=== PATIENT | female | born 1960 | race Two or more races ===

== ENCOUNTER 2023-08-08 18:45 | Inpatient (IN) | payer BC, MEDICAID, OTHER ==
[~2023-08-08] VITALS: Ht 170.2 cm; Wt 79.6 kg
[2023-08-08 19:14] LABS: Basophils # (auto) 0.1 10 ^3/uL (0-0.2); Basophils % (auto) 1.2 % (0.0-2.0); Eosinophils # (auto) 0.3 10 ^3/uL (0-0.8); Eosinophils % (auto) 6.1 % (0.0-7.0); Hematocrit 37.6 % (36.0-46.0); Hemoglobin 12.7 g/dL (12.2-16.2); Lymphocytes # (auto) 2.1 10 ^3/uL (0.4-5.4); Mean Corpuscular Hemoglobin 30.6 pg (28.0-32.0); Mean Corpuscular Hgb Conc. 33.6 g/dL (32.0-36.0); Mean Corpuscular Volume 90.9 fL (80.0-100.0); Monocytes # (auto) 0.5 10 ^3/uL (0-1.3); Neutrophils # (auto) 2.4 10 ^3/uL (1.6-8.6); Neutrophils % (auto) 44.7 % (37.0-80.0); Nucleated Red Blood Cells % 0.1 %; Red Blood Cells 4.14 10^6/uL (4.0-5.20); Red Cell Distribution Width 13.9 % (11.8-14.3); White Blood Cell 5.3 10^3/uL (4.4-10.8)
[2023-08-08 19:29] LABS: Chloride 90 mmol/L (98-107); Potassium 3.9 mmol/L (3.5-5.1); Sodium 121 mmol/L (136-145)
[2023-08-08 19:30] LABS: Anion Gap 9 (5-15); Calcium 9.6 mg/dL (8.7-10.4); Carbon Dioxide 22 mmol/L (20-30)
[2023-08-08 19:35] LABS: Glucose 87 mg/dL (74-106)
[2023-08-08 19:37] LABS: BUN/Creatinine Ratio 11.1 (10.0-20.0); Blood Urea Nitrogen < 5 mg/dL (9-23)
[2023-08-08 23:40] VITALS: PULSE 98; RESP 13; O2SAT 95
[2023-08-08] MEDS: ONDANSETRON HCL 4 MG/2 ML VIAL IV ONE (23:43)
[2023-08-08] MEDS: HYDROmorphone HCL 2 MG/ML VL/or syr IV ONE (23:44)
[2023-08-09 01:00] LABS: Urine Bacteria None Seen /hpf (None Seen)
[2023-08-09 01:16] LABS: Urine Blood Negative /uL (Negative); Urine Clarity Clear (Clear); Urine Protein, UAD Negative (Negative); Urine Specific Gravity 1.002 (1.001-1.035); Urine Urobilinogen Normal (Negative); Urine WBC <1 /hpf (0 - 5); Urine pH 5.5 (5.0-9.0)
[2023-08-09 01:25] LABS: Urine Color Straw (Yellow)
[2023-08-09] MEDS: HYDROmorphone HCL 2 MG/ML VL/or syr IV ONE (02:26)
[2023-08-09] MEDS ORDERED: hydrALAZINE HCL 20 MG/ML VL IV PRN (02:30)
[2023-08-09] MEDS ORDERED: ONDANSETRON HCL 4 MG/2 ML VIAL IV PRN (02:30)
[2023-08-09] MEDS ORDERED: MORPHINE SULFATE INJ 2 MG/ml SYRG IV PRN ×2 (02:30→05:00)
[2023-08-09] MEDS ORDERED: ACETAMINOPHEN 325 MG TAB PO PRN (02:30)
[2023-08-09] MEDS ORDERED: DOCUSATE SOD 100 MG CAP PO PRN (02:30)
[2023-08-09] MEDS: D5W/SOD CHLO 0.9% 1,000 ML IV SCH (03:07)
[2023-08-09] MEDS ORDERED: NITROGLYCERIN 0.4 MG SL TAB SL PRN (05:00)
[2023-08-09] MEDS: HYDROcodone-ACET 5/325MG TAB PO PRN (05:36)
[2023-08-09 06:31] LABS: Basophils # (auto) 0.1 10 ^3/uL (0-0.2); Basophils % (auto) 1.1 % (0.0-2.0); Eosinophils # (auto) 0.3 10 ^3/uL (0-0.8); Eosinophils % (auto) 5.8 % (0.0-7.0); Hematocrit 35.7 % (36.0-46.0); Hemoglobin 12.3 g/dL (12.2-16.2); Lymphocytes % (auto) 21.6 % (10.0-50.0); Mean Corpuscular Hemoglobin 31.3 pg (28.0-32.0); Mean Corpuscular Hgb Conc. 34.4 g/dL (32.0-36.0); Mean Corpuscular Volume 90.9 fL (80.0-100.0); Monocytes # (auto) 0.5 10 ^3/uL (0-1.3); Monocytes % (auto) 11.7 % (0.0-12.0); Neutrophils # (auto) 2.8 10 ^3/uL (1.6-8.6); Neutrophils % (auto) 59.8 % (37.0-80.0); Red Blood Cells 3.92 10^6/uL (4.0-5.20); Red Cell Distribution Width 13.9 % (11.8-14.3); White Blood Cell 4.6 10^3/uL (4.4-10.8)
[2023-08-09 06:50] LABS: Albumin 4.3 g/dL (3.2-4.8); Alkaline Phosphatase 64 U/L (46-116); Anion Gap 6 (5-15); Aspartate Aminotransferase 14 U/L (13-40); Calcium 10.1 mg/dL (8.7-10.4); Carbon Dioxide 26 mmol/L (20-30); Chloride 94 mmol/L (98-107); Glucose 88 mg/dL (74-106); INR 1.01 (0.9-1.15); Partial Thromboplastin Time 30.3 SEC (24.5-34.5); Potassium 4.1 mmol/L (3.5-5.1); Prothrombin Time 10.7 sec (9.3-11.8)
[2023-08-09 06:51] LABS: Alanine Aminotransferase < 9 U/L (7-40); Bilirubin, Total 0.3 mg/dL (0.2-1.0); Blood Urea Nitrogen < 5 mg/dL (9-23); Sodium 126 mmol/L (136-145); Total Protein 6.9 g/dL (5.7-8.2)
[2023-08-09] MEDS: ENOXAPARIN SOD 40 MG/0.4 ML SYRINGE SC SCH (10:12)
[2023-08-09 13:00] VITALS: BP 159/82; PULSE 91; RESP 18; TEMP 98.1; O2SAT 98
[2023-08-09] MEDS ORDERED: TRAZ-227 PO (13:24)
[2023-08-09] MEDS ORDERED: CYCL-839 PO (13:24)
[2023-08-09] MEDS ORDERED: DULO20CA PO (13:24)
[2023-08-09] MEDS ORDERED: LOSA-533 PO (13:24)
[2023-08-09] MEDS ORDERED: MELA3TAB27 PO (13:24)
[2023-08-09] MEDS ORDERED: MONT-8 PO (15:02)
[2023-08-09] MEDS ORDERED: CYCL-611 PO (15:02)
[2023-08-09] MEDS ORDERED: LOSA-534 PO (15:02)
[2023-08-09] MEDS ORDERED: DULO1CAP4 PO (15:02)
[2023-08-09] MEDS ORDERED: ATEN25TA PO (15:02)
[2023-08-09] MEDS ORDERED: CYCLOBENZAPRINE HCL 10 MG TAB PO PRN (15:15)
[2023-08-09 16:32] LABS: Erythrocyte Sedimentation Rate 8 mm/hr (0-20)
[2023-08-09 17:00] VITALS: BP 144/84; PULSE 107; RESP 18; TEMP 98.6; O2SAT 98
[2023-08-09] MEDS: HYDROcodone-ACET 10/325MG TAB PO PRN (17:29)
[2023-08-09 20:00] VITALS: BP 148/72; PULSE 93; PULSE 95; RESP 16; TEMP 98.4
[2023-08-09 21:00] VITALS: BP 148/72; PULSE 94; RESP 16; TEMP 98.4; O2SAT 97
[2023-08-10] VITALS (9 sets, daily range): BP systolic 124–145; BP diastolic 65–88; PULSE 80–98; RESP 18–94; TEMP 98–98.6; O2SAT 94–99
[2023-08-10 07:30] LABS: Basophils # (auto) 0 10 ^3/uL (0-0.2); Basophils % (auto) 0.9 % (0.0-2.0); Eosinophils # (auto) 0.3 10 ^3/uL (0-0.8); Eosinophils % (auto) 7.1 % (0.0-7.0); Hematocrit 36.6 % (36.0-46.0); Hemoglobin 12.3 g/dL (12.2-16.2); Lymphocytes % (auto) 25.1 % (10.0-50.0); Mean Corpuscular Hemoglobin 30.4 pg (28.0-32.0); Mean Corpuscular Hgb Conc. 33.6 g/dL (32.0-36.0); Mean Corpuscular Volume 90.7 fL (80.0-100.0); Monocytes # (auto) 0.6 10 ^3/uL (0-1.3); Monocytes % (auto) 14.8 % (0.0-12.0); Neutrophils % (auto) 52.1 % (37.0-80.0); Nucleated Red Blood Cells % 0.1 %; Red Blood Cells 4.04 10^6/uL (4.0-5.20); Red Cell Distribution Width 14.3 % (11.8-14.3); White Blood Cell 3.8 10^3/uL (4.4-10.8)
[2023-08-10 07:46] LABS: Albumin 4.1 g/dL (3.2-4.8); Alkaline Phosphatase 67 U/L (46-116); Anion Gap 7 (5-15); Aspartate Aminotransferase 11 U/L (13-40); BUN/Creatinine Ratio 12.5 (10.0-20.0); Bilirubin, Total 0.4 mg/dL (0.2-1.0); Blood Urea Nitrogen 8 mg/dL (9-23); Calcium 10.3 mg/dL (8.7-10.4); Carbon Dioxide 26 mmol/L (20-30); Chloride 94 mmol/L (98-107); Glucose 124 mg/dL (74-106); Sodium 127 mmol/L (136-145); Total Protein 6.8 g/dL (5.7-8.2)
[2023-08-10 07:47] LABS: Alanine Aminotransferase < 9 U/L (7-40)
[2023-08-10] MEDS: ATENOLOL 25 MG TAB PO SCH (09:27)
[2023-08-10] MEDS: LOSARTAN POTASSIUM 25 MG TAB PO SCH (09:27)
[2023-08-10] MEDS: DULoxetine HCL 30 MG CAP PO SCH (21:16)
[2023-08-10] MEDS: ALPRAZolam 0.25 MG TAB PO PRN (21:17)
[2023-08-11] VITALS (7 sets, daily range): BP systolic 124–156; BP diastolic 45–99; PULSE 56–86; RESP 16–20; TEMP 97.5–98.7; O2SAT 93–96
[2023-08-11] MEDS: diphenhdrAMINE HCL 50 MG/1 ML VL IV ONE (11:04)
[2023-08-12 08:00] VITALS: PULSE 72; RESP 17; O2SAT 95
[2023-08-12 09:00] VITALS: BP 137/80; PULSE 72; RESP 17; TEMP 97.9; O2SAT 95
[2023-08-12 13:00] VITALS: BP 129/83; PULSE 77; RESP 17; TEMP 98; O2SAT 93
[2023-08-12] MEDS ORDERED: CYCL-837 PO (15:36)
[2023-08-12 16:54] VITALS: BP 137/80; PULSE 72; RESP 17; TEMP 97.9; O2SAT 95
== END 2023-08-12 20:25 | disposition home or self-care (01) | DRG 536 ==
LOC: EDBD 18:45 → ER 18:45 → EEVIPCON 18:45 → TELE 08-09 04:47 → TELE-WESTW 08-09 10:02 → WEST WING 08-09 15:09
PROVIDERS: ADMIT Nurse Practitioner Acute Care; ATTEND Nurse Practitioner Acute Care
DX: S72.112A Displaced fracture of greater trochanter of left femur, initial encounter for closed fracture (principal); E87.1 Hypo-osmolality and hyponatremia; I10 Essential (primary) hypertension; F32.A Depression, unspecified; J44.9 Chronic obstructive pulmonary disease, unspecified; Z96.641 Presence of right artificial hip joint; Z96.653 Presence of artificial knee joint, bilateral; F17.210 Nicotine dependence, cigarettes, uncomplicated; X58.XXXA Exposure to other specified factors, initial encounter; Y93.01 Activity, walking, marching and hiking; Z74.01 Bed confinement status; Z88.8 Allergy status to other drugs, medicaments and biological substances; Z85.3 Personal history of malignant neoplasm of breast; Z90.710 Acquired absence of both cervix and uterus; Z90.49 Acquired absence of other specified parts of digestive tract; Z88.6 Allergy status to analgesic agent; Z83.3 Family history of diabetes mellitus; Z82.49 Family history of ischemic heart disease and other diseases of the circulatory system; Y92.89 Other specified places as the place of occurrence of the external cause; Y99.8 Other external cause status; Z80.1 Family history of malignant neoplasm of trachea, bronchus and lung
CPT/HCPCS: 36415; 73700; 80048; 80053; 81001; 85025; 85610; 85652; 85730; 86141; 93971; 96374; 96375; 97110; 97116; 97163; 97530; G0378; J2405

== ENCOUNTER 2024-05-01 10:07 | Inpatient (IN) | payer BC, MEDICAID ==
[2024-05-01] VITALS (27 sets, daily range): BP systolic 83–142; BP diastolic 45–81; PULSE 118–158; RESP 18–45; TEMP 98.4–100.4; O2SAT 87–100
[~2024-05-01] VITALS: Ht 170.2 cm; Wt 95.2 kg
[~2024-05-01 10:07] MED LIST: ATEN25TA PO; CYCL-611 PO; CYCL-837 PO; CYCL-839 PO; DULO1CAP4 PO; DULO20CA PO; LOSA-533 PO; LOSA-534 PO; MELA3TAB27 PO; MONT-8 PO; TRAZ-227 PO
--- NOTE | 2024-05-01 11:36 | DVH ---
CHEST RADIOGRAPH Indication: sob Technique: Single frontal view of the chest was obtained Comparison: None FINDINGS: Lines and Tubes: None Lungs: Left upper lung zone opacity. Pleura: No effusion. No pneumothorax. Cardiomediastinal contours: Unremarkable Bones: No acute osseous abnormality. IMPRESSION: 1. Left upper lung zone opacity suspicious for pneumonia in the appropriate clinical setting.
--- NOTE | 2024-05-01 11:40 | ED.PDOC ---
Altered Mental Status HPI Comments 63Y F with PMHx COPD, HTN, CA, appendectomy, and hysterectomy presents to ED via EMS for chief complaint SOB x3days. No chest pain. Per EMS, pt has been bed bound for 10 months and is unable to answer questions. Pt presents to ED with multiple bed bug bites on body. SpO2 78% on RA. 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 DEVELOPER 08/12/23 Reported Medications Losartan Potassium (Losartan Potassium) 50 Mg Tab, 1 TAB PO DAILY 08/09/23 Atenolol (Atenolol) 25 Mg Tab, 1 TAB PO DAILY 08/09/23 Cyclobenzaprine HCl (Cyclobenzaprine Hydrochlo) 10 Mg Tab, 1 TAB PO BIDPRN PRN 08/09/23 Montelukast Sodium (MONTELUKAST SODIUM) 10 Mg Tab, 1 TAB PO DAILY 08/09/23 Duloxetine HCl (Duloxetine HCl) 20 Mg Cap, 1 CAP PO BID 08/09/23 Melatonin (KP MELATONIN) 3 Mg Tab, 10 MG PO for sleep, TAB 08/09/23 Trazodone Hcl (Trazodone Hcl) 50 Mg Tab, 50 MG PO for sleep, TAB 08/09/23 Losartan Potassium (Losartan Potassium) 25 Mg Tab, 25 MG PO DAILY for 30 Days, MG 08/09/23 Cyclobenzaprine Hcl (Cyclobenzaprine Hcl) 10 Mg Tab, 10 MG PO Q8HP PRN for htn for 30 Days, MG 08/09/23 Duloxetine Hcl (Cymbalta) 20 Mg Cap, 20 MG PO BID, CAP 08/09/23 Information Source: Patient, Emergency Med Personnel Mode of Arrival: EMS Brought in by: EMS Severity: Moderate, Unable to Care for Self Timing: Days Duration: Since onset Prehospital treatment: 12 Lead EKG, Accucheck, IVF, Oxygen Quality: Change in Behavior, Confusion Recent: None History of: None Associated Signs and Symptoms: Other Past Medical History PAST MEDICAL HISTORY: Cancer, COPD, HTN Surgical History: Appendectomy, Hysterectomy SLEEP MANAGER History: No Pertinent SLEEP MANAGER History Family History Family History: Family hx of DM, Family hx of Cancer, Family hx of heart chichi Social History Smoker: Cigarettes Alcohol: Occasionally Drugs: Marijuana Lives In: Unobtainable Constitutional: denies: chills, diaphoresis, fatigue, fever, malaise, sweats, weakness, others EENTM: denies: blurred vision, double vision, ear bleeding, ear discharge, ear drainage, ear pain, ear ringing, eye pain, eye redness, hearing loss, mouth pain, mouth swelling, nasal discharge, nose bleeding, nose congestion, nose pain, photophobia, tearing, throat pain, throat swelling, voice changes, others Respiratory: reports: shortness of breath; denies: cough, hemoptysis, orthopnea, SOB at rest, SOB with excertion, stridor, wheezing, others Cardiovascular: denies: chest pain, dizzy spells, diaphoresis, Dyspnea on exertion, edema, irregular heart beat, left arm pain, lightheadedness, palpitations, PND, syncope, others Gastrointestinal: denies: abdomen distended, abdominal pain, blood streaked bowels, constipated, diarrhea, dysphagia, difficulty swallowing, hematemesis, melena, nausea, poor appetite, poor fluid intake, rectal bleeding, rectal pain, vomiting, others Genitourinary: denies: abnormal vagina bleeding, burning, dyspareunia, dysuria, flank pain, frequency, hematuria, incontinence, pain, , vagina discharge, urgency, others Neurological: denies: dizziness, fainting, headache, left sided numbness, left sided weakness, numbness, paresthesia, pre-existing deficit, right sided numbness, right sided weakness, seizure, speech problems, tingling, tremors, weakness, others Musculoskeletal: reports: others (LLE pain); denies: back pain, gout, joint pain, joint swelling, muscle pain, muscle stiffness, neck pain Integumetry: denies: bruises, change in color, change in hair/nails, dryness, laceration, lesions, lumps, rash, wounds, others Allergic/Immunocompromised: denies: Difficulty Healing, Frequent Infections, Hives, Itching, others Hematologic/Lymphatic: denies: anemia, blood clots, easy bleeding, easy bruising, swollen glands, others Endocrine: denies: excessive hunger, excessive sweating, excessive thirst, excessive urination, flushing, intolerance to cold, intolerance to heat, unexplained weight gain, unexplained weight loss, others Psychiatric: denies: anxiety, bipolar disorder, depression, hopeless, panic disorder, schizophrenia, sleepless, suicidal, others Unable to Obtain due to: Altered Mental Status All Other Systems: Reviewed and Negative Physical Exam General Appearance: Moderate Distress HEENT: Normal ENT Inspection, Pharynx Normal, TMs Normal Neck: Full Range of Motion, Non-Tender, Normal, Normal Inspection Respiratory: Chest Non-Tender, Lungs Clear, Other (Scattered crackles, wet breath sounds, moderate respiratory distress and tachypneic to the high 30s) Cardiovascular: No JVD, No Murmur, No Gallop, Normal Peripheral Pulses, Regular Rate/Rhythm, Other (1+bilateral lower extremity edema) Breast Exam: Deferred Gastrointestinal: No Organomegaly, Non Tender, No Pulsatile Mass, Normal Bowel Sounds, Soft Genitalia: Deferred Pelvic: Deferred Rectal: Deferred Extremities: No calf tenderness, Normal capillary refill, Normal inspection, Normal range of motion, Non-tender, No pedal edema Musculoskeletal : Apperance: Normal Neurologic: Alert, plant health care technician II-XII nml as Tested, No Motor Deficits, Normal Affect, Normal Mood, No Sensory Deficits Cerebellar Function: Normal Reflexes: Normal Skin: Dry, Normal Color, Warm Lymphatic: No Adenopathy Was a procedure done? Was a procedure done?: No Differential Diagnosis (ALOC) Differential Diagnosis: Dehydration, Heart Failure X-Ray, Labs, Meds, VS Vital Signs Date Time Temp Pulse Resp B/P (MAP) Pulse Ox O2 Delivery O2 Flow Rate FiO2 05/01/24 12:42 80/37 05/01/24 12:40 80/37 05/01/24 12:12 98.7 158 45 109/69 92 100 98.7 05/01/24 11:48 109/69 05/01/24 11:48 109/05/01/24 11:35 158 05/01/24 11:32 132 Facial BiPAP Mask 100 05/01/24 11:03 157 45 87 Non-Rebreather 15 N/A 05/01/24 10:47 98.7 157 45 120/61 (80) 86 98.7 05/01/24 10:18 97.3 156 20 105/53 (70) 100 Lab Test 05/01/24 11:52 05/01/24 11:04 Range/Units White Blood Count 11.6 H 4.4-10.8 10^3/uL Red Blood Count 3.42 L 4.0-5.20 10^6/uL Hemoglobin 11.0 L 12.2-16.2 g/dL Hematocrit 32.8 L 36.0-46.0 % Mean Corpuscular Volume 96.2 80.0-100.0 fL Mean Corpuscular Hemoglobin 32.1 H 28.0-32.0 pg Mean Corpuscular Hemoglobin Concent 33.4 32.0-36.0 g/dL Red Cell Distribution Width 14.2 11.8-14.3 % Platelet Count 108 L 140-450 10^3/uL Mean Platelet Volume 7.8 6.9-10.8 fL Neutrophils (%) (Auto) 37.0-80.0 % Lymphocytes (%) (Auto) 10.0-50.0 % Monocytes (%) (Auto) 0.0-12.0 % Basophils (%) (Auto) 0.0-2.0 % Neutrophils # (Auto) 1.6-8.6 10 ^3/uL Lymphocytes # (Auto) 0.4-5.4 10 ^3/uL Monocytes # (Auto) 0-1.3 10 ^3/uL Differential Total Cells Counted 100.0 100 Neutrophils % (Manual) 75 37.0-80.0 Band Neutrophils % (Manual) 18 Lymphocytes % (Manual) 3 L 10.0-50.0 Monocytes % (Manual) 3 0-12 Eosinophils % (Manual) 0 0-7 Basophils % (Manual) 0 0.0-2.0 Metamyelocytes % (manual) 0 Myelocytes % (Manual) 1 Promyelocytes % (Manual) 0 Blast Cells % (Manual) 0 Nucleated Red Blood Cells 1.0 % Reactive Lymphocytes 0 Platelet Estimate Decreased Sodium Level 137 136-145 mmol/L Potassium Level 4.2 3.5-5.1 mmol/L Chloride Level 104 98-107 mmol/L Carbon Dioxide Level 20 20-31 mmol/L Anion Gap 13 5-15 Blood Urea Nitrogen 52 H 9-23 mg/dL Creatinine 1.14 H 0.550-1.02 mg/dL Glomerular Filtration Rate Calc 54 >90 mL/min BUN/Creatinine Ratio 45.6 H 10.0-20.0 Serum Glucose 105 74-106 mg/dL Lactic Acid Level 3.4 *H 0.4-2.0 mmol/L Calcium Level 9.9 8.7-10.4 mg/dL Total Bilirubin 0.9 0.2-1.0 mg/dL Direct Bilirubin 0.6 H <0.3 mg/dL Aspartate Amino Transferase (AST) 108 H 13-40 U/L Alanine Aminotransferase (ALT) 30 7-40 U/L Alkaline Phosphatase 49 46-116 U/L Troponin I High Sensitivity 11 </=34 ng/L B-Type Natriuretic Peptide 175.05 0-100 pg/mL Total Protein 5.9 5.7-8.2 g/dL Albumin 3.5 3.2-4.8 g/dL Lipase 21 12-53 U/L Urine Color Yellow Yellow Urine Clarity Turbid H Clear Urine pH 5.5 5.0-9.0 Urine Specific [place] 1.016 1.001-1.035 Urine Protein 1+ H Negative Urine Ketones 1+ H Negative Urine Blood 1+ H Negative /uL Urine Nitrite 2+ H Negative Urine Bilirubin Negative Negative Urine Urobilinogen Normal Negative mg/dL Urine Leukocyte Esterase Negative Negative /uL Urine RBC <1 0 - 4 /hpf Urine WBC 3 0 - 5 /hpf Urine Squamous Epithelial Cells Few <5 /hpf Urine Bacteria Many H None Seen /hpf Urine Hyaline Casts Few 0 - 2 /lpf Urine Yeast (Budding) Occasional None Seen /hpf Urine Glucose Normal Normal mg/dL Current Medications Medications (Trade) Dose Ordered Sig/Joann Route Start Time Stop Time Status Last Admin Furosemide (Lasix Injection) 40 mg ONCE ONCE IV 05/01/24 11:30 05/01/24 11:31 DC 05/01/24 11:48 Nitroglycerin (Ntrostat Sublingual) 0.4 mg ONCE ONCE SL 05/01/24 11:45 05/01/24 11:46 DC 05/01/24 11:48 Norepinephrine Bitartrate 250 ml @ 3.75 mls/hr Q24H IV 05/01/24 12:15 05/01/24 12:40 Piperacillin Sod/ Tazobactam Sod 100 ml @ 100 mls/hr ONCE ONCE IV 05/01/24 12:30 05/01/24 13:29 DC 05/01/24 12:42 Sodium Chloride 1,000 ml @ 1,000 mls/hr Q1H ONCE IV 05/01/24 12:30 05/01/24 13:29 DC 05/01/24 12:42 [place] [id number] Ph: [phone] DIAGNOSTIC IMAGING Diagnostic Imaging Report : [id number] Signed PATIENT: TSERING CHO ACCT: [id number] UNIT: [id number] : 1960 LOC: ER ROOM / BED: / AGE / SEX: 63 / F ADM STATUS: REG ER SERVICE 03 ORDERING PHYSICIAN: SANDHYA CAMARILLO MD PROCEDURE(s): CXR1 - CHEST XRAY 1 VIEW REASON: sob ORDER NUMBER(s): [id number], ACCESSION NUMBER(s): [id number] CHEST RADIOGRAPH Indication: sob Technique: Single frontal view of the chest was obtained Comparison: None FINDINGS: Lines and Tubes: None Lungs: Left upper lung zone opacity. Pleura: No effusion. No pneumothorax. Cardiomediastinal contours: Unremarkable Bones: No acute osseous abnormality. IMPRESSION: 1. Left upper lung zone opacity suspicious for pneumonia in the appropriate clinical setting. ATED BY: REGINE MORALES MD DICTATED DATE/TIME: 05/01/24 113 SIGNED BY: REGINE MORALES MD SIGNED DATE/TIME: 05/01/24 1133 CC: X-Ray, Labs, Meds, VS Comment 63-year-old female here today for shortness of breath found to be in significant respiratory distress and hypoxic on room air to the high 70s. Patient is also noted to be tachycardic to the 150s with diffuse crackles throughout so I placed an order for nitroglycerin sublingual and order for BiPAP to treat for pulmonary edema. Patient did report that she felt better however she intermittently dipped with oxygen saturation in the mid to low 80s despite BiPAP and appeared to be getting slightly less responsive so the decision was made to intubate the patient. Her blood pressure was on the softer and with intermittent hypotensive readings with systolics in the 80s you had improved until low in 100s with some fluids however would dip again. I do not want to give the patient too many fluids given her pulmonary edema so I started the patient on pressors for fairly and intubation was completed without any major complications. After the patient was sedated, I placed a central line in the right IJ without any complications. Patient was also started on broad-spectrum antibiotics after cultures were drawn and we will be admitted to the ICU for possible pulmonary edema/pneumonia seen on chest x-ray. Of note, patient also presented with bedbugs so she is on contact precautions. Time of 1ST Reevaluation: 11:20 Reevaluation 1ST: Unchanged Time of 2ND Reevaluation: 16:14 Reevaluation 2ND: Improved Patient Education/Counseling: Diagnosis, Treatment Family Education/Counseling: No Family Present Departure 1 Departure Time of Disposition: 16:15 Impression: Primary Impression: Acute hypoxic respiratory failure Additional Impression: Pulmonary edema Disposition: ADMITTED INPATIENT Admit to: ICU Condition: Guarded Critical Care Note Critical Care Time?: Yes (35 min-critical care time only) Stability Stability form required: No Heart Score Heart Score: Heart Score Response (Comments) Value History N/A 0 EKG N/A 0 Age N/A 0 Risk Factors N/A 0 Troponin N/A 0 Total 0 I personally scribed for SANDHYA CAMARILLO MD ([email or web address]) on 05/01/24 at 11:40. Electronically submitted by Deborah Last ([employer]). I personally scribed for SANDYHA CAMARILLO MD ([email or web address]) on 05/01/24 at 11:42. Electronically submitted by Deborah Last ([employer]). SANDHYA CAMARILLO MD May 01, 2024 11:40
[2024-05-01] MEDS: NITROGLYCERIN 0.4 MG SL TAB SL ONE (11:48)
[2024-05-01] MEDS: FUROSEMIDE 40 MG/4 ML VIAL IV ONE (11:48)
[2024-05-01 12:19] LABS: Hematocrit 32.8 % (36.0-46.0); Mean Corpuscular Hemoglobin 32.1 pg (28.0-32.0); Mean Corpuscular Hgb Conc. 33.4 g/dL (32.0-36.0); Mean Corpuscular Volume 96.2 fL (80.0-100.0); Platelet Count (auto) 108 10^3/uL (140-450); Red Blood Cells 3.42 10^6/uL (4.0-5.20); Red Cell Distribution Width 14.2 % (11.8-14.3); White Blood Cell 11.6 10^3/uL (4.4-10.8)
[2024-05-01 12:28] LABS: Alanine Aminotransferase 30 U/L (7-40); Albumin 3.5 g/dL (3.2-4.8); Alkaline Phosphatase 49 U/L (46-116); Anion Gap 13 (5-15); BUN/Creatinine Ratio 45.6 (10.0-20.0); Bilirubin, Total 0.9 mg/dL (0.2-1.0); Calcium 9.9 mg/dL (8.7-10.4); Carbon Dioxide 20 mmol/L (20-31); Chloride 104 mmol/L (98-107); Glucose 105 mg/dL (74-106); Potassium 4.2 mmol/L (3.5-5.1); Sodium 137 mmol/L (136-145); Total Protein 5.9 g/dL (5.7-8.2)
[2024-05-01] MEDS ORDERED: VANCOMYCIN PER PHARMACY 0 MG IV SCH ×2 (12:30→15:00)
[2024-05-01 12:35] LABS: Urine Bacteria MANY /hpf (None Seen); Urine Blood 1+ /uL (Negative); Urine Budding Yeast OCCASIONAL /hpf (None Seen); Urine Clarity Turbid (Clear); Urine Color Yellow (Yellow); Urine Hyaline Cast FEW /lpf (0 - 2); Urine Protein, UAD 1+ (Negative); Urine Specific Gravity 1.016 (1.001-1.035); Urine Squamous Epithelial Cell FEW /hpf (<5); Urine Urobilinogen Normal (Negative); Urine WBC 3 /hpf (0 - 5); Urine pH 5.5 (5.0-9.0)
[2024-05-01 12:36] LABS: Aspartate Aminotransferase 108 U/L (13-40); Bilirubin, Direct 0.6 mg/dL (<0.3); Blood Urea Nitrogen 52 mg/dL (9-23)
[2024-05-01 12:40] LABS: Basophils % (manual) 0 (0.0-2.0); Blast Cells 0; Eosinophils % (manual) 0 (0-7); Metamyelocytes % 0; Promyelocytes % 0; Reactive Lymphocytes 0
[2024-05-01] MEDS: NOREPINEPHRINE 8 MG/250ML KIT 250 ML IV SCH (12:40)
[2024-05-01] MEDS: SODIUM CHLORIDE 0.9% 1,000 ML IV ONE ×2 (12:42→13:30)
[2024-05-01] MEDS: NOREPINEPHRINE 8 MG/250ML KIT 250 ML IV ONE (12:42)
[2024-05-01] MEDS: PIPERACILLIN-TAZOB 3.375GM 100 ML IV ONE (12:42)
[2024-05-01 12:44] LABS: Lactic Acid w/Reflex 3.4 mmol/L (0.4-2.0)
[2024-05-01] MEDS: PROPOFOL 100 ML IV ONE (14:05)
[2024-05-01] MEDS: fentaNYL Drip 2500mCg/250mlNS 250 ML IV ONE (14:05)
[2024-05-01] MEDS: ETOMIDATE (2MG/ML) 20ML VIAL IV ONE (14:14)
[2024-05-01] MEDS: SUCCINYLCHOLINE CHLORIDE 20 MG/ML 10ML VIAL IV ONE (14:14)
[2024-05-01 14:21] LABS: Band Neutrophils % (manual) 18; Lymphocytes % (manual) 3 (10.0-50.0); Monocytes % (manual) 3 (0-12); Myelocytes % 1; Platelet Estimate Decreased
[2024-05-01] MEDS: fentaNYL Drip 2500mCg/250mlNS 250 ML IV SCH (14:30)
[2024-05-01] MEDS: PROPOFOL 100 ML IV SCH (14:30)
[2024-05-01] MEDS ORDERED: ONDANSETRON HCL 4 MG/2 ML VIAL IV PRN (14:45)
[2024-05-01] MEDS: SODIUM CHLORIDE 0.9% 1,000 ML IV SCH (14:45)
--- NOTE | 2024-05-01 15:02 | DVHHP2 ---
History of Present Illness Reason for Visit: SOB and LLE pain History of Present Illness Hilda Martinez 63-year-old female with past medical history of hypertension, COPD, breast cancer, left hip fracture, hysterectomy, and appendectomy who presents with shortness of breath, left lower extremity pain, altered level of consciousness, and hallucinations x3 days. Patient had knee surgery 10 months ago and has been bedridden since that. Patient intubated in ED unable to obtain history. Cardiovascular: HTN Pulmonary: COPD Past Medical History Breast cancer Past Surgical History: Appendectomy, Hysterectomy, Other Past Surgical History Left hip surgery Family History: Cancer, DM, Other (Family history with diabetes, cancer, and heart disease) Smoke: <1 pack per day ALCOHOL: occassional Drugs: Marijuana Review of Systems Respiratory: Shortness of breath Allergies: Coded Allergies: Ibuprofen (Verified Allergy, Unknown, 08/08/23) Naproxen (Verified Allergy, Unknown, 08/08/23) Medications Current Medications Medications Dose Ordered Sig/Joann Route Start Time Stop Time Status Last Admin Dose Admin Norepinephrine Bitartrate 250 ml @ 3.75 mls/hr Q24H IV 05/01/24 12:15 05/01/24 12:40 3.75 MLS/HR Vancomycin HCl 0 ml @ 0 mls/hr UD IV 05/01/24 12:30 UNV Vancomycin HCl 250 ml @ 250 mls/hr Q1H IV 05/01/24 13:30 05/01/24 15:29 Sodium Chloride 1,000 ml @ 100 mls/hr Q10H IV 05/01/24 14:45 Ondansetron HCl 4 mg Q4HP PRN IV 05/01/24 14:45 Enoxaparin Sodium 40 mg DAILY SC 05/02/24 10:00 UNV Exam Vital Signs Vital Signs Date Time Temp Pulse Resp B/P (MAP) Pulse Ox O2 Delivery O2 Flow Rate FiO2 05/01/24 12:42 80/37 05/01/24 12:12 98.7 158 45 92 100 98.7 05/01/24 11:32 Facial BiPAP Mask 05/01/24 11:03 15 General Appearance: severe distress HEENT: Atraumatic Abdominal: Soft Labs/Xrays Labs Test 05/01/24 11:52 05/01/24 11:04 Range/Units White Blood Count 11.6 H 4.4-10.8 10^3/uL Red Blood Count 3.42 L 4.0-5.20 10^6/uL Hemoglobin 11.0 L 12.2-16.2 g/dL Hematocrit 32.8 L 36.0-46.0 % Mean Corpuscular Volume 96.2 80.0-100.0 fL Mean Corpuscular Hemoglobin 32.1 H 28.0-32.0 pg Mean Corpuscular Hemoglobin Concent 33.4 32.0-36.0 g/dL Red Cell Distribution Width 14.2 11.8-14.3 % Platelet Count 108 L 140-450 10^3/uL Mean Platelet Volume 7.8 6.9-10.8 fL Neutrophils (%) (Auto) 37.0-80.0 % Lymphocytes (%) (Auto) 10.0-50.0 % Monocytes (%) (Auto) 0.0-12.0 % Basophils (%) (Auto) 0.0-2.0 % Neutrophils # (Auto) 1.6-8.6 10 ^3/uL Lymphocytes # (Auto) 0.4-5.4 10 ^3/uL Monocytes # (Auto) 0-1.3 10 ^3/uL Differential Total Cells Counted 100.0 100 Neutrophils % (Manual) 75 37.0-80.0 Band Neutrophils % (Manual) 18 Lymphocytes % (Manual) 3 L 10.0-50.0 Monocytes % (Manual) 3 0-12 Eosinophils % (Manual) 0 0-7 Basophils % (Manual) 0 0.0-2.0 Metamyelocytes % (manual) 0 Myelocytes % (Manual) 1 Promyelocytes % (Manual) 0 Blast Cells % (Manual) 0 Nucleated Red Blood Cells 1.0 % Reactive Lymphocytes 0 Platelet Estimate Decreased Sodium Level 137 136-145 mmol/L Potassium Level 4.2 3.5-5.1 mmol/L Chloride Level 104 98-107 mmol/L Carbon Dioxide Level 20 20-31 mmol/L Anion Gap 13 5-15 Blood Urea Nitrogen 52 H 9-23 mg/dL Creatinine 1.14 H 0.550-1.02 mg/dL Glomerular Filtration Rate Calc 54 >90 mL/min BUN/Creatinine Ratio 45.6 H 10.0-20.0 Serum Glucose 105 74-106 mg/dL Lactic Acid Level 3.4 *H 0.4-2.0 mmol/L Calcium Level 9.9 8.7-10.4 mg/dL Total Bilirubin 0.9 0.2-1.0 mg/dL Direct Bilirubin 0.6 H <0.3 mg/dL Aspartate Amino Transferase (AST) 108 H 13-40 U/L Alanine Aminotransferase (ALT) 30 7-40 U/L Alkaline Phosphatase 49 46-116 U/L Troponin I High Sensitivity 11 </=34 ng/L B-Type Natriuretic Peptide 175.05 0-100 pg/mL Total Protein 5.9 5.7-8.2 g/dL Albumin 3.5 3.2-4.8 g/dL Lipase 21 12-53 U/L Urine Color Yellow Yellow Urine Clarity Turbid H Clear Urine pH 5.5 5.0-9.0 Urine Specific [place] 1.016 1.001-1.035 Urine Protein 1+ H Negative Urine Ketones 1+ H Negative Urine Blood 1+ H Negative /uL Urine Nitrite 2+ H Negative Urine Bilirubin Negative Negative Urine Urobilinogen Normal Negative mg/dL Urine Leukocyte Esterase Negative Negative /uL Urine RBC <1 0 - 4 /hpf Urine WBC 3 0 - 5 /hpf Urine Squamous Epithelial Cells Few <5 /hpf Urine Bacteria Many H None Seen /hpf Urine Hyaline Casts Few 0 - 2 /lpf Urine Yeast (Budding) Occasional None Seen /hpf Urine Glucose Normal Normal mg/dL CHEST RADIOGRAPH Indication: sob Technique: Single frontal view of the chest was obtained Comparison: None FINDINGS: Lines and Tubes: None Lungs: Left upper lung zone opacity. Pleura: No effusion. No pneumothorax. Cardiomediastinal contours: Unremarkable Bones: No acute osseous abnormality. IMPRESSION: 1. Left upper lung zone opacity suspicious for pneumonia in the appropriate clinical setting. Assessment/Plan Assessment/Plan Assessment/Plan: Acute hypoxic respiratory failure likely secondary to pneumonia Acute on chronic COPD exacerbation Discussed plan of care with patient and nurse Home medications reconciled Admit to med surg Leukocytosis likely secondary to pneumonia Lactic acidosis with probable sepsis EMILIA UTI Hepatic panel BNP Troponin negative UA Flu test Lipase lactic Nobles catheter Wound care Wound consult IV sedation IV antibiotics-vancomycin+ Zosyn NS given in ED 2 L Pressor IV Lasix given in ED Respiratory culture ABG Patient on vent support NPO A.m. labs Labs Lovenox Antiemetics Chest x-ray Blood cultures EKG IV steroids Rounding team to consult Nephrology if creatinine does not improve Chronic Hypertension continue home meds History of breast cancer Follow up outpatient with PCP History of hip fracture and surgery Follow up outpatient with PCP History of hallucinations Follow up outpatient with PCP FEN/PPX NPO Ivf DVT ppx lovenox PUD ppx Protonix Discussed plan of care with nurse Home medications reconciled Admit to ICU Plan discussed with: Other My Orders Orders - JASMIN GUZMAN Procedure Category Date Status Time Admit ADMIT 05/01/24 Transmitted 14:34 Allergies SRIRAM 05/01/24 In Process 14:34 Code Status CODE 05/01/24 Transmitted 14:34 Sodium Chloride 0.9% PHA 05/01/24 In Process 14:45 Ondansetron Hcl PHA 05/01/24 In Process (Zofran) 14:45 Enoxaparin Sodium PHA 05/02/24 Logged (Lovenox) 10:00 Complete Blood Count LAB 05/02/24 Verified 04:00 Comprehensive LAB 05/02/24 Verified Metabolic Panel 04:00 Npo (Nothing By DIET 05/01/24 Transmitted Mouth) Diet Dinner Vancomycin Per PHA 05/01/24 Transmitted Pharmacy 15:00 Zosyn Extended PHA 05/01/24 Transmitted Infusion 22:00 * Wound Consult CONS 05/01/24 Transmitted Date of Service: May 01, 2024 Billing Provider: JASMIN GUZMAN Common Visit Codes: [id number] INP/OBS CARE (HIGH) JASMIN GUZMAN May 01, 2024 15:02
--- NOTE | 2024-05-01 15:11 | DVH ---
CHEST RADIOGRAPH Indication: post intubation and OG placement. Technique: Single frontal view of the chest was obtained COMPARISON: XY CHEST XRAY 1 VIEW on DOS: 05/01/24 FINDINGS: Lines and Tubes: Endotracheal tube 3 sinus above the chronic. right-sided line appears to end in the right atrium but not well appreciated with respect to its distal most aspect. There appears to be an Ng tube which is not appreciated distally. A more penetrated film would be helpful. Left lingular ate lectasis and infiltrate. Probable small left pleural effusion. Pleura: No effusion. No pneumothorax. Cardiomediastinal contours: Unremarkable Bones: Unremarkable IMPRESSION: 1. Nasal gastric tube not appreciated distally. Endotracheal tube well positioned. 2. Stable left lower lobe infiltrate / atelectasis / pleural effusion.
[2024-05-01] MEDS: methylPREDNISolone SOD SUCC 40 MG/ML VL IV ONE (15:15)
[2024-05-01] MEDS: VANCOMYCIN 1GM/250mL NS or D5W KIT IV SCH (16:26)
[2024-05-01] MEDS: VASOPRESSIN 20 UNITS in SODIUM CHL 0.9% 99 ML IV SCH (19:15)
[2024-05-01] MEDS: PHENYLEPHRINE IV 250 ML IV SCH (19:15)
[2024-05-01] MEDS: SODIUM BICARB 8.4% 50Meq/50ml SYR Vial IV ONE (19:56)
[2024-05-01] MEDS: MIDAZOLAM DRIP 50 mg/50mL 50 ML IV SCH (19:57)
[2024-05-01] MEDS: methylPREDNISolone SOD SUCC 40 MG/ML VL IV SCH (21:50)
[2024-05-01] MEDS: PIPERACILLIN-TAZOB 3.375GM 100 ML IV SCH (21:50)
[2024-05-01 22:04] LABS: Lactic Acid w/Reflex 2.9 mmol/L (0.4-2.0)
[2024-05-02] VITALS (112 sets, daily range): BP systolic 66–162; BP diastolic 42–99; PULSE 109–181; RESP 19–22; TEMP 97–98.6; O2SAT 90–99
[2024-05-02] MEDS: AMIODARONE HCL (50 MG/ ML) 3 ML VIAL IV ONE (00:11)
[2024-05-02] MEDS: AMIODARONE BOLUS KIT 100 ML IV ONE ×2 (00:30→00:31)
[2024-05-02] MEDS: AMIODARONE 360mg/200mL PREMIX 200 ML IV ONE (00:46)
[2024-05-02 01:39] LABS: Magnesium 1.6 mg/dL (1.6-2.6); Potassium 3.1 mmol/L (3.5-5.1)
--- NOTE | 2024-05-02 02:48 | DVHINCON2 ---
Date of service: May 02, 2024 Referring Physician Lisandro Coleman MD Reason for Consultation Acute hypoxic respiratory failure requiring mechanical ventilator History of Present Illness A 63-year-old woman with past medical history of COPD, hypertension, and breast cancer who presented to ED on 05/01/24 with shortness of breath, left lower extremity pain, altered level of consciousness, and hallucinations x3 days. Patient had knee surgery 10 months ago and has been bedridden since then. Patient was intubated and placed on mechanical ventilator, admitted for further care. Pulmonary consultation is requested for evaluation and management due to the above findings. Review of Systems: Unable to obtain d/t intubated status Past Medical History: Hypertension, COPD, breast cancer, left hip fracture Past Surgical History: Appendectomy, Hysterectomy, Left hip surgery Medications: Reviewed. Allergies: Ibuprofen and Naproxen Family History: Lung cancer Alcoholism Diabetes mellitus Congestive heart failure Hypertension. Social History: Smoker: <1 pack per day Alcohol: Occasional Drugs: Marijuana. Family History: Alcoholism G8 FATHER, Diabetes mellitus G8 MOTHER, FH: congestive heart failure G8 MOTHER, G8 FATHER, FH: lung cancer G8 MOTHER, G8 FATHER, Hypertension G8 MOTHER, G8 FATHER, Smoking G8 MOTHER, G8 FATHER, Smoking G8 MOTHER, G8 FATHER, Allergies: Coded Allergies: Ibuprofen (Verified Allergy, Unknown, 08/08/23) Naproxen (Verified Allergy, Unknown, 08/08/23) Home Meds Active Scripts Cyclobenzaprine Hcl (Cyclobenzaprine Hcl) 5 Mg Tab, 1 TAB PO BID for 10 Days, #20 TAB Prov:BRISEYDA OROZCO PIANO STRINGER 08/12/23 Reported Medications Losartan Potassium (Losartan Potassium) 50 Mg Tab, 1 TAB PO DAILY 08/09/23 Atenolol (Atenolol) 25 Mg Tab, 1 TAB PO DAILY 08/09/23 Cyclobenzaprine HCl (Cyclobenzaprine Hydrochlo) 10 Mg Tab, 1 TAB PO BIDPRN PRN 08/09/23 Montelukast Sodium (MONTELUKAST SODIUM) 10 Mg Tab, 1 TAB PO DAILY 08/09/23 Duloxetine HCl (Duloxetine HCl) 20 Mg Cap, 1 CAP PO BID 08/09/23 Melatonin (KP MELATONIN) 3 Mg Tab, 10 MG PO for sleep, TAB 08/09/23 Trazodone Hcl (Trazodone Hcl) 50 Mg Tab, 50 MG PO for sleep, TAB 08/09/23 Losartan Potassium (Losartan Potassium) 25 Mg Tab, 25 MG PO DAILY for 30 Days, MG 08/09/23 Cyclobenzaprine Hcl (Cyclobenzaprine Hcl) 10 Mg Tab, 10 MG PO Q8HP PRN for htn for 30 Days, MG 08/09/23 Duloxetine Hcl (Cymbalta) 20 Mg Cap, 20 MG PO BID, CAP 08/09/23 Current Medications Current Medications Medications (Trade) Dose Ordered Sig/Joann Route PRN Reason Start Time Stop Time Status Last Admin Norepinephrine Bitartrate 250 ml @ 3.75 mls/hr Q24H IV 05/01/24 12:15 05/01/24 12:40 Vancomycin HCl 0 ml @ 0 mls/hr UD IV 05/01/24 12:30 05/01/24 16:51 DC Vancomycin HCl 250 ml @ 250 mls/hr Q1H IV 05/01/24 13:30 05/01/24 15:29 DC 05/01/24 16:32 Sodium Chloride 1,000 ml @ 100 mls/hr Q10H IV 05/01/24 14:45 05/01/24 19:48 Ondansetron HCl (Zofran) 4 mg Q4HP PRN IV NAUSEA / VOMITING 05/01/24 14:45 Enoxaparin Sodium (Lovenox) 40 mg DAILY SC 05/02/24 10:00 Vancomycin HCl 0 ml @ 0 mls/hr UD IV 05/01/24 15:00 Piperacillin Sod/ Tazobactam Sod 100 ml @ 25 mls/hr Q8HR IV 05/01/24 22:00 05/01/24 21:50 Methylprednisolone Sodium Succinate (Solu Medrol) 40 mg Q8HR IV 05/01/24 22:00 05/01/24 21:50 Pantoprazole Sodium (Protonix) 40 mg DAILY IV 05/02/24 10:00 Propofol 100 ml @ 3.816 mls/ hr Q24H IV 05/01/24 16:00 05/02/24 02:44 Fentanyl Citrate 250 ml @ 2.5 mls/hr Q24H IV 05/01/24 16:00 05/01/24 14:30 Vancomycin HCl 100 ml @ 100 mls/hr Q12H IV 05/02/24 06:00 Phenylephrine HCl 250 ml @ 30 mls/hr Q8H20M IV 05/01/24 19:15 Vasopressin 20 units/Sodium Chloride 100 ml @ 9 mls/hr Q11H7M IV 05/01/24 19:15 Midazolam HCl 50 ml @ 1 mls/hr Q24H IV 05/01/24 19:30 05/02/24 00:30 Vital Signs Vital Signs Date Time Temp Pulse Resp B/P (MAP) Pulse Ox O2 Delivery O2 Flow Rate FiO2 05/02/24 02:44 118/79 05/02/24 01:54 158 20 98 60 05/02/24 01:30 98.4 209.1 05/02/24 00:00 Mechanical Ventilator+ 05/01/24 11:03 15 Physical Exam Gen.: Patient lying in bed in medical ICU. Sedated, intubated on mechanical ventilator. Head: Normocephalic, atraumatic. Eyes: PERRLA. Ears: Normal external anatomy. Throat: Endotracheal tube and orogastric tube in place. Neck: Supple, trachea midline. Chest: Transmitted breath sounds bilaterally. Decreased air entry bilaterally. No wheezing. Bibasilar crackles. Cardiovascular: Positive S1, positive S2. Regular rate and rhythm. Abdomen: Positive bowel sounds in all 4 quadrants. Soft, nontender, nondistended. : Nobles in place. Normal external genitalia. Rectal: Deferred. Skin: Warm, dry. Intact. Extremities: 2+ radial pulses bilaterally. No lower extremity edema. Neuro: Sedated. Labs/Diagnostic Data Labs Test 05/02/24 00:17 05/01/24 22:02 05/01/24 21:11 05/01/24 15:43 Range/Units Potassium Level 3.1 L 3.5-5.1 mmol/L Magnesium Level 1.6 1.6-2.6 mg/dL Blood Gas Specimen Type Arterial Blood Gas Sample Site Right radial Blood Gas Patient Temperature 37.0 Arterial Blood Date Drawn [id number] Arterial Blood pH 7.357 7.350-7.450 Arterial Blood Partial Pressure CO2 40.5 32.0-45.0 mmHg Arterial Blood Partial Pressure O2 161.3 H 83.0-108.0 mmHg Arterial Blood HCO3 22.2 21.0-28.0 mmol/L Arterial Blood Oxygen Saturation 98.7 H 94.0-98.0 % Arterial Blood Base Excess -3.0 L -2.0-3.0 mmol/L Arterial Blood Oxyhemoglobin 98.0 94.0-98.0 % Arterial Blood Carboxyhemoglobin 0.3 L 0.5-1.5 % Arterial Blood Methemoglobin 0.4 0.0-1.5 % José Manuel Test Modified Blood Gas Total Hemoglobin 11.60 L 12.0-16.0 g/dL Blood Gas Set Respiration Rate 20.0 Blood Gas Modality Vent - ac FiO2 % 80.0 Blood Gas Tidal Volume 450.0 Blood Gas PEEP or CPAP 8.0 Lactic Acid Level 2.9 *H 0.4-2.0 mmol/L Blood Gas Spontaneous Rate 35 Blood Gas Critical Value Read Back Yes Blood Gas Notified Whom Blood Gas Notified Time [id number] Blood Gas Notified By Wilder Mosley 05/01/24 11:52 05/01/24 11:04 Range/Units White Blood Count 11.6 H 4.4-10.8 10^3/uL Red Blood Count 3.42 L 4.0-5.20 10^6/uL Hemoglobin 11.0 L 12.2-16.2 g/dL Hematocrit 32.8 L 36.0-46.0 % Mean Corpuscular Volume 96.2 80.0-100.0 fL Mean Corpuscular Hemoglobin 32.1 H 28.0-32.0 pg Mean Corpuscular Hemoglobin Concent 33.4 32.0-36.0 g/dL Red Cell Distribution Width 14.2 11.8-14.3 % Platelet Count 108 L 140-450 10^3/uL Mean Platelet Volume 7.8 6.9-10.8 fL Neutrophils (%) (Auto) 37.0-80.0 % Lymphocytes (%) (Auto) 10.0-50.0 % Monocytes (%) (Auto) 0.0-12.0 % Basophils (%) (Auto) 0.0-2.0 % Neutrophils # (Auto) 1.6-8.6 10 ^3/uL Lymphocytes # (Auto) 0.4-5.4 10 ^3/uL Monocytes # (Auto) 0-1.3 10 ^3/uL Differential Total Cells Counted 100.0 100 Neutrophils % (Manual) 75 37.0-80.0 Band Neutrophils % (Manual) 18 Lymphocytes % (Manual) 3 L 10.0-50.0 Monocytes % (Manual) 3 0-12 Eosinophils % (Manual) 0 0-7 Basophils % (Manual) 0 0.0-2.0 Metamyelocytes % (manual) 0 Myelocytes % (Manual) 1 Promyelocytes % (Manual) 0 Blast Cells % (Manual) 0 Nucleated Red Blood Cells 1.0 % Reactive Lymphocytes 0 Platelet Estimate Decreased Sodium Level 137 136-145 mmol/L Chloride Level 104 98-107 mmol/L Carbon Dioxide Level 20 20-31 mmol/L Anion Gap 13 5-15 Blood Urea Nitrogen 52 H 9-23 mg/dL Creatinine 1.14 H 0.550-1.02 mg/dL Glomerular Filtration Rate Calc 54 >90 mL/min BUN/Creatinine Ratio 45.6 H 10.0-20.0 Serum Glucose 105 74-106 mg/dL Calcium Level 9.9 8.7-10.4 mg/dL Total Bilirubin 0.9 0.2-1.0 mg/dL Direct Bilirubin 0.6 H <0.3 mg/dL Aspartate Amino Transferase (AST) 108 H 13-40 U/L Alanine Aminotransferase (ALT) 30 7-40 U/L Alkaline Phosphatase 49 46-116 U/L Troponin I High Sensitivity 11 </=34 ng/L B-Type Natriuretic Peptide 175.05 0-100 pg/mL Total Protein 5.9 5.7-8.2 g/dL Albumin 3.5 3.2-4.8 g/dL Lipase 21 12-53 U/L Urine Color Yellow Yellow Urine Clarity Turbid H Clear Urine pH 5.5 5.0-9.0 Urine Specific [place] 1.016 1.001-1.035 Urine Protein 1+ H Negative Urine Ketones 1+ H Negative Urine Blood 1+ H Negative /uL Urine Nitrite 2+ H Negative Urine Bilirubin Negative Negative Urine Urobilinogen Normal Negative mg/dL Urine Leukocyte Esterase Negative Negative /uL Urine RBC <1 0 - 4 /hpf Urine WBC 3 0 - 5 /hpf Urine Squamous Epithelial Cells Few <5 /hpf Urine Bacteria Many H None Seen /hpf Urine Hyaline Casts Few 0 - 2 /lpf Urine Yeast (Budding) Occasional None Seen /hpf Urine Glucose Normal Normal mg/dL Assessment Impression: Acute hypoxic respiratory failure On mechanical ventilator Atrial fibrillation w/ RVR Septic shock Hypokalemia Influenza B Nicotine dependence Marijuana use Obesity BMI 32.9 Plan: s/p intubation on mechanical ventilator. CXR image and report reviewed. Devices in place. Mild pulmonary congestion. No pneumothorax. No pleural effusion. ABG reviewed, notable for acidemia. On AC mode; RR 20, VT 450, PEEP 8, FiO2 45% Titrate FIO2 to keep O2 saturation above 90%. VAP bundle. Daily ABG and CXR while intubated Sedate for ventilator synchrony - On Versed, Propofol/Fentanyl On digoxin Amiodarone drip Cardiology recs appreciated. Continue antibiotics. F/u cultures. IV steroids On pressors (Levophed) for hemodynamic support Titrate to keep mean arterial pressure greater than 65 mmHg. Monitor renal function Monitor electrolytes. Supplement as necessary. Monitor ins and outs. K, mag supplementation GI prophylaxis - Protonix DVT prophylaxis. Prognosis: Poor given patient's multiple co-morbidities. Condition: Critical Rest of plan per hospitalist and other consultants. A total of 35 minutes of critical care time was spent reviewing the patient record, examining the patient, making a diagnostic and therapeutic plan, discussing this plan with the medical personnel, following up on diagnostic studies and following the patient for clinical stability excluding any and all procedures. At least 50% of this time was spent in direct, [id number] contact. Thank you, Dr. Coleman, for allowing me to participate in this patient's care. Further recommendations will depend on the patient's clinical course. Please do not hesitate to contact me if you have any questions or concerns. This medical document was created using an electronic medical record system with [employer] RTD dictation system. Although these documentations are being carefully reviewed, there may still be some phonetic and typographical changes. The errors are purely typographical, due to imperfection on the software program, and do not reflect any compromise in the patient's medical care. Plan discussed with: Other (RN/MD Coleman) YASSINE MAYO MD May 02, 2024 02:48
[2024-05-02 04:45] LABS: Mean Corpuscular Hgb Conc. 33.7 g/dL (32.0-36.0); Mean Corpuscular Volume 96.1 fL (80.0-100.0)
[2024-05-02 04:48] LABS: Alanine Aminotransferase 38 U/L (7-40); Anion Gap 12 (5-15); BUN/Creatinine Ratio 43.5 (10.0-20.0); Bilirubin, Total 0.6 mg/dL (0.2-1.0); Carbon Dioxide 22 mmol/L (20-31); Sodium 141 mmol/L (136-145)
[2024-05-02 04:51] LABS: Hemoglobin 10.1 g/dL (12.2-16.2); Mean Corpuscular Hemoglobin 32.4 pg (28.0-32.0); Platelet Count (auto) 63 10^3/uL (140-450); Red Blood Cells 3.12 10^6/uL (4.0-5.20); Red Cell Distribution Width 14.8 % (11.8-14.3); White Blood Cell 12.3 10^3/uL (4.4-10.8)
[2024-05-02 04:54] LABS: Alkaline Phosphatase 43 U/L (46-116); Aspartate Aminotransferase 195 U/L (13-40); Blood Urea Nitrogen 47 mg/dL (9-23); Calcium 8.4 mg/dL (8.7-10.4); Chloride 107 mmol/L (98-107); Glucose 186 mg/dL (74-106); Potassium 2.7 mmol/L (3.5-5.1); Total Protein 5.3 g/dL (5.7-8.2)
[2024-05-02 05:24] LABS: Basophils % (manual) 0 (0.0-2.0); Blast Cells 0; Eosinophils % (manual) 0 (0-7); Metamyelocytes % 0; Promyelocytes % 0; Reactive Lymphocytes 0
--- NOTE | 2024-05-02 05:37 | DVH ---
CHEST RADIOGRAPH Indication: ACUTE RESPIRATORY FAILURE Technique: Single frontal view of the chest was obtained COMPARISON: XY CHEST XRAY 1 VIEW on DOS: 05/01/24, XY CHEST XRAY 1 VIEW on DOS: 05/01/24 FINDINGS: Lines and Tubes: Endotracheal tube, enteric catheter and right central venous catheter in satisfactor y position. Lungs: Mild congestion Pleura: No effusion. No pneumothorax. Cardiomediastinal contours: Unremarkable Bones: Unremarkable IMPRESSION: Lines and tubes in satisfactory position. No significant interval change.
[2024-05-02] MEDS: POTASSIUM CHL 20MEQ/100ML 100 ML IV SCH (05:50)
[2024-05-02] MEDS: VANCOMYCIN 750MG KIT 100 ML IV SCH (06:01)
[2024-05-02] MEDS: AMIODARONE 360mg/200mL PREMIX 200 ML IV SCH (06:02)
[2024-05-02 06:37] LABS: Base Excess -2.4 mmol/L (-2.0-3.0)
[2024-05-02] MEDS: ENOXAPARIN SOD 40 MG/0.4 ML SYRINGE SC SCH (08:09)
[2024-05-02] MEDS: PANTOPRAZOLE 40 MG/10 ML VIAL INJ IV SCH (08:09)
[2024-05-02 08:47] LABS: Band Neutrophils % (manual) 9; Lymphocytes % (manual) 6 (10.0-50.0); Monocytes % (manual) 7 (0-12); Myelocytes % 1; Platelet Estimate Decreased
[2024-05-02 09:39] LABS: Rapid Influenza A Negative (Negative)
[2024-05-02 09:41] LABS: Rapid Influenza B Positive (Negative)
--- NOTE | 2024-05-02 13:24 | DVHINCON2 ---
PAYAL MCCALL [facility] 05/02/24 1324: Date Seen: May 02, 2024 Referring Physician MD [place] Reason for Consultation A-fib with RVR History of Present Illness This is a 63-year-old female who presented to the emergency room via EMS with a chief complaint of shortness of breath for three days. At time of assessment, the patient was found mechanically ventilated with 50% FiO2, PEEP 8.0, on single vasopressor, and amiodarone drip per pharmacy protocol. Information obtained from records which indicate the patient was found by EMS with complaints of shortness of breath, hallucinations, ALOC, left lower extremity pain, and O2 saturation levels of 78% on room air for which she was then placed on supplemental oxygenation subsequently being endotracheally intubated. It appears the patient has been bed-bound for approximately 10 months after undergoing knee surgery. She initially presented with a sinus tachycardia r hythm and developed atrial fibrillation with rapid ventricular rate last night. Baseline troponin level is negative. Significant medical history includes hypertension, COPD, history of breast cancer, and left hip fracture. Past Medical History Past medical history reviewed. No other significant than mentioned above. Past Surgical History Appendectomy Hysterectomy Knee surgery Family History: Alcoholism G8 FATHER, Diabetes mellitus G8 MOTHER, FH: congestive heart failure G8 MOTHER, G8 FATHER, FH: lung cancer G8 MOTHER, G8 FATHER, Hypertension G8 MOTHER, G8 FATHER, Smoking G8 MOTHER, G8 FATHER, Smoking G8 MOTHER, G8 FATHER, Family History Family history reviewed. Social History Per records, admitted to cannabinoid use, occasional alcohol use, and smoking less than a pack of cigarettes per day. Allergies: Coded Allergies: Ibuprofen (Verified Allergy, Unknown, 08/08/23) Naproxen (Verified Allergy, Unknown, 08/08/23) Home Meds Active Scripts Cyclobenzaprine Hcl (Cyclobenzaprine Hcl) 5 Mg Tab, 1 TAB PO BID for 10 Days, #20 TAB Prov:BRISEYDA OROZCO NP 08/12/23 Reported Medications Losartan Potassium (Losartan Potassium) 50 Mg Tab, 1 TAB PO DAILY 08/09/23 Atenolol (Atenolol) 25 Mg Tab, 1 TAB PO DAILY 08/09/23 Cyclobenzaprine HCl (Cyclobenzaprine Hydrochlo) 10 Mg Tab, 1 TAB PO BIDPRN PRN 08/09/23 Montelukast Sodium (MONTELUKAST SODIUM) 10 Mg Tab, 1 TAB PO DAILY 08/09/23 Duloxetine HCl (Duloxetine HCl) 20 Mg Cap, 1 CAP PO BID 08/09/23 Melatonin (KP MELATONIN) 3 Mg Tab, 10 MG PO for sleep, TAB 08/09/23 Trazodone Hcl (Trazodone Hcl) 50 Mg Tab, 50 MG PO for sleep, TAB 08/09/23 Losartan Potassium (Losartan Potassium) 25 Mg Tab, 25 MG PO DAILY for 30 Days, MG 08/09/23 Cyclobenzaprine Hcl (Cyclobenzaprine Hcl) 10 Mg Tab, 10 MG PO Q8HP PRN for htn for 30 Days, MG 08/09/23 Duloxetine Hcl (Cymbalta) 20 Mg Cap, 20 MG PO BID, CAP 08/09/23 Home Meds Home medications reviewed. Current Medications Current Medications Medications (Trade) Dose Ordered Sig/Joann Route PRN Reason Start Time Stop Time Status Last Admin Vancomycin HCl 250 ml @ 250 mls/hr Q1H IV 05/01/24 13:30 05/01/24 15:29 DC 05/01/24 16:32 Sodium Chloride 1,000 ml @ 100 mls/hr Q10H IV 05/01/24 14:45 05/02/24 06:50 Ondansetron HCl (Zofran) 4 mg Q4HP PRN IV NAUSEA / VOMITING 05/01/24 14:45 Enoxaparin Sodium (Lovenox) 40 mg DAILY SC 05/02/24 10:00 05/02/24 08:09 Vancomycin HCl 0 ml @ 0 mls/hr UD IV 05/01/24 15:00 Piperacillin Sod/ Tazobactam Sod 100 ml @ 25 mls/hr Q8HR IV 05/01/24 22:00 05/02/24 05:50 Methylprednisolone Sodium Succinate (Solu Medrol) 40 mg Q8HR IV 05/01/24 22:00 05/02/24 05:47 Pantoprazole Sodium (Protonix) 40 mg DAILY IV 05/02/24 10:00 05/02/24 08:09 Propofol 100 ml @ 3.816 mls/ hr Q24H IV 05/01/24 16:00 05/02/24 10:38 Fentanyl Citrate 250 ml @ 2.5 mls/hr Q24H IV 05/01/24 16:00 05/02/24 04:02 Vancomycin HCl 100 ml @ 100 mls/hr Q12H IV 05/02/24 06:00 05/02/24 06:01 Phenylephrine HCl 250 ml @ 30 mls/hr Q8H20M IV 05/01/24 19:15 Vasopressin 20 units/Sodium Chloride 100 ml @ 9 mls/hr Q11H7M IV 05/01/24 19:15 Midazolam HCl 50 ml @ 1 mls/hr Q24H IV 05/01/24 19:30 05/02/24 09:43 Potassium Chloride 100 ml @ 50 mls/hr Q2H IV 05/02/24 05:15 05/02/24 11:14 DC 05/02/24 11:23 Magnesium Sulfate/ Dextrose 100 ml @ 100 mls/hr Q1HR IV 05/02/24 13:00 05/02/24 14:59 Review of Systems Constitutional: No symptom reported Ears, Nose, & Throat: No symptom reported Eyes: No symptom reported Neurological: ALOC, hallucinations Pulmonary/Respiratory: SOB Cardiovascular: No symptom reported Gastrointestinal: No symptom reported Genitourinary: No symptom reported Musculoskeletal: No symptom reported Skin: No symptom reported Psychiatric: No symptom reported Endocrine: No symptom reported Hemotologic/Lymphatic: No symptom reported Vital Signs Vital Signs Date Time Temp Pulse Resp B/P (MAP) Pulse Ox O2 Delivery O2 Flow Rate FiO2 05/02/24 12:29 97.7 138 20 94/75 (81) 95 207.9 05/02/24 12:00 Mechanical Ventilator+ 50 50 05/01/24 11:03 15 Physical Exam General Appearance: Mechanically ventilated. Chemically sedated. Withdrawn Head Exam: Normal inspection Neck Exam: Normal inspection. Normal alignment Pulmonary/Respiratory: Diminished bilateral breath sounds. Mechanically ventilated 50% FiO2 Cardiovascular/Chest: Irregularly irregular rate and rhythm. AFib with RVR. No murmurs. No JVD. Peripheral Pulses: 2+ Radial (R). 2+ Radial (L). 2+ Pedal (R). 2+ Pedal (L) Abdominal Exam: Normal bowel sounds. Soft. Ankle Exam: Negative ankle edema Lower extremities: Negative lower extremity edema Neuro/Mental Status: Chemically sedated. Withdrawn Thoughts/Psych: Unable to assess at this time Appearance: In no acute distress. Withdrawn Skin Exam: Normal inspection. Normal color. Warm. Dry Labs/Diagnostic Data Labs Test 05/02/24 08:15 05/02/24 06:29 05/02/24 03:25 05/02/24 00:17 Range/Units Influenza Type A Antigen Negative Negative Influenza Type B Antigen Positive Negative Blood Gas Specimen Type Arterial Blood Gas Sample Site Right radial Blood Gas Patient Temperature 37.0 Arterial Blood Date Drawn [id number] Arterial Blood pH 7.323 L 7.350-7.450 Arterial Blood Partial Pressure CO2 46.9 H 32.0-45.0 mmHg Arterial Blood Partial Pressure O2 123.5 H 83.0-108.0 mmHg Arterial Blood HCO3 23.8 21.0-28.0 mmol/L Arterial Blood Oxygen Saturation 97.9 94.0-98.0 % Arterial Blood Base Excess -2.4 L -2.0-3.0 mmol/L Arterial Blood Oxyhemoglobin 97.6 94.0-98.0 % Arterial Blood Carboxyhemoglobin 0.2 L 0.5-1.5 % Arterial Blood Methemoglobin 0.1 0.0-1.5 % José Manuel Test Modified Blood Gas Total Hemoglobin 11.10 L 12.0-16.0 g/dL Blood Gas Set Respiration Rate 20.0 Blood Gas Modality Vent - ac FiO2 % 60.0 Blood Gas Tidal Volume 450.0 Blood Gas PEEP or CPAP 8.0 Blood Gas Critical Value Read Back Yes White Blood Count 12.3 H 4.4-10.8 10^3/uL Red Blood Count 3.12 L 4.0-5.20 10^6/uL Hemoglobin 10.1 L 12.2-16.2 g/dL Hematocrit 30.0 L 36.0-46.0 % Mean Corpuscular Volume 96.1 80.0-100.0 fL Mean Corpuscular Hemoglobin 32.4 H 28.0-32.0 pg Mean Corpuscular Hemoglobin Concent 33.7 32.0-36.0 g/dL Red Cell Distribution Width 14.8 H 11.8-14.3 % Platelet Count 63 L 140-450 10^3/uL Mean Platelet Volume 8.0 6.9-10.8 fL Neutrophils (%) (Auto) 37.0-80.0 % Lymphocytes (%) (Auto) 10.0-50.0 % Monocytes (%) (Auto) 0.0-12.0 % Basophils (%) (Auto) 0.0-2.0 % Neutrophils # (Auto) 1.6-8.6 10 ^3/uL Lymphocytes # (Auto) 0.4-5.4 10 ^3/uL Monocytes # (Auto) 0-1.3 10 ^3/uL Differential Total Cells Counted 100.0 100 Neutrophils % (Manual) 77 37.0-80.0 Band Neutrophils % (Manual) 9 Lymphocytes % (Manual) 6 L 10.0-50.0 Monocytes % (Manual) 7 0-12 Eosinophils % (Manual) 0 0-7 Basophils % (Manual) 0 0.0-2.0 Metamyelocytes % (manual) 0 Myelocytes % (Manual) 1 Promyelocytes % (Manual) 0 Blast Cells % (Manual) 0 Nucleated Red Blood Cells 1.0 % Reactive Lymphocytes 0 Platelet Estimate Decreased Sodium Level 141 136-145 mmol/L Potassium Level 2.7 L 3.5-5.1 mmol/L Chloride Level 107 98-107 mmol/L Carbon Dioxide Level 22 20-31 mmol/L Anion Gap 12 5-15 Blood Urea Nitrogen 47 H 9-23 mg/dL Creatinine 1.08 H 0.550-1.02 mg/dL Glomerular Filtration Rate Calc 58 >90 mL/min BUN/Creatinine Ratio 43.5 H 10.0-20.0 Serum Glucose 186 H 74-106 mg/dL Calcium Level 8.4 L 8.7-10.4 mg/dL Total Bilirubin 0.6 0.2-1.0 mg/dL Aspartate Amino Transferase (AST) 195 H 13-40 U/L Alanine Aminotransferase (ALT) 38 7-40 U/L Alkaline Phosphatase 43 L 46-116 U/L Total Protein 5.3 L 5.7-8.2 g/dL Albumin 3.0 L 3.2-4.8 g/dL Magnesium Level 1.6 1.6-2.6 mg/dL Test 05/01/24 21:11 05/01/24 15:43 05/01/24 11:52 05/01/24 11:04 Range/Units Lactic Acid Level 2.9 *H 0.4-2.0 mmol/L Blood Gas Spontaneous Rate 35 Blood Gas Notified Whom Blood Gas Notified Time [id number] Blood Gas Notified By Public Speaker manjinder Direct Bilirubin 0.6 H <0.3 mg/dL Troponin I High Sensitivity 11 </=34 ng/L B-Type Natriuretic Peptide 175.05 0-100 pg/mL Lipase 21 12-53 U/L Urine Color Yellow Yellow Urine Clarity Turbid H Clear Urine pH 5.5 5.0-9.0 Urine Specific [place] 1.016 1.001-1.035 Urine Protein 1+ H Negative Urine Ketones 1+ H Negative Urine Blood 1+ H Negative /uL Urine Nitrite 2+ H Negative Urine Bilirubin Negative Negative Urine Urobilinogen Normal Negative mg/dL Urine Leukocyte Esterase Negative Negative /uL Urine RBC <1 0 - 4 /hpf Urine WBC 3 0 - 5 /hpf Urine Squamous Epithelial Cells Few <5 /hpf Urine Bacteria Many H None Seen /hpf Urine Hyaline Casts Few 0 - 2 /lpf Urine Yeast (Budding) Occasional None Seen /hpf Urine Glucose Normal Normal mg/dL Microbiology Date/Time Source Procedure Growth Status 05/01/24 00:00 Sputum Gram Stain Pending Resulted 05/01/24 00:00 Sputum Respiratory Culture - Preliminary Resulted Assessment Septic shock with pneumonia Atrial fibrillation with rapid ventricular rate, stage III, new onset Rule out structural heart disease Acute hypoxic respiratory failure Acute on chronic COPD exacerbation Severe hypokalemia Severe hypertriglyceridemia Thrombocytopenia HX of hypertension Obesity Plan/Recommendation (Dr. Weir) The patient with septic shock and new onset atrial fibrillation with RVR will continue on an amiodarone drip per pharmacy protocol as well as loading dose of digoxin therapy. Anticoagulation therapy held given thrombocytopenia. Replete electrolytes as necessary, K>4 and Mg>2. Continue IVF as scheduled. Obtain a transthoracic echocardiogram to evaluate cardiac function. Continue vasopressors for hemodynamic support. Initiate statin and gemfibrozil, monitor LFTs. ABX therapy per primary care team. Pulmonology recommendations. Monitor ECG changes closely and notify accordingly. Thank you for allowing us to participate in this patient's care. Please call if you have any questions or concerns. Critical care time: 40 min. This medical document was created using an electronic medical record system with voice recognition software and computerized dictation system. Although this document has been carefully reviewed, there might still be some phonetic and typographical errors. Occasional wrong-word or ``sound-alike substitutions may have occurred due to the inherent limitations of voice recognition software. These areas are purely typographical due to imperfections of the software programs and do not reflect any compromise in the patient's medical care. Please read the chart carefully and recognize, using context, where these substitutions have occurred. Plan discussed with: Other NYHA Physical activity limitations: NA Date of Service: May 02, 2024 Billing Provider: PAYAL MCCALL Cardiology Common Codes: [id number] CARE 30-74 MIN VICKI WEIR MD 05/03/24 1409: Family History: Alcoholism G8 FATHER, Diabetes mellitus G8 MOTHER, FH: congestive heart failure G8 MOTHER, G8 FATHER, FH: lung cancer G8 MOTHER, G8 FATHER, Hypertension G8 MOTHER, G8 FATHER, Smoking G8 MOTHER, G8 FATHER, Smoking G8 MOTHER, G8 FATHER, Allergies: Coded Allergies: Ibuprofen (Verified Allergy, Unknown, 08/08/23) Naproxen (Verified Allergy, Unknown, 08/08/23) Home Meds Active Scripts Cyclobenzaprine Hcl (Cyclobenzaprine Hcl) 5 Mg Tab, 1 TAB PO BID for 10 Days, #20 TAB Prov:BRISEYDA OROZCO SKID MACHINE OPERATOR 08/12/23 Reported Medications Losartan Potassium (Losartan Potassium) 50 Mg Tab, 1 TAB PO DAILY 08/09/23 Atenolol (Atenolol) 25 Mg Tab, 1 TAB PO DAILY 08/09/23 Cyclobenzaprine HCl (Cyclobenzaprine Hydrochlo) 10 Mg Tab, 1 TAB PO BIDPRN PRN 08/09/23 Montelukast Sodium (MONTELUKAST SODIUM) 10 Mg Tab, 1 TAB PO DAILY 08/09/23 Duloxetine HCl (Duloxetine HCl) 20 Mg Cap, 1 CAP PO BID 08/09/23 Melatonin (KP MELATONIN) 3 Mg Tab, 10 MG PO for sleep, TAB 08/09/23 Trazodone Hcl (Trazodone Hcl) 50 Mg Tab, 50 MG PO for sleep, TAB 08/09/23 Losartan Potassium (Losartan Potassium) 25 Mg Tab, 25 MG PO DAILY for 30 Days, MG 08/09/23 Cyclobenzaprine Hcl (Cyclobenzaprine Hcl) 10 Mg Tab, 10 MG PO Q8HP PRN for htn for 30 Days, MG 08/09/23 Duloxetine Hcl (Cymbalta) 20 Mg Cap, 20 MG PO BID, CAP 08/09/23 Plan/Recommendation patient seen intubated afib on amio gtt cont this for now fu echo Plan discussed with: Other (rn) PAYAL MCCALL May 02, 2024 13:24 VICKI WEIR MD May 03, 2024 14:09
[2024-05-02] MEDS: MAGNESIUM SULFATE 1GM/100ML 100 ML IV SCH (13:42)
[2024-05-02] MEDS: SODIUM CHLORIDE 0.9% 500 ML IV ONE (13:44)
[2024-05-02 13:54] LABS: Cholesterol 134 mg/dL (< 200)
[2024-05-02 14:11] LABS: HDL Cholesterol < 5 mg/dL (40-59); Triglycerides 1210 mg/dL (< 150)
[2024-05-02] MEDS: DIGOXIN (250MCG/ML) 2 ML AMPULE IV ONE (14:32)
[2024-05-02] MEDS: POTASSIUM CHL 20MEQ/100ML 100 ML IV ONE (15:53)
--- NOTE | 2024-05-02 20:32 | DVHPN2 ---
Subjective intubated Changes from previous H/P or p: No Changes Respiratory: Shortness of breath Objective Vitals Vital Signs Date Time Temp Pulse Resp B/P (MAP) Pulse Ox O2 Delivery O2 Flow Rate FiO2 05/02/24 19:56 143/93 05/02/24 19:56 134 20 94 45 05/02/24 19:44 98.4 209.1 05/02/24 18:00 Mechanical Ventilator+ 05/01/24 11:03 15 Intake/Output Intake and Output 05/02/24 05:00 Intake Total 5508.810 ml Output Total 950 ml Balance 4558.810 ml Intake Oral 0 ml IV Total 5508.810 ml Output Urine Total 950 ml Medications Current Medications Medications Dose Ordered Sig/Joann Route Start Time Stop Time Status Last Admin Dose Admin Norepinephrine Bitartrate 250 ml @ 3.75 mls/hr Q24H IV 05/01/24 12:15 05/02/24 02:49 15 MLS/HR Sodium Chloride 1,000 ml @ 100 mls/hr Q10H IV 05/01/24 14:45 05/02/24 06:50 100 MLS/HR Ondansetron HCl 4 mg Q4HP PRN IV 05/01/24 14:45 Enoxaparin Sodium 40 mg DAILY SC 05/02/24 10:00 05/02/24 08:09 40 MG Vancomycin HCl 0 ml @ 0 mls/hr UD IV 05/01/24 15:00 Piperacillin Sod/ Tazobactam Sod 100 ml @ 25 mls/hr Q8HR IV 05/01/24 22:00 05/02/24 14:21 25 MLS/HR Methylprednisolone Sodium Succinate 40 mg Q8HR IV 05/01/24 22:00 05/02/24 14:21 40 MG Pantoprazole Sodium 40 mg DAILY IV 05/02/24 10:00 05/02/24 08:09 40 MG Propofol 100 ml @ 3.816 mls/ hr Q24H IV 05/01/24 16:00 05/02/24 16:25 22.896 MLS/HR Fentanyl Citrate 250 ml @ 2.5 mls/hr Q24H IV 05/01/24 16:00 05/02/24 04:02 22.5 MLS/HR Vancomycin HCl 100 ml @ 100 mls/hr Q12H IV 05/02/24 06:00 05/02/24 18:24 100 MLS/HR Phenylephrine HCl 250 ml @ 30 mls/hr Q8H20M IV 05/01/24 19:15 Vasopressin 20 units/Sodium Chloride 100 ml @ 9 mls/hr Q11H7M IV 05/01/24 19:15 Midazolam HCl 50 ml @ 1 mls/hr Q24H IV 05/01/24 19:30 05/02/24 09:43 3 MLS/HR Atorvastatin Calcium 40 mg HS PO 05/02/24 22:00 Gemfibrozil 600 mg Q12HR PO 05/02/24 22:00 Oseltamivir Phosphate 75 mg BID GT 05/02/24 22:00 05/07/24 21:59 Laboratory Results Laboratory Tests 05/02/24 03:25 05/02/24 13:22 Chemistry Test 05/02/24 00:17 05/02/24 03:25 Magnesium Level 1.6 mg/dL (1.6-2.6) Albumin 3.0 g/dL (3.2-4.8) L Calcium Level 8.4 mg/dL (8.7-10.4) L Total Protein 5.3 g/dL (5.7-8.2) L Lipid panel Test 05/02/24 13:22 Cholesterol Level 134 mg/dL (< 200) HDL Cholesterol < 5 mg/dL (40-59) L Triglycerides Level 1210 mg/dL (< 150) H LFT Test 05/02/24 03:25 Alanine Aminotransferase (ALT) 38 U/L (7-40) Alkaline Phosphatase 43 U/L (46-116) L Aspartate Amino Transferase (AST) 195 U/L (13-40) H Total Bilirubin 0.6 mg/dL (0.2-1.0) HgA1c, TSH Test 05/02/24 13:22 05/02/24 14:47 Thyroid Stimulating Hormone (TSH) 0.18 uIU/mL (0.55-4.78) L Hemoglobin A1c 5.4 % A1C (<5.7) Urinalysis Test 05/01/24 11:04 Urine Color Yellow (Yellow) Urine Clarity Turbid (Clear) H Urine pH 5.5 (5.0-9.0) Urine Specific [place] 1.016 (1.001-1.035) Urine Protein 1+ (Negative) H Urine Ketones 1+ (Negative) H Urine Blood 1+ /uL (Negative) H Urine Nitrite 2+ (Negative) H Urine Bilirubin Negative (Negative) Urine Urobilinogen Normal mg/dL (Negative) Urine Leukocyte Esterase Negative /uL (Negative) Urine RBC <1 /hpf (0 - 4) Urine WBC 3 /hpf (0 - 5) Urine Squamous Epithelial Cells Few /hpf (<5) Urine Bacteria Many /hpf (None Seen) H Urine Hyaline Casts Few /lpf (0 - 2) Urine Yeast (Budding) Occasional /hpf (None Urine Glucose Normal mg/dL (Normal) Blood Gas Results Test 05/01/24 22:02 05/02/24 06:29 Arterial Blood pH 7.357 (7.350-7.450) 7.323 (7.350-7.450) FiO2 % 80.0 60.0 Microbiology Microbiology Date/Time Source Procedure Growth Status 05/01/24 18:40 Nose MRSA Screen - Final Complete 05/01/24 15:40 Blood Blood Culture - Preliminary NO GROWTH AFTER 24 HOURS OF INCUBATION. Resulted 05/01/24 00:00 Sputum Gram Stain - Final Resulted 05/01/24 00:00 Sputum Respiratory Culture - Preliminary Resulted Assessment/Plan Assessment/Plan Acute hypoxic respiratory failure likely secondary to pneumonia Acute on chronic COPD exacerbation Discussed plan of care with patient and nurse Home medications reconciled Admit to med surg Leukocytosis likely secondary to pneumonia Lactic acidosis with probable sepsis EMILIA UTI Continue IV abx pressors mechanical intubation per pulmonary New onset atrial flutter Amiodarone drip cardiology consulted Chronic Hypertension continue home meds History of breast cancer Follow up outpatient with PCP History of hip fracture and surgery Follow up outpatient with PCP History of hallucinations Follow up outpatient with PCP FEN/PPX NPO Ivf DVT ppx lovenox PUD ppx Protonix Critical care time was 59 minutes Plan discussed with: Spouse My Orders Orders - REBECCA AMRAO MD Procedure Category Date Status Time Communication Order ORDERS 05/02/24 Transmitted 12:23 * Cardiology Consult CONS 05/02/24 Transmitted 12:23 * Pharmacy Operations Coordinator CONS 05/02/24 Transmitted Consult Apply Barrier Cream SRIRAM 05/02/24 In Process 14:00 * Dietary Consult CONS 05/02/24 Transmitted 16:05 Date of Service: May 02, 2024 Billing Provider: REBECCA AMARO MD Common Visit Codes: [id number] CARE 30-74 MIN REBECCA AMARO MD May 02, 2024 20:32
--- NOTE | 2024-05-02 21:22 | DVHSR ---
APPROVED REPORT EXAM: LIMITED Two-dimensional and M-mode echocardiogram with Doppler and color Doppler. Blood Pressure: 94/75 mmHg INDICATION Atrial Fibrillation New Onset RISK FACTORS Height: 5' 7", Weight: 202 DIMENSIONS LVDd3.9 (3.8-5.7cm)LA (2D)3.7 (1.9-4.0cm)Aortic Root3.4 (2.0-3.7cm) LVDs2.7 (2.5-4.0cm)LA (MM) (1.9-4.0cm)Aortic Cusp Exc1.5 (1.5-2.0cm) EF (%) (55-70%)Rt. Atrium4.0 (1.9-4.0cm)Asc. Aorta cm IVSd1.1 (0.7-1.1cm)RV (D) (1.8-2.4cm) PWd0.8 (0.7-1.1cm) Mitral Valve MitralMitral Stenosis E wave1.20m/sMV Mean GR.mmHg E/A ratio0.02D MVAcm2 Aortic Valve Aortic ValveAortic Stenosis V11.30m/Adeola Mean GR.6mmHg V21.60m/Adeola Peak GR.11mmHg LVOT Diameter2.0 (1.8-2.4cm)Doppler AVA2.55cm2 Pulmonic Valve V20.70m/s Other Information Quality : Technically LimitedRhythm : Technically limited study due to rhythm. Conclusion lvef 60% by visual estimate normal RV function, mild enlarged Left atrium enlarged no severe valve abnormalities noted
[2024-05-02] MEDS: OSELTAMIVIR 75MG/5ML ORAL SUSP GT SCH (22:00)
[2024-05-02] MEDS: ATORVASTATIN 20 MG TAB PO SCH (22:04)
[2024-05-02] MEDS: GEMFIBROZIL 600 MG TAB PO SCH (22:05)
[2024-05-03] VITALS (113 sets, daily range): BP systolic 72–141; BP diastolic 52–97; PULSE 92–139; RESP 17–23; TEMP 96.8–99.1; O2SAT 91–100
[2024-05-03 03:50] LABS: Hemoglobin 10.4 g/dL (12.2-16.2); Mean Corpuscular Hemoglobin 33.1 pg (28.0-32.0); Mean Corpuscular Hgb Conc. 34.5 g/dL (32.0-36.0); Platelet Count (auto) 54 10^3/uL (140-450)
[2024-05-03 03:55] LABS: Mean Corpuscular Volume 95.9 fL (80.0-100.0); Red Blood Cells 3.12 10^6/uL (4.0-5.20)
[2024-05-03 04:17] LABS: Alanine Aminotransferase 26 U/L (7-40); Alkaline Phosphatase 61 U/L (46-116); Anion Gap 7 (5-15); Bilirubin, Total 0.4 mg/dL (0.2-1.0); Carbon Dioxide 24 mmol/L (20-31); Magnesium 2.2 mg/dL (1.6-2.6); Potassium 3.9 mmol/L (3.5-5.1); Sodium 141 mmol/L (136-145)
[2024-05-03 04:18] LABS: Basophils % (manual) 0 (0.0-2.0); Blast Cells 0; Eosinophils % (manual) 0 (0-7); Promyelocytes % 0; Reactive Lymphocytes 0
[2024-05-03 04:25] LABS: Blood Urea Nitrogen 53 mg/dL (9-23); Chloride 110 mmol/L (98-107); Glucose 187 mg/dL (74-106)
[2024-05-03 04:26] LABS: Albumin 2.5 g/dL (3.2-4.8); Aspartate Aminotransferase 62 U/L (13-40); Calcium 8.2 mg/dL (8.7-10.4); Total Protein 4.4 g/dL (5.7-8.2)
[2024-05-03 05:30] LABS: Band Neutrophils % (manual) 10; Lymphocytes % (manual) 3 (10.0-50.0); Metamyelocytes % 2; Monocytes % (manual) 3 (0-12); Myelocytes % 1
[2024-05-03 05:31] LABS: Platelet Estimate Decreased
--- NOTE | 2024-05-03 05:37 | DVH ---
CHEST RADIOGRAPH Indication: VENTILATED Technique: Single frontal view of the chest was obtained COMPARISON: XY CHEST PORTABLE on DOS: 05/02/24, XY CHEST XRAY 1 VIEW on DOS: 05/01/24, XY CHEST XRAY 1 VIEW on DOS: 05/01/24 FINDINGS: Lines and Tubes: Unchanged Lungs: Subsegmental atelectasis in the left lower lobe, developing pneumonia could have similar appea gifty. Pleura: No effusion. No pneumothorax. Cardiomediastinal contours: Unremarkable Bones: Unremarkable IMPRESSION: 1. Subsegmental atelectasis in the left lower lobe, developing pneumonia could have similar appearanc e.
[2024-05-03 06:15] LABS: Base Excess -2.5 mmol/L (-2.0-3.0)
--- NOTE | 2024-05-03 11:34 | DVHPN2 ---
Progress Note Date Seen: May 03, 2024 Medical Necessity Reason Pt with a Central, PICC or Fol: Yes Subjective Other Systems: intubatd on high fio2 80-100% in atrial flutter rate of 140 Objective vital signs Vital Sign Date Time Temp Pulse Resp B/P (MAP) Pulse Ox O2 Delivery O2 Flow Rate FiO2 05/03/24 08:20 100 05/03/24 08:20 135 05/03/24 08:20 20 99 Mechanical Ventilator+ 05/03/24 07:45 97.9 105/77 (86) 208.2 05/01/24 11:03 15 Total Intake and Output 05/02/24 05/02/24 05/03/24 15:00 23:00 07:00 Intake Total 1570.044 ml 1707.948 ml 1571.208 ml Output Total 450 ml 550 ml Balance 1570.044 ml 1257.948 ml 1021.208 ml medications Current Medications Medications Dose Ordered Sig/Joann Route Start Time Stop Time Status Last Admin Dose Admin Norepinephrine Bitartrate 250 ml @ 3.75 mls/hr Q24H IV 05/01/24 12:15 05/03/24 01:14 7.5 MLS/HR Sodium Chloride 1,000 ml @ 100 mls/hr Q10H IV 05/01/24 14:45 05/03/24 05:36 100 MLS/HR Ondansetron HCl 4 mg Q4HP PRN IV 05/01/24 14:45 Enoxaparin Sodium 40 mg DAILY SC 05/02/24 10:00 05/02/24 08:09 40 MG Vancomycin HCl 0 ml @ 0 mls/hr UD IV 05/01/24 15:00 Piperacillin Sod/ Tazobactam Sod 100 ml @ 25 mls/hr Q8HR IV 05/01/24 22:00 05/03/24 05:34 25 MLS/HR Methylprednisolone Sodium Succinate 40 mg Q8HR IV 05/01/24 22:00 05/03/24 05:34 40 MG Pantoprazole Sodium 40 mg DAILY IV 05/02/24 10:00 05/03/24 10:20 40 MG Propofol 100 ml @ 3.816 mls/ hr Q24H IV 05/01/24 16:00 05/03/24 03:54 26.712 MLS/HR Fentanyl Citrate 250 ml @ 2.5 mls/hr Q24H IV 05/01/24 16:00 05/02/24 22:29 10 MLS/HR Vancomycin HCl 100 ml @ 100 mls/hr Q12H IV 05/02/24 06:00 05/03/24 05:34 100 MLS/HR Phenylephrine HCl 250 ml @ 30 mls/hr Q8H20M IV 05/01/24 19:15 Vasopressin 20 units/Sodium Chloride 100 ml @ 9 mls/hr Q11H7M IV 05/01/24 19:15 Midazolam HCl 50 ml @ 1 mls/hr Q24H IV 05/01/24 19:30 05/02/24 09:43 3 MLS/HR Atorvastatin Calcium 40 mg HS PO 05/02/24 22:00 05/02/24 22:04 40 MG Gemfibrozil 600 mg Q12HR PO 05/02/24 22:00 05/03/24 11:14 600 MG Oseltamivir Phosphate 75 mg BID GT 05/02/24 22:00 05/07/24 21:59 05/03/24 11:16 75 MG Examination: GENERAL:Abnormal, HEENT:Abnormal, LUNGS:Abnormal, CVS:Abnormal, ABDOMEN:Abnormal laboratory and microbiology Laboratory Tests 05/03/24 03:38 Test 05/03/24 03:38 Range/Units Serum Glucose 187 H 74-106 mg/dL Microbiology Date/Time Source Procedure Growth Status 05/01/24 18:40 Nose MRSA Screen - Final Complete 05/01/24 15:40 Blood Blood Culture - Preliminary NO GROWTH AFTER 24 HOURS OF INCUBATION. Resulted 05/01/24 00:00 Sputum Gram Stain - Final Resulted 05/01/24 00:00 Sputum Respiratory Culture - Preliminary Resulted Problem List/Assessment/Plan Problem List/Assessment/Plan atrial flutter Septic shock with pneumonia Atrial fibrillation with rapid ventricular rate, stage III, new onset Rule out structural heart disease Acute hypoxic respiratory failure Acute on chronic COPD exacerbation Severe hypokalemia Severe hypertriglyceridemia Thrombocytopenia HX of hypertension Obesity Plan/Recommendation (Dr. Weir) cont amio gtt iv digoxin x 1 wean off pressors not on anticoag 2/2 to low PLTS elevated cva risk no further cv recs---start heparin/lovenox once PLTS are higher and then transition to po amio in 24-48 hours pending improved HR HR will not improve until sepsis improves/resolves signing off Plan discussed with: Other (rn) My Orders My Orders Orders - VICKI WEIR MD Procedure Category Date Status Time Digoxin Injection PHA 05/03/24 Transmitted (Lanoxin Injection) 11:45 Date of Service: May 03, 2024 Billing Provider: VICKI WEIR MD Common Visit Codes: NOT BILLABLE VICKI WEIR MD May 03, 2024 11:34
--- NOTE | 2024-05-03 11:40 | ECG ---
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
[2024-05-03] MEDS: DIGOXIN (250MCG/ML) 2 ML AMPULE IV ONE (12:41)
[2024-05-03] MEDS: NOREPINEPHRINE 8 MG/250ML KIT 250 ML IV SCH (18:30)
--- NOTE | 2024-05-03 19:56 | DVHPN2 ---
Subjective intubated Changes from previous H/P or p: No Changes Respiratory: Shortness of breath Objective Vitals Vital Signs Date Time Temp Pulse Resp B/P (MAP) Pulse Ox O2 Delivery O2 Flow Rate FiO2 05/03/24 19:15 98.2 120 20 89/62 (71) 94 208.8 05/03/24 18:55 50 05/03/24 18:20 Mechanical Ventilator+ 05/01/24 11:03 15 Intake/Output Intake and Output 05/03/24 05:00 Intake Total 5161.492 ml Output Total 1000 ml Balance 4161.492 ml Intake Oral 30 ml IV Total 5131.492 ml Output Urine Total 1000 ml Medications Current Medications Medications Dose Ordered Sig/Joann Route Start Time Stop Time Status Last Admin Dose Admin Sodium Chloride 1,000 ml @ 100 mls/hr Q10H IV 05/01/24 14:45 05/03/24 16:33 100 MLS/HR Ondansetron HCl 4 mg Q4HP PRN IV 05/01/24 14:45 Enoxaparin Sodium 40 mg DAILY SC 05/02/24 10:00 05/02/24 08:09 40 MG Vancomycin HCl 0 ml @ 0 mls/hr UD IV 05/01/24 15:00 Piperacillin Sod/ Tazobactam Sod 100 ml @ 25 mls/hr Q8HR IV 05/01/24 22:00 05/03/24 14:15 25 MLS/HR Methylprednisolone Sodium Succinate 40 mg Q8HR IV 05/01/24 22:00 05/03/24 14:15 40 MG Pantoprazole Sodium 40 mg DAILY IV 05/02/24 10:00 05/03/24 10:20 40 MG Propofol 100 ml @ 3.816 mls/ hr Q24H IV 05/01/24 16:00 05/03/24 18:54 15.264 MLS/HR Fentanyl Citrate 250 ml @ 2.5 mls/hr Q24H IV 05/01/24 16:00 05/03/24 18:54 12.5 MLS/HR Vancomycin HCl 100 ml @ 100 mls/hr Q12H IV 05/02/24 06:00 05/03/24 18:21 100 MLS/HR Phenylephrine HCl 250 ml @ 30 mls/hr Q8H20M IV 05/01/24 19:15 Vasopressin 20 units/Sodium Chloride 100 ml @ 9 mls/hr Q11H7M IV 05/01/24 19:15 Midazolam HCl 50 ml @ 1 mls/hr Q24H IV 05/01/24 19:30 05/02/24 09:43 3 MLS/HR Atorvastatin Calcium 40 mg HS PO 05/02/24 22:00 05/02/24 22:04 40 MG Gemfibrozil 600 mg Q12HR PO 05/02/24 22:00 05/03/24 11:14 600 MG Oseltamivir Phosphate 75 mg BID GT 05/02/24 22:00 05/07/24 21:59 05/03/24 11:16 75 MG Norepinephrine Bitartrate 250 ml @ 1.875 mls/ hr Q24H IV 05/03/24 18:30 Laboratory Results Laboratory Tests 05/03/24 03:38 Chemistry Test 05/03/24 03:38 Albumin 2.5 g/dL (3.2-4.8) L Calcium Level 8.2 mg/dL (8.7-10.4) L Magnesium Level 2.2 mg/dL (1.6-2.6) Total Protein 4.4 g/dL (5.7-8.2) L LFT Test 05/03/24 03:38 Alanine Aminotransferase (ALT) 26 U/L (7-40) Alkaline Phosphatase 61 U/L (46-116) Aspartate Amino Transferase (AST) 62 U/L (13-40) H Total Bilirubin 0.4 mg/dL (0.2-1.0) Urinalysis Test 05/01/24 11:04 Urine Color Yellow (Yellow) Urine Clarity Turbid (Clear) H Urine pH 5.5 (5.0-9.0) Urine Specific [place] 1.016 (1.001-1.035) Urine Protein 1+ (Negative) H Urine Ketones 1+ (Negative) H Urine Blood 1+ /uL (Negative) H Urine Nitrite 2+ (Negative) H Urine Bilirubin Negative (Negative) Urine Urobilinogen Normal mg/dL (Negative) Urine Leukocyte Esterase Negative /uL (Negative) Urine RBC <1 /hpf (0 - 4) Urine WBC 3 /hpf (0 - 5) Urine Squamous Epithelial Cells Few /hpf (<5) Urine Bacteria Many /hpf (None Seen) H Urine Hyaline Casts Few /lpf (0 - 2) Urine Yeast (Budding) Occasional /hpf (None Urine Glucose Normal mg/dL (Normal) Blood Gas Results Test 05/03/24 06:10 Arterial Blood pH 7.302 (7.350-7.450) FiO2 % 100.0 Microbiology Microbiology Date/Time Source Procedure Growth Status 05/01/24 18:40 Nose MRSA Screen - Final Complete 05/01/24 15:40 Blood Blood Culture - Preliminary NO GROWTH AFTER 48 HOURS OF INCUBATION. Resulted 05/01/24 00:00 Sputum Gram Stain - Final Resulted 05/01/24 00:00 Sputum Respiratory Culture - Preliminary Resulted Assessment/Plan Assessment/Plan Acute hypoxic respiratory failure likely secondary to pneumonia Acute on chronic COPD exacerbation Discussed plan of care with patient and nurse Home medications reconciled Admit to med surg Leukocytosis likely secondary to pneumonia Lactic acidosis with probable sepsis EMILIA UTI Continue IV abx pressors mechanical intubation per pulmonary New onset atrial flutter Amiodarone drip added digoxin per cardiology cardiology consulted Chronic Hypertension continue home meds History of breast cancer Follow up outpatient with PCP History of hip fracture and surgery Follow up outpatient with PCP History of hallucinations Follow up outpatient with PCP FEN/PPX NPO Ivf DVT ppx lovenox PUD ppx Protonix Critical care time was 59 minutes Plan discussed with: Spouse Date of Service: May 03, 2024 Billing Provider: REBECCA AMARO MD Common Visit Codes: [id number] CARE 30-74 MIN REBECCA AMARO MD May 03, 2024 19:56
--- NOTE | 2024-05-03 23:17 | DVHPN2 ---
Progress Note - Dictate Date Seen: May 03, 2024 Medical Necessity Reason Pt with a Central, PICC or Fol: Yes The following are medically ne: Butler Catheter Reason for butler catheter: Strict I&O Subjective Patient seen and examined at bedside. Sedated, intubated on mechanical ventilator. Overnight events reviewed. vital signs Vital Sign Date Time Temp Pulse Resp B/P (MAP) Pulse Ox O2 Delivery O2 Flow Rate FiO2 05/03/24 23:00 98.1 133 20 130/88 (102) 97 208.6 05/03/24 22:28 50 05/03/24 22:00 Mechanical Ventilator+ 05/01/24 11:03 15 Total Intake and Output 05/02/24 05/02/24 05/03/24 15:00 23:00 07:00 Intake Total 1570.044 ml 1707.948 ml 1789.448 ml Output Total 450 ml 550 ml Balance 1570.044 ml 1257.948 ml 1239.448 ml medications Current Medications Medications Dose Ordered Sig/Joann Route Start Time Stop Time Status Last Admin Dose Admin Sodium Chloride 1,000 ml @ 100 mls/hr Q10H IV 05/01/24 14:45 05/03/24 16:33 100 MLS/HR Ondansetron HCl 4 mg Q4HP PRN IV 05/01/24 14:45 Enoxaparin Sodium 40 mg DAILY SC 05/02/24 10:00 05/02/24 08:09 40 MG Vancomycin HCl 0 ml @ 0 mls/hr UD IV 05/01/24 15:00 Piperacillin Sod/ Tazobactam Sod 100 ml @ 25 mls/hr Q8HR IV 05/01/24 22:00 05/03/24 21:17 25 MLS/HR Methylprednisolone Sodium Succinate 40 mg Q8HR IV 05/01/24 22:00 05/03/24 21:17 40 MG Pantoprazole Sodium 40 mg DAILY IV 05/02/24 10:00 05/03/24 10:20 40 MG Propofol 100 ml @ 3.816 mls/ hr Q24H IV 05/01/24 16:00 05/03/24 18:54 15.264 MLS/HR Fentanyl Citrate 250 ml @ 2.5 mls/hr Q24H IV 05/01/24 16:00 05/03/24 18:54 12.5 MLS/HR Vancomycin HCl 100 ml @ 100 mls/hr Q12H IV 05/02/24 06:00 05/03/24 18:21 100 MLS/HR Phenylephrine HCl 250 ml @ 30 mls/hr Q8H20M IV 05/01/24 19:15 Vasopressin 20 units/Sodium Chloride 100 ml @ 9 mls/hr Q11H7M IV 05/01/24 19:15 Midazolam HCl 50 ml @ 1 mls/hr Q24H IV 05/01/24 19:30 05/02/24 09:43 3 MLS/HR Atorvastatin Calcium 40 mg HS PO 05/02/24 22:00 05/03/24 21:18 40 MG Gemfibrozil 600 mg Q12HR PO 05/02/24 22:00 05/03/24 21:18 600 MG Oseltamivir Phosphate 75 mg BID GT 05/02/24 22:00 05/07/24 21:59 05/03/24 21:17 75 MG Norepinephrine Bitartrate 250 ml @ 1.875 mls/ hr Q24H IV 05/03/24 18:30 objective Gen.: Patient lying in bed in medical ICU. Sedated, intubated on mechanical ventilator. Head: Normocephalic, atraumatic. Eyes: PERRLA. Ears: Normal external anatomy. Throat: Endotracheal tube and orogastric tube in place. Neck: Supple, trachea midline. Chest: Transmitted breath sounds bilaterally. Decreased air entry bilaterally. No wheezing. Bibasilar crackles. Cardiovascular: Positive S1, positive S2. Regular rate and rhythm. Abdomen: Positive bowel sounds in all 4 quadrants. Soft, nontender, nondistended. : Butler in place. Normal external genitalia. Rectal: Deferred. Skin: Warm, dry. Intact. Extremities: 2+ radial pulses bilaterally. No lower extremity edema. Neuro: Sedated. laboratory and microbiology Laboratory Tests 05/03/24 03:38 Test 05/03/24 03:38 Range/Units Serum Glucose 187 H 74-106 mg/dL Assessment/Plan Impression: Acute hypoxic respiratory failure On mechanical ventilator Atrial fibrillation w/ RVR Septic shock Hypokalemia Influenza B Nicotine dependence Marijuana use Obesity BMI 32.9 Events: Remains on vent support On AC mode; RR 20, VT 450, PEEP 8, FiO2 45 -->50% Sedated on Propofol, Fentanyl On pressors for hemodynamic support Levophed 4 mcg/min Titrate to keep mean arterial pressure greater than 65 mmHg. On amiodarone drip Continue Tamiflu course Continue antibiotics IV fluids at 100 ml/hr. ABG reviewed, notable for acidemia CXR image and report reviewed. Devices in place. Subsegmental atelectasis in the left lower lobe. No pneumothorax. No pleural effusion. Labs and imaging reviewed. Rest of plan as noted below. Plan: s/p intubation on mechanical ventilator. On AC mode; RR 20, VT 450, PEEP 8, FiO2 50% Titrate FIO2 to keep O2 saturation above 90%. VAP bundle. Daily ABG and CXR while intubated Sedate for ventilator synchrony On digoxin Amiodarone drip Cardiology recs appreciated. Continue antibiotics. F/u cultures. IV steroids On pressors for hemodynamic support Titrate to keep mean arterial pressure greater than 65 mmHg. Monitor renal function Monitor electrolytes. Supplement as necessary. Monitor ins and outs. GI prophylaxis - Protonix DVT prophylaxis. Prognosis: Poor given patient's multiple co-morbidities. Condition: Critical Rest of plan per hospitalist and other consultants. A total of 35 minutes of critical care time was spent reviewing the patient record, examining the patient, making a diagnostic and therapeutic plan, discussing this plan with the medical personnel, following up on diagnostic studies and following the patient for clinical stability excluding any and all procedures. At least 50% of this time was spent in direct, [id number] contact. Thank you, Dr. Coleman, for allowing me to participate in this patient's care. Further recommendations will depend on the patient's clinical course. Please do not hesitate to contact me if you have any questions or concerns. This medical document was created using an electronic medical record system with [employer] dictation system. Although these documentations are being carefully reviewed, there may still be some phonetic and typographical changes. The errors are purely typographical, due to imperfection on the software program, and do not reflect any compromise in the patient's medical care. Plan discussed with: Other (SHE Florez) Critical Care Time(min): 35 YASSINE MAYO MD May 03, 2024 23:17
[2024-05-04] VITALS (113 sets, daily range): BP systolic 75–141; BP diastolic 54–97; PULSE 88–140; RESP 14–25; TEMP 97–99.1; O2SAT 90–99
--- NOTE | 2024-05-04 05:26 | DVH ---
CHEST RADIOGRAPH Indication: PATIENT INTUBATED Technique: Single frontal view of the chest was obtained Comparison: XY CHEST PORTABLE on DOS: 05/03/24 FINDINGS: Lines and Tubes: Right central venous catheter terminates in the right atrium. The endotracheal tube terminates 3.7 cm above the mary. The enteric tube courses below the left hemidiaphragm and the ti p extends outside the field of view. Lungs: Left lower lobe opacities similar to prior study. Pleura: No effusion. No pneumothorax. Cardiomediastinal contours: Unremarkable Bones: No acute osseous abnormality. IMPRESSION: 1. Stable position of the support lines and tubes. 2. Left lower lobe opacity, similar to prior study.
--- NOTE | 2024-05-04 07:26 | ECG ---
[facility] Test Date: 2024-05-01 Test Time: 11:35:27 Pat Name: TSERING CHO Department: er Room: [address] [place] [address] A Gender: F Security Agent: beatriz : 1960 Requested By: SANDHYA CAMARILLO Order Number: [id number] Reading MD: Russell Sanabria Measurements Intervals [place] Rate: 158 P: -68 VA: 53 QRS: -25 QRSD: 90 T: 83 QT: 280 QTc: 454 Interpretive Statements Supraventricular tachycardia Borderline left axis deviation Artifact in lead(s) II,aVR,aVL,aVF Electronically Signed On 05-07-2024 9:50:48 PST by Russell Sanabria Please click the below link to view image of tracing.
[2024-05-04 09:50] LABS: Alanine Aminotransferase 19 U/L (7-40); Alkaline Phosphatase 70 U/L (46-116); Anion Gap 9 (5-15); BUN/Creatinine Ratio 51.4 (10.0-20.0); Bilirubin, Total 0.3 mg/dL (0.2-1.0); Carbon Dioxide 21 mmol/L (20-31); Potassium 4.2 mmol/L (3.5-5.1); Sodium 142 mmol/L (136-145)
[2024-05-04 09:57] LABS: Basophils # (auto) 0 10 ^3/uL (0-0.2); Basophils % (auto) 0.1 % (0.0-2.0); Eosinophils # (auto) 0 10 ^3/uL (0-0.8); Hematocrit 27.4 % (36.0-46.0); Hemoglobin 9.1 g/dL (12.2-16.2); Lymphocytes # (auto) 0.4 10 ^3/uL (0.4-5.4); Lymphocytes % (auto) 2.2 % (10.0-50.0); Mean Corpuscular Hemoglobin 32.4 pg (28.0-32.0); Mean Corpuscular Hgb Conc. 33.4 g/dL (32.0-36.0); Mean Corpuscular Volume 97.1 fL (80.0-100.0); Monocytes # (auto) 0.8 10 ^3/uL (0-1.3); Monocytes % (auto) 4.4 % (0.0-12.0); Neutrophils # (auto) 16.3 10 ^3/uL (1.6-8.6); Neutrophils % (auto) 93.3 % (37.0-80.0); Nucleated Red Blood Cells % 0.3 %; Platelet Count (auto) 83 10^3/uL (140-450); Red Blood Cells 2.82 10^6/uL (4.0-5.20); Red Cell Distribution Width 15.4 % (11.8-14.3); White Blood Cell 17.4 10^3/uL (4.4-10.8)
[2024-05-04 10:11] LABS: Albumin 2.7 g/dL (3.2-4.8); Blood Urea Nitrogen 55 mg/dL (9-23); Calcium 7.9 mg/dL (8.7-10.4); Chloride 112 mmol/L (98-107); Glucose 238 mg/dL (74-106); Total Protein 4.9 g/dL (5.7-8.2)
[2024-05-04 10:37] LABS: Base Excess -5.7 mmol/L (-2.0-3.0)
[2024-05-04 10:53] LABS: Aspartate Aminotransferase 34 U/L (13-40)
[2024-05-04 11:11] LABS: Free T4 (Free Thyroxine) 0.58 ng/dL (0.89-1.76)
--- NOTE | 2024-05-04 11:32 | DVHPN2 ---
Subjective Patient intubated and sedated Reviewed: Care Plan, H&P, Labs, Medications Changes from previous H/P or p: No Changes General: Per HPI Respiratory: Shortness of breath Objective Vitals Vital Signs Date Time Temp Pulse Resp B/P (MAP) Pulse Ox O2 Delivery O2 Flow Rate FiO2 05/04/24 10:15 136 22 124/87 (99) 94 40 05/04/24 10:00 Mechanical Ventilator+ 05/04/24 09:30 98.8 209.8 Intake/Output Intake and Output 05/04/24 07:00 Intake Total 4273.857 ml Output Total 1050 ml Balance 3223.857 ml Intake Oral 90 ml IV Total 4183.857 ml Output Urine Total 1050 ml General Appearance: Other (Chemically sedated) HEENT: PERRLA Cardiovascular: Normal S1, Normal S2, Other (Sinus tachycardia. Patient in a flutter 2-1 conduction) Abdomen: Normal bowel sounds, Soft, No tenderness, No hepatospenomegaly Musculoskeletal: Normal sensory function, Normal motor function Neuro: Other (Unable to assess) Psych/Mental Status: Other (Unable to assess) Medications Current Medications Medications Dose Ordered Sig/Joann Route Start Time Stop Time Status Last Admin Dose Admin Sodium Chloride 1,000 ml @ 100 mls/hr Q10H IV 05/01/24 14:45 05/04/24 07:55 100 MLS/HR Ondansetron HCl 4 mg Q4HP PRN IV 05/01/24 14:45 Enoxaparin Sodium 40 mg DAILY SC 05/02/24 10:00 05/02/24 08:09 40 MG Vancomycin HCl 0 ml @ 0 mls/hr UD IV 05/01/24 15:00 Piperacillin Sod/ Tazobactam Sod 100 ml @ 25 mls/hr Q8HR IV 05/01/24 22:00 05/04/24 05:02 25 MLS/HR Pantoprazole Sodium 40 mg DAILY IV 05/02/24 10:00 05/04/24 08:59 40 MG Propofol 100 ml @ 3.816 mls/ hr Q24H IV 05/01/24 16:00 05/04/24 06:10 15.264 MLS/HR Fentanyl Citrate 250 ml @ 2.5 mls/hr Q24H IV 05/01/24 16:00 05/03/24 18:54 12.5 MLS/HR Vancomycin HCl 100 ml @ 100 mls/hr Q12H IV 05/02/24 06:00 05/04/24 05:02 100 MLS/HR Phenylephrine HCl 250 ml @ 30 mls/hr Q8H20M IV 05/01/24 19:15 Vasopressin 20 units/Sodium Chloride 100 ml @ 9 mls/hr Q11H7M IV 05/01/24 19:15 Midazolam HCl 50 ml @ 1 mls/hr Q24H IV 05/01/24 19:30 05/02/24 09:43 3 MLS/HR Atorvastatin Calcium 40 mg HS PO 05/02/24 22:00 05/03/24 21:18 40 MG Gemfibrozil 600 mg Q12HR PO 05/02/24 22:00 05/04/24 08:58 600 MG Oseltamivir Phosphate 75 mg BID GT 05/02/24 22:00 05/07/24 21:59 05/04/24 08:59 75 MG Norepinephrine Bitartrate 250 ml @ 1.875 mls/ hr Q24H IV 05/03/24 18:30 Methylprednisolone Sodium Succinate 40 mg DAILY IV 05/05/24 10:00 Laboratory Results Laboratory Tests 05/04/24 03:13 Chemistry Test 05/04/24 03:13 Albumin 2.7 g/dL (3.2-4.8) L Calcium Level 7.9 mg/dL (8.7-10.4) L Magnesium Level Pending Total Protein 4.9 g/dL (5.7-8.2) L LFT Test 05/04/24 03:13 Alanine Aminotransferase (ALT) 19 U/L (7-40) Alkaline Phosphatase 70 U/L (46-116) Aspartate Amino Transferase (AST) 34 U/L (13-40) Total Bilirubin 0.3 mg/dL (0.2-1.0) Urinalysis Test 05/01/24 11:04 Urine Color Yellow (Yellow) Urine Clarity Turbid (Clear) H Urine pH 5.5 (5.0-9.0) Urine Specific [place] 1.016 (1.001-1.035) Urine Protein 1+ (Negative) H Urine Ketones 1+ (Negative) H Urine Blood 1+ /uL (Negative) H Urine Nitrite 2+ (Negative) H Urine Bilirubin Negative (Negative) Urine Urobilinogen Normal mg/dL (Negative) Urine Leukocyte Esterase Negative /uL (Negative) Urine RBC <1 /hpf (0 - 4) Urine WBC 3 /hpf (0 - 5) Urine Squamous Epithelial Cells Few /hpf (<5) Urine Bacteria Many /hpf (None Seen) H Urine Hyaline Casts Few /lpf (0 - 2) Urine Yeast (Budding) Occasional /hpf (None Urine Glucose Normal mg/dL (Normal) Blood Gas Results Test 05/04/24 10:25 Arterial Blood pH 7.341 (7.350-7.450) FiO2 % 40.0 Microbiology Microbiology Date/Time Source Procedure Growth Status 05/01/24 18:40 Nose MRSA Screen - Final Complete 05/01/24 15:40 Blood Blood Culture - Preliminary NO GROWTH AFTER 48 HOURS OF INCUBATION. Resulted 05/01/24 00:00 Sputum Gram Stain - Final Resulted 05/01/24 00:00 Sputum Respiratory Culture - Preliminary Resulted Labs and/or images reviewed: Labs reviewed by me, Image(s) reviewed by me Assessment/Plan Assessment/Plan Impression: -acute hypoxic respiratory failure -metabolic encephalopathy -sepsis with shock secondary to UTI and viral pneumonia -influenza B -history of right hip fracture -obesity -deconditioning with bed-bound status -depression -primary hypertension -atrial flutter with rapid ventricular rate, 2-1 conduction Plan: -patient failed CPAP trial this a.m.. Continues to have increased white blood cell count. Patient also noted to have increase RVR despite being on sedation. -urine culture -change antibiotic therapy to vancomycin and meropenem -decrease Solu-Medrol to 40 mg IV daily -start tube feeding -Seroquel 50 mg p.o. b.i.d. -bronchodilators, Pulmicort -continue Tamiflu for full course -hold anticoagulation at this time given thrombocytopenia as well as CHADS-VASc score being to, continue prophylactic enoxaparin -continue vasopressor therapy to keep map greater than 65 mmHg -repeat labs, chest x-ray, ABG in a.m. Critical care time spent with patient discussing and formulating plan of care: 40 minutes. This does not include time spent performing procedures. This medical document was created using an electronic medical record system with [employer] dictation system. Although this document has been carefully reviewed, there may still be some phonetic and typographical errors. These areas are purely typographical due to imperfections of the software programs, and do not reflect any compromise in the patient's medical care. Plan discussed with: Patient, Other (RN) My Orders Orders - BRISEYDA OROZCO NP Procedure Category Date Status Time Methylprednisolone PHA 05/05/24 In Process Sod Succ (Solu Medrol 10:00 D-Dimer LAB 05/04/24 Logged 10:27 Urine Bacterial KARRI 05/04/24 Uncollected Culture 11:16 Erythrocyte LAB 05/04/24 Verified Sedimentation Rate 11:21 Meropenem 1gm PHA 05/04/24 Verified Q8h(Gfr>50) 14:00 Diltiazem Injection PHA 05/04/24 Verified (Cardizem Injection) 11:30 Drug Screen LAB 05/04/24 Verified 11:21 Nutritional PHA 05/04/24 Verified Supplements (Jevity 11:30 Quetiapine Fumarate PHA 05/04/24 Verified Tablet (Seroquel Tab 22:00 Date of Service: May 04, 2024 Billing Provider: BRISEYDA OROZCO NP Common Visit Codes: [id number] CARE 30-74 MIN BRISEYDA OROZCO NP May 04, 2024 11:32
[2024-05-04 12:01] LABS: T3 Total < 0.10 ng/mL (0.60-1.81)
[2024-05-04] MEDS: dilTIAZem 25 MG/5 ML VIAL IV ONE (12:22)
[2024-05-04 13:08] LABS: Amphetamine Screen, Urine Neg (NEGATIVE); Barbiturate Scree,Urine Neg (NEGATIVE); Benzodiazephine Screen, Urine Pos (NEGATIVE); Cannabinoid Screen, Urine Neg (NEGATIVE); Cocaine Screen, Urine Neg (NEGATIVE); Opiate Scree,Urine Neg (NEGATIVE); Phencyclidine Screen, Urine Neg (NEGATIVE)
[2024-05-04] MEDS: MEROPENEM 1GM IVPB 50 ML IV SCH (13:47)
[2024-05-04 13:56] LABS: Erythrocyte Sedimentation Rate 106 mm/hr (0-20)
[2024-05-04] MEDS: ADENOSINE 6 MG/2 ML INJ IV ONE (15:58)
[2024-05-04] MEDS: Jevity 1.2 Cal/Fiber 1 Liter GT SCH (16:00)
[2024-05-04] MEDS: LEVALBUTEROL HCL 1.25 MG/3 ML NEB NEB SCH (19:09)
[2024-05-04] MEDS: IPRATROPIUM BROM 0.5 MG/2.5ML INH SOL NEB SCH (19:09)
--- NOTE | 2024-05-04 19:48 | DVHPN2 ---
Progress Note - Dictate Date Seen: May 04, 2024 Medical Necessity Reason Pt with a Central, PICC or Fol: Yes The following are medically ne: Butler Catheter Reason for butler catheter: Strict I&O Subjective Patient seen and examined at bedside. Sedated, intubated on mechanical ventilator. Overnight events reviewed. vital signs Vital Sign Date Time Temp Pulse Resp B/P (MAP) Pulse Ox O2 Delivery O2 Flow Rate FiO2 05/04/24 19:27 110/77 05/04/24 19:16 98.6 115 20 94 209.5 05/04/24 19:10 40 05/04/24 18:00 Mechanical Ventilator+ Total Intake and Output 05/03/24 05/03/24 05/04/24 15:00 23:00 07:00 Intake Total 1298.024 ml 1498.552 ml 1477.281 ml Output Total 500 ml 550 ml Balance 1298.024 ml 998.552 ml 927.281 ml medications Current Medications Medications Dose Ordered Sig/Joann Route Start Time Stop Time Status Last Admin Dose Admin Sodium Chloride 1,000 ml @ 100 mls/hr Q10H IV 05/01/24 14:45 05/04/24 17:29 100 MLS/HR Ondansetron HCl 4 mg Q4HP PRN IV 05/01/24 14:45 Enoxaparin Sodium 40 mg DAILY SC 05/02/24 10:00 05/02/24 08:09 40 MG Vancomycin HCl 0 ml @ 0 mls/hr UD IV 05/01/24 15:00 Pantoprazole Sodium 40 mg DAILY IV 05/02/24 10:00 05/04/24 08:59 40 MG Propofol 100 ml @ 3.816 mls/ hr Q24H IV 05/01/24 16:00 05/04/24 15:26 15.264 MLS/HR Fentanyl Citrate 250 ml @ 2.5 mls/hr Q24H IV 05/01/24 16:00 05/04/24 19:27 10 MLS/HR Vancomycin HCl 100 ml @ 100 mls/hr Q12H IV 05/02/24 06:00 05/04/24 18:01 100 MLS/HR Phenylephrine HCl 250 ml @ 30 mls/hr Q8H20M IV 05/01/24 19:15 Vasopressin 20 units/Sodium Chloride 100 ml @ 9 mls/hr Q11H7M IV 05/01/24 19:15 Midazolam HCl 50 ml @ 1 mls/hr Q24H IV 05/01/24 19:30 05/02/24 09:43 3 MLS/HR Atorvastatin Calcium 40 mg HS PO 05/02/24 22:00 05/03/24 21:18 40 MG Gemfibrozil 600 mg Q12HR PO 05/02/24 22:00 05/04/24 08:58 600 MG Oseltamivir Phosphate 75 mg BID GT 05/02/24 22:00 05/07/24 21:59 05/04/24 08:59 75 MG Norepinephrine Bitartrate 250 ml @ 1.875 mls/ hr Q24H IV 05/03/24 18:30 05/04/24 19:27 1.875 MLS/HR Methylprednisolone Sodium Succinate 40 mg DAILY IV 05/05/24 10:00 Meropenem 50 ml @ 17 mls/hr Q8HR IV 05/04/24 14:00 05/04/24 13:47 17 MLS/HR Enteral Nutritional Formula 1,000 ml 30ML/HR GT 05/04/24 11:30 05/04/24 16:00 1,000 ML Quetiapine Fumarate 50 mg BID PO 05/04/24 22:00 Levalbuterol HCl 0.625 mg Q6HR NEB 05/04/24 18:00 05/04/24 19:09 0.625 MG Ipratropium [place] 0.5 mg Q6HR NEB 05/04/24 18:00 05/04/24 19:09 0.5 MG objective Gen.: Patient lying in bed in medical ICU. Sedated, intubated on mechanical ventilator. Head: Normocephalic, atraumatic. Eyes: PERRLA. Ears: Normal external anatomy. Throat: Endotracheal tube and orogastric tube in place. Neck: Supple, trachea midline. Chest: Transmitted breath sounds bilaterally. Decreased air entry bilaterally. No wheezing. Bibasilar crackles. Cardiovascular: Positive S1, positive S2. Regular rate and rhythm. Abdomen: Positive bowel sounds in all 4 quadrants. Soft, nontender, nondistended. : Butler in place. Normal external genitalia. Rectal: Deferred. Skin: Warm, dry. Intact. Extremities: 2+ radial pulses bilaterally. No lower extremity edema. Neuro: Sedated. laboratory and microbiology Laboratory Tests 05/04/24 03:13 Test 05/04/24 03:13 Range/Units Serum Glucose 238 H 74-106 mg/dL Assessment/Plan Impression: Acute hypoxic respiratory failure On mechanical ventilator Atrial fibrillation w/ RVR Septic shock Hypokalemia Influenza B Nicotine dependence Marijuana use Obesity BMI 32.9 Events: Remains on vent support On AC mode; RR 20 -->22, VT 450, PEEP 8, FiO2 50 -->40% Sedated on Propofol, Fentanyl On pressors for hemodynamic support Levophed 1 mcg/min Titrate to keep mean arterial pressure greater than 65 mmHg. Improved pressor requirements On amiodarone drip Continue Tamiflu course Continue antibiotics IV steroids - taper as tolerated Continue bronchodilators Started Seroquel BID. S/p adenosine IV push. IV fluids at 100 ml/hr. Monitor hemoglobin ABG reviewed, notable for slight acidemia CXR image and report reviewed. Devices in place. Left lower lobe opacities. No pneumothorax. No pleural effusion. Taper sedation as tolerated CPAP in the AM. Labs and imaging reviewed. Rest of plan as noted below. Plan: s/p intubation on mechanical ventilator. On AC mode; RR 22, VT 450, PEEP 8, FiO2 40% Titrate FIO2 to keep O2 saturation above 90%. VAP bundle. Daily ABG and CXR while intubated Sedate for ventilator synchrony On digoxin Amiodarone drip Cardiology recs appreciated. Continue antibiotics. F/u cultures. IV steroids On pressors for hemodynamic support Titrate to keep mean arterial pressure greater than 65 mmHg. Monitor renal function Monitor electrolytes. Supplement as necessary. Monitor ins and outs. GI prophylaxis - Protonix DVT prophylaxis. Prognosis: Poor given patient's multiple co-morbidities. Condition: Critical Rest of plan per hospitalist and other consultants. A total of 35 minutes of critical care time was spent reviewing the patient record, examining the patient, making a diagnostic and therapeutic plan, discussing this plan with the medical personnel, following up on diagnostic studies and following the patient for clinical stability excluding any and all procedures. At least 50% of this time was spent in direct, [id number] contact. Thank you, Dr. Coleman, for allowing me to participate in this patient's care. Further recommendations will depend on the patient's clinical course. Please do not hesitate to contact me if you have any questions or concerns. This medical document was created using an electronic medical record system with [employer] computerized dictation system. Although these documentations are being carefully reviewed, there may still be some phonetic and typographical changes. The errors are purely typographical, due to imperfection on the software program, and do not reflect any compromise in the patient's medical care. Dietary Evaluation Review Comments: 1. TF Jevity 40 ml/hr (53 g, 1152 kcal), CONSIDER CLINIMIX (42.5 G PRO, 510 KCAL PLUS JEVITY 30ML/HR (40 G PRO, 864 KCAL if nephrotic symptoms WORSENS 2. TPN per pharmacy if NPO> 7 days 3. PO diet as tolerated with ensure high protein PO protein supplements after passing a Speech eval. Consider a 2 g Na CCHO-60 g Renal PO diet if pt's gluc ose is uncontrolled and kindeny function worsens. Expected Outcomes/Goals: gradually weight loss, improved skin tones, and nutrition related lab values. Plan discussed with: Other (SHE Zacarias) Critical Care Time(min): 35 YASSINE MAYO MD May 04, 2024 19:48
[2024-05-04] MEDS: QUEtiapine FUMARATE 25 MG TAB PO SCH (21:41)
[2024-05-05] VITALS (124 sets, daily range): BP systolic 78–144; BP diastolic 45–88; PULSE 20–143; RESP 16–34; TEMP 97.7–99; O2SAT 90–99
[2024-05-05 03:50] LABS: Hematocrit 26.6 % (36.0-46.0); Mean Corpuscular Hemoglobin 32.4 pg (28.0-32.0); Mean Corpuscular Hgb Conc. 33.9 g/dL (32.0-36.0); Mean Corpuscular Volume 95.8 fL (80.0-100.0); Platelet Count (auto) 126 10^3/uL (140-450); Red Blood Cells 2.78 10^6/uL (4.0-5.20); Red Cell Distribution Width 14.7 % (11.8-14.3); White Blood Cell 14.6 10^3/uL (4.4-10.8)
[2024-05-05 03:53] LABS: Anion Gap 9 (5-15); Carbon Dioxide 22 mmol/L (20-31); Potassium 3.7 mmol/L (3.5-5.1)
[2024-05-05 03:59] LABS: BUN/Creatinine Ratio 51.5 (10.0-20.0)
[2024-05-05] MEDS ORDERED: AMIODARONE BOLUS KIT 100 ML IV ONE (04:00)
[2024-05-05 04:02] LABS: Basophils % (manual) 0 (0.0-2.0); Blast Cells 0; Eosinophils % (manual) 0 (0-7); Metamyelocytes % 0; Promyelocytes % 0; Reactive Lymphocytes 0
[2024-05-05 04:04] LABS: Blood Urea Nitrogen 51 mg/dL (9-23); Calcium 7.9 mg/dL (8.7-10.4); Chloride 114 mmol/L (98-107); Glucose 203 mg/dL (74-106); Sodium 145 mmol/L (136-145)
--- NOTE | 2024-05-05 05:21 | DVH ---
CHEST RADIOGRAPH Indication: pna Technique: Single frontal view of the chest was obtained COMPARISON: XY CHEST PORTABLE on DOS: 05/04/24, XY CHEST PORTABLE on DOS: 05/03/24, XY CHEST PORTABLE o n DOS: 05/02/24, XY CHEST XRAY 1 VIEW on DOS: 05/01/24, XY CHEST XRAY 1 VIEW on DOS: 05/01/24 FINDINGS: Lines and Tubes: Endotracheal tube and enteric catheter in satisfactory position. Lungs: Multifocal airspace disease. Pleura: No effusion. No pneumothorax. Cardiomediastinal contours: Cardiomegaly Bones: Unremarkable IMPRESSION: Lines and tubes in satisfactory position. No significant interval change.
[2024-05-05 05:37] LABS: Anisocytosis Slight; Band Neutrophils % (manual) 1; Lymphocytes % (manual) 5 (10.0-50.0); Monocytes % (manual) 6 (0-12); Myelocytes % 1; Platelet Estimate Decreased; Target Cell FEW
[2024-05-05 07:13] LABS: Base Excess -5.8 mmol/L (-2.0-3.0)
--- NOTE | 2024-05-05 09:25 | DVHPN2 ---
Subjective Patient intubated and sedated Reviewed: Care Plan, H&P, Labs, Medications Changes from previous H/P or p: No Changes General: Per HPI Respiratory: Shortness of breath Objective Vitals Vital Signs Date Time Temp Pulse Resp B/P (MAP) Pulse Ox O2 Delivery O2 Flow Rate FiO2 05/05/24 08:35 138 26 98/62 (74) 96 60 05/05/24 07:01 97.9 208.2 05/05/24 06:00 Mechanical Ventilator+ Intake/Output Intake and Output 05/05/24 07:00 Intake Total 4045.000 ml Output Total 1300 ml Balance 2745.000 ml Intake Oral 150 ml IV Total 3758.000 ml Tube Feeding 137 ml Output Urine Total 1300 ml Stool Total 0 ml General Appearance: Other (Chemically sedated) HEENT: PERRLA Cardiovascular: Normal S1, Normal S2, Other (Sinus tachycardia. Patient in a flutter 2-1 conduction) Abdomen: Normal bowel sounds, Soft, No tenderness, No hepatospenomegaly Musculoskeletal: Normal sensory function, Normal motor function Neuro: Other (Unable to assess) Skin: Dry, Intact Psych/Mental Status: Other (Unable to assess) Medications Current Medications Medications Dose Ordered Sig/Joann Route Start Time Stop Time Status Last Admin Dose Admin Ondansetron HCl 4 mg Q4HP PRN IV 05/01/24 14:45 Vancomycin HCl 0 ml @ 0 mls/hr UD IV 05/01/24 15:00 Pantoprazole Sodium 40 mg DAILY IV 05/02/24 10:00 05/04/24 08:59 40 MG Propofol 100 ml @ 3.816 mls/ hr Q24H IV 05/01/24 16:00 05/05/24 08:32 22.896 MLS/HR Fentanyl Citrate 250 ml @ 2.5 mls/hr Q24H IV 05/01/24 16:00 05/04/24 19:27 10 MLS/HR Vancomycin HCl 100 ml @ 100 mls/hr Q12H IV 05/02/24 06:00 05/05/24 05:32 100 MLS/HR Phenylephrine HCl 250 ml @ 30 mls/hr Q8H20M IV 05/01/24 19:15 Vasopressin 20 units/Sodium Chloride 100 ml @ 9 mls/hr Q11H7M IV 05/01/24 19:15 Midazolam HCl 50 ml @ 1 mls/hr Q24H IV 05/01/24 19:30 05/02/24 09:43 3 MLS/HR Atorvastatin Calcium 40 mg HS PO 05/02/24 22:00 05/04/24 21:40 40 MG Gemfibrozil 600 mg Q12HR PO 05/02/24 22:00 05/04/24 21:41 600 MG Oseltamivir Phosphate 75 mg BID GT 05/02/24 22:00 05/07/24 21:59 05/04/24 08:59 75 MG Norepinephrine Bitartrate 250 ml @ 1.875 mls/ hr Q24H IV 05/03/24 18:30 05/04/24 19:27 1.875 MLS/HR Methylprednisolone Sodium Succinate 40 mg DAILY IV 05/05/24 10:00 Meropenem 50 ml @ 17 mls/hr Q8HR IV 05/04/24 14:00 05/05/24 05:32 17 MLS/HR Enteral Nutritional Formula 1,000 ml 30ML/HR GT 05/04/24 11:30 05/04/24 16:00 1,000 ML Quetiapine Fumarate 50 mg BID PO 05/04/24 22:00 05/04/24 21:41 50 MG Levalbuterol HCl 0.625 mg Q6HR NEB 05/04/24 18:00 05/05/24 06:45 0.625 MG Ipratropium [place] 0.5 mg Q6HR NEB 05/04/24 18:00 05/05/24 06:45 0.5 MG Enoxaparin Sodium 100 mg Q12HR SC 05/05/24 10:00 UNV Laboratory Results Laboratory Tests 05/05/24 03:10 Chemistry Test 05/05/24 03:10 Calcium Level 7.9 mg/dL (8.7-10.4) L Coagulation Test 05/04/24 11:36 D-Dimer, Quantitative 12.48 mg/L FEU (0.0-0.49) H Urinalysis Test 05/01/24 11:04 Urine Color Yellow (Yellow) Urine Clarity Turbid (Clear) H Urine pH 5.5 (5.0-9.0) Urine Specific [place] 1.016 (1.001-1.035) Urine Protein 1+ (Negative) H Urine Ketones 1+ (Negative) H Urine Blood 1+ /uL (Negative) H Urine Nitrite 2+ (Negative) H Urine Bilirubin Negative (Negative) Urine Urobilinogen Normal mg/dL (Negative) Urine Leukocyte Esterase Negative /uL (Negative) Urine RBC <1 /hpf (0 - 4) Urine WBC 3 /hpf (0 - 5) Urine Squamous Epithelial Cells Few /hpf (<5) Urine Bacteria Many /hpf (None Seen) H Urine Hyaline Casts Few /lpf (0 - 2) Urine Yeast (Budding) Occasional /hpf (None Urine Glucose Normal mg/dL (Normal) Blood Gas Results Test 05/04/24 10:25 05/05/24 07:00 Arterial Blood pH 7.341 (7.350-7.450) 7.333 (7.350-7.450) FiO2 % 40.0 60.0 Microbiology Microbiology Date/Time Source Procedure Growth Status 05/01/24 18:40 Nose MRSA Screen - Final Complete 05/01/24 15:40 Blood Blood Culture - Preliminary NO GROWTH AFTER 72 HOURS OF INCUBATION. Resulted 05/01/24 00:00 Sputum Gram Stain - Final Resulted 05/01/24 00:00 Sputum Respiratory Culture - Preliminary Resulted Labs and/or images reviewed: Labs reviewed by me, Image(s) reviewed by me Assessment/Plan Assessment/Plan Impression: -acute hypoxic respiratory failure -metabolic encephalopathy -sepsis with shock secondary to UTI and viral pneumonia -influenza B -history of right hip fracture -obesity -deconditioning with bed-bound status -depression -primary hypertension -atrial flutter with rapid ventricular rate, 2-1 conduction Plan: -patient went into a 2-1 atrial flutter, which was treated by myself with IV diltiazem with improvement with the patient's heart rate. Later that evening the patient went back into a two-to-one flutter. Continues to be on amiodarone. Patient was ESR significantly elevated. CRP significantly elevated. Given thrombocytopenia is resolving, we will start full-dose anticoagulation. Reassess patient and possible cardioversion -urine culture -change antibiotic therapy to vancomycin and meropenem -decrease Solu-Medrol to 40 mg IV daily -start tube feeding -Seroquel 50 mg p.o. b.i.d. -bronchodilators, Pulmicort -continue Tamiflu for full course -check COVID-19 swab -CT angiogram of chest, DVT study of legs, CT scan of left femur for questionable infected surgical site -continue vasopressor therapy to keep map greater than 65 mmHg -repeat labs, chest x-ray, ABG in a.m. Critical care time spent with patient discussing and formulating plan of care: 40 minutes. This does not include time spent performing procedures. This medical document was created using an electronic medical record system with [employer] dictation system. Although this document has been carefully reviewed, there may still be some phonetic and typographical errors. These areas are purely typographical due to imperfections of the software programs, and do not reflect any compromise in the patient's medical care. Plan discussed with: Patient, Other (RN) My Orders Orders - BRISEYDA OROZCO SHIP/REC/DOC CONTROL Procedure Category Date Status Time Methylprednisolone PHA 05/05/24 In Process Sod Succ (Solu Medrol 10:00 Urine Bacterial KARRI 05/04/24 In Process Culture 12:30 Meropenem 1gm Ivpb PHA 05/04/24 In Process (Merrem 1gm/ Ns) 14:00 Nutritional PHA 05/04/24 In Process Supplements (Jevity 11:30 Quetiapine Fumarate PHA 05/04/24 In Process Tablet (Seroquel Tab 22:00 Chest Portable XY 05/05/24 Resulted 04:00 Abg W/ Co-Ox RT 05/05/24 Logged 04:00 Levalbuterol Hcl PHA 05/04/24 In Process (Xopenex Medneb) 18:00 Ipratropium Medneb PHA 05/04/24 In Process (Atrovent Medneb) 18:00 Bilat Lower Dvt US 05/05/24 Taken 08:19 Enoxaparin Sodium PHA 05/05/24 Logged (Lovenox) 10:00 Basic Metabolic Panel LAB 05/06/24 Verified 05:00 Basic Metabolic Panel LAB 05/07/24 Verified 05:00 Basic Metabolic Panel LAB 05/08/24 Verified 05:00 Complete Blood Count LAB 05/06/24 Verified 05:00 Complete Blood Count LAB 05/07/24 Verified 05:00 Complete Blood Count LAB 05/08/24 Verified 05:00 Furosemide Injection PHA 05/05/24 Logged (Lasix Injection) 08:30 Chest Portable XY 05/06/24 Logged 04:00 Abg W/ Co-Ox RT 05/06/24 Logged 04:00 Covid19 Antigen Pita LAB 05/05/24 Logged Date of Service: May 05, 2024 Billing Provider: BRISEYDA OROZCO NP Common Visit Codes: [id number] CARE 30-74 MIN BRISEYDA OROZCO NP May 05, 2024 09:25
--- NOTE | 2024-05-05 09:54 | DVH ---
Bilateral lower extremity venous duplex Clinical History: elevated d dimer , Comparison: US LT LOWER DVT on DOS: 08/09/23 Technique: Duplex Doppler evaluation of the deep venous systems of both lower extremities from the common femora l veins to the popliteal veins including color Doppler and spectral/pulsed waveform analysis was perf ormed. Findings: RIGHT SIDE: The common femoral vein demonstrates appropriate compressibility and waveform variability. There is compressibility/patency of the great saphenous vein at the proximal thigh. The femoral vein demonstrates appropriate compressibility and waveform variability. The deep femoral vein demonstrates appropriate compressibility and waveform variability. The popliteal vein demonstrates appropriate compressibility and waveform variability. There is normal compressibility at the tibioperoneal trunk. LEFT SIDE: The common femoral vein demonstrates appropriate compressibility and waveform variability. There is compressibility/patency of the great saphenous vein at the proximal thigh. The femoral vein demonstrates appropriate compressibility and waveform variability. The deep femoral vein demonstrates appropriate compressibility and waveform variability. The popliteal vein demonstrates appropriate compressibility and waveform variability. There is normal compressibility at the tibioperoneal trunk. Cystic structure in the right popliteal fossa measuring 4.4 cm may represent a Tseiner's cyst. Impression: No right or left femoropopliteal venous thrombosis.
[2024-05-05] MEDS: methylPREDNISolone SOD SUCC 40 MG/ML VL IV SCH (09:56)
[2024-05-05] MEDS: FUROSEMIDE 40 MG/4 ML VIAL IV ONE (10:16)
[2024-05-05] MEDS: ENOXAPARIN SOD 100 MG/1 ML SYRINGE SC SCH (10:16)
--- NOTE | 2024-05-05 12:21 | DVHPN2 ---
Progress Note Date Seen: May 05, 2024 Medical Necessity Reason Pt with a Central, PICC or Fol: Yes The following are medically ne: Butler Catheter Reason for butler catheter: Strict I&O Subjective Other Systems: sp dccv javi held as pt is hypoxic informed consent with ANYI faye and Objective vital signs Vital Sign Date Time Temp Pulse Resp B/P (MAP) Pulse Ox O2 Delivery O2 Flow Rate FiO2 05/05/24 12:00 60 05/05/24 11:52 142 22 105/67 (80) 97 05/05/24 08:00 Mechanical Ventilator+ 05/05/24 07:01 97.9 208.2 Total Intake and Output 05/04/24 05/04/24 05/05/24 15:00 23:00 07:00 Intake Total 1179 ml 1421.000 ml 1445.000 ml Output Total 650 ml 650 ml Balance 1179 ml 771.000 ml 795.000 ml medications Current Medications Medications Dose Ordered Sig/Joann Route Start Time Stop Time Status Last Admin Dose Admin Ondansetron HCl 4 mg Q4HP PRN IV 05/01/24 14:45 Vancomycin HCl 0 ml @ 0 mls/hr UD IV 05/01/24 15:00 Pantoprazole Sodium 40 mg DAILY IV 05/02/24 10:00 05/05/24 09:56 40 MG Propofol 100 ml @ 3.816 mls/ hr Q24H IV 05/01/24 16:00 05/05/24 08:32 22.896 MLS/HR Fentanyl Citrate 250 ml @ 2.5 mls/hr Q24H IV 05/01/24 16:00 05/05/24 11:20 20 MLS/HR Vancomycin HCl 100 ml @ 100 mls/hr Q12H IV 05/02/24 06:00 05/05/24 05:32 100 MLS/HR Phenylephrine HCl 250 ml @ 30 mls/hr Q8H20M IV 05/01/24 19:15 Vasopressin 20 units/Sodium Chloride 100 ml @ 9 mls/hr Q11H7M IV 05/01/24 19:15 Midazolam HCl 50 ml @ 1 mls/hr Q24H IV 05/01/24 19:30 05/02/24 09:43 3 MLS/HR Atorvastatin Calcium 40 mg HS PO 05/02/24 22:00 05/04/24 21:40 40 MG Gemfibrozil 600 mg Q12HR PO 05/02/24 22:00 05/05/24 09:56 600 MG Oseltamivir Phosphate 75 mg BID GT 05/02/24 22:00 05/07/24 21:59 05/05/24 09:56 75 MG Norepinephrine Bitartrate 250 ml @ 1.875 mls/ hr Q24H IV 05/03/24 18:30 05/04/24 19:27 1.875 MLS/HR Methylprednisolone Sodium Succinate 40 mg DAILY IV 05/05/24 10:00 05/05/24 09:56 40 MG Meropenem 50 ml @ 17 mls/hr Q8HR IV 05/04/24 14:00 05/05/24 05:32 17 MLS/HR Enteral Nutritional Formula 1,000 ml 30ML/HR GT 05/04/24 11:30 05/04/24 16:00 1,000 ML Quetiapine Fumarate 50 mg BID PO 05/04/24 22:00 05/05/24 09:56 50 MG Levalbuterol HCl 0.625 mg Q6HR NEB 05/04/24 18:00 05/05/24 11:51 0.625 MG Ipratropium [place] 0.5 mg Q6HR NEB 05/04/24 18:00 05/05/24 11:51 0.5 MG Enoxaparin Sodium 100 mg Q12HR SC 05/05/24 10:00 05/05/24 10:16 100 MG Examination: GENERAL:Abnormal, HEENT:Abnormal, LUNGS:Abnormal, CVS:Abnormal, ABDOMEN:Abnormal laboratory and microbiology Laboratory Tests 05/05/24 03:10 Test 05/05/24 03:10 Range/Units Serum Glucose 203 H 74-106 mg/dL Microbiology Date/Time Source Procedure Growth Status 05/04/24 12:20 Urine - Catheterized Urine Culture - Preliminary Resulted 05/01/24 18:40 Nose MRSA Screen - Final Complete 05/01/24 15:40 Blood Blood Culture - Preliminary NO GROWTH AFTER 72 HOURS OF INCUBATION. Resulted 05/01/24 00:00 Sputum Gram Stain - Final Resulted 05/01/24 00:00 Sputum Respiratory Culture - Preliminary Resulted Problem List/Assessment/Plan Problem List/Assessment/Plan atrial flutter Septic shock with pneumonia Atrial fibrillation with rapid ventricular rate, stage III, new onset Rule out structural heart disease Acute hypoxic respiratory failure Acute on chronic COPD exacerbation Severe hypokalemia Severe hypertriglyceridemia Thrombocytopenia HX of hypertension Obesity Plan/Recommendation (Dr. Weir) cont amio gtt iv digoxin x 1 wean off pressors not on anticoag 2/2 to low PLTS elevated cva risk no further cv recs---start heparin/lovenox once PLTS are higher and then transition to po amio in 24-48 hours pending improved HR sp dccv (family aware risk of cva) however this may help hemodynamics s/p dccv SR now , cont amio for 1 more day cont lovenox 40 mins critical care time spent Plan discussed with: Patient, Spouse Dietary Evaluation Review Comments: 1. TF Jevity 40 ml/hr (53 g, 1152 kcal), CONSIDER CLINIMIX (42.5 G PRO, 510 KCAL PLUS JEVITY 30ML/HR (40 G PRO, 864 KCAL if nephrotic symptoms WORSENS 2. TPN per pharmacy if NPO> 7 days 3. PO diet as tolerated with ensure high protein PO protein supplements after passing a Speech eval. Consider a 2 g Na CCHO-60 g Renal PO diet if pt's gluc ose is uncontrolled and kindeny function worsens. Expected Outcomes/Goals: gradually weight loss, improved skin tones, and nutrition related lab values. Date of Service: May 05, 2024 Billing Provider: VICKI WEIR MD Common Visit Codes: NOT BILLABLE VICKI WEIR MD May 05, 2024 12:21
--- NOTE | 2024-05-05 12:24 | DVHOP2 ---
Operative Report preop dx: AFL postop dx: SR indications: rapid AFL, hemodyanmic instablilty Procedure: DC cardioversion patient was in ICU intubated. we got informed consent with . javi cancelled 2/2 to hypoxia and high fio2 needs and hihger risk. Therefore there is risk of cva that family is aware. we sync'ed to 150J and 1 shock delivered with successful latter day of Sinus rhythm. no immediate complications. VICKI WEIR MD May 05, 2024 12:24
[2024-05-05 14:07] LABS: COVID19 ANTIGEN SOFIA FIA NEGATIVE (NEGATIVE)
--- NOTE | 2024-05-05 16:14 | ECG ---
[facility] Test Date: 2024-05-05 Test Time: 00:33:34 Pat Name: TSERING CHO Department: Room: [address] [place] [address] A Gender: F Recreational Aide: : 1960 Requested By: BRISEYDA OROZCO Order Number: [id number] Reading MD: John Farooq Measurements Intervals Slater Rate: 100 P: 30 MT: 178 QRS: -2 QRSD: 60 T: 20 QT: 318 QTc: 410 Interpretive Statements Normal sinus rhythm Possible Septal infarct , age undetermined Electronically Signed On 05-06-2024 10:32:52 PST by John Farooq Please click the below link to view image of tracing.
--- NOTE | 2024-05-05 21:51 | DVHPN2 ---
Progress Note - Dictate Date Seen: May 05, 2024 Medical Necessity Reason Pt with a Central, PICC or Fol: Yes The following are medically ne: Butler Catheter Reason for butler catheter: Strict I&O Subjective Patient seen and examined at bedside. Sedated, intubated on mechanical ventilator. Overnight events reviewed. vital signs Vital Sign Date Time Temp Pulse Resp B/P (MAP) Pulse Ox O2 Delivery O2 Flow Rate FiO2 05/05/24 20:40 84 22 130/68 (88) 98 40 05/05/24 18:53 98.6 209.5 05/05/24 18:00 Mechanical Ventilator+ Total Intake and Output 05/04/24 05/04/24 05/05/24 15:00 23:00 07:00 Intake Total 1179 ml 1421.000 ml 1525.931 ml Output Total 650 ml 650 ml Balance 1179 ml 771.000 ml 875.931 ml medications Current Medications Medications Dose Ordered Sig/Joann Route Start Time Stop Time Status Last Admin Dose Admin Ondansetron HCl 4 mg Q4HP PRN IV 05/01/24 14:45 Vancomycin HCl 0 ml @ 0 mls/hr UD IV 05/01/24 15:00 Pantoprazole Sodium 40 mg DAILY IV 05/02/24 10:00 05/05/24 09:56 40 MG Propofol 100 ml @ 3.816 mls/ hr Q24H IV 05/01/24 16:00 05/05/24 15:46 22.896 MLS/HR Fentanyl Citrate 250 ml @ 2.5 mls/hr Q24H IV 05/01/24 16:00 05/05/24 11:20 20 MLS/HR Phenylephrine HCl 250 ml @ 30 mls/hr Q8H20M IV 05/01/24 19:15 Vasopressin 20 units/Sodium Chloride 100 ml @ 9 mls/hr Q11H7M IV 05/01/24 19:15 Midazolam HCl 50 ml @ 1 mls/hr Q24H IV 05/01/24 19:30 05/02/24 09:43 3 MLS/HR Atorvastatin Calcium 40 mg HS PO 05/02/24 22:00 05/04/24 21:40 40 MG Gemfibrozil 600 mg Q12HR PO 05/02/24 22:00 05/05/24 09:56 600 MG Oseltamivir Phosphate 75 mg BID GT 05/02/24 22:00 05/07/24 21:59 05/05/24 09:56 75 MG Norepinephrine Bitartrate 250 ml @ 1.875 mls/ hr Q24H IV 05/03/24 18:30 05/04/24 19:27 1.875 MLS/HR Methylprednisolone Sodium Succinate 40 mg DAILY IV 05/05/24 10:00 05/05/24 09:56 40 MG Meropenem 50 ml @ 17 mls/hr Q8HR IV 05/04/24 14:00 05/05/24 15:14 17 MLS/HR Enteral Nutritional Formula 1,000 ml 30ML/HR GT 05/04/24 11:30 05/05/24 15:20 1,000 ML Quetiapine Fumarate 50 mg BID PO 05/04/24 22:00 05/05/24 09:56 50 MG Levalbuterol HCl 0.625 mg Q6HR NEB 05/04/24 18:00 05/05/24 18:58 0.625 MG Ipratropium [place] 0.5 mg Q6HR NEB 05/04/24 18:00 05/05/24 18:58 0.5 MG Enoxaparin Sodium 100 mg Q12HR SC 05/05/24 10:00 05/05/24 10:16 100 MG objective Gen.: Patient lying in bed in medical ICU. Sedated, intubated on mechanical ventilator. Head: Normocephalic, atraumatic. Eyes: PERRLA. Ears: Normal external anatomy. Throat: Endotracheal tube and orogastric tube in place. Neck: Supple, trachea midline. Chest: Transmitted breath sounds bilaterally. Decreased air entry bilaterally. No wheezing. Bibasilar crackles. Cardiovascular: Positive S1, positive S2. Regular rate and rhythm. Abdomen: Positive bowel sounds in all 4 quadrants. Soft, nontender, nondistended. : Butler in place. Normal external genitalia. Rectal: Deferred. Skin: Warm, dry. Intact. Extremities: 2+ radial pulses bilaterally. No lower extremity edema. Neuro: Sedated. laboratory and microbiology Laboratory Tests 05/05/24 03:10 Test 05/05/24 03:10 Range/Units Serum Glucose 203 H 74-106 mg/dL Assessment/Plan Impression: Acute hypoxic respiratory failure On mechanical ventilator Atrial fibrillation w/ RVR Septic shock Hypokalemia Influenza B Nicotine dependence Marijuana use Obesity BMI 32.9 Events: Remains on vent support On AC mode; RR 22 -->20, VT 450, PEEP 8, FiO2 40 -->60% Patient is s/p cardioversion. Sedated on Propofol, Fentanyl On pressors for hemodynamic support Levophed 8 mcg/min Titrate to keep mean arterial pressure greater than 65 mmHg. Increased pressor requirements ABG reviewed, notable for acidemia CXR image and report reviewed. Devices in place. Multifocal airspace disease. No pneumothorax. No pleural effusion. On amiodarone drip Cardiology recs appreciated. Therapeutic Lovenox Continue Tamiflu course Continue antibiotics IV steroids - taper as tolerated Continue bronchodilators Seroquel BID. Diurese w/ Lasix as tolerated Monitor renal function Monitor hemoglobin Increased ET tube secretions noted. Taper sedation as tolerated CPAP in the AM. Labs and imaging reviewed. Rest of plan as noted below. Plan: s/p intubation on mechanical ventilator. On AC mode; RR 20, VT 450, PEEP 8, FiO2 60% Titrate FIO2 to keep O2 saturation above 90%. VAP bundle. Daily ABG and CXR while intubated Sedate for ventilator synchrony On digoxin Amiodarone drip Cardiology recs appreciated. Continue antibiotics. F/u cultures. IV steroids On pressors for hemodynamic support Titrate to keep mean arterial pressure greater than 65 mmHg. Monitor renal function Monitor electrolytes. Supplement as necessary. Monitor ins and outs. GI prophylaxis - Protonix DVT prophylaxis. Prognosis: Poor given patient's multiple co-morbidities. Condition: Critical Rest of plan per hospitalist and other consultants. A total of 35 minutes of critical care time was spent reviewing the patient record, examining the patient, making a diagnostic and therapeutic plan, discussing this plan with the medical personnel, following up on diagnostic studies and following the patient for clinical stability excluding any and all procedures. At least 50% of this time was spent in direct, [id number] contact. Thank you, Dr. Coleman, for allowing me to participate in this patient's care. Further recommendations will depend on the patient's clinical course. Please do not hesitate to contact me if you have any questions or concerns. This medical document was created using an electronic medical record system with [employer] system. Although these documentations are being carefully reviewed, there may still be some phonetic and typographical changes. The errors are purely typographical, due to imperfection on the software program, and do not reflect any compromise in the patient's medical care. Dietary Evaluation Review Comments: 1. TF Jevity 40 ml/hr (53 g, 1152 kcal), CONSIDER CLINIMIX (42.5 G PRO, 510 KCAL PLUS JEVITY 30ML/HR (40 G PRO, 864 KCAL if nephrotic symptoms WORSENS 2. TPN per pharmacy if NPO> 7 days 3. PO diet as tolerated with ensure high protein PO protein supplements after passing a Speech eval. Consider a 2 g Na CCHO-60 g Renal PO diet if pt's gluc ose is uncontrolled and kindeny function worsens. Expected Outcomes/Goals: gradually weight loss, improved skin tones, and nutrition related lab values. Plan discussed with: Other (SHE Delarosa) Critical Care Time(min): 35 YASSINE MAYO MD May 05, 2024 21:51
[2024-05-06] VITALS (115 sets, daily range): BP systolic 97–171; BP diastolic 48–93; PULSE 9–103; RESP 10–32; TEMP 98.1–99.5; O2SAT 90–100
[2024-05-06 03:46] LABS: Hematocrit 26.6 % (36.0-46.0); Hemoglobin 8.7 g/dL (12.2-16.2); Mean Corpuscular Hemoglobin 32.2 pg (28.0-32.0); Mean Corpuscular Hgb Conc. 32.9 g/dL (32.0-36.0); Mean Corpuscular Volume 97.9 fL (80.0-100.0); Platelet Count (auto) 152 10^3/uL (140-450); Red Blood Cells 2.72 10^6/uL (4.0-5.20); Red Cell Distribution Width 15.3 % (11.8-14.3); White Blood Cell 13.1 10^3/uL (4.4-10.8)
[2024-05-06 03:58] LABS: Anion Gap 9 (5-15); Carbon Dioxide 23 mmol/L (20-31); Potassium 3.9 mmol/L (3.5-5.1)
[2024-05-06 04:04] LABS: BUN/Creatinine Ratio 48.8 (10.0-20.0)
[2024-05-06 04:14] LABS: Basophils % (manual) 0 (0.0-2.0); Blast Cells 0; Eosinophils % (manual) 0 (0-7); Myelocytes % 0; Promyelocytes % 0; Reactive Lymphocytes 0
[2024-05-06 04:15] LABS: Blood Urea Nitrogen 41 mg/dL (9-23); Calcium 7.7 mg/dL (8.7-10.4); Chloride 115 mmol/L (98-107); Glucose 189 mg/dL (74-106); Sodium 147 mmol/L (136-145)
--- NOTE | 2024-05-06 04:53 | DVH ---
CHEST RADIOGRAPH Indication: chf, pna Technique: Single frontal view of the chest was obtained Comparison: XY CHEST PORTABLE on DOS: 05/05/24 FINDINGS: Lines and Tubes: The endotracheal tube terminates 3.9 cm above the mary. Right central venous cath eter terminates in the superior vena cava. The enteric tube courses below the left hemidiaphragm and the tip extends outside the field of view. Lungs: Hazy bilateral opacities, similar to the prior study. Pleura: No effusion. No pneumothorax. Cardiomediastinal contours: Unremarkable Bones: No acute osseous abnormality. IMPRESSION: 1. Bilateral opacities similar to the prior study. 2. Stable position of the support lines and tubes.
[2024-05-06 07:27] LABS: Band Neutrophils % (manual) 6; Lymphocytes % (manual) 10 (10.0-50.0); Metamyelocytes % 1; Monocytes % (manual) 3 (0-12)
[2024-05-06 07:28] LABS: Tear Drop Cells MODERATE
[2024-05-06 07:29] LABS: Platelet Estimate Adequate
[2024-05-06] MEDS: AMIODARONE 360mg/200mL PREMIX 200 ML IV SCH (07:45)
--- NOTE | 2024-05-06 07:53 | DVH ---
CLINICAL INDICATION: 63 years old, Female; SURGICAL SITE. TECHNIQUE: Noncontrast CT of the left femur was performed. Sagittal and coronal reformatted images ar e provided. COMPARISON: CT LEFT LOWER EXTREMITY W/O CON on DOS: 08/09/23 CT Dose: CTDI volume is 25.4 mGy. Dose-length product is 856.6 mGy*cm FINDINGS: No fracture or dislocation. There is open reduction internal fixation of the distal femur with a plat e and several screws. The hardware is intact. There is left hip joint space narrowing and osteophyte formation. Knee joint space is maintained. There subcutaneous edema in the left lower extremity. No fluid collection. There is fatty replacement of all muscle groups. IMPRESSION: 1. No fracture or dislocation. 2. Soft tissue swelling in the left lower extremity. No fluid collection. All CT scans at this medical facility are performed using dose modulation techniques as appropriate t o a performed exam including the following: Automated exposure control was utilized; adjustment of th e MA and/or KV according to patient size; and use of iterative reconstruction technique.
[2024-05-06 07:54] LABS: Base Excess -6.8 mmol/L (-2.0-3.0)
--- NOTE | 2024-05-06 08:04 | DVH ---
CTA Chest with intravenous contrast INDICATION: D-DIMER ELEVATED/ICU COMPARISON: None TECHNIQUE: Multidetector spiral CTA of the chest was performed of the chest with intravenous contrast . PULMONARY ANGIOGRAPHY PROTOCOL was utilized using a bolus-tracking technique centered on the main p ulmonary artery. Coronal and sagittal multiplanar and MIP reformats were performed. Radiation Dose : 1. Chest: CTDI volume is 5.92 mGy. Dose-length product is 2051.78 mGy*cm The dose indicators for CT are the volume Computed Tomography (CT) Dose Index (CTDIvol) and the Dose Length Product (DLP), and are measured in units of mGy and mGy-cm, respectively. These indicators are not patient dose, but values generated from the CT scanner acquisition factors. The report includes radiation exposure data for exposures received during this examination. FINDINGS: Support lines and tubes: The endotracheal tube terminates above the mary. The enteric tube is visua lized to the level of the gastric lumen. There is a right central venous catheter with tip terminati ng in the superior cavoatrial junction. Pulmonary artery: No main, central or proximal segmental pulmonary embolism. Lower neck: The thyroid is unremarkable. Lungs: Left lower lobe consolidation is present with air bronchograms. There is also left upper lob e consolidation. Passive atelectasis in the right lower lobe. Hazy opacities in the right upper lobe and right lower lobe. Trachea and central airways: Patent. Pleura: No pneumothorax. There is a small right pleural effusion. Heart/Vascular Structures: The heart is normal in size. Coronary artery calcifications. No pericardi al effusion. Thoracic aorta is normal in caliber. No aneurysm or dissection. Lymph Nodes: There are enlarged mediastinal lymph nodes. For reference, a left prevascular lymph node measures 1.9 cm in short axis. Right paratracheal lymph node measures 1.9 cm in short axis. Esophagus:Grossly unremarkable. Musculoskeletal: Old bilateral rib fractures. Body wall: Unremarkable. Upper abdomen: Unremarkable. IMPRESSION: 1. No evidence of pulmonary embolism. 2. Bilateral pneumonias. 3. Small right pleural effusion. 4. Coronary artery calcifications. 5. Mediastinal lymphadenopathy, which may be reactive. In a patient with a history of malignancy, met astatic adenopathy is not entirely excluded.
[2024-05-06] MEDS: HYDROCORTISONE SOD SUCC 100 MG/2ML INJ VIAL IV SCH (10:07)
[2024-05-06] MEDS: FUROSEMIDE 20 MG/2 ML VIAL IV SCH (10:07)
[2024-05-06] MEDS: AMIODARONE HCL 200 MG TAB PO SCH (10:09)
[2024-05-06] MEDS: FLORASTOR (S. BOULARDII) 250 MG CAP PO SCH (10:10)
--- NOTE | 2024-05-06 22:03 | DVHPN2 ---
Progress Note - Dictate Date Seen: May 06, 2024 Medical Necessity Reason Pt with a Central, PICC or Fol: Yes The following are medically ne: Butler Catheter Reason for butler catheter: Strict I&O Subjective Patient seen and examined at bedside. Sedated, intubated on mechanical ventilator. Overnight events reviewed. vital signs Vital Sign Date Time Temp Pulse Resp B/P (MAP) Pulse Ox O2 Delivery O2 Flow Rate FiO2 05/06/24 20:54 98.4 90 12 140/77 (98) 95 209.1 05/06/24 20:39 30 05/06/24 20:00 Mechanical Ventilator+ Total Intake and Output 05/05/24 05/05/24 05/06/24 15:00 23:00 07:00 Intake Total 588.448 ml 738.323 ml 640.972 ml Output Total 750 ml 700 ml Balance 588.448 ml -11.677 ml -59.028 ml medications Current Medications Medications Dose Ordered Sig/Joann Route Start Time Stop Time Status Last Admin Dose Admin Ondansetron HCl 4 mg Q4HP PRN IV 05/01/24 14:45 Vancomycin HCl 0 ml @ 0 mls/hr UD IV 05/01/24 15:00 Pantoprazole Sodium 40 mg DAILY IV 05/02/24 10:00 05/06/24 10:07 40 MG Propofol 100 ml @ 3.816 mls/ hr Q24H IV 05/01/24 16:00 05/06/24 18:20 15.264 MLS/HR Fentanyl Citrate 250 ml @ 2.5 mls/hr Q24H IV 05/01/24 16:00 05/06/24 10:59 22.5 MLS/HR Phenylephrine HCl 250 ml @ 30 mls/hr Q8H20M IV 05/01/24 19:15 Vasopressin 20 units/Sodium Chloride 100 ml @ 9 mls/hr Q11H7M IV 05/01/24 19:15 Midazolam HCl 50 ml @ 1 mls/hr Q24H IV 05/01/24 19:30 05/02/24 09:43 3 MLS/HR Atorvastatin Calcium 40 mg HS PO 05/02/24 22:00 05/05/24 21:57 40 MG Gemfibrozil 600 mg Q12HR PO 05/02/24 22:00 05/06/24 10:09 600 MG Oseltamivir Phosphate 75 mg BID GT 05/02/24 22:00 05/07/24 21:59 05/06/24 10:11 75 MG Norepinephrine Bitartrate 250 ml @ 1.875 mls/ hr Q24H IV 05/03/24 18:30 05/06/24 01:23 9.375 MLS/HR Meropenem 50 ml @ 17 mls/hr Q8HR IV 05/04/24 14:00 05/06/24 13:42 17 MLS/HR Enteral Nutritional Formula 1,000 ml 30ML/HR GT 05/04/24 11:30 05/05/24 15:20 1,000 ML Quetiapine Fumarate 50 mg BID PO 05/04/24 22:00 05/06/24 10:09 50 MG Levalbuterol HCl 0.625 mg Q6HR NEB 05/04/24 18:00 05/06/24 19:02 0.625 MG Ipratropium [place] 0.5 mg Q6HR NEB 05/04/24 18:00 05/06/24 19:01 0.5 MG Enoxaparin Sodium 100 mg Q12HR SC 05/05/24 10:00 05/06/24 10:11 100 MG Hydrocortisone Sodium Succinate 50 mg Q12HR IV 05/06/24 10:00 05/06/24 10:07 50 MG Amiodarone HCl 400 mg DAILY PO 05/06/24 10:00 05/06/24 10:09 400 MG Furosemide 20 mg BID IV 05/06/24 10:00 05/06/24 10:07 20 MG Saccharomyces Boulardii 250 mg DAILY PO 05/06/24 10:00 05/06/24 10:10 250 MG objective Gen.: Patient lying in bed in medical ICU. Sedated, intubated on mechanical ventilator. Head: Normocephalic, atraumatic. Eyes: PERRLA. Ears: Normal external anatomy. Throat: Endotracheal tube and orogastric tube in place. Neck: Supple, trachea midline. Chest: Transmitted breath sounds bilaterally. Decreased air entry bilaterally. No wheezing. Bibasilar crackles. Cardiovascular: Positive S1, positive S2. Regular rate and rhythm. Abdomen: Positive bowel sounds in all 4 quadrants. Soft, nontender, nondistended. : Butler in place. Normal external genitalia. Rectal: Deferred. Skin: Warm, dry. Intact. Extremities: 2+ radial pulses bilaterally. No lower extremity edema. Neuro: Sedated. laboratory and microbiology Laboratory Tests 05/06/24 03:27 Test 05/06/24 03:27 Range/Units Serum Glucose 189 H 74-106 mg/dL Assessment/Plan Impression: Acute hypoxic respiratory failure On mechanical ventilator Atrial fibrillation w/ RVR Septic shock Hypokalemia Influenza B Nicotine dependence Marijuana use Obesity BMI 32.9 Events: Remains on vent support On AC mode; RR 20, VT 450, PEEP 8, FiO2 60 -->30% Improved FiO2 requirements. CT angiography revealed no e/o pulmonary embolism.. Sedated on Propofol drip Fentanyl for analgesia On pressors for hemodynamic support Levophed 3 mcg/min Titrate to keep mean arterial pressure greater than 65 mmHg. Improved pressor requirements ABG reviewed, notable for acidemia CXR image and report reviewed. Devices in place. Hazy bilateral opacities, similar to prior. No pneumothorax. No pleural effusion. Transitioned off amiodarone drip, on PO amiodarone. Cardiology recs appreciated. Therapeutic Lovenox Continue Tamiflu course Continue antibiotics IV steroids Continue bronchodilators Seroquel BID. Diurese w/ Lasix as tolerated Monitor renal function Monitor hemoglobin Increased ET tube secretions noted. Plan for therapeutic bronchoscopy Taper sedation as tolerated CPAP in the AM. Patient is s/p cardioversion. Labs and imaging reviewed. Rest of plan as noted below. Plan: s/p intubation on mechanical ventilator. On AC mode; RR 20, VT 450, PEEP 8, FiO2 30% Titrate FIO2 to keep O2 saturation above 90%. VAP bundle. Daily ABG and CXR while intubated Sedate for ventilator synchrony On digoxin Amiodarone PO Cardiology recs appreciated. Continue antibiotics. F/u cultures. IV steroids On pressors for hemodynamic support Titrate to keep mean arterial pressure greater than 65 mmHg. Monitor renal function Monitor electrolytes. Supplement as necessary. Monitor ins and outs. GI prophylaxis - Protonix DVT prophylaxis. Prognosis: Poor given patient's multiple co-morbidities. Condition: Critical Rest of plan per hospitalist and other consultants. A total of 35 minutes of critical care time was spent reviewing the patient record, examining the patient, making a diagnostic and therapeutic plan, discussing this plan with the medical personnel, following up on diagnostic studies and following the patient for clinical stability excluding any and all procedures. At least 50% of this time was spent in direct, [id number] contact. Thank you, Dr. Coleman, for allowing me to participate in this patient's care. Further recommendations will depend on the patient's clinical course. Please do not hesitate to contact me if you have any questions or concerns. This medical document was created using an electronic medical record system with [employer] dictation system. Although these documentations are being carefully reviewed, there may still be some phonetic and typographical changes. The errors are purely typographical, due to imperfection on the software program, and do not reflect any compromise in the patient's medical care. Dietary Evaluation Review Comments: 1. TF Jevity 40 ml/hr (53 g, 1152 kcal), CONSIDER CLINIMIX (42.5 G PRO, 510 KCAL PLUS JEVITY 30ML/HR (40 G PRO, 864 KCAL if nephrotic symptoms WORSENS 2. TPN per pharmacy if NPO> 7 days 3. PO diet as tolerated with ensure high protein PO protein supplements after passing a Speech eval. Consider a 2 g Na CCHO-60 g Renal PO diet if pt's gluc ose is uncontrolled and kindeny function worsens. Expected Outcomes/Goals: gradually weight loss, improved skin tones, and nutrition related lab values. Plan discussed with: Other (RN) Critical Care Time(min): 35 YASSINE MAYO MD May 06, 2024 22:03
[2024-05-07] VITALS (114 sets, daily range): BP systolic 122–192; BP diastolic 67–115; PULSE 72–163; RESP 14–30; TEMP 96.8–99.3; O2SAT 89–100
[2024-05-07 03:43] LABS: Hematocrit 25.2 % (36.0-46.0); Hemoglobin 8.5 g/dL (12.2-16.2); Mean Corpuscular Hemoglobin 32.1 pg (28.0-32.0); Mean Corpuscular Hgb Conc. 33.8 g/dL (32.0-36.0); Mean Corpuscular Volume 95.1 fL (80.0-100.0); Platelet Count (auto) 184 10^3/uL (140-450); Red Blood Cells 2.65 10^6/uL (4.0-5.20); Red Cell Distribution Width 14.9 % (11.8-14.3)
[2024-05-07 04:02] LABS: Potassium 3.9 mmol/L (3.5-5.1)
[2024-05-07 04:03] LABS: Anion Gap 10 (5-15); Carbon Dioxide 24 mmol/L (20-31)
[2024-05-07 04:04] LABS: Basophils % (manual) 0 (0.0-2.0); Blast Cells 0; Eosinophils % (manual) 0 (0-7); Myelocytes % 0; Promyelocytes % 0; Reactive Lymphocytes 0
[2024-05-07 04:08] LABS: BUN/Creatinine Ratio 41.6 (10.0-20.0); Blood Urea Nitrogen 32 mg/dL (9-23); Chloride 117 mmol/L (98-107); Glucose 144 mg/dL (74-106); Sodium 151 mmol/L (136-145)
[2024-05-07 05:15] LABS: Band Neutrophils % (manual) 2; Lymphocytes % (manual) 7 (10.0-50.0); Metamyelocytes % 1; Monocytes % (manual) 4 (0-12); Platelet Estimate Adequate
[2024-05-07 05:16] LABS: Anisocytosis Slight; Stomatocytes Few; Target Cell FEW
--- NOTE | 2024-05-07 05:37 | DVH ---
CHEST RADIOGRAPH Indication: VENTED Technique: Single frontal view of the chest was obtained COMPARISON: XY CHEST PORTABLE on DOS: 05/06/24, XY CHEST PORTABLE on DOS: 05/05/24, XY CHEST PORTABLE o n DOS: 05/04/24, XY CHEST PORTABLE on DOS: 05/03/24, XY CHEST PORTABLE on DOS: 05/02/24 FINDINGS: Lines and Tubes: Endotracheal tube and enteric catheter in satisfactory position. Right central venou s catheter in satisfactory position. Lungs: Congestion Pleura: No effusion. No pneumothorax. Cardiomediastinal contours: Unremarkable Bones: Unremarkable IMPRESSION: Lines and tubes in satisfactory position. No significant interval change.
[2024-05-07 08:44] LABS: Base Excess -2.1 mmol/L (-2.0-3.0)
[2024-05-07] MEDS: METOPROLOL TARTRATE 1MG/1ML-5ML VIAL IV ONE (09:37)
[2024-05-07] MEDS: D5W 5% 1,000 ML IV SCH (09:38)
--- NOTE | 2024-05-07 09:54 | DVHPN2 ---
Subjective Patient intubated and following some commands. Reviewed: Care Plan, H&P, Labs, Medications Changes from previous H/P or p: No Changes General: Per HPI Respiratory: Shortness of breath Objective Vitals Vital Signs Date Time Temp Pulse Resp B/P (MAP) Pulse Ox O2 Delivery O2 Flow Rate FiO2 05/07/24 09:37 110 177/91 05/07/24 08:38 22 97 30 05/07/24 08:00 Mechanical Ventilator+ 05/07/24 06:54 98.8 209.8 Intake/Output Intake and Output 05/07/24 07:00 Intake Total 1420.758 ml Output Total 1950 ml Balance -529.242 ml Intake Oral 210 ml IV Total 1039.758 ml Tube Feeding 171 ml Output Urine Total 1950 ml General Appearance: mild distress, Other (Patient intubated. Encephalopathic from residual sedation) HEENT: Atraumatic, PERRLA Lungs: Clear to auscultation, Normal air movement, Other (Mechanical ventilation) Cardiovascular: Normal S1, Normal S2, Other (Sinus tachycardia) Abdomen: Normal bowel sounds, Soft, No tenderness, No hepatospenomegaly Musculoskeletal: Normal sensory function, Normal motor function Neuro: Other (Patient responding to pain. Opening eyes.) Skin: Dry, Intact Psych/Mental Status: Other (Unable to assess) Medications Current Medications Medications Dose Ordered Sig/Joann Route Start Time Stop Time Status Last Admin Dose Admin Ondansetron HCl 4 mg Q4HP PRN IV 05/01/24 14:45 Vancomycin HCl 0 ml @ 0 mls/hr UD IV 05/01/24 15:00 Pantoprazole Sodium 40 mg DAILY IV 05/02/24 10:00 05/07/24 09:35 40 MG Propofol 100 ml @ 3.816 mls/ hr Q24H IV 05/01/24 16:00 05/06/24 18:20 15.264 MLS/HR Fentanyl Citrate 250 ml @ 2.5 mls/hr Q24H IV 05/01/24 16:00 05/06/24 22:05 22.5 MLS/HR Phenylephrine HCl 250 ml @ 30 mls/hr Q8H20M IV 05/01/24 19:15 Hold Vasopressin 20 units/Sodium Chloride 100 ml @ 9 mls/hr Q11H7M IV 05/01/24 19:15 Hold Midazolam HCl 50 ml @ 1 mls/hr Q24H IV 05/01/24 19:30 05/02/24 09:43 3 MLS/HR Atorvastatin Calcium 40 mg HS PO 05/02/24 22:00 05/06/24 22:05 40 MG Gemfibrozil 600 mg Q12HR PO 05/02/24 22:00 05/07/24 09:35 600 MG Oseltamivir Phosphate 75 mg BID GT 05/02/24 22:00 05/07/24 21:59 05/07/24 09:40 75 MG Norepinephrine Bitartrate 250 ml @ 1.875 mls/ hr Q24H IV 05/03/24 18:30 Hold 05/06/24 01:23 9.375 MLS/HR Meropenem 50 ml @ 17 mls/hr Q8HR IV 05/04/24 14:00 05/07/24 05:49 17 MLS/HR Enteral Nutritional Formula 1,000 ml 30ML/HR GT 05/04/24 11:30 05/05/24 15:20 1,000 ML Quetiapine Fumarate 50 mg BID PO 05/04/24 22:00 05/07/24 09:34 50 MG Levalbuterol HCl 0.625 mg Q6HR NEB 05/04/24 18:00 05/07/24 07:54 0.625 MG Ipratropium [place] 0.5 mg Q6HR NEB 05/04/24 18:00 05/07/24 07:54 0.5 MG Enoxaparin Sodium 100 mg Q12HR SC 05/05/24 10:00 05/07/24 09:35 100 MG Hydrocortisone Sodium Succinate 50 mg Q12HR IV 05/06/24 10:00 05/07/24 09:35 50 MG Amiodarone HCl 400 mg DAILY PO 05/06/24 10:00 05/07/24 09:34 400 MG Furosemide 20 mg BID IV 05/06/24 10:00 05/07/24 09:34 20 MG Saccharomyces Boulardii 250 mg DAILY PO 05/06/24 10:00 05/07/24 09:35 250 MG Dextrose 1,000 ml @ 75 mls/hr [id number] IV 05/07/24 08:30 05/07/24 09:38 75 MLS/HR Labetalol HCl 10 mg Q2HPRN PRN IV 05/07/24 08:45 Laboratory Results Laboratory Tests 05/07/24 03:05 Chemistry Test 05/07/24 03:05 Calcium Level 8.0 mg/dL (8.7-10.4) L Urinalysis Test 05/01/24 11:04 Urine Color Yellow (Yellow) Urine Clarity Turbid (Clear) H Urine pH 5.5 (5.0-9.0) Urine Specific [place] 1.016 (1.001-1.035) Urine Protein 1+ (Negative) H Urine Ketones 1+ (Negative) H Urine Blood 1+ /uL (Negative) H Urine Nitrite 2+ (Negative) H Urine Bilirubin Negative (Negative) Urine Urobilinogen Normal mg/dL (Negative) Urine Leukocyte Esterase Negative /uL (Negative) Urine RBC <1 /hpf (0 - 4) Urine WBC 3 /hpf (0 - 5) Urine Squamous Epithelial Cells Few /hpf (<5) Urine Bacteria Many /hpf (None Seen) H Urine Hyaline Casts Few /lpf (0 - 2) Urine Yeast (Budding) Occasional /hpf (None Urine Glucose Normal mg/dL (Normal) Blood Gas Results Test 05/07/24 08:14 Arterial Blood pH 7.416 (7.350-7.450) FiO2 % 30.0 Microbiology Microbiology Date/Time Source Procedure Growth Status 05/04/24 12:20 Urine - Catheterized Urine Culture - Final Complete 05/01/24 18:40 Nose MRSA Screen - Final Complete 05/01/24 15:40 Blood Blood Culture - Final NO GROWTH AFTER 5 DAYS OF INCUBATION. Complete 05/01/24 00:00 Sputum Gram Stain - Final Resulted 05/01/24 00:00 Respiratory Culture - Preliminary Providencia staurtii Resulted Labs and/or images reviewed: Labs reviewed by me, Image(s) reviewed by me Assessment/Plan Assessment/Plan Impression: -acute hypoxic respiratory failure -metabolic encephalopathy -sepsis with shock secondary to UTI and viral pneumonia -influenza B -history of right hip fracture -obesity -deconditioning with bed-bound status -depression -primary hypertension -atrial flutter with rapid ventricular rate, 2-1 conduction Plan: Events: Patient now off vasopressor therapy. Patient was hypertensive and tachycardic. Patient hyponatremic. Sedation off. Plans for spontaneous breathing trial once appropriate. -start D5W at 75 mL/hour -urine culture: Pending -change antibiotic therapy to vancomycin and meropenem -decrease Solu-Medrol to 40 mg IV daily -Seroquel 50 mg p.o. b.i.d. -bronchodilators, Pulmicort -continue Tamiflu for full course -IV metoprolol for blood pressure and elevated heart rate. Transitioned to labetalol 10 mg q.2 hours as needed for systolic blood pressure greater than 150 mmHg -repeat labs, chest x-ray, ABG in a.m. Critical care time spent with patient discussing and formulating plan of care: 40 minutes. This does not include time spent performing procedures. This medical document was created using an electronic medical record system with [employer] dictation system. Although this document has been carefully reviewed, there may still be some phonetic and typographical errors. These areas are purely typographical due to imperfections of the software programs, and do not reflect any compromise in the patient's medical care. Plan discussed with: Patient, Other (RN) My Orders Orders - BRISEYDA OROZCO NP Procedure Category Date Status Time Chest Portable XY 05/07/24 Resulted 04:00 Abg W/ Co-Ox RT 05/07/24 Logged 05:30 Cpap/Sed Vacation Med ORDERS 05/07/24 Transmitted Weaning 08:27 Cpap Trial For Am ORDERS 05/07/24 Transmitted 08:27 Cpap/Sed Vacation Med ORDERS 05/07/24 Transmitted Weaning 08:27 D5w 5% (Dextrose 5%) PHA 05/07/24 In Process 08:30 Labetalol Hcl PHA 05/07/24 In Process (Labetalol Hcl) 08:45 Date of Service: May 07, 2024 Billing Provider: BRISEYDA OROZCO NP Common Visit Codes: [id number] CARE 30-74 MIN BRISEYDA OROZCO NP May 07, 2024 09:54
[2024-05-07] MEDS: VANCOMYCIN 500mg/100mL 100 ML IV SCH (11:08)
[2024-05-07] MEDS: LABETALOL HCL 20 MG/4 ML VL IV PRN (11:19)
[2024-05-07 12:52] LABS: Base Excess -0.2 mmol/L (-2.0-3.0)
--- NOTE | 2024-05-07 15:30 | MEDREC ---
[facility] Intervention Section I [facility] Intervention: Deescalate AB based on CS (THE FINAL RESPIRATORY CULTURE SHOWED PROVIDENCIA STAURTII WHICH IS SUSCEPTIBLE TO CEFTRIAXONE. PLEASE CONSIDER DE-ESCALATING ANTIBIOTICS) PUSHPA STARKS May 07, 2024 15:30
--- NOTE | 2024-05-07 21:00 | DVHPN2 ---
Progress Note - Dictate Date Seen: May 07, 2024 Medical Necessity Reason Pt with a Central, PICC or Fol: Yes The following are medically ne: Butler Catheter Reason for butler catheter: Strict I&O Subjective Patient seen and examined at bedside. S/p extubation, on supplemental oxygen Overnight events reviewed. vital signs Vital Sign Date Time Temp Pulse Resp B/P (MAP) Pulse Ox O2 Delivery O2 Flow Rate FiO2 05/07/24 19:40 115 21 144/75 (98) 93 05/07/24 18:44 Nasal Cannula* 3 32 05/07/24 17:55 99.3 210.7 Total Intake and Output 05/06/24 05/06/24 05/07/24 15:00 23:00 07:00 Intake Total 421.487 ml 721.472 ml 299.799 ml Output Total 900 ml 1050 ml Balance 421.487 ml -178.528 ml -750.201 ml medications Current Medications Medications Dose Ordered Sig/Joann Route Start Time Stop Time Status Last Admin Dose Admin Ondansetron HCl 4 mg Q4HP PRN IV 05/01/24 14:45 Vancomycin HCl 0 ml @ 0 mls/hr UD IV 05/01/24 15:00 Pantoprazole Sodium 40 mg DAILY IV 05/02/24 10:00 05/07/24 09:35 40 MG Propofol 100 ml @ 3.816 mls/ hr Q24H IV 05/01/24 16:00 05/06/24 18:20 15.264 MLS/HR Fentanyl Citrate 250 ml @ 2.5 mls/hr Q24H IV 05/01/24 16:00 05/06/24 22:05 22.5 MLS/HR Midazolam HCl 50 ml @ 1 mls/hr Q24H IV 05/01/24 19:30 05/02/24 09:43 3 MLS/HR Atorvastatin Calcium 40 mg HS PO 05/02/24 22:00 05/06/24 22:05 40 MG Gemfibrozil 600 mg Q12HR PO 05/02/24 22:00 05/07/24 09:35 600 MG Oseltamivir Phosphate 75 mg BID GT 05/02/24 22:00 05/07/24 21:59 05/07/24 09:40 75 MG Meropenem 50 ml @ 17 mls/hr Q8HR IV 05/04/24 14:00 05/07/24 13:38 17 MLS/HR Enteral Nutritional Formula 1,000 ml 30ML/HR GT 05/04/24 11:30 05/05/24 15:20 1,000 ML Quetiapine Fumarate 50 mg BID PO 05/04/24 22:00 05/07/24 09:34 50 MG Levalbuterol HCl 0.625 mg Q6HR NEB 05/04/24 18:00 05/07/24 18:31 0.625 MG Ipratropium [place] 0.5 mg Q6HR NEB 05/04/24 18:00 05/07/24 18:31 0.5 MG Enoxaparin Sodium 100 mg Q12HR SC 05/05/24 10:00 05/07/24 09:35 100 MG Hydrocortisone Sodium Succinate 50 mg Q12HR IV 05/06/24 10:00 05/07/24 09:35 50 MG Amiodarone HCl 400 mg DAILY PO 05/06/24 10:00 05/07/24 09:34 400 MG Furosemide 20 mg BID IV 05/06/24 10:00 05/07/24 09:34 20 MG Saccharomyces Boulardii 250 mg DAILY PO 05/06/24 10:00 05/07/24 09:35 250 MG Dextrose 1,000 ml @ 75 mls/hr [id number] IV 05/07/24 08:30 05/07/24 09:38 75 MLS/HR Labetalol HCl 10 mg Q2HPRN PRN IV 05/07/24 08:45 05/07/24 13:16 10 MG Vancomycin HCl 100 ml @ 200 mls/hr Q24H IV 05/07/24 10:00 05/07/24 11:08 200 MLS/HR Nicardipine HCl 250 ml @ 50 mls/hr Q5H IV 05/07/24 14:00 05/07/24 18:21 75 MLS/HR objective Gen.: Patient lying in bed in no apparent distress. On supplemental oxygen. Head: Normocephalic, atraumatic. Eyes: EOMI/PERRLA. Ears: Normal hearing. Normal anatomy. Neck/trachea: Trachea midline, supple. Nose: Normal external anatomy. Mouth: Moist mucous membranes. Chest: Decreased air entry bilaterally. No wheezing or rhonchi. Cardiovascular: Positive S1, positive S2. Regular rate and rhythm. Abdomen: Positive bowel sounds in all 4 quadrants. Soft, non-tender, non- distended. : Deferred. Rectal: Deferred. Skin: Warm, dry. Intact. Extremities: 2+ radial pulses bilaterally. No lower extremity edema. Neuro: Awake, alert, oriented x3. No gross motor or sensory deficits. Cranial nerves II through XII intact. Gait not assessed. laboratory and microbiology Laboratory Tests 05/07/24 03:05 Test 05/07/24 03:05 Range/Units Serum Glucose 144 H 74-106 mg/dL Assessment/Plan Impression: Acute hypoxic respiratory failure On mechanical ventilator Atrial fibrillation w/ RVR Septic shock Hypokalemia Influenza B Nicotine dependence Marijuana use Obesity BMI 32.9 Events: Patient tolerated CPAP and was extubated uneventfully today Currently on supplemental oxygen, 3 LPM NC Taper O2 as tolerated Off sedation, off Fentanyl Off pressors, hemodynamically stable. HOB elevation Aspiration precautions On nicardipine drip. IV fluids with D5W at 75 mL/hr Continue Tamiflu course - last dose Continue antibiotics IV steroids Continue bronchodilators Seroquel BID. Continue PO amiodarone. Therapeutic Lovenox Diurese w/ Lasix as tolerated Monitor renal function Monitor hemoglobin Patient is s/p cardioversion. Labs and imaging reviewed. Rest of plan as noted below. Plan: s/p extubation Supplemental oxygen Titrate to keep sats above 90% Off sedation Amiodarone PO Cardiology recs appreciated. Continue antibiotics. F/u cultures. IV steroids Pressors if necessary for hemodynamic support Titrate to keep mean arterial pressure greater than 65 mmHg. Monitor renal function Monitor electrolytes. Supplement as necessary. Monitor ins and outs. GI prophylaxis - Protonix DVT prophylaxis. Prognosis: Poor given patient's multiple co-morbidities. Condition: Critical Rest of plan per hospitalist and other consultants. A total of 35 minutes of critical care time was spent reviewing the patient record, examining the patient, making a diagnostic and therapeutic plan, discussing this plan with the medical personnel, following up on diagnostic studies and following the patient for clinical stability excluding any and all procedures. At least 50% of this time was spent in direct, [id number] contact. Thank you, Dr. Coleman, for allowing me to participate in this patient's care. Further recommendations will depend on the patient's clinical course. Please do not hesitate to contact me if you have any questions or concerns. This medical document was created using an electronic medical record system with [employer] dictation system. Although these documentations are being carefully reviewed, there may still be some phonetic and typographical changes. The errors are purely typographical, due to imperfection on the software program, and do not reflect any compromise in the patient's medical care. Dietary Evaluation Review Comments: 1. TF Jevity 40 ml/hr (53 g, 1152 kcal), CONSIDER CLINIMIX (42.5 G PRO, 510 KCAL PLUS JEVITY 30ML/HR (40 G PRO, 864 KCAL if nephrotic symptoms WORSENS 2. TPN per pharmacy if NPO> 7 days 3. PO diet as tolerated with ensure high protein PO protein supplements after passing a Speech eval. Consider a 2 g Na CCHO-60 g Renal PO diet if pt's gluc ose is uncontrolled and kindeny function worsens. Expected Outcomes/Goals: gradually weight loss, improved skin tones, and nutrition related lab values. Plan discussed with: Other (SHE Delarosa) Critical Care Time(min): 35 YASSINE MAYO MD May 07, 2024 21:00
[2024-05-08] VITALS (89 sets, daily range): BP systolic 98–171; BP diastolic 53–93; PULSE 88–121; RESP 14–27; TEMP 98.4–99; O2SAT 88–100
[2024-05-08 04:03] LABS: Hematocrit 26.2 % (36.0-46.0); Hemoglobin 8.9 g/dL (12.2-16.2); Mean Corpuscular Hemoglobin 31.6 pg (28.0-32.0); Platelet Count (auto) 208 10^3/uL (140-450); Red Blood Cells 2.82 10^6/uL (4.0-5.20); Red Cell Distribution Width 14.7 % (11.8-14.3); White Blood Cell 6.8 10^3/uL (4.4-10.8)
[2024-05-08 04:08] LABS: Band Neutrophils % (manual) 0; Basophils % (manual) 0 (0.0-2.0); Blast Cells 0; Myelocytes % 0; Promyelocytes % 0; Reactive Lymphocytes 0
[2024-05-08 04:32] LABS: Carbon Dioxide 27 mmol/L (20-31)
[2024-05-08 04:37] LABS: BUN/Creatinine Ratio 35.8 (10.0-20.0); Blood Urea Nitrogen 19 mg/dL (9-23); Glucose 199 mg/dL (74-106)
[2024-05-08 05:13] LABS: Anion Gap 9 (5-15); Chloride 111 mmol/L (98-107); Potassium 1.9 mmol/L (3.5-5.1); Sodium 147 mmol/L (136-145)
[2024-05-08 05:15] LABS: Eosinophils % (manual) 5 (0-7); Lymphocytes % (manual) 6 (10.0-50.0); Metamyelocytes % 1; Monocytes % (manual) 4 (0-12)
[2024-05-08 05:16] LABS: Platelet Estimate Adequate
[2024-05-08] MEDS: POTASSIUM CHL 20MEQ/100ML 100 ML IV SCH ×2 (05:31→15:19)
[2024-05-08 13:06] LABS: Anion Gap 8 (5-15); Chloride 106 mmol/L (98-107); Potassium 2.6 mmol/L (3.5-5.1); Sodium 146 mmol/L (136-145)
[2024-05-08 13:09] LABS: Carbon Dioxide 32 mmol/L (20-31)
[2024-05-08 13:12] LABS: BUN/Creatinine Ratio 33.3 (10.0-20.0); Blood Urea Nitrogen 20 mg/dL (9-23)
[2024-05-08 13:16] LABS: Glucose 209 mg/dL (74-106)
--- NOTE | 2024-05-08 22:05 | DVHPN2 ---
Progress Note - Dictate Date Seen: May 08, 2024 Medical Necessity Reason Pt with a Central, PICC or Fol: Yes The following are medically ne: Butler Catheter Reason for butler catheter: Strict I&O Subjective Patient seen and examined at bedside. S/p extubation, on supplemental oxygen Overnight events reviewed. vital signs Vital Sign Date Time Temp Pulse Resp B/P (MAP) Pulse Ox O2 Delivery O2 Flow Rate FiO2 05/08/24 19:34 101 16 100 05/08/24 19:24 Nasal Cannula 3.0 05/08/24 19:24 32 05/08/24 18:46 137/77 (97) 05/08/24 16:01 98.4 98.4 Total Intake and Output 05/07/24 05/07/24 05/08/24 15:00 23:00 07:00 Intake Total 653.5 ml 1384 ml 843 ml Output Total 3000 ml 5000 ml Balance 653.5 ml -1616 ml -4157 ml medications Current Medications Medications Dose Ordered Sig/Joann Route Start Time Stop Time Status Last Admin Dose Admin Ondansetron HCl 4 mg Q4HP PRN IV 05/01/24 14:45 Vancomycin HCl 0 ml @ 0 mls/hr UD IV 05/01/24 15:00 Pantoprazole Sodium 40 mg DAILY IV 05/02/24 10:00 05/08/24 10:29 40 MG Propofol 100 ml @ 3.816 mls/ hr Q24H IV 05/01/24 16:00 05/06/24 18:20 15.264 MLS/HR Fentanyl Citrate 250 ml @ 2.5 mls/hr Q24H IV 05/01/24 16:00 05/06/24 22:05 22.5 MLS/HR Midazolam HCl 50 ml @ 1 mls/hr Q24H IV 05/01/24 19:30 05/02/24 09:43 3 MLS/HR Atorvastatin Calcium 40 mg HS PO 05/02/24 22:00 05/08/24 21:31 40 MG Gemfibrozil 600 mg Q12HR PO 05/02/24 22:00 05/07/24 09:35 600 MG Meropenem 50 ml @ 17 mls/hr Q8HR IV 05/04/24 14:00 05/08/24 21:31 17 MLS/HR Enteral Nutritional Formula 1,000 ml 30ML/HR GT 05/04/24 11:30 05/05/24 15:20 1,000 ML Quetiapine Fumarate 50 mg BID PO 05/04/24 22:00 05/08/24 21:37 50 MG Levalbuterol HCl 0.625 mg Q6HR NEB 05/04/24 18:00 05/08/24 19:24 0.625 MG Ipratropium [place] 0.5 mg Q6HR NEB 05/04/24 18:00 05/08/24 19:24 0.5 MG Enoxaparin Sodium 100 mg Q12HR SC 05/05/24 10:00 05/08/24 21:32 100 MG Hydrocortisone Sodium Succinate 50 mg Q12HR IV 05/06/24 10:00 05/08/24 21:31 50 MG Amiodarone HCl 400 mg DAILY PO 05/06/24 10:00 05/07/24 09:34 400 MG Saccharomyces Boulardii 250 mg DAILY PO 05/06/24 10:00 05/07/24 09:35 250 MG Dextrose 1,000 ml @ 75 mls/hr [id number] IV 05/07/24 08:30 05/08/24 17:44 75 MLS/HR Labetalol HCl 10 mg Q2HPRN PRN IV 05/07/24 08:45 05/07/24 13:16 10 MG Vancomycin HCl 100 ml @ 200 mls/hr Q24H IV 05/07/24 10:00 05/08/24 10:28 200 MLS/HR Nicardipine HCl 250 ml @ 50 mls/hr Q5H IV 05/07/24 14:00 05/07/24 22:17 75 MLS/HR Furosemide 20 mg DAILY IV 05/09/24 10:00 objective Gen.: Patient lying in bed in no apparent distress. On supplemental oxygen. Head: Normocephalic, atraumatic. Eyes: EOMI/PERRLA. Ears: Normal hearing. Normal anatomy. Neck/trachea: Trachea midline, supple. Nose: Normal external anatomy. Mouth: Moist mucous membranes. Chest: Decreased air entry bilaterally. No wheezing or rhonchi. Cardiovascular: Positive S1, positive S2. Regular rate and rhythm. Abdomen: Positive bowel sounds in all 4 quadrants. Soft, non-tender, non- distended. : Deferred. Rectal: Deferred. Skin: Warm, dry. Intact. Extremities: 2+ radial pulses bilaterally. No lower extremity edema. Neuro: Awake, alert, oriented x3. No gross motor or sensory deficits. Cranial nerves II through XII intact. Gait not assessed. laboratory and microbiology Laboratory Tests 05/08/24 12:21 05/08/24 03:11 Test 05/08/24 12:21 Range/Units Serum Glucose 209 H 74-106 mg/dL Assessment/Plan Impression: Acute hypoxic respiratory failure Atrial fibrillation w/ RVR Septic shock Hypokalemia Influenza B Nicotine dependence Marijuana use Obesity BMI 32.9 Events: Remains on supplemental oxygen, 3 LPM NC Taper O2 as tolerated Off nicardipine drip since 12:30 AM. HOB elevation Aspiration precautions IV fluids with D5W at 75 mL/hr Completed Tamiflu course - check flu swab Continue antibiotics IV steroids Continue bronchodilators Seroquel BID. 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 Supplement as necessary. Potassium supplementation Check magnesium Monitor hemoglobin Patient is stable for downgrade from the pulmonary standpoint. Patient is s/p cardioversion. Labs and imaging reviewed. Rest of plan as noted below. Plan: s/p extubation on 05/07/24 Supplemental oxygen Titrate to keep sats above 92% Off sedation Off pressors, hemodynamically stable. Cardiology recs appreciated. Continue antibiotics. F/u cultures. IV steroids Pressors if necessary for hemodynamic support Titrate to keep mean arterial pressure greater than 65 mmHg. Monitor renal function Monitor electrolytes. Supplement as necessary. Monitor ins and outs. GI prophylaxis - Protonix DVT prophylaxis. Prognosis: Guarded given patient's multiple co-morbidities. Condition: Critical Rest of plan per hospitalist and other consultants. A total of 35 minutes of critical care time was spent reviewing the patient record, examining the patient, making a diagnostic and therapeutic plan, discussing this plan with the medical personnel, following up on diagnostic studies and following the patient for clinical stability excluding any and all procedures. At least 50% of this time was spent in direct, [id number] contact. Thank you, Dr. Coleman, for allowing me to participate in this patient's care. Further recommendations will depend on the patient's clinical course. Please do not hesitate to contact me if you have any questions or concerns. This medical document was created using an electronic medical record system with Dragon computerized dictation system. Although these documentations are being carefully reviewed, there may still be some phonetic and typographical changes. The errors are purely typographical, due to imperfection on the software program, and do not reflect any compromise in the patient's medical care. Dietary Evaluation Review Comments: 1. TF Jevity 40 ml/hr (53 g, 1152 kcal), CONSIDER CLINIMIX (42.5 G PRO, 510 KCAL PLUS JEVITY 30ML/HR (40 G PRO, 864 KCAL if nephrotic symptoms WORSENS 2. TPN per pharmacy if NPO> 7 days 3. PO diet as tolerated with ensure high protein PO protein supplements after passing a Speech eval. Consider a 2 g Na CCHO-60 g Renal PO diet if pt's gluc ose is uncontrolled and kindeny function worsens. Expected Outcomes/Goals: gradually weight loss, improved skin tones, and nutrition related lab values. Plan discussed with: Other (SHE Florez) Critical Care Time(min): 35 YASSINE MAYO MD May 08, 2024 22:05
[2024-05-09] VITALS (37 sets, daily range): BP systolic 110–155; BP diastolic 61–85; PULSE 81–108; RESP 13–21; TEMP 98.4–98.8; O2SAT 94–100
[2024-05-09 00:43] LABS: Rapid Influenza A Negative (Negative); Rapid Influenza B Negative (Negative)
[2024-05-09 00:44] LABS: Potassium 3.4 mmol/L (3.5-5.1)
[2024-05-09 00:49] LABS: Magnesium 1.4 mg/dL (1.6-2.6)
[2024-05-09 04:11] LABS: Anion Gap 7 (5-15); Chloride 106 mmol/L (98-107)
[2024-05-09] MEDS: MAGNESIUM SULFATE 1GM/100ML 100 ML IV ONE (04:14)
[2024-05-09 04:17] LABS: BUN/Creatinine Ratio 36.6 (10.0-20.0); Blood Urea Nitrogen 26 mg/dL (9-23); Calcium 8.1 mg/dL (8.7-10.4); Carbon Dioxide 32 mmol/L (20-31); Glucose 223 mg/dL (74-106); Potassium 3.3 mmol/L (3.5-5.1); Sodium 145 mmol/L (136-145)
[2024-05-09] MEDS: POTASSIUM CHL 20MEQ/100ML 100 ML IV ONE (04:32)
[2024-05-09] MEDS: FUROSEMIDE 20 MG/2 ML VIAL IV SCH (08:45)
--- NOTE | 2024-05-09 14:24 | DVHPN2 ---
Subjective Feeling better this morning; did not share any complaints Reviewed: Care Plan, H&P, Labs, Medications, Previous Orders, Radiology, Other (Consultations) Changes from previous H/P or p: Changes Objective Vitals Vital Signs Date Time Temp Pulse Resp B/P (MAP) Pulse Ox O2 Delivery O2 Flow Rate FiO2 05/09/24 14:00 103 20 111/66 (81) 97 05/09/24 14:00 Nasal Cannula* 3 32 05/09/24 12:00 98.8 98.8 Intake/Output Intake and Output 05/09/24 07:00 Intake Total 3483 ml Output Total 2152 ml Balance 1331 ml Intake Oral 500 ml IV Total 2983 ml Output Urine Total 2150 ml Stool Total 2 ml General Appearance: Alert, Oriented X3, Cooperative, No acute distress HEENT: Atraumatic, PERRLA Lungs: Other (Decreased air entry bilaterally with scattered crackles) Cardiovascular: Regular rate, Normal S1, Normal S2 Abdomen: Normal bowel sounds, Soft, No tenderness Genitourinary: Other ([facility]) Neuro: Normal speech, Cranial nerves 3-12 NL Psych/Mental Status: Mental status NL, Mood NL, Other (Unable to assess) Medications Current Medications Medications Dose Ordered Sig/Joann Route Start Time Stop Time Status Last Admin Dose Admin Ondansetron HCl 4 mg Q4HP PRN IV 05/01/24 14:45 Vancomycin HCl 0 ml @ 0 mls/hr UD IV 05/01/24 15:00 Pantoprazole Sodium 40 mg DAILY IV 05/02/24 10:00 05/09/24 08:45 40 MG Propofol 100 ml @ 3.816 mls/ hr Q24H IV 05/01/24 16:00 05/06/24 18:20 15.264 MLS/HR Fentanyl Citrate 250 ml @ 2.5 mls/hr Q24H IV 05/01/24 16:00 05/06/24 22:05 22.5 MLS/HR Midazolam HCl 50 ml @ 1 mls/hr Q24H IV 05/01/24 19:30 05/02/24 09:43 3 MLS/HR Atorvastatin Calcium 40 mg HS PO 05/02/24 22:00 05/08/24 21:31 40 MG Gemfibrozil 600 mg Q12HR PO 05/02/24 22:00 05/09/24 08:44 600 MG Meropenem 50 ml @ 17 mls/hr Q8HR IV 05/04/24 14:00 05/09/24 12:53 17 MLS/HR Enteral Nutritional Formula 1,000 ml 30ML/HR GT 05/04/24 11:30 05/05/24 15:20 1,000 ML Quetiapine Fumarate 50 mg BID PO 05/04/24 22:00 05/09/24 08:44 50 MG Levalbuterol HCl 0.625 mg Q6HR NEB 05/04/24 18:00 05/09/24 12:00 0.625 MG Ipratropium [place] 0.5 mg Q6HR NEB 05/04/24 18:00 05/09/24 12:00 0.5 MG Enoxaparin Sodium 100 mg Q12HR SC 05/05/24 10:00 05/09/24 08:46 100 MG Hydrocortisone Sodium Succinate 50 mg Q12HR IV 05/06/24 10:00 05/09/24 08:45 50 MG Amiodarone HCl 400 mg DAILY PO 05/06/24 10:00 05/09/24 08:42 400 MG Saccharomyces Boulardii 250 mg DAILY PO 05/06/24 10:00 05/09/24 08:42 250 MG Dextrose 1,000 ml @ 75 mls/hr [id number] IV 05/07/24 08:30 05/09/24 11:00 75 MLS/HR Labetalol HCl 10 mg Q2HPRN PRN IV 05/07/24 08:45 05/07/24 13:16 10 MG Vancomycin HCl 100 ml @ 200 mls/hr Q24H IV 05/07/24 10:00 05/09/24 08:38 200 MLS/HR Nicardipine HCl 250 ml @ 50 mls/hr Q5H IV 05/07/24 14:00 05/07/24 22:17 75 MLS/HR Furosemide 20 mg DAILY IV 05/09/24 10:00 05/09/24 08:45 20 MG Laboratory Results Laboratory Tests 05/08/24 03:11 05/09/24 03:30 Chemistry Test 05/08/24 23:59 05/09/24 03:30 Magnesium Level 1.4 mg/dL (1.6-2.6) L Calcium Level 8.1 mg/dL (8.7-10.4) L Urinalysis Test 05/01/24 11:04 Urine Color Yellow (Yellow) Urine Clarity Turbid (Clear) H Urine pH 5.5 (5.0-9.0) Urine Specific [place] 1.016 (1.001-1.035) Urine Protein 1+ (Negative) H Urine Ketones 1+ (Negative) H Urine Blood 1+ /uL (Negative) H Urine Nitrite 2+ (Negative) H Urine Bilirubin Negative (Negative) Urine Urobilinogen Normal mg/dL (Negative) Urine Leukocyte Esterase Negative /uL (Negative) Urine RBC <1 /hpf (0 - 4) Urine WBC 3 /hpf (0 - 5) Urine Squamous Epithelial Cells Few /hpf (<5) Urine Bacteria Many /hpf (None Seen) H Urine Hyaline Casts Few /lpf (0 - 2) Urine Yeast (Budding) Occasional /hpf (None Urine Glucose Normal mg/dL (Normal) Microbiology Microbiology Date/Time Source Procedure Growth Status 05/04/24 12:20 Urine - Catheterized Urine Culture - Final Complete 05/01/24 18:40 Nose MRSA Screen - Final Complete 05/01/24 15:40 Blood Blood Culture - Final NO GROWTH AFTER 5 DAYS OF INCUBATION. Complete 05/01/24 00:00 Sputum Gram Stain - Final Complete 05/01/24 00:00 Respiratory Culture - Final Providencia staurtii Streptococcus pneumoniae Complete Labs and/or images reviewed: Labs reviewed by me, Image(s) reviewed by me Assessment/Plan Assessment/Plan Covering Logan Wesley NP: #Acute metabolic/toxic encephalopathy due to septic shock; resolved; status post intubation; reviewed the available imaging studies; continue close monitoring #Acute hypoxic respiratory secondary to COPD exacerbation due to influenza B pneumonia with superimposed bacterial Streptococcus pneumoniae and Providencia staurtii pneumonia; finished antiviral; continue IV antibiotics; continue oxygen therapy via nasal cannula; status post intubation with mechanical ventilation; reviewed ABGs and chest x-ray; pulmonology is following; continue IV steroids; continue nebulizers; continue close monitoring #Septic shock with lactic acidosis and leukocytosis; due to suspected UTI and pneumonia; was on IV vasopressors; continue broad-spectrum IV antibiotics; reviewed available cultures; continue close monitoring #Thrombocytopenia; most likely due to septic shock; no signs/symptoms of active bleeding; continue close monitoring #EMILIA; most likely vasomotor nephropathy in the setting of septic shock; avoid nephrotoxic agents; continue close monitoring #Atrial flutter/fibrillation with RVR; new onset; was on amiodarone infusion; status post cardioversion by Cardiology; telemetry; cardiology is following; continue oral amiodarone, digoxin, and anticoagulation with enoxaparin therapeutic dose; now in NSR; continue close monitoring #Severe hypokalemia and hypomagnesemia; due to IV diuresis; replace electrolytes as indicated; continue close monitoring #Physical deconditioning with bed-bound status in the setting of right hip fracture; continue close monitoring #Depression; no suicide ideation/plans; continue close monitoring #Polysubstance use disorder; counseled on tobacco and marijuana use cessation for 22 minutes including 16 minutes for tobacco use cessation; continue close monitoring #Morbid obesity; counseled the patient on the importance of adopting healthy lifestyle with diet and exercise in order to lose weight; continue close monitoring #Metabolic syndrome with mixed dyslipidemia including severe hypertriglyceridemia; continue lipid lowering agents including statin; continue close monitoring #Hypertensive heart disease with acute diastolic heart failure; telemetry; continue IV diuresis; cardiology is following; continue close monitoring #Normocytic anemia; most likely inflammatory; no signs/symptoms of active bleeding; continue close monitoring Goals of care discussed with the patient for 20 minutes; full code. 99 minutes of critical care time. Late Entry. This medical document was created using an electronic medical record system with computerized dictation system. Although this document has been carefully reviewed, there might still be some phonetic and typographical errors. These areas are purely typographical due to imperfections of the software programs, and do not reflect any compromise in the patient's medical care. Plan discussed with: Patient, Other (Nurse) Date of Service: May 09, 2024 Billing Provider: PIETRO LOCKWOOD MD Common Visit Codes: 87688-[id number] CARE 30-74 MIN (99 minutes), [id number] CARE-EACH +30MIN Secondary Visit Codes: 41464-[id number] CHNG SMOKING >10MIN (Counseled on tobacco and marijuana use cessation for 22 minutes including 16 minutes for tobacco use cessation), [id number] CARE PLAN 30 MINUTES (20 minutes) PIETRO LOCKWOOD MD May 09, 2024 14:24
--- NOTE | 2024-05-09 23:31 | DVHPN2 ---
Progress Note - Dictate Date Seen: May 09, 2024 Medical Necessity Reason Pt with a Central, PICC or Fol: Yes The following are medically ne: Butler Catheter Reason for butler catheter: Strict I&O Subjective Patient seen and examined at bedside. Remains on supplemental oxygen Overnight events reviewed. vital signs Vital Sign Date Time Temp Pulse Resp B/P (MAP) Pulse Ox O2 Delivery O2 Flow Rate FiO2 05/09/24 22:00 19 95 Nasal Cannula* 3 32 05/09/24 20:00 101 05/09/24 20:00 98.4 114/61 (78) 98.4 Total Intake and Output 05/08/24 05/08/24 05/09/24 15:00 23:00 07:00 Intake Total 716 ml 1217 ml 1550 ml Output Total 1752 ml 400 ml Balance 716 ml -535 ml 1150 ml medications Current Medications Medications Dose Ordered Sig/Joann Route Start Time Stop Time Status Last Admin Dose Admin Ondansetron HCl 4 mg Q4HP PRN IV 05/01/24 14:45 Vancomycin HCl 0 ml @ 0 mls/hr UD IV 05/01/24 15:00 Pantoprazole Sodium 40 mg DAILY IV 05/02/24 10:00 05/09/24 08:45 40 MG Atorvastatin Calcium 40 mg HS PO 05/02/24 22:00 05/09/24 21:57 40 MG Gemfibrozil 600 mg Q12HR PO 05/02/24 22:00 05/09/24 21:58 600 MG Meropenem 50 ml @ 17 mls/hr Q8HR IV 05/04/24 14:00 05/09/24 21:57 17 MLS/HR Quetiapine Fumarate 50 mg BID PO 05/04/24 22:00 05/09/24 21:57 50 MG Levalbuterol HCl 0.625 mg Q6HR NEB 05/04/24 18:00 05/09/24 18:54 0.625 MG Ipratropium [place] 0.5 mg Q6HR NEB 05/04/24 18:00 05/09/24 18:54 0.5 MG Enoxaparin Sodium 100 mg Q12HR SC 05/05/24 10:00 05/09/24 21:58 100 MG Hydrocortisone Sodium Succinate 50 mg Q12HR IV 05/06/24 10:00 05/09/24 21:57 50 MG Amiodarone HCl 400 mg DAILY PO 05/06/24 10:00 05/09/24 08:42 400 MG Saccharomyces Boulardii 250 mg DAILY PO 05/06/24 10:00 05/09/24 08:42 250 MG Dextrose 1,000 ml @ 75 mls/hr [id number] IV 05/07/24 08:30 05/09/24 11:00 75 MLS/HR Labetalol HCl 10 mg Q2HPRN PRN IV 05/07/24 08:45 05/07/24 13:16 10 MG Vancomycin HCl 100 ml @ 200 mls/hr Q24H IV 05/07/24 10:00 05/09/24 08:38 200 MLS/HR Nicardipine HCl 250 ml @ 50 mls/hr Q5H IV 05/07/24 14:00 05/07/24 22:17 75 MLS/HR Furosemide 20 mg DAILY IV 05/09/24 10:00 05/09/24 08:45 20 MG objective Gen.: Patient lying in bed in no apparent distress. On supplemental oxygen. Head: Normocephalic, atraumatic. Eyes: EOMI/PERRLA. Ears: Normal hearing. Normal anatomy. Neck/trachea: Trachea midline, supple. Nose: Normal external anatomy. Mouth: Moist mucous membranes. Chest: Decreased air entry bilaterally. No wheezing or rhonchi. Cardiovascular: Positive S1, positive S2. Regular rate and rhythm. Abdomen: Positive bowel sounds in all 4 quadrants. Soft, non-tender, non- distended. : Deferred. Rectal: Deferred. Skin: Warm, dry. Intact. Extremities: 2+ radial pulses bilaterally. No lower extremity edema. Neuro: Awake, alert, oriented x3. No gross motor or sensory deficits. Cranial nerves II through XII intact. Gait not assessed. laboratory and microbiology Laboratory Tests 05/09/24 03:30 05/08/24 03:11 Test 05/09/24 03:30 Range/Units Serum Glucose 223 H 74-106 mg/dL Assessment/Plan Impression: Acute hypoxic respiratory failure Atrial fibrillation w/ RVR Septic shock Hypokalemia Influenza B Nicotine dependence Marijuana use Obesity BMI 32.9 Events: Remains on supplemental oxygen, 3 LPM NC Taper O2 as tolerated HOB elevation Aspiration precautions IV fluids with D5W at 75 mL/hr Completed Tamiflu course - influenza A and B returned negative Continue antibiotics IV steroids Continue bronchodilators Seroquel BID. Incentive spirometry Therapeutic Lovenox Monitor renal function Monitor electrolytes. Supplement as necessary. K, mag supplementation Monitor hemoglobin Patient is s/p cardioversion. Labs and imaging reviewed. Rest of plan as noted below. Plan: s/p extubation on 05/07/24 Supplemental oxygen Titrate to keep sats above 92% Off sedation Off pressors, hemodynamically stable. Cardiology recs appreciated. Continue antibiotics. F/u cultures. IV steroids Pressors if necessary for hemodynamic support Titrate to keep mean arterial pressure greater than 65 mmHg. Monitor renal function Monitor electrolytes. Supplement as necessary. Monitor ins and outs. GI prophylaxis - Protonix DVT prophylaxis. Prognosis: Guarded given patient's multiple co-morbidities. Condition: Critical Rest of plan per hospitalist and other consultants. A total of 35 minutes of critical care time was spent reviewing the patient record, examining the patient, making a diagnostic and therapeutic plan, discussing this plan with the medical personnel, following up on diagnostic studies and following the patient for clinical stability excluding any and all procedures. At least 50% of this time was spent in direct, [id number] contact. Thank you, Dr. Coleman, for allowing me to participate in this patient's care. Further recommendations will depend on the patient's clinical course. Please do not hesitate to contact me if you have any questions or concerns. This medical document was created using an electronic medical record system with [employer] dictation system. Although these documentations are being carefully reviewed, there may still be some phonetic and typographical changes. The errors are purely typographical, due to imperfection on the software program, and do not reflect any compromise in the patient's medical care. Dietary Evaluation Review Comments: 1. TF Jevity 40 ml/hr (53 g, 1152 kcal), CONSIDER CLINIMIX (42.5 G PRO, 510 KCAL PLUS JEVITY 30ML/HR (40 G PRO, 864 KCAL if nephrotic symptoms WORSENS 2. TPN per pharmacy if NPO> 7 days 3. PO diet as tolerated with ensure high protein PO protein supplements after passing a Speech eval. Consider a 2 g Na CCHO-60 g Renal PO diet if pt's gluc ose is uncontrolled and kindeny function worsens. Expected Outcomes/Goals: gradually weight loss, improved skin tones, and nutrition related lab values. Plan discussed with: Other (SHE Bagley) Critical Care Time(min): 35 YASSINE MAYO MD May 09, 2024 23:31
[2024-05-10] VITALS (32 sets, daily range): BP systolic 100–161; BP diastolic 53–78; PULSE 64–100; RESP 13–28; TEMP 97.7–98.5; O2SAT 94–100
[2024-05-10 04:02] LABS: Basophils # (auto) 0 10 ^3/uL (0-0.2); Basophils % (auto) 0.1 % (0.0-2.0); Eosinophils # (auto) 0 10 ^3/uL (0-0.8); Eosinophils % (auto) 0.1 % (0.0-7.0); Hematocrit 31.8 % (36.0-46.0); Hemoglobin 10.7 g/dL (12.2-16.2); Lymphocytes # (auto) 0.4 10 ^3/uL (0.4-5.4); Lymphocytes % (auto) 8.6 % (10.0-50.0); Mean Corpuscular Hemoglobin 31.3 pg (28.0-32.0); Mean Corpuscular Hgb Conc. 33.6 g/dL (32.0-36.0); Mean Corpuscular Volume 93.3 fL (80.0-100.0); Monocytes # (auto) 0.4 10 ^3/uL (0-1.3); Neutrophils % (auto) 82.2 % (37.0-80.0); Platelet Count (auto) 156 10^3/uL (140-450); Red Blood Cells 3.41 10^6/uL (4.0-5.20); Red Cell Distribution Width 14.5 % (11.8-14.3); White Blood Cell 4.8 10^3/uL (4.4-10.8)
[2024-05-10 04:16] LABS: Alkaline Phosphatase 49 U/L (46-116); Anion Gap 7 (5-15); Aspartate Aminotransferase 14 U/L (13-40); BUN/Creatinine Ratio 38.5 (10.0-20.0); Blood Urea Nitrogen 20 mg/dL (9-23); Carbon Dioxide 31 mmol/L (20-31); Chloride 105 mmol/L (98-107); Sodium 143 mmol/L (136-145)
[2024-05-10 04:17] LABS: Alanine Aminotransferase 9 U/L (7-40); Albumin 2.7 g/dL (3.2-4.8); Bilirubin, Total 0.5 mg/dL (0.2-1.0); Glucose 169 mg/dL (74-106); Magnesium 1.6 mg/dL (1.6-2.6); Potassium 2.9 mmol/L (3.5-5.1); Total Protein 5.6 g/dL (5.7-8.2)
[2024-05-10] MEDS: MAGNESIUM SULFATE 1GM/100ML 100 ML IV ONE (04:58)
[2024-05-10] MEDS: POTASSIUM CHL 20MEQ/100ML 100 ML IV SCH (05:03)
[2024-05-10] MEDS: MAGNESIUM SULFATE 1GM/100ML 0 ML IV ONE (05:04)
--- NOTE | 2024-05-10 17:26 | DVHPN2 ---
Subjective Feeling better this morning; did not share any complaints Reviewed: Care Plan, H&P, Labs, Medications, Previous Orders, Radiology, Other (Consultations) Changes from previous H/P or p: No Changes Objective Vitals Vital Signs Date Time Temp Pulse Resp B/P (MAP) Pulse Ox O2 Delivery O2 Flow Rate FiO2 05/10/24 16:00 97.7 97 17 110/59 (76) 97 97.7 05/10/24 16:00 Nasal Cannula* 3 32 Intake/Output Intake and Output 05/10/24 07:00 Intake Total 3295 ml Output Total 2176 ml Balance 1119 ml Intake Oral 520 ml IV Total 2775 ml Output Urine Total 2175 ml Stool Total 1 ml General Appearance: Alert, Oriented X3, Cooperative, No acute distress HEENT: Atraumatic, PERRLA Lungs: Other (Decreased air entry bilaterally with scattered crackles) Cardiovascular: Regular rate, Normal S1, Normal S2 Abdomen: Normal bowel sounds, Soft, No tenderness Genitourinary: Other ([facility]) Neuro: Normal speech, Cranial nerves 3-12 NL Psych/Mental Status: Mental status NL, Mood NL, Other (Unable to assess) Medications Current Medications Medications Dose Ordered Sig/Joann Route Start Time Stop Time Status Last Admin Dose Admin Ondansetron HCl 4 mg Q4HP PRN IV 05/01/24 14:45 Vancomycin HCl 0 ml @ 0 mls/hr UD IV 05/01/24 15:00 Pantoprazole Sodium 40 mg DAILY IV 05/02/24 10:00 05/10/24 09:01 40 MG Atorvastatin Calcium 40 mg HS PO 05/02/24 22:00 05/09/24 21:57 40 MG Gemfibrozil 600 mg Q12HR PO 05/02/24 22:00 05/10/24 09:03 600 MG Meropenem 50 ml @ 17 mls/hr Q8HR IV 05/04/24 14:00 05/10/24 13:39 17 MLS/HR Quetiapine Fumarate 50 mg BID PO 05/04/24 22:00 05/10/24 09:03 50 MG Levalbuterol HCl 0.625 mg Q6HR NEB 05/04/24 18:00 05/10/24 12:00 0.625 MG Ipratropium [place] 0.5 mg Q6HR NEB 05/04/24 18:00 05/10/24 12:00 0.5 MG Enoxaparin Sodium 100 mg Q12HR SC 05/05/24 10:00 05/10/24 09:00 100 MG Hydrocortisone Sodium Succinate 50 mg Q12HR IV 05/06/24 10:00 05/10/24 09:02 50 MG Amiodarone HCl 400 mg DAILY PO 05/06/24 10:00 05/10/24 09:03 400 MG Saccharomyces Boulardii 250 mg DAILY PO 05/06/24 10:00 05/10/24 09:04 250 MG Dextrose 1,000 ml @ 75 mls/hr [id number] IV 05/07/24 08:30 05/10/24 09:00 75 MLS/HR Labetalol HCl 10 mg Q2HPRN PRN IV 05/07/24 08:45 05/10/24 05:03 10 MG Vancomycin HCl 100 ml @ 200 mls/hr Q24H IV 05/07/24 10:00 05/10/24 10:52 200 MLS/HR Furosemide 20 mg DAILY IV 05/09/24 10:00 05/10/24 09:00 20 MG Laboratory Results Laboratory Tests 05/10/24 03:30 05/10/24 09:50 Chemistry Test 05/10/24 03:30 Albumin 2.7 g/dL (3.2-4.8) L Calcium Level 8.0 mg/dL (8.7-10.4) L Magnesium Level 1.6 mg/dL (1.6-2.6) Total Protein 5.6 g/dL (5.7-8.2) L LFT Test 05/10/24 03:30 Alanine Aminotransferase (ALT) 9 U/L (7-40) Alkaline Phosphatase 49 U/L (46-116) Aspartate Amino Transferase (AST) 14 U/L (13-40) Total Bilirubin 0.5 mg/dL (0.2-1.0) Urinalysis Test 05/01/24 11:04 Urine Color Yellow (Yellow) Urine Clarity Turbid (Clear) H Urine pH 5.5 (5.0-9.0) Urine Specific [place] 1.016 (1.001-1.035) Urine Protein 1+ (Negative) H Urine Ketones 1+ (Negative) H Urine Blood 1+ /uL (Negative) H Urine Nitrite 2+ (Negative) H Urine Bilirubin Negative (Negative) Urine Urobilinogen Normal mg/dL (Negative) Urine Leukocyte Esterase Negative /uL (Negative) Urine RBC <1 /hpf (0 - 4) Urine WBC 3 /hpf (0 - 5) Urine Squamous Epithelial Cells Few /hpf (<5) Urine Bacteria Many /hpf (None Seen) H Urine Hyaline Casts Few /lpf (0 - 2) Urine Yeast (Budding) Occasional /hpf (None Urine Glucose Normal mg/dL (Normal) Microbiology Microbiology Date/Time Source Procedure Growth Status 05/04/24 12:20 Urine - Catheterized Urine Culture - Final Complete 05/01/24 18:40 Nose MRSA Screen - Final Complete 05/01/24 15:40 Blood Blood Culture - Final NO GROWTH AFTER 5 DAYS OF INCUBATION. Complete 05/01/24 00:00 Sputum Gram Stain - Final Complete 05/01/24 00:00 Respiratory Culture - Final Providencia staurtii Streptococcus pneumoniae Complete Labs and/or images reviewed: Labs reviewed by me, Image(s) reviewed by me Assessment/Plan Assessment/Plan Covering Logan Wesley NP: #Acute metabolic/toxic encephalopathy due to septic shock; resolved; status post intubation; reviewed the available imaging studies; continue monitoring #Acute hypoxic respiratory secondary to COPD exacerbation due to influenza B pneumonia with superimposed bacterial Streptococcus pneumoniae and Providencia staurtii pneumonia; finished antiviral; continue IV antibiotics; continue oxygen therapy via nasal cannula; status post intubation with mechanical ventilation; reviewed ABGs and chest x-ray; pulmonology is following; continue IV steroids; continue nebulizers; continue monitoring #Septic shock with lactic acidosis and leukocytosis; due to suspected UTI and pneumonia; was on IV vasopressors; continue broad-spectrum IV antibiotics; reviewed available cultures; continue monitoring #Thrombocytopenia; most likely due to septic shock; no signs/symptoms of active bleeding; continue monitoring #EMILIA; most likely vasomotor nephropathy in the setting of septic shock; avoid nephrotoxic agents; continue monitoring #Atrial flutter/fibrillation with RVR; new onset; was on amiodarone infusion; status post cardioversion by Cardiology; telemetry; cardiology is following; continue oral amiodarone, digoxin, and anticoagulation with enoxaparin therapeutic dose; now in NSR; continue monitoring #Severe hypokalemia and hypomagnesemia; due to IV diuresis; replace electrolytes as indicated; continue monitoring #Physical deconditioning with bed-bound status in the setting of right hip fracture; continue monitoring #Depression; no suicide ideation/plans; continue monitoring #Polysubstance use disorder; counseled on tobacco and marijuana use cessation; continue monitoring #Morbid obesity; counseled the patient on the importance of adopting healthy lifestyle with diet and exercise in order to lose weight; continue monitoring #Metabolic syndrome with mixed dyslipidemia including severe hypertriglyceridemia; continue lipid lowering agents including statin; continue monitoring #Hypertensive heart disease with acute diastolic heart failure; telemetry; continue IV diuresis; cardiology is following; continue monitoring #Normocytic anemia; most likely inflammatory; no signs/symptoms of active bleeding; continue monitoring Downgraded to telemetry. 55 minutes of critical care time. Late Entry. This medical document was created using an electronic medical record system with computerized dictation system. Although this document has been carefully reviewed, there might still be some phonetic and typographical errors. These areas are purely typographical due to imperfections of the software programs, and do not reflect any compromise in the patient's medical care. Plan discussed with: Patient, Other (Nurse) My Orders Orders - PIETRO LOCKWOOD MD Procedure Category Date Status Time Complete Blood Count LAB 05/11/24 Verified 04:00 Comprehensive LAB 05/11/24 Verified Metabolic Panel 04:00 Magnesium LAB 05/11/24 Verified 04:00 Date of Service: May 10, 2024 Billing Provider: PIETRO LOCKWOOD MD Common Visit Codes: [id number] CARE 30-74 MIN (55 minutes) PIETRO LOCKWOOD MD May 10, 2024 17:26
[2024-05-10] MEDS: D5W/SOD CHL 0.45% 1,000 ML IV SCH (17:57)
[2024-05-10] MEDS: VANCOMYCIN 1GM/250ML KIT 250 ML IV ONE (20:21)
[2024-05-10] MEDS: VANCOMYCIN 500mg/100mL 100 ML IV SCH (21:19)
--- NOTE | 2024-05-10 22:59 | DVHPN2 ---
Progress Note - Dictate Date Seen: May 10, 2024 Medical Necessity Reason Pt with a Central, PICC or Fol: Yes The following are medically ne: Butler Catheter Reason for butler catheter: Strict I&O Subjective Patient seen and examined at bedside. Remains on supplemental oxygen Overnight events reviewed. vital signs Vital Sign Date Time Temp Pulse Resp B/P (MAP) Pulse Ox O2 Delivery O2 Flow Rate FiO2 05/10/24 21:00 97.9 85 19 145/73 (97) 95 97.9 05/10/24 17:43 Nasal Cannula 3.0 05/10/24 17:43 32 Total Intake and Output 05/09/24 05/09/24 05/10/24 15:00 23:00 07:00 Intake Total 750 ml 1045 ml 1500 ml Output Total 1325 ml 851 ml Balance 750 ml -280 ml 649 ml medications Current Medications Medications Dose Ordered Sig/Joann Route Start Time Stop Time Status Last Admin Dose Admin Ondansetron HCl 4 mg Q4HP PRN IV 05/01/24 14:45 Vancomycin HCl 0 ml @ 0 mls/hr UD IV 05/01/24 15:00 Pantoprazole Sodium 40 mg DAILY IV 05/02/24 10:00 05/10/24 09:01 40 MG Atorvastatin Calcium 40 mg HS PO 05/02/24 22:00 05/10/24 20:38 40 MG Gemfibrozil 600 mg Q12HR PO 05/02/24 22:00 05/10/24 20:38 600 MG Meropenem 50 ml @ 17 mls/hr Q8HR IV 05/04/24 14:00 05/10/24 20:38 17 MLS/HR Quetiapine Fumarate 50 mg BID PO 05/04/24 22:00 05/10/24 20:38 50 MG Levalbuterol HCl 0.625 mg Q6HR NEB 05/04/24 18:00 05/10/24 17:41 0.625 MG Ipratropium [place] 0.5 mg Q6HR NEB 05/04/24 18:00 05/10/24 17:41 0.5 MG Enoxaparin Sodium 100 mg Q12HR SC 05/05/24 10:00 05/10/24 20:39 100 MG Hydrocortisone Sodium Succinate 50 mg Q12HR IV 05/06/24 10:00 05/10/24 20:39 50 MG Amiodarone HCl 400 mg DAILY PO 05/06/24 10:00 05/10/24 09:03 400 MG Saccharomyces Boulardii 250 mg DAILY PO 05/06/24 10:00 05/10/24 09:04 250 MG Labetalol HCl 10 mg Q2HPRN PRN IV 05/07/24 08:45 05/10/24 05:03 10 MG Furosemide 20 mg DAILY IV 05/09/24 10:00 05/10/24 09:00 20 MG Vancomycin HCl 100 ml @ 200 mls/hr Q12H IV 05/10/24 22:00 05/10/24 21:19 200 MLS/HR Dextrose/Sodium Chloride 1,000 ml @ 75 mls/hr [id number] IV 05/10/24 17:45 05/10/24 17:57 75 MLS/HR objective Gen.: Patient lying in bed in no apparent distress. On supplemental oxygen. Head: Normocephalic, atraumatic. Eyes: EOMI/PERRLA. Ears: Normal hearing. Normal anatomy. Neck/trachea: Trachea midline, supple. Nose: Normal external anatomy. Mouth: Moist mucous membranes. Chest: Decreased air entry bilaterally. No wheezing or rhonchi. Cardiovascular: Positive S1, positive S2. Regular rate and rhythm. Abdomen: Positive bowel sounds in all 4 quadrants. Soft, non-tender, non- distended. : Deferred. Rectal: Deferred. Skin: Warm, dry. Intact. Extremities: 2+ radial pulses bilaterally. No lower extremity edema. Neuro: Awake, alert, oriented x3. No gross motor or sensory deficits. Cranial nerves II through XII intact. Gait not assessed. laboratory and microbiology Laboratory Tests 05/10/24 09:50 05/10/24 03:30 Test 05/10/24 03:30 Range/Units Serum Glucose 169 H 74-106 mg/dL Assessment/Plan Impression: Acute hypoxic respiratory failure Atrial fibrillation w/ RVR Septic shock Hypokalemia Influenza B Nicotine dependence Marijuana use Obesity BMI 32.9 Events: Remains on supplemental oxygen, 3 LPM NC Taper O2 as tolerated HOB elevation Aspiration precautions IV fluids with D5W at 75 mL/hr Completed Tamiflu course - influenza A and B returned negative Continue antibiotics IV steroids Continue bronchodilators Seroquel BID. Incentive spirometry Therapeutic Lovenox Monitor renal function Monitor electrolytes. Supplement as necessary. Potassium supplementation Monitor hemoglobin Patient is stable for downgrade to [facility] from the pulmonary standpoint. Patient is s/p cardioversion for AFib. On Puree diet. Nutrition not at goal. Labs and imaging reviewed. Rest of plan as noted below. Plan: s/p extubation on 05/07/24 Supplemental oxygen Titrate to keep sats above 92% Off sedation Off pressors, hemodynamically stable. Cardiology recs appreciated. Continue antibiotics. F/u cultures. IV steroids Pressors if necessary for hemodynamic support Titrate to keep mean arterial pressure greater than 65 mmHg. Monitor renal function Monitor electrolytes. Supplement as necessary. Monitor ins and outs. GI prophylaxis - Protonix DVT prophylaxis. Prognosis: Guarded given patient's multiple co-morbidities. Condition: Critical Rest of plan per hospitalist and other consultants. A total of 35 minutes of critical care time was spent reviewing the patient record, examining the patient, making a diagnostic and therapeutic plan, discussing this plan with the medical personnel, following up on diagnostic studies and following the patient for clinical stability excluding any and all procedures. At least 50% of this time was spent in direct, [id number] contact. Thank you, Dr. Coleman, for allowing me to participate in this patient's care. Further recommendations will depend on the patient's clinical course. Please do not hesitate to contact me if you have any questions or concerns. This medical document was created using an electronic medical record system with [facility] dictation system. Although these documentations are being carefully reviewed, there may still be some phonetic and typographical changes. The errors are purely typographical, due to imperfection on the software program, and do not reflect any compromise in the patient's medical care. Dietary Evaluation Review Comments: 1. TF Jevity 40 ml/hr (53 g, 1152 kcal), CONSIDER CLINIMIX (42.5 G PRO, 510 KCAL PLUS JEVITY 30ML/HR (40 G PRO, 864 KCAL if nephrotic symptoms WORSENS 2. TPN per pharmacy if NPO> 7 days 3. PO diet as tolerated with ensure high protein PO protein supplements after passing a Speech eval. Consider a 2 g Na CCHO-60 g Renal PO diet if pt's gluc ose is uncontrolled and kindeny function worsens. Expected Outcomes/Goals: gradually weight loss, improved skin tones, and nutrition related lab values. Plan discussed with: Other (RN Kj) Critical Care Time(min): 35 YASSINE MAYO MD May 10, 2024 22:59
[2024-05-11] VITALS (17 sets, daily range): BP systolic 97–131; BP diastolic 46–69; PULSE 69–112; RESP 16–20; TEMP 97.3–99; O2SAT 92–100
[2024-05-11] MEDS: SODIUM CHLORIDE 0.9% 500 ML IV ONE (01:42)
[2024-05-11] MEDS: ALBUMIN 25% 50 ML IV ONE (02:33)
[2024-05-11 06:49] LABS: Basophils # (auto) 0 10 ^3/uL (0-0.2); Eosinophils # (auto) 0 10 ^3/uL (0-0.8); Monocytes # (auto) 0.6 10 ^3/uL (0-1.3); White Blood Cell 5.8 10^3/uL (4.4-10.8)
[2024-05-11 06:53] LABS: Basophils % (auto) 0.2 % (0.0-2.0); Eosinophils % (auto) 0.3 % (0.0-7.0); Hematocrit 23.8 % (36.0-46.0); Hemoglobin 7.9 g/dL (12.2-16.2); Lymphocytes # (auto) 0.8 10 ^3/uL (0.4-5.4); Mean Corpuscular Hemoglobin 31.8 pg (28.0-32.0); Mean Corpuscular Hgb Conc. 33.4 g/dL (32.0-36.0); Mean Corpuscular Volume 95.4 fL (80.0-100.0); Neutrophils # (auto) 4.4 10 ^3/uL (1.6-8.6); Neutrophils % (auto) 76.5 % (37.0-80.0); Nucleated Red Blood Cells % 0.1 %; Platelet Count (auto) 179 10^3/uL (140-450); Red Blood Cells 2.49 10^6/uL (4.0-5.20); Red Cell Distribution Width 14.3 % (11.8-14.3)
[2024-05-11 06:57] LABS: Alkaline Phosphatase 47 U/L (46-116); Anion Gap 6 (5-15); BUN/Creatinine Ratio 27.3 (10.0-20.0); Blood Urea Nitrogen 18 mg/dL (9-23); Carbon Dioxide 30 mmol/L (20-31); Chloride 103 mmol/L (98-107); Magnesium 1.7 mg/dL (1.6-2.6); Sodium 139 mmol/L (136-145)
[2024-05-11 06:58] LABS: Bilirubin, Total 0.4 mg/dL (0.2-1.0)
[2024-05-11 07:04] LABS: Alanine Aminotransferase < 9 U/L (7-40); Aspartate Aminotransferase 12 U/L (13-40); Calcium 8.2 mg/dL (8.7-10.4); Glucose 153 mg/dL (74-106); Potassium 3.3 mmol/L (3.5-5.1); Total Protein 5.6 g/dL (5.7-8.2)
[2024-05-11] MEDS: POTASSIUM CHL 20MEQ/100ML 100 ML IV ONE (13:57)
[2024-05-11] MEDS: levoFLOXacin 500 MG TAB PO SCH (13:57)
--- NOTE | 2024-05-11 14:28 | DVHPN2 ---
Subjective Patient reports having generalized weakness. Reviewed: Care Plan, H&P, Labs, Medications, Previous Orders, Radiology, Other (Consultations) Changes from previous H/P or p: No Changes Objective Vitals Vital Signs Date Time Temp Pulse Resp B/P (MAP) Pulse Ox O2 Delivery O2 Flow Rate FiO2 05/11/24 13:22 97.8 98 19 102/54 (70) 95 97.8 05/11/24 11:23 Nasal Cannula* 3 32 Intake/Output Intake and Output 05/11/24 07:00 Intake Total 2195 ml Output Total 1700 ml Balance 495 ml Intake Oral 420 ml IV Total 1775 ml Output Urine Total 1700 ml Stool Total 0 ml # Bowel Movements 1 General Appearance: Alert, Oriented X3, Cooperative, mild distress HEENT: Atraumatic, PERRLA Lungs: Other (Decreased air entry bilaterally with scattered crackles) Cardiovascular: Regular rate, Normal S1, Normal S2, Other (Sinus rhythm) Abdomen: Normal bowel sounds, Soft, No tenderness Genitourinary: Other (Nobles's) Neuro: Normal speech, Cranial nerves 3-12 NL Skin: Dry, Intact Psych/Mental Status: Mental status NL, Mood NL, Other (Unable to assess) Medications Current Medications Medications Dose Ordered Sig/Joann Route Start Time Stop Time Status Last Admin Dose Admin Ondansetron HCl 4 mg Q4HP PRN IV 05/01/24 14:45 Pantoprazole Sodium 40 mg DAILY IV 05/02/24 10:00 05/11/24 09:45 40 MG Atorvastatin Calcium 40 mg HS PO 05/02/24 22:00 05/10/24 20:38 40 MG Gemfibrozil 600 mg Q12HR PO 05/02/24 22:00 05/11/24 09:47 600 MG Quetiapine Fumarate 50 mg BID PO 05/04/24 22:00 05/11/24 09:47 50 MG Levalbuterol HCl 0.625 mg Q6HR NEB 05/04/24 18:00 05/11/24 11:35 0.625 MG Ipratropium [place] 0.5 mg Q6HR NEB 05/04/24 18:00 05/11/24 11:35 0.5 MG Amiodarone HCl 400 mg DAILY PO 05/06/24 10:00 05/11/24 09:48 400 MG Saccharomyces Boulardii 250 mg DAILY PO 05/06/24 10:00 05/11/24 09:48 250 MG Labetalol HCl 10 mg Q2HPRN PRN IV 05/07/24 08:45 05/10/24 05:03 10 MG Furosemide 20 mg DAILY IV 05/09/24 10:00 05/11/24 09:46 20 MG Levofloxacin 500 mg DAILY PO 05/11/24 12:18 05/11/24 13:57 500 MG Enoxaparin Sodium 40 mg DAILY SC 05/12/24 10:00 Laboratory Results Laboratory Tests 05/11/24 05:37 Chemistry Test 05/11/24 05:37 Albumin 3.0 g/dL (3.2-4.8) L Calcium Level 8.2 mg/dL (8.7-10.4) L Magnesium Level 1.7 mg/dL (1.6-2.6) Total Protein 5.6 g/dL (5.7-8.2) L LFT Test 05/11/24 05:37 Alanine Aminotransferase (ALT) < 9 U/L (7-40) Alkaline Phosphatase 47 U/L (46-116) Aspartate Amino Transferase (AST) 12 U/L (13-40) L Total Bilirubin 0.4 mg/dL (0.2-1.0) Urinalysis Test 05/01/24 11:04 Urine Color Yellow (Yellow) Urine Clarity Turbid (Clear) H Urine pH 5.5 (5.0-9.0) Urine Specific [place] 1.016 (1.001-1.035) Urine Protein 1+ (Negative) H Urine Ketones 1+ (Negative) H Urine Blood 1+ /uL (Negative) H Urine Nitrite 2+ (Negative) H Urine Bilirubin Negative (Negative) Urine Urobilinogen Normal mg/dL (Negative) Urine Leukocyte Esterase Negative /uL (Negative) Urine RBC <1 /hpf (0 - 4) Urine WBC 3 /hpf (0 - 5) Urine Squamous Epithelial Cells Few /hpf (<5) Urine Bacteria Many /hpf (None Seen) H Urine Hyaline Casts Few /lpf (0 - 2) Urine Yeast (Budding) Occasional /hpf (None Urine Glucose Normal mg/dL (Normal) Microbiology Microbiology Date/Time Source Procedure Growth Status 05/04/24 12:20 Urine - Catheterized Urine Culture - Final Complete 05/01/24 18:40 Nose MRSA Screen - Final Complete 05/01/24 15:40 Blood Blood Culture - Final NO GROWTH AFTER 5 DAYS OF INCUBATION. Complete 05/01/24 00:00 Sputum Gram Stain - Final Complete 05/01/24 00:00 Respiratory Culture - Final Providencia staurtii Streptococcus pneumoniae Complete Labs and/or images reviewed: Labs reviewed by me, Image(s) reviewed by me Assessment/Plan Assessment/Plan Impression: -acute hypoxic respiratory failure -metabolic encephalopathy -sepsis with shock secondary to UTI and viral pneumonia -influenza B -history of right hip fracture -obesity -deconditioning with bed-bound status -depression -primary hypertension -atrial flutter with rapid ventricular rate, 2-1 conduction Plan: Events: Patient continues to be on nasal cannula 2 liters/minute. Cultures have been reviewed. Antibiotics will be deescalated. Patient also noted to have remained in sinus rhythm. Given CHADS-VASc score of 2, will stop full-dose anticoagulation -PT consultation -Deescalate antibiotic therapy to Levaquin p.o. -potassium replacement -decrease Solu-Medrol to 40 mg IV daily -Seroquel 50 mg p.o. b.i.d. -bronchodilators, Pulmicort -continue p.o. amiodarone -repeat labs and chest x-ray Total time spent with patient discussing and formulating plan of care: 35 minutes. This medical document was created using an electronic medical record system with [employer] dictation system. Although this document has been carefully reviewed, there may still be some phonetic and typographical errors. These areas are purely typographical due to imperfections of the software programs, and do not reflect any compromise in the patient's medical care. Plan discussed with: Patient, Other (RN) My Orders Orders - BRISEYDA OROZCO DRY WALL SPRAYER Procedure Category Date Status Time Stool Occult Blood LAB 05/11/24 Logged 12:02 Basic Metabolic Panel LAB 05/12/24 Verified 04:00 Complete Blood Count LAB 05/12/24 Verified 04:00 Enoxaparin Sodium PHA 05/12/24 In Process (Lovenox) 10:00 Levofloxacin Tablet PHA 05/11/24 In Process (Levaquin Tablet) 12:18 Potassium Chl PHA 05/11/24 In Process 20meq/100ml 13:15 * Special Assets Officer CONS 05/11/24 Transmitted Consult Chest Xray 1 View XY 05/11/24 Logged 14:23 Date of Service: May 11, 2024 Billing Provider: BRISEYDA OROZCO NP Common Visit Codes: [id number] INP/OBS CARE(HIGH) BRISEYDA OROZCO NP May 11, 2024 14:28
--- NOTE | 2024-05-11 15:25 | DVH ---
EXAM: XY CHEST XRAY 1 VIEW Indication: Pneumonia Technique: Single frontal view of the chest was obtained Comparison: XY CHEST PORTABLE on DOS: 05/07/24, XY CHEST PORTABLE on DOS: 05/06/24, XY CHEST PORTABLE o n DOS: 05/05/24, XY CHEST PORTABLE on DOS: 05/04/24, XY CHEST PORTABLE on DOS: 05/03/24 FINDINGS: Lines and Tubes: Right internal jugular central venous catheter tip projects over the superior vena c linda. Interval removal of endotracheal and enteric tubes compared to prior exam. Lungs: Diffuse interstitial opacities. Pleura: No effusion. No pneumothorax. Cardiomediastinal contours: Unchanged. Bones: No acute osseous abnormality. IMPRESSION: Diffuse interstitial opacities.
--- NOTE | 2024-05-11 23:26 | DVHPN2 ---
Progress Note - Dictate Date Seen: May 11, 2024 Medical Necessity Reason Pt with a Central, PICC or Fol: Yes The following are medically ne: Butler Catheter Reason for butler catheter: Strict I&O Subjective Patient seen and examined at bedside. Remains on supplemental oxygen Overnight events reviewed. vital signs Vital Sign Date Time Temp Pulse Resp B/P (MAP) Pulse Ox O2 Delivery O2 Flow Rate FiO2 05/11/24 21:00 97.3 103 18 128/69 (88) 94 97.3 05/11/24 19:35 Nasal Cannula 2.0 05/11/24 19:35 28 Total Intake and Output 05/10/24 05/10/24 05/11/24 15:00 23:00 07:00 Intake Total 610 ml 295 ml 1290 ml Output Total 1400 ml 300 ml Balance 610 ml -1105 ml 990 ml medications Current Medications Medications Dose Ordered Sig/Joann Route Start Time Stop Time Status Last Admin Dose Admin Ondansetron HCl 4 mg Q4HP PRN IV 05/01/24 14:45 Pantoprazole Sodium 40 mg DAILY IV 05/02/24 10:00 05/11/24 09:45 40 MG Atorvastatin Calcium 40 mg HS PO 05/02/24 22:00 05/11/24 21:31 40 MG Gemfibrozil 600 mg Q12HR PO 05/02/24 22:00 05/11/24 21:31 600 MG Quetiapine Fumarate 50 mg BID PO 05/04/24 22:00 05/11/24 21:31 50 MG Levalbuterol HCl 0.625 mg Q6HR NEB 05/04/24 18:00 05/11/24 19:35 0.625 MG Ipratropium [place] 0.5 mg Q6HR NEB 05/04/24 18:00 05/11/24 19:35 0.5 MG Amiodarone HCl 400 mg DAILY PO 05/06/24 10:00 05/11/24 09:48 400 MG Saccharomyces Boulardii 250 mg DAILY PO 05/06/24 10:00 05/11/24 09:48 250 MG Labetalol HCl 10 mg Q2HPRN PRN IV 05/07/24 08:45 05/10/24 05:03 10 MG Furosemide 20 mg DAILY IV 05/09/24 10:00 05/11/24 09:46 20 MG Levofloxacin 500 mg DAILY PO 05/11/24 12:18 05/11/24 13:57 500 MG Enoxaparin Sodium 40 mg DAILY SC 05/12/24 10:00 objective Gen.: Patient lying in bed in no apparent distress. On supplemental oxygen. Head: Normocephalic, atraumatic. Eyes: EOMI/PERRLA. Ears: Normal hearing. Normal anatomy. Neck/trachea: Trachea midline, supple. Nose: Normal external anatomy. Mouth: Moist mucous membranes. Chest: Decreased air entry bilaterally. No wheezing or rhonchi. Cardiovascular: Positive S1, positive S2. Regular rate and rhythm. Abdomen: Positive bowel sounds in all 4 quadrants. Soft, non-tender, non- distended. : Deferred. Rectal: Deferred. Skin: Warm, dry. Intact. Extremities: 2+ radial pulses bilaterally. No lower extremity edema. Neuro: Awake, alert, oriented x3. No gross motor or sensory deficits. Cranial nerves II through XII intact. Gait not assessed. laboratory and microbiology Laboratory Tests 05/11/24 05:37 Test 05/11/24 05:37 Range/Units Serum Glucose 153 H 74-106 mg/dL Assessment/Plan Impression: Acute hypoxic respiratory failure Atrial fibrillation w/ RVR Septic shock Hypokalemia Influenza B Nicotine dependence Marijuana use Obesity BMI 32.9 Events: Remains on supplemental oxygen, 3 LPM NC Taper O2 as tolerated HOB elevation Aspiration precautions IV fluids with D5W at 75 mL/hr Completed Tamiflu course - influenza A and B returned negative Continue antibiotics IV steroids Continue bronchodilators Seroquel BID. Incentive spirometry Improved PO nutrition Therapeutic Lovenox Diurese as tolerated w/ Lasix Monitor renal function Monitor electrolytes. Supplement as necessary. Potassium supplementation Monitor hemoglobin Physical therapy Improving mentation Disposition per hospitalist. Patient is s/p cardioversion for AFib. Labs and imaging reviewed. Rest of plan as noted below. Plan: s/p extubation on 05/07/24 Supplemental oxygen Titrate to keep sats above 92% Off sedation Off pressors, hemodynamically stable. Cardiology recs appreciated. Continue antibiotics. F/u cultures. IV steroids Pressors if necessary for hemodynamic support Titrate to keep mean arterial pressure greater than 65 mmHg. Monitor renal function Monitor electrolytes. Supplement as necessary. Monitor ins and outs. GI prophylaxis - Protonix DVT prophylaxis. Prognosis: Guarded given patient's multiple co-morbidities. Rest of plan per hospitalist and other consultants. Thank you, Dr. Coleman, for allowing me to participate in this patient's care. Further recommendations will depend on the patient's clinical course. Please do not hesitate to contact me if you have any questions or concerns. This medical document was created using an electronic medical record system with [employer] dictation system. Although these documentations are being carefully reviewed, there may still be some phonetic and typographical changes. The errors are purely typographical, due to imperfection on the software program, and do not reflect any compromise in the patient's medical care. Dietary Evaluation Review Comments: 1. TF Jevity 40 ml/hr (53 g, 1152 kcal), CONSIDER CLINIMIX (42.5 G PRO, 510 KCAL PLUS JEVITY 30ML/HR (40 G PRO, 864 KCAL if nephrotic symptoms WORSENS 2. TPN per pharmacy if NPO> 7 days 3. PO diet as tolerated with ensure high protein PO protein supplements after passing a Speech eval. Consider a 2 g Na CCHO-60 g Renal PO diet if pt's gluc ose is uncontrolled and kindeny function worsens. Expected Outcomes/Goals: gradually weight loss, improved skin tones, and nutrition related lab values. Plan discussed with: Patient, Other (SHE Carlos) YASSINE MAYO MD May 11, 2024 23:26
[2024-05-12] VITALS (18 sets, daily range): BP systolic 97–145; BP diastolic 62–78; PULSE 66–111; RESP 16–20; TEMP 97.5–98.4; O2SAT 91–100
[2024-05-12 06:41] LABS: Basophils # (auto) 0 10 ^3/uL (0-0.2); Hemoglobin 7.7 g/dL (12.2-16.2); Mean Corpuscular Hgb Conc. 33.6 g/dL (32.0-36.0); Neutrophils # (auto) 3.3 10 ^3/uL (1.6-8.6); Nucleated Red Blood Cells % 0.1 %
[2024-05-12 06:43] LABS: Basophils % (auto) 0.7 % (0.0-2.0); Eosinophils # (auto) 0 10 ^3/uL (0-0.8); Lymphocytes % (auto) 20.1 % (10.0-50.0); Mean Corpuscular Hemoglobin 31.5 pg (28.0-32.0); Mean Corpuscular Volume 93.5 fL (80.0-100.0); Monocytes # (auto) 0.7 10 ^3/uL (0-1.3); Monocytes % (auto) 13.2 % (0.0-12.0); Platelet Count (auto) 202 10^3/uL (140-450); Red Blood Cells 2.46 10^6/uL (4.0-5.20); Red Cell Distribution Width 14.1 % (11.8-14.3)
[2024-05-12 07:02] LABS: Chloride 101 mmol/L (98-107); Sodium 138 mmol/L (136-145)
[2024-05-12 07:03] LABS: Anion Gap 7 (5-15); Calcium 8.7 mg/dL (8.7-10.4); Carbon Dioxide 30 mmol/L (20-31)
[2024-05-12 07:08] LABS: BUN/Creatinine Ratio 31.6 (10.0-20.0); Blood Urea Nitrogen 18 mg/dL (9-23); Glucose 102 mg/dL (74-106)
[2024-05-12 07:09] LABS: Potassium 3.2 mmol/L (3.5-5.1)
[2024-05-12] MEDS: ENOXAPARIN SOD 40 MG/0.4 ML SYRINGE SC SCH (11:16)
[2024-05-12] MEDS: POTASSIUM EFFERVESENT TAB 25 MEQ PO ONE (12:42)
--- NOTE | 2024-05-12 13:51 | DVHPN2 ---
Subjective Patient reports having generalized weakness. Reviewed: Care Plan, H&P, Labs, Medications, Previous Orders, Radiology, Other (Consultations) Changes from previous H/P or p: No Changes Objective Vitals Vital Signs Date Time Temp Pulse Resp B/P (MAP) Pulse Ox O2 Delivery O2 Flow Rate FiO2 05/12/24 11:49 92 Nasal Cannula* 3 32 05/12/24 11:14 127/70 05/12/24 10:00 89 05/12/24 08:20 18 05/12/24 05:00 98.4 98.4 Intake/Output Intake and Output 05/12/24 07:00 Intake Total 975 ml Output Total 1750 ml Balance -775 ml Intake Oral 425 ml IV Total 550 ml Output Urine Total 1750 ml # Bowel Movements 1 General Appearance: Alert, Oriented X3, Cooperative, mild distress HEENT: Atraumatic, PERRLA Lungs: Other (Decreased air entry bilaterally with scattered crackles) Cardiovascular: Regular rate, Normal S1, Normal S2, Other (Sinus rhythm) Abdomen: Normal bowel sounds, Soft, No tenderness Genitourinary: Other (Nobles's) Neuro: Normal speech, Cranial nerves 3-12 NL Skin: Dry, Intact Psych/Mental Status: Mental status NL, Mood NL, Other (Unable to assess) Medications Current Medications Medications Dose Ordered Sig/Joann Route Start Time Stop Time Status Last Admin Dose Admin Ondansetron HCl 4 mg Q4HP PRN IV 05/01/24 14:45 Pantoprazole Sodium 40 mg DAILY IV 05/02/24 10:00 05/12/24 11:13 40 MG Atorvastatin Calcium 40 mg HS PO 05/02/24 22:00 05/11/24 21:31 40 MG Gemfibrozil 600 mg Q12HR PO 05/02/24 22:00 05/12/24 11:15 600 MG Quetiapine Fumarate 50 mg BID PO 05/04/24 22:00 05/12/24 11:15 50 MG Levalbuterol HCl 0.625 mg Q6HR NEB 05/04/24 18:00 05/12/24 06:01 0.625 MG Ipratropium [place] 0.5 mg Q6HR NEB 05/04/24 18:00 05/12/24 06:01 0.5 MG Amiodarone HCl 400 mg DAILY PO 05/06/24 10:00 05/12/24 11:14 400 MG Saccharomyces Boulardii 250 mg DAILY PO 05/06/24 10:00 05/12/24 11:29 250 MG Labetalol HCl 10 mg Q2HPRN PRN IV 05/07/24 08:45 05/10/24 05:03 10 MG Furosemide 20 mg DAILY IV 05/09/24 10:00 05/12/24 11:14 20 MG Levofloxacin 500 mg DAILY PO 05/11/24 12:18 05/12/24 11:15 500 MG Enoxaparin Sodium 40 mg DAILY SC 05/12/24 10:00 05/12/24 11:16 40 MG Enteral Nutritional Formula 240 ml TIDWM PO 05/12/24 18:00 Laboratory Results Laboratory Tests 05/12/24 05:51 Chemistry Test 05/12/24 05:51 Calcium Level 8.7 mg/dL (8.7-10.4) Urinalysis Test 05/01/24 11:04 Urine Color Yellow (Yellow) Urine Clarity Turbid (Clear) H Urine pH 5.5 (5.0-9.0) Urine Specific [place] 1.016 (1.001-1.035) Urine Protein 1+ (Negative) H Urine Ketones 1+ (Negative) H Urine Blood 1+ /uL (Negative) H Urine Nitrite 2+ (Negative) H Urine Bilirubin Negative (Negative) Urine Urobilinogen Normal mg/dL (Negative) Urine Leukocyte Esterase Negative /uL (Negative) Urine RBC <1 /hpf (0 - 4) Urine WBC 3 /hpf (0 - 5) Urine Squamous Epithelial Cells Few /hpf (<5) Urine Bacteria Many /hpf (None Seen) H Urine Hyaline Casts Few /lpf (0 - 2) Urine Yeast (Budding) Occasional /hpf (None Urine Glucose Normal mg/dL (Normal) Microbiology Microbiology Date/Time Source Procedure Growth Status 05/04/24 12:20 Urine - Catheterized Urine Culture - Final Complete 05/01/24 18:40 Nose MRSA Screen - Final Complete 05/01/24 15:40 Blood Blood Culture - Final NO GROWTH AFTER 5 DAYS OF INCUBATION. Complete 05/01/24 00:00 Sputum Gram Stain - Final Complete 05/01/24 00:00 Respiratory Culture - Final Providencia staurtii Streptococcus pneumoniae Complete Labs and/or images reviewed: Labs reviewed by me, Image(s) reviewed by me Assessment/Plan Assessment/Plan Impression: -acute hypoxic respiratory failure -metabolic encephalopathy -sepsis with shock secondary to UTI and viral pneumonia -influenza B -history of right hip fracture -obesity -deconditioning with bed-bound status -depression -primary hypertension -atrial flutter with rapid ventricular rate, 2-1 conduction Plan: Events: Poor oral intake. Add nutritional supplementation. Hypokalemia -potassium replacement -PT consultation -Deescalate antibiotic therapy to Levaquin p.o. -potassium replacement -Solu-Medrol to 40 mg IV daily -Seroquel 50 mg p.o. b.i.d. -bronchodilators, Pulmicort -continue p.o. amiodarone -repeat labs and chest x-ray Total time spent with patient discussing and formulating plan of care: 35 minutes. This medical document was created using an electronic medical record system with [employer] dictation system. Although this document has been carefully reviewed, there may still be some phonetic and typographical errors. These areas are purely typographical due to imperfections of the software programs, and do not reflect any compromise in the patient's medical care. Plan discussed with: Patient, Other (RN) My Orders Orders - BRISEYDA OROZCO NP Procedure Category Date Status Time * Supervisor Boarding CONS 05/11/24 Transmitted Consult Chest Xray 1 View XY 05/11/24 Resulted 14:23 Potassium Effervesent PHA 05/12/24 In Process Tab (Klor-Con/Ef) 12:15 Nutritional PHA 05/12/24 In Process Supplements (Ensure 18:00 Date of Service: May 12, 2024 Billing Provider: BRISEYDA OROZCO NP Common Visit Codes: [id number] INP/OBS CARE(HIGH) BRISEYDA OROZCO NP May 12, 2024 13:51
[2024-05-12] MEDS: Ensure Enlive Chocolate 8oz Bottle PO SCH (18:00)
--- NOTE | 2024-05-12 22:38 | DVHPN2 ---
Progress Note - Dictate Date Seen: May 12, 2024 Medical Necessity Reason Pt with a Central, PICC or Fol: Yes The following are medically ne: Butler Catheter Reason for butler catheter: Strict I&O Subjective Patient seen and examined at bedside. Remains on supplemental oxygen Overnight events reviewed. vital signs Vital Sign Date Time Temp Pulse Resp B/P (MAP) Pulse Ox O2 Delivery O2 Flow Rate FiO2 05/12/24 21:00 98.2 94 18 114/78 (90) 93 98.2 05/12/24 18:01 Nasal Cannula 3.0 05/12/24 18:01 32 Total Intake and Output 05/11/24 05/11/24 05/12/24 15:00 23:00 07:00 Intake Total 150 ml 725 ml 100 ml Output Total 1100 ml 650 ml Balance 150 ml -375 ml -550 ml medications Current Medications Medications Dose Ordered Sig/Joann Route Start Time Stop Time Status Last Admin Dose Admin Ondansetron HCl 4 mg Q4HP PRN IV 05/01/24 14:45 Pantoprazole Sodium 40 mg DAILY IV 05/02/24 10:00 05/12/24 11:13 40 MG Atorvastatin Calcium 40 mg HS PO 05/02/24 22:00 05/12/24 21:32 40 MG Gemfibrozil 600 mg Q12HR PO 05/02/24 22:00 05/12/24 21:32 600 MG Quetiapine Fumarate 50 mg BID PO 05/04/24 22:00 05/12/24 21:32 50 MG Levalbuterol HCl 0.625 mg Q6HR NEB 05/04/24 18:00 05/12/24 18:01 0.625 MG Ipratropium [place] 0.5 mg Q6HR NEB 05/04/24 18:00 05/12/24 18:01 0.5 MG Amiodarone HCl 400 mg DAILY PO 05/06/24 10:00 05/12/24 11:14 400 MG Saccharomyces Boulardii 250 mg DAILY PO 05/06/24 10:00 05/12/24 11:29 250 MG Labetalol HCl 10 mg Q2HPRN PRN IV 05/07/24 08:45 05/10/24 05:03 10 MG Furosemide 20 mg DAILY IV 05/09/24 10:00 05/12/24 11:14 20 MG Levofloxacin 500 mg DAILY PO 05/11/24 12:18 05/12/24 11:15 500 MG Enoxaparin Sodium 40 mg DAILY SC 05/12/24 10:00 05/12/24 11:16 40 MG Enteral Nutritional Formula 240 ml TIDWM PO 05/12/24 18:00 objective Gen.: Patient lying in bed in no apparent distress. On supplemental oxygen. Head: Normocephalic, atraumatic. Eyes: EOMI/PERRLA. Ears: Normal hearing. Normal anatomy. Neck/trachea: Trachea midline, supple. Nose: Normal external anatomy. Mouth: Moist mucous membranes. Chest: Decreased air entry bilaterally. No wheezing or rhonchi. Cardiovascular: Positive S1, positive S2. Regular rate and rhythm. Abdomen: Positive bowel sounds in all 4 quadrants. Soft, non-tender, non- distended. : Deferred. Rectal: Deferred. Skin: Warm, dry. Intact. Extremities: 2+ radial pulses bilaterally. No lower extremity edema. Neuro: Awake, alert, oriented x3. No gross motor or sensory deficits. Cranial nerves II through XII intact. Gait not assessed. laboratory and microbiology Laboratory Tests 05/12/24 05:51 Test 05/12/24 05:51 Range/Units Serum Glucose 102 74-106 mg/dL Assessment/Plan Impression: Acute hypoxic respiratory failure Atrial fibrillation w/ RVR Septic shock Hypokalemia Influenza B Nicotine dependence Marijuana use Obesity BMI 32.9 Events: Remains on supplemental oxygen, 2 LPM NC Taper O2 as tolerated HOB elevation Aspiration precautions Continue antibiotics Continue bronchodilators Seroquel BID. Incentive spirometry Improved PO nutrition Therapeutic Lovenox Diurese as tolerated w/ Lasix Monitor renal function Monitor electrolytes. Supplement as necessary. Potassium supplementation Monitor hemoglobin Physical therapy Improving mentation Disposition per hospitalist. Patient is s/p cardioversion for AFib. Labs and imaging reviewed. Rest of plan as noted below. Plan: s/p extubation on 05/07/24 Supplemental oxygen Titrate to keep sats above 92% Off sedation Off pressors, hemodynamically stable. Cardiology recs appreciated. Continue bronchodilators Continue antibiotics. F/u cultures. Completed Tamiflu course - influenza A and B returned negative Pressors if necessary for hemodynamic support Titrate to keep mean arterial pressure greater than 65 mmHg. Monitor renal function Monitor electrolytes. Supplement as necessary. Monitor ins and outs. GI prophylaxis - Protonix DVT prophylaxis. Prognosis: Guarded given patient's multiple co-morbidities. Rest of plan per hospitalist and other consultants. Thank you, Dr. Coleman, for allowing me to participate in this patient's care. Further recommendations will depend on the patient's clinical course. Please do not hesitate to contact me if you have any questions or concerns. This medical document was created using an electronic medical record system with [employer] dictation system. Although these documentations are being carefully reviewed, there may still be some phonetic and typographical changes. The errors are purely typographical, due to imperfection on the software program, and do not reflect any compromise in the patient's medical care. Dietary Evaluation Review Comments: 1. TF Jevity 40 ml/hr (53 g, 1152 kcal), CONSIDER CLINIMIX (42.5 G PRO, 510 KCAL PLUS JEVITY 30ML/HR (40 G PRO, 864 KCAL if nephrotic symptoms WORSENS 2. TPN per pharmacy if NPO> 7 days 3. PO diet as tolerated with ensure high protein PO protein supplements after passing a Speech eval. Consider a 2 g Na CCHO-60 g Renal PO diet if pt's gluc ose is uncontrolled and kindeny function worsens. Expected Outcomes/Goals: gradually weight loss, improved skin tones, and nutrition related lab values. Plan discussed with: Patient, Other (RN Bashir) YASSINE MAYO MD May 12, 2024 22:38
[2024-05-13] VITALS (16 sets, daily range): BP systolic 96–145; BP diastolic 66–78; PULSE 86–120; RESP 16–20; TEMP 97.4–99; O2SAT 93–99
--- NOTE | 2024-05-13 11:31 | DVH ---
CHEST RADIOGRAPH Indication: pna Technique: Single frontal view of the chest was obtained COMPARISON: XY CHEST XRAY 1 VIEW on DOS: 05/11/24, XY CHEST PORTABLE on DOS: 05/07/24, XY CHEST PORTABL E on DOS: 05/06/24, XY CHEST PORTABLE on DOS: 05/05/24, XY CHEST PORTABLE on DOS: 05/04/24 FINDINGS: Right lung base infiltrate is improved. There is continued dense opacification in the left lung base. There is mild left mid lung infiltrates, improved. No pneumothorax. Right IJ central line is re-christy ntified with its tip in the right atrium. There is mild leftward shift of the heart and mediastinum, and this appearance is exaggerated by LPO angulation of the film. The heart is enlarged. The aortic a rch is calcific. There are multiple old bilateral rib fractures. IMPRESSION: 1. Stable dense consolidation in the left lung base and improved infiltrates in the right lung base a nd left mid lung. 2. Cardiomegaly and atherosclerotic vascular disease.
[2024-05-13 12:56] LABS: Chloride 100 mmol/L (98-107)
[2024-05-13 12:57] LABS: Anion Gap 9 (5-15); Carbon Dioxide 27 mmol/L (20-31)
[2024-05-13 12:59] LABS: Calcium 8.9 mg/dL (8.7-10.4)
--- NOTE | 2024-05-13 12:59 | DVHPN2 ---
Subjective Patient reports having generalized weakness. Reviewed: Care Plan, H&P, Labs, Medications, Previous Orders, Radiology, Other (Consultations) Changes from previous H/P or p: No Changes Objective Vitals Vital Signs Date Time Temp Pulse Resp B/P (MAP) Pulse Ox O2 Delivery O2 Flow Rate FiO2 05/13/24 10:51 122/69 05/13/24 10:00 93 05/13/24 09:11 16 95 3.0 32 05/13/24 09:06 98.5 98.5 05/13/24 08:15 Nasal Cannula* Intake/Output Intake and Output 05/13/24 07:00 Intake Total 620 ml Output Total 3150 ml Balance -2530 ml Intake Oral 620 ml Output Urine Total 3150 ml # Bowel Movements 2 General Appearance: Alert, Oriented X3, Cooperative, mild distress HEENT: Atraumatic, PERRLA Lungs: Other (NC at 2lpm. Basilar Rhonchi) Cardiovascular: Regular rate, Normal S1, Normal S2, Other (Sinus rhythm) Abdomen: Normal bowel sounds, Soft, No tenderness Genitourinary: Other (Nobles's) Neuro: Normal speech, Cranial nerves 3-12 NL Skin: Dry, Intact Psych/Mental Status: Mental status NL, Mood NL, Other (Unable to assess) Medications Current Medications Medications Dose Ordered Sig/Joann Route Start Time Stop Time Status Last Admin Dose Admin Ondansetron HCl 4 mg Q4HP PRN IV 05/01/24 14:45 Pantoprazole Sodium 40 mg DAILY IV 05/02/24 10:00 05/13/24 10:50 40 MG Atorvastatin Calcium 40 mg HS PO 05/02/24 22:00 05/12/24 21:32 40 MG Gemfibrozil 600 mg Q12HR PO 05/02/24 22:00 05/13/24 10:49 600 MG Quetiapine Fumarate 50 mg BID PO 05/04/24 22:00 05/13/24 10:49 50 MG Levalbuterol HCl 0.625 mg Q6HR NEB 05/04/24 18:00 05/12/24 23:44 0.625 MG Ipratropium [place] 0.5 mg Q6HR NEB 05/04/24 18:00 05/12/24 23:44 0.5 MG Amiodarone HCl 400 mg DAILY PO 05/06/24 10:00 05/13/24 10:48 400 MG Saccharomyces Boulardii 250 mg DAILY PO 05/06/24 10:00 05/13/24 10:48 250 MG Labetalol HCl 10 mg Q2HPRN PRN IV 05/07/24 08:45 05/10/24 05:03 10 MG Furosemide 20 mg DAILY IV 05/09/24 10:00 05/13/24 10:51 20 MG Levofloxacin 500 mg DAILY PO 05/11/24 12:18 05/13/24 10:49 500 MG Enoxaparin Sodium 40 mg DAILY SC 05/12/24 10:00 05/13/24 10:50 40 MG Enteral Nutritional Formula 240 ml TIDWM PO 05/12/24 18:00 Laboratory Results Laboratory Tests 05/12/24 05:51 Chemistry Test 05/13/24 11:49 Calcium Level Pending Magnesium Level Pending Urinalysis Test 05/01/24 11:04 Urine Color Yellow (Yellow) Urine Clarity Turbid (Clear) H Urine pH 5.5 (5.0-9.0) Urine Specific [place] 1.016 (1.001-1.035) Urine Protein 1+ (Negative) H Urine Ketones 1+ (Negative) H Urine Blood 1+ /uL (Negative) H Urine Nitrite 2+ (Negative) H Urine Bilirubin Negative (Negative) Urine Urobilinogen Normal mg/dL (Negative) Urine Leukocyte Esterase Negative /uL (Negative) Urine RBC <1 /hpf (0 - 4) Urine WBC 3 /hpf (0 - 5) Urine Squamous Epithelial Cells Few /hpf (<5) Urine Bacteria Many /hpf (None Seen) H Urine Hyaline Casts Few /lpf (0 - 2) Urine Yeast (Budding) Occasional /hpf (None Urine Glucose Normal mg/dL (Normal) Microbiology Microbiology Date/Time Source Procedure Growth Status 05/04/24 12:20 Urine - Catheterized Urine Culture - Final Complete 05/01/24 18:40 Nose MRSA Screen - Final Complete 05/01/24 15:40 Blood Blood Culture - Final NO GROWTH AFTER 5 DAYS OF INCUBATION. Complete 05/01/24 00:00 Sputum Gram Stain - Final Complete 05/01/24 00:00 Respiratory Culture - Final Providencia staurtii Streptococcus pneumoniae Complete Labs and/or images reviewed: Labs reviewed by me, Image(s) reviewed by me Assessment/Plan Assessment/Plan Impression: -acute hypoxic respiratory failure -metabolic encephalopathy -sepsis with shock secondary to UTI and viral pneumonia -influenza B -history of right hip fracture -obesity -deconditioning with bed-bound status -depression -primary hypertension -atrial flutter with rapid ventricular rate, 2-1 conduction Plan: Events: No Events overnight. -potassium replacement -PT consultation -Deescalate antibiotic therapy to Levaquin p.o. -potassium replacement -Solu-Medrol to 40 mg IV daily -Seroquel 50 mg p.o. b.i.d. -bronchodilators, Pulmicort -continue p.o. amiodarone -repeat labs and chest x-ray Total time spent with patient discussing and formulating plan of care: 35 minutes. This medical document was created using an electronic medical record system with [employer] dictation system. Although this document has been carefully reviewed, there may still be some phonetic and typographical errors. These areas are purely typographical due to imperfections of the software programs, and do not reflect any compromise in the patient's medical care. Plan discussed with: Patient, Other (RN) My Orders Orders - BRISEYDA OROZCO NP Procedure Category Date Status Time Basic Metabolic Panel LAB 05/13/24 In Process 10:15 Magnesium LAB 05/13/24 In Process 10:15 Chest Xray 1 View XY 05/13/24 Resulted 10:16 Date of Service: May 13, 2024 Billing Provider: RBISEYDA OROZCO NP Common Visit Codes: [id number] INP/OBS CARE(HIGH) BRISEYDA OROZCO NP May 13, 2024 12:59
[2024-05-13 13:00] LABS: Potassium 3.5 mmol/L (3.5-5.1); Sodium 136 mmol/L (136-145)
[2024-05-13 13:02] LABS: Glucose 98 mg/dL (74-106)
[2024-05-13 13:03] LABS: BUN/Creatinine Ratio 19.7 (10.0-20.0); Blood Urea Nitrogen 14 mg/dL (9-23); Magnesium 1.6 mg/dL (1.6-2.6)
--- NOTE | 2024-05-13 23:50 | DVHPN2 ---
Progress Note - Dictate Date Seen: May 13, 2024 Medical Necessity Reason Pt with a Central, PICC or Fol: Yes The following are medically ne: Butler Catheter Reason for butler catheter: Strict I&O Subjective Patient seen and examined at bedside. Remains on supplemental oxygen Overnight events reviewed. vital signs Vital Sign Date Time Temp Pulse Resp B/P (MAP) Pulse Ox O2 Delivery O2 Flow Rate FiO2 05/13/24 21:00 98.1 113 18 96/70 (79) 95 98.1 05/13/24 19:45 Nasal Cannula 3.0 05/13/24 19:45 32 Total Intake and Output 05/12/24 05/12/24 05/13/24 15:00 23:00 07:00 Intake Total 500 ml 120 ml Output Total 2400 ml 750 ml Balance -1900 ml -630 ml medications Current Medications Medications Dose Ordered Sig/Joann Route Start Time Stop Time Status Last Admin Dose Admin Ondansetron HCl 4 mg Q4HP PRN IV 05/01/24 14:45 Pantoprazole Sodium 40 mg DAILY IV 05/02/24 10:00 05/13/24 10:50 40 MG Atorvastatin Calcium 40 mg HS PO 05/02/24 22:00 05/13/24 23:21 40 MG Gemfibrozil 600 mg Q12HR PO 05/02/24 22:00 05/13/24 23:21 600 MG Quetiapine Fumarate 50 mg BID PO 05/04/24 22:00 05/13/24 23:21 50 MG Levalbuterol HCl 0.625 mg Q6HR NEB 05/04/24 18:00 05/13/24 19:45 0.625 MG Ipratropium [place] 0.5 mg Q6HR NEB 05/04/24 18:00 05/13/24 19:45 0.5 MG Amiodarone HCl 400 mg DAILY PO 05/06/24 10:00 05/13/24 10:48 400 MG Saccharomyces Boulardii 250 mg DAILY PO 05/06/24 10:00 05/13/24 10:48 250 MG Labetalol HCl 10 mg Q2HPRN PRN IV 05/07/24 08:45 05/10/24 05:03 10 MG Furosemide 20 mg DAILY IV 05/09/24 10:00 05/13/24 10:51 20 MG Levofloxacin 500 mg DAILY PO 05/11/24 12:18 05/13/24 10:49 500 MG Enoxaparin Sodium 40 mg DAILY SC 05/12/24 10:00 05/13/24 10:50 40 MG Enteral Nutritional Formula 240 ml TIDWM PO 05/12/24 18:00 05/13/24 19:01 240 ML objective Gen.: Patient lying in bed in no apparent distress. On supplemental oxygen. Head: Normocephalic, atraumatic. Eyes: EOMI/PERRLA. Ears: Normal hearing. Normal anatomy. Neck/trachea: Trachea midline, supple. Nose: Normal external anatomy. Mouth: Moist mucous membranes. Chest: Decreased air entry bilaterally. No wheezing or rhonchi. Cardiovascular: Positive S1, positive S2. Regular rate and rhythm. Abdomen: Positive bowel sounds in all 4 quadrants. Soft, non-tender, non- distended. : Deferred. Rectal: Deferred. Skin: Warm, dry. Intact. Extremities: 2+ radial pulses bilaterally. No lower extremity edema. Neuro: Awake, alert, oriented x3. No gross motor or sensory deficits. Cranial nerves II through XII intact. Gait not assessed. laboratory and microbiology Laboratory Tests 05/13/24 11:49 05/12/24 05:51 Test 05/13/24 11:49 Range/Units Serum Glucose 98 74-106 mg/dL Assessment/Plan Impression: Acute hypoxic respiratory failure Atrial fibrillation w/ RVR Septic shock Hypokalemia Influenza B Nicotine dependence Marijuana use Obesity BMI 32.9 Events: Remains on supplemental oxygen, 2 LPM NC Taper O2 as tolerated HOB elevation Aspiration precautions Continue antibiotics Continue bronchodilators Seroquel BID. Incentive spirometry Improved PO nutrition Therapeutic Lovenox Diurese as tolerated w/ Lasix Monitor renal function Monitor electrolytes. Supplement as necessary. Monitor hemoglobin Physical therapy Improving mentation Disposition per hospitalist. Patient is s/p cardioversion for AFib. Labs and imaging reviewed. Rest of plan as noted below. Plan: s/p extubation on 05/07/24 Supplemental oxygen Titrate to keep sats above 92% Off sedation Off pressors, hemodynamically stable. Cardiology recs appreciated. Continue bronchodilators Continue antibiotics. F/u cultures. Completed Tamiflu course - influenza A and B returned negative Pressors if necessary for hemodynamic support Titrate to keep mean arterial pressure greater than 65 mmHg. Monitor renal function Monitor electrolytes. Supplement as necessary. Monitor ins and outs. GI prophylaxis - Protonix DVT prophylaxis. Prognosis: Guarded given patient's multiple co-morbidities. Rest of plan per hospitalist and other consultants. Thank you, Dr. Coleman, for allowing me to participate in this patient's care. Further recommendations will depend on the patient's clinical course. Please do not hesitate to contact me if you have any questions or concerns. This medical document was created using an electronic medical record system with [employer] dictation system. Although these documentations are being carefully reviewed, there may still be some phonetic and typographical changes. The errors are purely typographical, due to imperfection on the software program, and do not reflect any compromise in the patient's medical care. Dietary Evaluation Review Comments: 1. TF Jevity 40 ml/hr (53 g, 1152 kcal), CONSIDER CLINIMIX (42.5 G PRO, 510 KCAL PLUS JEVITY 30ML/HR (40 G PRO, 864 KCAL if nephrotic symptoms WORSENS 2. TPN per pharmacy if NPO> 7 days 3. PO diet as tolerated with ensure high protein PO protein supplements after passing a Speech eval. Consider a 2 g Na CCHO-60 g Renal PO diet if pt's gluc ose is uncontrolled and kindeny function worsens. Expected Outcomes/Goals: gradually weight loss, improved skin tones, and nutrition related lab values. Plan discussed with: Patient, Other (RN Bashir) YASSINE MAYO MD May 13, 2024 23:50
[2024-05-14] VITALS (16 sets, daily range): BP systolic 98–122; BP diastolic 55–82; PULSE 83–110; RESP 15–20; TEMP 97.5–98.9; O2SAT 92–100
--- NOTE | 2024-05-14 13:43 | DVHPN2 ---
Subjective Patient reports having generalized weakness. Reviewed: Care Plan, H&P, Labs, Medications, Previous Orders, Radiology, Other (Consultations) Changes from previous H/P or p: No Changes Objective Vitals Vital Signs Date Time Temp Pulse Resp B/P (MAP) Pulse Ox O2 Delivery O2 Flow Rate FiO2 05/14/24 13:00 97.5 100 15 122/80 (94) 96 97.5 05/14/24 12:41 Nasal Cannula 2.0 05/14/24 12:41 28 Intake/Output Intake and Output 05/14/24 07:00 Intake Total 340 ml Output Total 2200 ml Balance -1860 ml Intake Oral 340 ml Output Urine Total 2200 ml # Bowel Movements 3 General Appearance: Alert, Oriented X3, Cooperative, mild distress HEENT: Atraumatic, PERRLA Lungs: Other (NC at 2lpm. Basilar Rhonchi) Cardiovascular: Regular rate, Normal S1, Normal S2, Other (Sinus rhythm) Abdomen: Normal bowel sounds, Soft, No tenderness Genitourinary: Other (Nobles's) Neuro: Normal speech, Cranial nerves 3-12 NL Skin: Dry, Intact Psych/Mental Status: Mental status NL, Mood NL, Other (Unable to assess) Medications Current Medications Medications Dose Ordered Sig/Joann Route Start Time Stop Time Status Last Admin Dose Admin Ondansetron HCl 4 mg Q4HP PRN IV 05/01/24 14:45 Pantoprazole Sodium 40 mg DAILY IV 05/02/24 10:00 05/14/24 09:19 40 MG Atorvastatin Calcium 40 mg HS PO 05/02/24 22:00 05/13/24 23:21 40 MG Gemfibrozil 600 mg Q12HR PO 05/02/24 22:00 05/14/24 09:20 600 MG Quetiapine Fumarate 50 mg BID PO 05/04/24 22:00 05/14/24 09:20 50 MG Levalbuterol HCl 0.625 mg Q6HR NEB 05/04/24 18:00 05/14/24 12:41 0.625 MG Ipratropium [place] 0.5 mg Q6HR NEB 05/04/24 18:00 05/14/24 12:41 0.5 MG Amiodarone HCl 400 mg DAILY PO 05/06/24 10:00 05/14/24 09:20 400 MG Saccharomyces Boulardii 250 mg DAILY PO 05/06/24 10:00 05/14/24 09:20 250 MG Labetalol HCl 10 mg Q2HPRN PRN IV 05/07/24 08:45 05/10/24 05:03 10 MG Furosemide 20 mg DAILY IV 05/09/24 10:00 05/13/24 10:51 20 MG Levofloxacin 500 mg DAILY PO 05/11/24 12:18 05/14/24 09:20 500 MG Enoxaparin Sodium 40 mg DAILY SC 05/12/24 10:00 05/14/24 09:21 40 MG Enteral Nutritional Formula 240 ml TIDWM PO 05/12/24 18:00 05/14/24 08:00 240 ML Laboratory Results Laboratory Tests 05/12/24 05:51 05/13/24 11:49 Urinalysis Test 05/01/24 11:04 Urine Color Yellow (Yellow) Urine Clarity Turbid (Clear) H Urine pH 5.5 (5.0-9.0) Urine Specific [place] 1.016 (1.001-1.035) Urine Protein 1+ (Negative) H Urine Ketones 1+ (Negative) H Urine Blood 1+ /uL (Negative) H Urine Nitrite 2+ (Negative) H Urine Bilirubin Negative (Negative) Urine Urobilinogen Normal mg/dL (Negative) Urine Leukocyte Esterase Negative /uL (Negative) Urine RBC <1 /hpf (0 - 4) Urine WBC 3 /hpf (0 - 5) Urine Squamous Epithelial Cells Few /hpf (<5) Urine Bacteria Many /hpf (None Seen) H Urine Hyaline Casts Few /lpf (0 - 2) Urine Yeast (Budding) Occasional /hpf (None Urine Glucose Normal mg/dL (Normal) Microbiology Microbiology Date/Time Source Procedure Growth Status 05/04/24 12:20 Urine - Catheterized Urine Culture - Final Complete 05/01/24 18:40 Nose MRSA Screen - Final Complete 05/01/24 15:40 Blood Blood Culture - Final NO GROWTH AFTER 5 DAYS OF INCUBATION. Complete 05/01/24 00:00 Sputum Gram Stain - Final Complete 05/01/24 00:00 Respiratory Culture - Final Providencia staurtii Streptococcus pneumoniae Complete Labs and/or images reviewed: Labs reviewed by me, Image(s) reviewed by me Assessment/Plan Assessment/Plan Impression: -acute hypoxic respiratory failure -metabolic encephalopathy -sepsis with shock secondary to UTI and viral pneumonia -influenza B -history of right hip fracture -obesity -deconditioning with bed-bound status -depression -primary hypertension -atrial flutter with rapid ventricular rate, 2-1 conduction -Breast cancer, Left Plan: Events: No Events overnight. -potassium replacement -PT consultation -Deescalate antibiotic therapy to Levaquin p.o. -potassium replacement -Solu-Medrol to 40 mg IV daily -Seroquel 50 mg p.o. b.i.d. -bronchodilators, Pulmicort -continue p.o. amiodarone -repeat labs and chest x-ray Total time spent with patient discussing and formulating plan of care: 35 minutes. This medical document was created using an electronic medical record system with [employer] dictation system. Although this document has been carefully reviewed, there may still be some phonetic and typographical errors. These areas are purely typographical due to imperfections of the software programs, and do not reflect any compromise in the patient's medical care. Plan discussed with: Patient, Other (Rn) My Orders Orders - BRISEYDA OROZCO NP Procedure Category Date Status Time Basic Metabolic Panel LAB 05/15/24 Verified 04:00 Complete Blood Count LAB 05/15/24 Verified 04:00 Chest Portable XY 05/15/24 Logged 04:00 Date of Service: May 14, 2024 Billing Provider: BRISEYDA OROZCO NP Common Visit Codes: [id number] INP/OBS CARE(HIGH) BRISEYDA OROZCO NP May 14, 2024 13:42
--- NOTE | 2024-05-14 23:17 | DVHPN2 ---
Progress Note - Dictate Date Seen: May 14, 2024 Medical Necessity Reason Pt with a Central, PICC or Fol: Yes The following are medically ne: Butler Catheter Reason for butler catheter: Strict I&O Subjective Patient seen and examined at bedside. Remains on supplemental oxygen Overnight events reviewed. vital signs Vital Sign Date Time Temp Pulse Resp B/P (MAP) Pulse Ox O2 Delivery O2 Flow Rate FiO2 05/14/24 21:00 98.2 102 19 102/55 (71) 95 98.2 05/14/24 20:00 Nasal Cannula* 3 32 Total Intake and Output 05/13/24 05/13/24 05/14/24 15:00 23:00 07:00 Intake Total 340 ml Output Total 1800 ml 400 ml Balance -1800 ml -60 ml medications Current Medications Medications Dose Ordered Sig/Joann Route Start Time Stop Time Status Last Admin Dose Admin Ondansetron HCl 4 mg Q4HP PRN IV 05/01/24 14:45 Pantoprazole Sodium 40 mg DAILY IV 05/02/24 10:00 05/14/24 09:19 40 MG Atorvastatin Calcium 40 mg HS PO 05/02/24 22:00 05/14/24 21:20 40 MG Gemfibrozil 600 mg Q12HR PO 05/02/24 22:00 05/14/24 21:22 600 MG Quetiapine Fumarate 50 mg BID PO 05/04/24 22:00 05/14/24 21:20 50 MG Levalbuterol HCl 0.625 mg Q6HR NEB 05/04/24 18:00 05/14/24 19:19 0.625 MG Ipratropium [place] 0.5 mg Q6HR NEB 05/04/24 18:00 05/14/24 19:19 0.5 MG Amiodarone HCl 400 mg DAILY PO 05/06/24 10:00 05/14/24 09:20 400 MG Saccharomyces Boulardii 250 mg DAILY PO 05/06/24 10:00 05/14/24 09:20 250 MG Labetalol HCl 10 mg Q2HPRN PRN IV 05/07/24 08:45 05/10/24 05:03 10 MG Furosemide 20 mg DAILY IV 05/09/24 10:00 05/13/24 10:51 20 MG Levofloxacin 500 mg DAILY PO 05/11/24 12:18 05/14/24 09:20 500 MG Enoxaparin Sodium 40 mg DAILY SC 05/12/24 10:00 05/14/24 09:21 40 MG Enteral Nutritional Formula 240 ml TIDWM PO 05/12/24 18:00 05/14/24 12:00 240 ML objective Gen.: Patient lying in bed in no apparent distress. On supplemental oxygen. Head: Normocephalic, atraumatic. Eyes: EOMI/PERRLA. Ears: Normal hearing. Normal anatomy. Neck/trachea: Trachea midline, supple. Nose: Normal external anatomy. Mouth: Moist mucous membranes. Chest: Decreased air entry bilaterally. No wheezing or rhonchi. Cardiovascular: Positive S1, positive S2. Regular rate and rhythm. Abdomen: Positive bowel sounds in all 4 quadrants. Soft, non-tender, non- distended. : Deferred. Rectal: Deferred. Skin: Warm, dry. Intact. Extremities: 2+ radial pulses bilaterally. No lower extremity edema. Neuro: Awake, alert, oriented x3. No gross motor or sensory deficits. Cranial nerves II through XII intact. Gait not assessed. laboratory and microbiology Laboratory Tests 05/13/24 11:49 05/12/24 05:51 Test 05/13/24 11:49 Range/Units Serum Glucose 98 74-106 mg/dL Assessment/Plan Impression: Acute hypoxic respiratory failure Atrial fibrillation w/ RVR Septic shock Hypokalemia Influenza B Nicotine dependence Marijuana use Obesity BMI 32.9 Events: Remains on supplemental oxygen, 2 LPM NC Taper O2 as tolerated HOB elevation Aspiration precautions Continue antibiotics Continue bronchodilators Seroquel BID. Incentive spirometry Improved PO nutrition Therapeutic Lovenox Monitor hemoglobin Physical therapy Improving mentation Disposition per hospitalist. Patient is s/p cardioversion for AFib. Labs and imaging reviewed. Rest of plan as noted below. Plan: s/p extubation on 05/07/24 Supplemental oxygen Titrate to keep sats above 92% Off sedation Off pressors, hemodynamically stable. Cardiology recs appreciated. Continue bronchodilators Continue antibiotics. F/u cultures. Completed Tamiflu course - influenza A and B returned negative Pressors if necessary for hemodynamic support Titrate to keep mean arterial pressure greater than 65 mmHg. Monitor renal function Monitor electrolytes. Supplement as necessary. Monitor ins and outs. GI prophylaxis - Protonix DVT prophylaxis. Prognosis: Guarded given patient's multiple co-morbidities. Rest of plan per hospitalist and other consultants. Thank you, Dr. Coleman, for allowing me to participate in this patient's care. Further recommendations will depend on the patient's clinical course. Please do not hesitate to contact me if you have any questions or concerns. This medical document was created using an electronic medical record system with [employer] dictation system. Although these documentations are being carefully reviewed, there may still be some phonetic and typographical changes. The errors are purely typographical, due to imperfection on the software program, and do not reflect any compromise in the patient's medical care. Dietary Evaluation Review Comments: 1. TF Jevity 40 ml/hr (53 g, 1152 kcal), CONSIDER CLINIMIX (42.5 G PRO, 510 KCAL PLUS JEVITY 30ML/HR (40 G PRO, 864 KCAL if nephrotic symptoms WORSENS 2. TPN per pharmacy if NPO> 7 days 3. PO diet as tolerated with ensure high protein PO protein supplements after passing a Speech eval. Consider a 2 g Na CCHO-60 g Renal PO diet if pt's gluc ose is uncontrolled and kindeny function worsens. Expected Outcomes/Goals: gradually weight loss, improved skin tones, and nutrition related lab values. Plan discussed with: Patient, Other (SHE Ricci) YASSINE MAYO MD May 14, 2024 23:17
[2024-05-15] VITALS (15 sets, daily range): BP systolic 102–132; BP diastolic 59–85; PULSE 90–112; RESP 18–20; TEMP 97.7–98.5; O2SAT 90–97
--- NOTE | 2024-05-15 05:37 | DVH ---
EXAM: XR Chest, 1 View CLINICAL INDICATION: pna TECHNIQUE: Frontal view of the chest. COMPARISON: XY CHEST XRAY 1 VIEW on DOS: 05/13/24, XY CHEST XRAY 1 VIEW on DOS: 05/11/24, XY CHEST PO RTABLE on DOS: 05/07/24, XY CHEST PORTABLE on DOS: 05/06/24, XY CHEST PORTABLE on DOS: 05/05/24 FINDINGS: LUNGS AND PLEURAL SPACES: Mild CHF, stable. No consolidation. No pneumothorax. HEART: Unremarkable. No cardiomegaly. MEDIASTINUM: Unremarkable. Normal mediastinal contour. BONES/JOINTS: Unremarkable. No acute fracture. TUBES, LINES AND DEVICES: Right internal jugular central venous catheter tip in the superior vena c linda. OTHER FINDINGS: . . IMPRESSION: Mild CHF, stable.
[2024-05-15 11:10] LABS: Basophils # (auto) 0.1 10 ^3/uL (0-0.2); Basophils % (auto) 0.9 % (0.0-2.0); Eosinophils # (auto) 0.1 10 ^3/uL (0-0.8); Eosinophils % (auto) 1.1 % (0.0-7.0); Hematocrit 29.5 % (36.0-46.0); Hemoglobin 9.7 g/dL (12.2-16.2); Lymphocytes # (auto) 0.6 10 ^3/uL (0.4-5.4); Lymphocytes % (auto) 9.6 % (10.0-50.0); Mean Corpuscular Hemoglobin 31.2 pg (28.0-32.0); Mean Corpuscular Hgb Conc. 32.9 g/dL (32.0-36.0); Mean Corpuscular Volume 94.8 fL (80.0-100.0); Monocytes # (auto) 0.6 10 ^3/uL (0-1.3); Monocytes % (auto) 9.6 % (0.0-12.0); Neutrophils # (auto) 4.6 10 ^3/uL (1.6-8.6); Neutrophils % (auto) 78.8 % (37.0-80.0); Platelet Count (auto) 313 10^3/uL (140-450); Red Blood Cells 3.11 10^6/uL (4.0-5.20); Red Cell Distribution Width 14.9 % (11.8-14.3); White Blood Cell 5.9 10^3/uL (4.4-10.8)
[2024-05-15 11:18] LABS: Chloride 104 mmol/L (98-107); Potassium 3.6 mmol/L (3.5-5.1); Sodium 137 mmol/L (136-145)
[2024-05-15 11:19] LABS: Anion Gap 10 (5-15); Calcium 9.5 mg/dL (8.7-10.4); Carbon Dioxide 23 mmol/L (20-31)
[2024-05-15 11:24] LABS: Blood Urea Nitrogen 12 mg/dL (9-23)
[2024-05-15 11:32] LABS: Glucose 146 mg/dL (74-106)
--- NOTE | 2024-05-15 21:42 | DVHPN2 ---
Progress Note - Dictate Date Seen: May 15, 2024 Medical Necessity Reason Pt with a Central, PICC or Fol: Yes The following are medically ne: Butler Catheter Reason for butler catheter: Strict I&O Subjective Patient seen and examined at bedside. Remains on supplemental oxygen Overnight events reviewed. vital signs Vital Sign Date Time Temp Pulse Resp B/P (MAP) Pulse Ox O2 Delivery O2 Flow Rate FiO2 05/15/24 19:49 94 Room Air* 0 21 05/15/24 17:00 97.7 110 18 102/64 (77) 97.7 Total Intake and Output 05/14/24 05/14/24 05/15/24 15:00 23:00 07:00 Intake Total 650 ml 400 ml Output Total 1115 ml 1050 ml Balance -465 ml -650 ml medications Current Medications Medications Dose Ordered Sig/Joann Route Start Time Stop Time Status Last Admin Dose Admin Ondansetron HCl 4 mg Q4HP PRN IV 05/01/24 14:45 Pantoprazole Sodium 40 mg DAILY IV 05/02/24 10:00 05/15/24 10:15 40 MG Atorvastatin Calcium 40 mg HS PO 05/02/24 22:00 05/15/24 21:10 40 MG Gemfibrozil 600 mg Q12HR PO 05/02/24 22:00 05/15/24 21:10 600 MG Quetiapine Fumarate 50 mg BID PO 05/04/24 22:00 05/15/24 21:10 50 MG Levalbuterol HCl 0.625 mg Q6HR NEB 05/04/24 18:00 05/15/24 19:49 0.625 MG Ipratropium [place] 0.5 mg Q6HR NEB 05/04/24 18:00 05/15/24 19:50 0.5 MG Amiodarone HCl 400 mg DAILY PO 05/06/24 10:00 05/15/24 10:28 400 MG Saccharomyces Boulardii 250 mg DAILY PO 05/06/24 10:00 05/15/24 10:15 250 MG Labetalol HCl 10 mg Q2HPRN PRN IV 05/07/24 08:45 05/10/24 05:03 10 MG Furosemide 20 mg DAILY IV 05/09/24 10:00 05/15/24 10:29 20 MG Levofloxacin 500 mg DAILY PO 05/11/24 12:18 05/15/24 10:15 500 MG Enoxaparin Sodium 40 mg DAILY SC 05/12/24 10:00 05/15/24 10:28 40 MG Enteral Nutritional Formula 240 ml TIDWM PO 05/12/24 18:00 05/15/24 17:50 240 ML objective Gen.: Patient lying in bed in no apparent distress. On supplemental oxygen. Head: Normocephalic, atraumatic. Eyes: EOMI/PERRLA. Ears: Normal hearing. Normal anatomy. Neck/trachea: Trachea midline, supple. Nose: Normal external anatomy. Mouth: Moist mucous membranes. Chest: Decreased air entry bilaterally. No wheezing or rhonchi. Cardiovascular: Positive S1, positive S2. Regular rate and rhythm. Abdomen: Positive bowel sounds in all 4 quadrants. Soft, non-tender, non- distended. : Deferred. Rectal: Deferred. Skin: Warm, dry. Intact. Extremities: 2+ radial pulses bilaterally. No lower extremity edema. Neuro: Awake, alert, oriented x3. No gross motor or sensory deficits. Cranial nerves II through XII intact. Gait not assessed. laboratory and microbiology Laboratory Tests 05/15/24 10:51 Test 05/15/24 10:51 Range/Units Serum Glucose 146 H 74-106 mg/dL Assessment/Plan Impression: Acute hypoxic respiratory failure Atrial fibrillation w/ RVR Septic shock Hypokalemia Influenza B Nicotine dependence Marijuana use Obesity BMI 32.9 Events: Remains on supplemental oxygen, 2 LPM NC Taper O2 as tolerated HOB elevation Aspiration precautions Continue antibiotics Continue bronchodilators PRN Seroquel BID. Incentive spirometry Improved PO nutrition Therapeutic Lovenox Monitor hemoglobin Continue physical therapy Improving mentation Disposition per hospitalist. Assess for home O2 requirements prior to discharge Patient is s/p cardioversion for AFib. Labs and imaging reviewed. Rest of plan as noted below. Plan: s/p extubation on 05/07/24 Supplemental oxygen Titrate to keep sats above 92% Off sedation Off pressors, hemodynamically stable. Cardiology recs appreciated. Continue bronchodilators Continue antibiotics. F/u cultures. Completed Tamiflu course - influenza A and B returned negative Pressors if necessary for hemodynamic support Titrate to keep mean arterial pressure greater than 65 mmHg. Monitor renal function Monitor electrolytes. Supplement as necessary. Monitor ins and outs. GI prophylaxis - Protonix DVT prophylaxis. Prognosis: Guarded given patient's multiple co-morbidities. Rest of plan per hospitalist and other consultants. Thank you, Dr. Coleman, for allowing me to participate in this patient's care. Further recommendations will depend on the patient's clinical course. Please do not hesitate to contact me if you have any questions or concerns. This medical document was created using an electronic medical record system with [employer] dictation system. Although these documentations are being carefully reviewed, there may still be some phonetic and typographical changes. The errors are purely typographical, due to imperfection on the software program, and do not reflect any compromise in the patient's medical care. Dietary Evaluation Review Comments: 1. TF Jevity 40 ml/hr (53 g, 1152 kcal), CONSIDER CLINIMIX (42.5 G PRO, 510 KCAL PLUS JEVITY 30ML/HR (40 G PRO, 864 KCAL if nephrotic symptoms WORSENS 2. TPN per pharmacy if NPO> 7 days 3. PO diet as tolerated with ensure high protein PO protein supplements after passing a Speech eval. Consider a 2 g Na CCHO-60 g Renal PO diet if pt's gluc ose is uncontrolled and kindeny function worsens. Expected Outcomes/Goals: gradually weight loss, improved skin tones, and nutrition related lab values. Plan discussed with: Patient, Other (SHE Molina) YASSINE MAYO MD May 15, 2024 21:42
[2024-05-16] VITALS (16 sets, daily range): BP systolic 87–146; BP diastolic 42–82; PULSE 95–118; RESP 14–18; TEMP 97.8–99.7; O2SAT 90–100
[2024-05-16] MEDS: METOPROLOL SUCCINATE XL 50 MG TAB PO SCH (15:46)
--- NOTE | 2024-05-16 16:06 | DVHPN2 ---
Subjective Patient reports having generalized weakness. Reviewed: Care Plan, H&P, Labs, Medications, Previous Orders, Radiology, Other (Consultations) Changes from previous H/P or p: No Changes Objective Vitals Vital Signs Date Time Temp Pulse Resp B/P (MAP) Pulse Ox O2 Delivery O2 Flow Rate FiO2 05/16/24 15:46 118 93/55 05/16/24 12:38 97.8 14 93 97.8 05/16/24 11:40 Room Air* 0 21 Intake/Output Intake and Output 05/16/24 07:00 Intake Total 170 ml Output Total 1850 ml Balance -1680 ml Intake Oral 170 ml Output Urine Total 1850 ml # Bowel Movements 1 General Appearance: Alert, Oriented X3, Cooperative, mild distress HEENT: Atraumatic, PERRLA Lungs: Other (NC at 2lpm. Basilar Rhonchi) Cardiovascular: Regular rate, Normal S1, Normal S2, Other (Sinus rhythm) Abdomen: Normal bowel sounds, Soft, No tenderness Genitourinary: Other ([place]) Neuro: Normal speech, Cranial nerves 3-12 NL Skin: Dry, Intact Psych/Mental Status: Mental status NL, Mood NL, Other (Unable to assess) Medications Current Medications Medications Dose Ordered Sig/Joann Route Start Time Stop Time Status Last Admin Dose Admin Ondansetron HCl 4 mg Q4HP PRN IV 05/01/24 14:45 Pantoprazole Sodium 40 mg DAILY IV 05/02/24 10:00 05/16/24 10:29 40 MG Atorvastatin Calcium 40 mg HS PO 05/02/24 22:00 05/15/24 21:10 40 MG Gemfibrozil 600 mg Q12HR PO 05/02/24 22:00 05/16/24 10:26 600 MG Quetiapine Fumarate 50 mg BID PO 05/04/24 22:00 05/16/24 10:26 50 MG Levalbuterol HCl 0.625 mg Q6HR NEB 05/04/24 18:00 05/16/24 11:40 0.625 MG Ipratropium [place] 0.5 mg Q6HR NEB 05/04/24 18:00 05/16/24 11:40 0.5 MG Amiodarone HCl 400 mg DAILY PO 05/06/24 10:00 05/16/24 10:25 400 MG Saccharomyces Boulardii 250 mg DAILY PO 05/06/24 10:00 05/16/24 10:26 250 MG Labetalol HCl 10 mg Q2HPRN PRN IV 05/07/24 08:45 05/10/24 05:03 10 MG Furosemide 20 mg DAILY IV 05/09/24 10:00 05/15/24 10:29 20 MG Levofloxacin 500 mg DAILY PO 05/11/24 12:18 05/16/24 10:25 500 MG Enoxaparin Sodium 40 mg DAILY SC 05/12/24 10:00 05/16/24 10:29 40 MG Enteral Nutritional Formula 240 ml TIDWM PO 05/12/24 18:00 05/16/24 12:05 240 ML Magnesium Oxide 400 mg DAILY PO 05/17/24 10:00 Metoprolol Succinate 25 mg DAILY PO 05/16/24 14:45 05/16/24 15:46 25 MG Laboratory Results Laboratory Tests 05/15/24 10:51 Urinalysis Test 05/01/24 11:04 Urine Color Yellow (Yellow) Urine Clarity Turbid (Clear) H Urine pH 5.5 (5.0-9.0) Urine Specific [place] 1.016 (1.001-1.035) Urine Protein 1+ (Negative) H Urine Ketones 1+ (Negative) H Urine Blood 1+ /uL (Negative) H Urine Nitrite 2+ (Negative) H Urine Bilirubin Negative (Negative) Urine Urobilinogen Normal mg/dL (Negative) Urine Leukocyte Esterase Negative /uL (Negative) Urine RBC <1 /hpf (0 - 4) Urine WBC 3 /hpf (0 - 5) Urine Squamous Epithelial Cells Few /hpf (<5) Urine Bacteria Many /hpf (None Seen) H Urine Hyaline Casts Few /lpf (0 - 2) Urine Yeast (Budding) Occasional /hpf (None Urine Glucose Normal mg/dL (Normal) Microbiology Microbiology Date/Time Source Procedure Growth Status 05/04/24 12:20 Urine - Catheterized Urine Culture - Final Complete 05/01/24 18:40 Nose MRSA Screen - Final Complete 05/01/24 15:40 Blood Blood Culture - Final NO GROWTH AFTER 5 DAYS OF INCUBATION. Complete 05/01/24 00:00 Sputum Gram Stain - Final Complete 05/01/24 00:00 Respiratory Culture - Final Providencia staurtii Streptococcus pneumoniae Complete Labs and/or images reviewed: Labs reviewed by me, Image(s) reviewed by me Assessment/Plan Assessment/Plan Impression: -acute hypoxic respiratory failure -metabolic encephalopathy -sepsis with shock secondary to UTI and viral pneumonia -influenza B -history of right hip fracture -obesity -deconditioning with bed-bound status -depression -primary hypertension -atrial flutter with rapid ventricular rate, 2-1 conduction -Breast cancer, Left Plan: Events: No Events overnight. Patient now tachycardic. Start low-dose beta fleisha as well as magnesium -potassium replacement -PT consultation -Deescalate antibiotic therapy to Levaquin p.o. -potassium replacement -Solu-Medrol to 40 mg IV daily -Seroquel 50 mg p.o. b.i.d. -bronchodilators, Pulmicort -continue p.o. amiodarone Total time spent with patient discussing and formulating plan of care: 35 minutes. This medical document was created using an electronic medical record system with [employer] dictation system. Although this document has been carefully reviewed, there may still be some phonetic and typographical errors. These areas are purely typographical due to imperfections of the software programs, and do not reflect any compromise in the patient's medical care. Plan discussed with: Patient, Other (RN) My Orders Orders - BRISEYDA OROZCO NP Procedure Category Date Status Time Cardiac DIET 05/16/24 Transmitted Diet-2gna,Lofat,Lochol Dinner Magnesium Oxide PHA 05/17/24 In Process Tablet (Mag-Ox Tablet) 10:00 Metoprolol Xl PHA 05/16/24 In Process Succinate (Toprol Xl) 14:45 Date of Service: May 16, 2024 Billing Provider: BRISEYDA OROZCO NP Common Visit Codes: [id number] INP/OBS CARE(HIGH) BRISEYDA OROZCO NP May 16, 2024 16:06
--- NOTE | 2024-05-16 22:28 | DVHPN2 ---
Progress Note - Dictate Date Seen: May 16, 2024 Medical Necessity Reason Pt with a Central, PICC or Fol: Yes The following are medically ne: Butler Catheter Reason for butler catheter: Strict I&O Subjective Patient seen and examined at bedside. Currently on room air. Overnight events reviewed. vital signs Vital Sign Date Time Temp Pulse Resp B/P (MAP) Pulse Ox O2 Delivery O2 Flow Rate FiO2 05/16/24 20:48 104 18 100 05/16/24 20:38 Room Air 05/16/24 20:38 0 21 05/16/24 16:54 99.7 87/48 (61) 99.7 Total Intake and Output 05/15/24 05/15/24 05/16/24 15:00 23:00 07:00 Intake Total 120 ml 50 ml Output Total 1350 ml 500 ml Balance -1230 ml -450 ml medications Current Medications Medications Dose Ordered Sig/Joann Route Start Time Stop Time Status Last Admin Dose Admin Ondansetron HCl 4 mg Q4HP PRN IV 05/01/24 14:45 Pantoprazole Sodium 40 mg DAILY IV 05/02/24 10:00 05/16/24 10:29 40 MG Atorvastatin Calcium 40 mg HS PO 05/02/24 22:00 05/16/24 21:16 40 MG Gemfibrozil 600 mg Q12HR PO 05/02/24 22:00 05/16/24 21:16 600 MG Quetiapine Fumarate 50 mg BID PO 05/04/24 22:00 05/16/24 21:16 50 MG Levalbuterol HCl 0.625 mg Q6HR NEB 05/04/24 18:00 05/16/24 20:38 0.625 MG Ipratropium [place] 0.5 mg Q6HR NEB 05/04/24 18:00 05/16/24 20:38 0.5 MG Amiodarone HCl 400 mg DAILY PO 05/06/24 10:00 05/16/24 10:25 400 MG Saccharomyces Boulardii 250 mg DAILY PO 05/06/24 10:00 05/16/24 10:26 250 MG Labetalol HCl 10 mg Q2HPRN PRN IV 05/07/24 08:45 05/10/24 05:03 10 MG Furosemide 20 mg DAILY IV 05/09/24 10:00 05/15/24 10:29 20 MG Levofloxacin 500 mg DAILY PO 05/11/24 12:18 05/16/24 10:25 500 MG Enoxaparin Sodium 40 mg DAILY SC 05/12/24 10:00 05/16/24 10:29 40 MG Enteral Nutritional Formula 240 ml TIDWM PO 05/12/24 18:00 05/16/24 12:05 240 ML Magnesium Oxide 400 mg DAILY PO 05/17/24 10:00 Metoprolol Succinate 25 mg DAILY PO 05/16/24 14:45 05/16/24 15:46 25 MG objective Gen.: Patient lying in bed in no apparent distress. On room air Head: Normocephalic, atraumatic. Eyes: EOMI/PERRLA. Ears: Normal hearing. Normal anatomy. Neck/trachea: Trachea midline, supple. Nose: Normal external anatomy. Mouth: Moist mucous membranes. Chest: Decreased air entry bilaterally. No wheezing or rhonchi. Cardiovascular: Positive S1, positive S2. Regular rate and rhythm. Abdomen: Positive bowel sounds in all 4 quadrants. Soft, non-tender, non- distended. : Deferred. Rectal: Deferred. Skin: Warm, dry. Intact. Extremities: 2+ radial pulses bilaterally. No lower extremity edema. Neuro: Awake, alert, oriented x3. No gross motor or sensory deficits. Cranial nerves II through XII intact. Gait not assessed. laboratory and microbiology Laboratory Tests 05/15/24 10:51 Test 05/15/24 10:51 Range/Units Serum Glucose 146 H 74-106 mg/dL Assessment/Plan Impression: Acute hypoxic respiratory failure Atrial fibrillation w/ RVR Septic shock Hypokalemia Influenza B Nicotine dependence Marijuana use Obesity BMI 32.9 Events: Tapered off supplemental O2, currently on room air Supplemental oxygen PRN. HOB elevation Aspiration precautions Tachycardia - started metoprolol On amiodarone + Eliquis Diurese w/ Lasix as tolerated - Held today due to low BP Monitor renal function Continue antibiotics Florinef Continue bronchodilators PRN Seroquel BID. Incentive spirometry Improved PO nutrition Therapeutic Lovenox Monitor hemoglobin Continue physical therapy Improving mentation Disposition per hospitalist. Awaiting placement. Patient is s/p cardioversion for AFib. Labs and imaging reviewed. Rest of plan as noted below. Plan: s/p extubation on 05/07/24 Supplemental oxygen PRN Titrate to keep sats above 92% Cardiology recs appreciated. Continue bronchodilators Continue antibiotics. F/u cultures. Completed Tamiflu course - influenza A and B returned negative Pressors if necessary for hemodynamic support Titrate to keep mean arterial pressure greater than 65 mmHg. Monitor renal function Monitor electrolytes. Supplement as necessary. Monitor ins and outs. GI prophylaxis - Protonix DVT prophylaxis. Prognosis: Guarded given patient's multiple co-morbidities. Rest of plan per hospitalist and other consultants. Thank you, Dr. Coleman, for allowing me to participate in this patient's care. Further recommendations will depend on the patient's clinical course. Please do not hesitate to contact me if you have any questions or concerns. This medical document was created using an electronic medical record system with [employer] dictation system. Although these documentations are being carefully reviewed, there may still be some phonetic and typographical changes. The errors are purely typographical, due to imperfection on the software program, and do not reflect any compromise in the patient's medical care. Dietary Evaluation Review Comments: 1. TF Jevity 40 ml/hr (53 g, 1152 kcal), CONSIDER CLINIMIX (42.5 G PRO, 510 KCAL PLUS JEVITY 30ML/HR (40 G PRO, 864 KCAL if nephrotic symptoms WORSENS 2. TPN per pharmacy if NPO> 7 days 3. PO diet as tolerated with ensure high protein PO protein supplements after passing a Speech eval. Consider a 2 g Na CCHO-60 g Renal PO diet if pt's gluc ose is uncontrolled and kindeny function worsens. Expected Outcomes/Goals: gradually weight loss, improved skin tones, and nutrition related lab values. Plan discussed with: Patient, Other (SHE Miller) YASSINE MAYO MD May 16, 2024 22:28
[2024-05-17] VITALS (15 sets, daily range): BP systolic 99–131; BP diastolic 60–80; PULSE 94–117; RESP 18–20; TEMP 97.9–99.2; O2SAT 92–100
[2024-05-17] MEDS: MAGNESIUM OXIDE 400 MG TAB PO SCH (10:23)
--- NOTE | 2024-05-17 22:03 | DVHPN2 ---
Progress Note - Dictate Date Seen: May 17, 2024 Medical Necessity Reason Pt with a Central, PICC or Fol: Yes The following are medically ne: Butler Catheter Reason for butler catheter: Strict I&O Subjective Patient seen and examined at bedside. Currently on room air. Overnight events reviewed. vital signs Vital Sign Date Time Temp Pulse Resp B/P (MAP) Pulse Ox O2 Delivery O2 Flow Rate FiO2 05/17/24 21:00 99.2 116 19 99/62 (74) 96 99.2 05/17/24 20:00 Room Air* 0 21 Total Intake and Output 05/16/24 05/16/24 05/17/24 15:00 23:00 07:00 Intake Total 1600 ml Output Total 450 ml Balance -450 ml 1600 ml medications Current Medications Medications Dose Ordered Sig/Joann Route Start Time Stop Time Status Last Admin Dose Admin Ondansetron HCl 4 mg Q4HP PRN IV 05/01/24 14:45 Pantoprazole Sodium 40 mg DAILY IV 05/02/24 10:00 05/17/24 10:21 40 MG Atorvastatin Calcium 40 mg HS PO 05/02/24 22:00 05/17/24 21:20 40 MG Gemfibrozil 600 mg Q12HR PO 05/02/24 22:00 05/17/24 21:20 600 MG Quetiapine Fumarate 50 mg BID PO 05/04/24 22:00 05/17/24 21:20 50 MG Levalbuterol HCl 0.625 mg Q6HR NEB 05/04/24 18:00 05/17/24 19:34 0.625 MG Ipratropium [place] 0.5 mg Q6HR NEB 05/04/24 18:00 05/17/24 19:34 0.5 MG Amiodarone HCl 400 mg DAILY PO 05/06/24 10:00 05/17/24 10:24 400 MG Saccharomyces Boulardii 250 mg DAILY PO 05/06/24 10:00 05/17/24 10:24 250 MG Labetalol HCl 10 mg Q2HPRN PRN IV 05/07/24 08:45 05/10/24 05:03 10 MG Furosemide 20 mg DAILY IV 05/09/24 10:00 05/17/24 10:23 20 MG Levofloxacin 500 mg DAILY PO 05/11/24 12:18 05/17/24 10:23 500 MG Enoxaparin Sodium 40 mg DAILY SC 05/12/24 10:00 05/17/24 10:24 40 MG Enteral Nutritional Formula 240 ml TIDWM PO 05/12/24 18:00 05/16/24 12:05 240 ML Magnesium Oxide 400 mg DAILY PO 05/17/24 10:00 05/17/24 10:23 400 MG Metoprolol Succinate 25 mg DAILY PO 05/16/24 14:45 05/17/24 12:26 25 MG objective Gen.: Patient lying in bed in no apparent distress. On room air Head: Normocephalic, atraumatic. Eyes: EOMI/PERRLA. Ears: Normal hearing. Normal anatomy. Neck/trachea: Trachea midline, supple. Nose: Normal external anatomy. Mouth: Moist mucous membranes. Chest: Decreased air entry bilaterally. No wheezing or rhonchi. Cardiovascular: Positive S1, positive S2. Regular rate and rhythm. Abdomen: Positive bowel sounds in all 4 quadrants. Soft, non-tender, non- distended. : Deferred. Rectal: Deferred. Skin: Warm, dry. Intact. Extremities: 2+ radial pulses bilaterally. No lower extremity edema. Neuro: Awake, alert, oriented x3. No gross motor or sensory deficits. Cranial nerves II through XII intact. Gait not assessed. laboratory and microbiology Laboratory Tests 05/15/24 10:51 Test 05/15/24 10:51 Range/Units Serum Glucose 146 H 74-106 mg/dL Assessment/Plan Impression: Acute hypoxic respiratory failure Atrial fibrillation w/ RVR Septic shock Hypokalemia Influenza B Nicotine dependence Marijuana use Obesity BMI 32.9 Events: Remains on room air Supplemental oxygen PRN. HOB elevation Aspiration precautions Tachycardia - started metoprolol On amiodarone Diurese w/ Lasix as tolerated Monitor renal function Monitor ins and outs Continue antibiotics Continue bronchodilators PRN Seroquel BID. Incentive spirometry Improved PO nutrition Protonix for GI prophylaxis Therapeutic Lovenox Monitor hemoglobin Continue physical therapy Improving mentation Disposition per hospitalist. Awaiting placement. Patient is s/p cardioversion for AFib. Labs and imaging reviewed. Rest of plan as noted below. Plan: s/p extubation on 05/07/24 Supplemental oxygen PRN Titrate to keep sats above 92% Cardiology recs appreciated. Continue bronchodilators Continue antibiotics. F/u cultures. Completed Tamiflu course - influenza A and B returned negative Pressors if necessary for hemodynamic support Titrate to keep mean arterial pressure greater than 65 mmHg. Monitor renal function Monitor electrolytes. Supplement as necessary. Monitor ins and outs. GI prophylaxis - Protonix DVT prophylaxis. Prognosis: Guarded given patient's multiple co-morbidities. Rest of plan per hospitalist and other consultants. Thank you, Dr. Coleman, for allowing me to participate in this patient's care. Further recommendations will depend on the patient's clinical course. Please do not hesitate to contact me if you have any questions or concerns. This medical document was created using an electronic medical record system with [employer] dictation system. Although these documentations are being carefully reviewed, there may still be some phonetic and typographical changes. The errors are purely typographical, due to imperfection on the software program, and do not reflect any compromise in the patient's medical care. Dietary Evaluation Review Comments: 1. TF Jevity 40 ml/hr (53 g, 1152 kcal), CONSIDER CLINIMIX (42.5 G PRO, 510 KCAL PLUS JEVITY 30ML/HR (40 G PRO, 864 KCAL if nephrotic symptoms WORSENS 2. TPN per pharmacy if NPO> 7 days 3. PO diet as tolerated with ensure high protein PO protein supplements after passing a Speech eval. Consider a 2 g Na CCHO-60 g Renal PO diet if pt's gluc ose is uncontrolled and kindeny function worsens. Expected Outcomes/Goals: gradually weight loss, improved skin tones, and nutrition related lab values. Plan discussed with: Patient, Other (SHE Antonio) YASSINE MAYO MD May 17, 2024 22:03
[2024-05-18] VITALS (18 sets, daily range): BP systolic 95–118; BP diastolic 62–71; PULSE 82–114; RESP 16–20; TEMP 97.5–98.5; O2SAT 92–100
--- NOTE | 2024-05-18 12:10 | DVHPN2 ---
Subjective Patient reports having generalized weakness. Reviewed: Care Plan, H&P, Labs, Medications, Previous Orders, Radiology, Other (Consultations) Changes from previous H/P or p: No Changes Objective Vitals Vital Signs Date Time Temp Pulse Resp B/P (MAP) Pulse Ox O2 Delivery O2 Flow Rate FiO2 05/18/24 11:55 106 16 100 05/18/24 11:49 Room Air 0.0 05/18/24 11:49 21 05/18/24 10:45 95/68 05/18/24 09:00 98.1 98.1 Intake/Output Intake and Output 05/18/24 07:00 Intake Total 1270 ml Output Total 2550 ml Balance -1280 ml Intake Oral 1270 ml Output Urine Total 2550 ml General Appearance: Alert, Oriented X3, Cooperative, mild distress HEENT: Atraumatic, PERRLA Lungs: Other (NC at 2lpm. Basilar Rhonchi) Cardiovascular: Regular rate, Normal S1, Normal S2, Other (Sinus rhythm) Abdomen: Normal bowel sounds, Soft, No tenderness Genitourinary: Other (Nobles's) Neuro: Normal speech, Cranial nerves 3-12 NL Skin: Dry, Intact Psych/Mental Status: Mental status NL, Mood NL, Other (Unable to assess) Medications Current Medications Medications Dose Ordered Sig/Joann Route Start Time Stop Time Status Last Admin Dose Admin Ondansetron HCl 4 mg Q4HP PRN IV 05/01/24 14:45 Pantoprazole Sodium 40 mg DAILY IV 05/02/24 10:00 05/18/24 10:37 40 MG Atorvastatin Calcium 40 mg HS PO 05/02/24 22:00 05/17/24 21:20 40 MG Gemfibrozil 600 mg Q12HR PO 05/02/24 22:00 05/18/24 10:35 600 MG Quetiapine Fumarate 50 mg BID PO 05/04/24 22:00 05/18/24 10:35 50 MG Levalbuterol HCl 0.625 mg Q6HR NEB 05/04/24 18:00 05/18/24 11:48 0.625 MG Ipratropium [place] 0.5 mg Q6HR NEB 05/04/24 18:00 05/18/24 11:49 0.5 MG Amiodarone HCl 400 mg DAILY PO 05/06/24 10:00 05/17/24 10:24 400 MG Saccharomyces Boulardii 250 mg DAILY PO 05/06/24 10:00 05/18/24 10:00 250 MG Labetalol HCl 10 mg Q2HPRN PRN IV 05/07/24 08:45 05/10/24 05:03 10 MG Furosemide 20 mg DAILY IV 05/09/24 10:00 05/18/24 10:45 20 MG Levofloxacin 500 mg DAILY PO 05/11/24 12:18 05/18/24 10:36 500 MG Enoxaparin Sodium 40 mg DAILY SC 05/12/24 10:00 05/18/24 10:38 40 MG Enteral Nutritional Formula 240 ml TIDWM PO 05/12/24 18:00 05/16/24 12:05 240 ML Magnesium Oxide 400 mg DAILY PO 05/17/24 10:00 05/18/24 10:35 400 MG Metoprolol Succinate 25 mg DAILY PO 05/16/24 14:45 05/18/24 10:41 25 MG Laboratory Results Laboratory Tests 05/15/24 10:51 Urinalysis Test 05/01/24 11:04 Urine Color Yellow (Yellow) Urine Clarity Turbid (Clear) H Urine pH 5.5 (5.0-9.0) Urine Specific [place] 1.016 (1.001-1.035) Urine Protein 1+ (Negative) H Urine Ketones 1+ (Negative) H Urine Blood 1+ /uL (Negative) H Urine Nitrite 2+ (Negative) H Urine Bilirubin Negative (Negative) Urine Urobilinogen Normal mg/dL (Negative) Urine Leukocyte Esterase Negative /uL (Negative) Urine RBC <1 /hpf (0 - 4) Urine WBC 3 /hpf (0 - 5) Urine Squamous Epithelial Cells Few /hpf (<5) Urine Bacteria Many /hpf (None Seen) H Urine Hyaline Casts Few /lpf (0 - 2) Urine Yeast (Budding) Occasional /hpf (None Urine Glucose Normal mg/dL (Normal) Microbiology Microbiology Date/Time Source Procedure Growth Status 05/04/24 12:20 Urine - Catheterized Urine Culture - Final Complete 05/01/24 18:40 Nose MRSA Screen - Final Complete 05/01/24 15:40 Blood Blood Culture - Final NO GROWTH AFTER 5 DAYS OF INCUBATION. Complete 05/01/24 00:00 Sputum Gram Stain - Final Complete 05/01/24 00:00 Respiratory Culture - Final Providencia staurtii Streptococcus pneumoniae Complete Labs and/or images reviewed: Labs reviewed by me, Image(s) reviewed by me Assessment/Plan Assessment/Plan Impression: -acute hypoxic respiratory failure -metabolic encephalopathy -sepsis with shock secondary to UTI and viral pneumonia -influenza B -history of right hip fracture -obesity -deconditioning with bed-bound status -depression -primary hypertension -atrial flutter with rapid ventricular rate, 2-1 conduction -Breast cancer, Left Plan: Events: No Events overnight. Patient was consultation for placement of patient. -continue Toprol and magnesium oxide -PT consultation -Deescalate antibiotic therapy to Levaquin p.o. -Solu-Medrol to 40 mg IV daily -Seroquel 50 mg p.o. b.i.d. -bronchodilators, Pulmicort -continue p.o. amiodarone -repeat labs in a.m. Total time spent with patient discussing and formulating plan of care: 35 minutes. This medical document was created using an electronic medical record system with [employer] dictation system. Although this document has been carefully reviewed, there may still be some phonetic and typographical errors. These areas are purely typographical due to imperfections of the software programs, and do not reflect any compromise in the patient's medical care. Plan discussed with: Patient, Other (RN) My Orders Orders - BRISEYDA OROZCO NP Procedure Category Date Status Time Basic Metabolic Panel LAB 05/19/24 Verified 04:00 Complete Blood Count LAB 05/19/24 Verified 04:00 Date of Service: May 18, 2024 Billing Provider: BRISEYDA OROZCO NP Common Visit Codes: [id number] INP/OBS CARE(HIGH) BRISEYDA OROZCO NP May 18, 2024 12:10
[2024-05-18] MEDS ORDERED: HYDROcodone-ACET 5/325MG TAB PO PRN (19:15)
[2024-05-18] MEDS: HYDROcodone-ACET 5/325MG TAB PO PRN (20:56)
--- NOTE | 2024-05-18 21:47 | DVHPN2 ---
Progress Note - Dictate Date Seen: May 18, 2024 Medical Necessity Reason Pt with a Central, PICC or Fol: Yes The following are medically ne: Butler Catheter Reason for butler catheter: Strict I&O Subjective Patient seen and examined at bedside. Currently on room air. Overnight events reviewed. vital signs Vital Sign Date Time Temp Pulse Resp B/P (MAP) Pulse Ox O2 Delivery O2 Flow Rate FiO2 05/18/24 20:57 98.5 110 18 102/67 (79) 95 98.5 05/18/24 19:55 Room Air* 0 21 Total Intake and Output 05/17/24 05/17/24 05/18/24 14:59 22:59 06:59 Intake Total 425 ml 845 ml Output Total 450 ml 1100 ml 1000 ml Balance -450 ml -675 ml -155 ml medications Current Medications Medications Dose Ordered Sig/Joann Route Start Time Stop Time Status Last Admin Dose Admin Ondansetron HCl 4 mg Q4HP PRN IV 05/01/24 14:45 Pantoprazole Sodium 40 mg DAILY IV 05/02/24 10:00 05/18/24 10:37 40 MG Atorvastatin Calcium 40 mg HS PO 05/02/24 22:00 05/18/24 20:55 40 MG Gemfibrozil 600 mg Q12HR PO 05/02/24 22:00 05/18/24 20:56 600 MG Quetiapine Fumarate 50 mg BID PO 05/04/24 22:00 05/18/24 20:56 50 MG Levalbuterol HCl 0.625 mg Q6HR NEB 05/04/24 18:00 05/18/24 19:55 0.625 MG Ipratropium [place] 0.5 mg Q6HR NEB 05/04/24 18:00 05/18/24 19:55 0.5 MG Amiodarone HCl 400 mg DAILY PO 05/06/24 10:00 05/18/24 12:26 400 MG Saccharomyces Boulardii 250 mg DAILY PO 05/06/24 10:00 05/18/24 10:00 250 MG Labetalol HCl 10 mg Q2HPRN PRN IV 05/07/24 08:45 05/10/24 05:03 10 MG Furosemide 20 mg DAILY IV 05/09/24 10:00 05/18/24 10:45 20 MG Levofloxacin 500 mg DAILY PO 05/11/24 12:18 05/18/24 10:36 500 MG Enoxaparin Sodium 40 mg DAILY SC 05/12/24 10:00 05/18/24 10:38 40 MG Enteral Nutritional Formula 240 ml TIDWM PO 05/12/24 18:00 05/18/24 18:00 240 ML Magnesium Oxide 400 mg DAILY PO 05/17/24 10:00 05/18/24 10:35 400 MG Metoprolol Succinate 25 mg DAILY PO 05/16/24 14:45 05/18/24 10:41 25 MG Acetaminophen/ Hydrocodone Bitart 1 tab Q6HPRN PRN PO 05/18/24 19:30 05/18/24 20:56 1 TAB objective Gen.: Patient lying in bed in no apparent distress. On room air Head: Normocephalic, atraumatic. Eyes: EOMI/PERRLA. Ears: Normal hearing. Normal anatomy. Neck/trachea: Trachea midline, supple. Nose: Normal external anatomy. Mouth: Moist mucous membranes. Chest: Decreased air entry bilaterally. No wheezing or rhonchi. Cardiovascular: Positive S1, positive S2. Regular rate and rhythm. Abdomen: Positive bowel sounds in all 4 quadrants. Soft, non-tender, non- distended. : Deferred. Rectal: Deferred. Skin: Warm, dry. Intact. Extremities: 2+ radial pulses bilaterally. No lower extremity edema. Neuro: Awake, alert, oriented x3. No gross motor or sensory deficits. Cranial nerves II through XII intact. Gait not assessed. laboratory and microbiology Laboratory Tests 05/15/24 10:51 Test 05/15/24 10:51 Range/Units Serum Glucose 146 H 74-106 mg/dL Assessment/Plan Impression: Acute hypoxic respiratory failure Atrial fibrillation w/ RVR Septic shock Hypokalemia Influenza B Nicotine dependence Marijuana use Obesity BMI 32.9 Events: Remains on room air Supplemental oxygen PRN. HOB elevation Aspiration precautions Pain control Avoid oversedation Continue metoprolol (tachycardia) On amiodarone PO Continue PO antibiotics Continue bronchodilators PRN Seroquel BID. Incentive spirometry Improved PO nutrition Protonix for GI prophylaxis Therapeutic Lovenox Monitor hemoglobin Continue physical therapy Diurese w/ Lasix as tolerated Monitor renal function Monitor ins and outs Improving mentation Disposition per hospitalist. Awaiting placement. Patient is s/p cardioversion for AFib. Labs and imaging reviewed. Rest of plan as noted below. Plan: s/p extubation on 05/07/24 Supplemental oxygen PRN Titrate to keep sats above 92% Cardiology recs appreciated. Continue bronchodilators Continue antibiotics. F/u cultures. Completed Tamiflu course - influenza A and B returned negative Pressors if necessary for hemodynamic support Titrate to keep mean arterial pressure greater than 65 mmHg. Monitor renal function Monitor electrolytes. Supplement as necessary. Monitor ins and outs. GI prophylaxis - Protonix DVT prophylaxis. Prognosis: Guarded given patient's multiple co-morbidities. Rest of plan per hospitalist and other consultants. Thank you, Dr. Coleman, for allowing me to participate in this patient's care. Further recommendations will depend on the patient's clinical course. Please do not hesitate to contact me if you have any questions or concerns. This medical document was created using an electronic medical record system with [employer] dictation system. Although these documentations are being carefully reviewed, there may still be some phonetic and typographical changes. The errors are purely typographical, due to imperfection on the software program, and do not reflect any compromise in the patient's medical care. Dietary Evaluation Review Comments: 1. TF Jevity 40 ml/hr (53 g, 1152 kcal), CONSIDER CLINIMIX (42.5 G PRO, 510 KCAL PLUS JEVITY 30ML/HR (40 G PRO, 864 KCAL if nephrotic symptoms WORSENS 2. TPN per pharmacy if NPO> 7 days 3. PO diet as tolerated with ensure high protein PO protein supplements after passing a Speech eval. Consider a 2 g Na CCHO-60 g Renal PO diet if pt's gluc ose is uncontrolled and kindeny function worsens. Expected Outcomes/Goals: gradually weight loss, improved skin tones, and nutrition related lab values. Plan discussed with: Patient, Other (SHE Poe) YASSINE MAYO MD May 18, 2024 21:47
[2024-05-19] VITALS (19 sets, daily range): BP systolic 91–99; BP diastolic 55–65; PULSE 67–105; RESP 14–20; TEMP 97.9–98.7; O2SAT 91–100
[2024-05-19 07:37] LABS: Chloride 101 mmol/L (98-107); Potassium 3.8 mmol/L (3.5-5.1)
[2024-05-19 07:38] LABS: Anion Gap 11 (5-15); Basophils # (auto) 0 10 ^3/uL (0-0.2); Carbon Dioxide 23 mmol/L (20-31); Eosinophils # (auto) 0.4 10 ^3/uL (0-0.8); Lymphocytes # (auto) 0.9 10 ^3/uL (0.4-5.4); Monocytes # (auto) 0.7 10 ^3/uL (0-1.3); Neutrophils # (auto) 2.2 10 ^3/uL (1.6-8.6); White Blood Cell 4.3 10^3/uL (4.4-10.8)
[2024-05-19 07:39] LABS: Calcium 10.1 mg/dL (8.7-10.4)
[2024-05-19 07:42] LABS: Eosinophils % (auto) 8.7 % (0.0-7.0); Hematocrit 23.1 % (36.0-46.0); Hemoglobin 7.8 g/dL (12.2-16.2); Mean Corpuscular Hemoglobin 31.5 pg (28.0-32.0); Mean Corpuscular Volume 92.8 fL (80.0-100.0); Monocytes % (auto) 16.3 % (0.0-12.0); Nucleated Red Blood Cells % 0.1 %; Platelet Count (auto) 302 10^3/uL (140-450); Red Blood Cells 2.49 10^6/uL (4.0-5.20); Red Cell Distribution Width 14.9 % (11.8-14.3)
[2024-05-19 07:46] LABS: BUN/Creatinine Ratio 19.2 (10.0-20.0)
[2024-05-19 07:50] LABS: Blood Urea Nitrogen 24 mg/dL (9-23); Glucose 125 mg/dL (74-106); Sodium 135 mmol/L (136-145)
[2024-05-19] MEDS ORDERED: AMIO200T13 PO (13:31)
[2024-05-19] MEDS ORDERED: METO25TA36 PO (13:31)
--- NOTE | 2024-05-19 13:33 | DVHPN2 ---
Subjective Patient reports having generalized weakness. Reviewed: Care Plan, H&P, Labs, Medications, Previous Orders, Radiology, Other (Consultations) Changes from previous H/P or p: No Changes Objective Vitals Vital Signs Date Time Temp Pulse Resp B/P (MAP) Pulse Ox O2 Delivery O2 Flow Rate FiO2 05/19/24 11:29 101 16 99 05/19/24 10:06 96/62 05/19/24 09:00 21 05/19/24 08:42 98.2 98.2 05/19/24 08:00 Room Air* 0 Intake/Output Intake and Output 05/19/24 07:00 Intake Total 1500 ml Output Total 3700 ml Balance -2200 ml Intake Oral 1500 ml Output Urine Total 3700 ml General Appearance: Alert, Oriented X3, Cooperative, mild distress HEENT: Atraumatic, PERRLA Lungs: Other (NC at 2lpm. Basilar Rhonchi) Cardiovascular: Regular rate, Normal S1, Normal S2, Other (Sinus rhythm) Abdomen: Normal bowel sounds, Soft, No tenderness Genitourinary: Other (Nobles's) Neuro: Normal speech, Cranial nerves 3-12 NL Skin: Dry, Intact Psych/Mental Status: Mental status NL, Mood NL, Other (Unable to assess) Medications Current Medications Medications Dose Ordered Sig/Joann Route Start Time Stop Time Status Last Admin Dose Admin Ondansetron HCl 4 mg Q4HP PRN IV 05/01/24 14:45 Pantoprazole Sodium 40 mg DAILY IV 05/02/24 10:00 05/19/24 10:05 40 MG Atorvastatin Calcium 40 mg HS PO 05/02/24 22:00 05/18/24 20:55 40 MG Gemfibrozil 600 mg Q12HR PO 05/02/24 22:00 05/19/24 10:05 600 MG Quetiapine Fumarate 50 mg BID PO 05/04/24 22:00 05/19/24 10:06 50 MG Levalbuterol HCl 0.625 mg Q6HR NEB 05/04/24 18:00 05/19/24 11:19 0.625 MG Ipratropium [place] 0.5 mg Q6HR NEB 05/04/24 18:00 05/19/24 11:19 0.5 MG Amiodarone HCl 400 mg DAILY PO 05/06/24 10:00 05/19/24 10:05 400 MG Saccharomyces Boulardii 250 mg DAILY PO 05/06/24 10:00 05/19/24 10:05 250 MG Labetalol HCl 10 mg Q2HPRN PRN IV 05/07/24 08:45 05/10/24 05:03 10 MG Furosemide 20 mg DAILY IV 05/09/24 10:00 05/19/24 10:04 20 MG Levofloxacin 500 mg DAILY PO 05/11/24 12:18 05/19/24 10:05 500 MG Enoxaparin Sodium 40 mg DAILY SC 05/12/24 10:00 05/18/24 10:38 40 MG Enteral Nutritional Formula 240 ml TIDWM PO 05/12/24 18:00 05/19/24 10:04 240 ML Magnesium Oxide 400 mg DAILY PO 05/17/24 10:00 05/19/24 10:06 400 MG Metoprolol Succinate 25 mg DAILY PO 05/16/24 14:45 05/19/24 10:06 25 MG Acetaminophen/ Hydrocodone Bitart 1 tab Q6HPRN PRN PO 05/18/24 19:30 05/18/24 20:56 1 TAB Laboratory Results Laboratory Tests 05/19/24 06:42 Chemistry Test 05/19/24 06:42 Calcium Level 10.1 mg/dL (8.7-10.4) Urinalysis Test 05/01/24 11:04 Urine Color Yellow (Yellow) Urine Clarity Turbid (Clear) H Urine pH 5.5 (5.0-9.0) Urine Specific [place] 1.016 (1.001-1.035) Urine Protein 1+ (Negative) H Urine Ketones 1+ (Negative) H Urine Blood 1+ /uL (Negative) H Urine Nitrite 2+ (Negative) H Urine Bilirubin Negative (Negative) Urine Urobilinogen Normal mg/dL (Negative) Urine Leukocyte Esterase Negative /uL (Negative) Urine RBC <1 /hpf (0 - 4) Urine WBC 3 /hpf (0 - 5) Urine Squamous Epithelial Cells Few /hpf (<5) Urine Bacteria Many /hpf (None Seen) H Urine Hyaline Casts Few /lpf (0 - 2) Urine Yeast (Budding) Occasional /hpf (None Urine Glucose Normal mg/dL (Normal) Microbiology Microbiology Date/Time Source Procedure Growth Status 05/04/24 12:20 Urine - Catheterized Urine Culture - Final Complete 05/01/24 18:40 Nose MRSA Screen - Final Complete 05/01/24 15:40 Blood Blood Culture - Final NO GROWTH AFTER 5 DAYS OF INCUBATION. Complete 05/01/24 00:00 Sputum Gram Stain - Final Complete 05/01/24 00:00 Respiratory Culture - Final Providencia staurtii Streptococcus pneumoniae Complete Labs and/or images reviewed: Labs reviewed by me, Image(s) reviewed by me Assessment/Plan Assessment/Plan Impression: -acute hypoxic respiratory failure -metabolic encephalopathy -sepsis with shock secondary to UTI and viral pneumonia -influenza B -history of right hip fracture -obesity -deconditioning with bed-bound status -depression -primary hypertension -atrial flutter with rapid ventricular rate, 2-1 conduction -Breast cancer, Left Plan: Events: No Events overnight. Clinically patient has improved. Discharge planning once established hospice versus home health. -continue Toprol and magnesium oxide -PT consultation -Deescalate antibiotic therapy to Levaquin p.o. -Solu-Medrol to 40 mg IV daily -Seroquel 50 mg p.o. b.i.d. -bronchodilators, Pulmicort -continue p.o. amiodarone -repeat labs in a.m. Total time spent with patient discussing and formulating plan of care: 35 minutes. This medical document was created using an electronic medical record system with [employer] dictation system. Although this document has been carefully reviewed, there may still be some phonetic and typographical errors. These areas are purely typographical due to imperfections of the software programs, and do not reflect any compromise in the patient's medical care. Plan discussed with: Patient, Other Date of Service: May 19, 2024 Billing Provider: BRISEYDA OROZCO NP Common Visit Codes: [id number] INP/OBS CARE(HIGH) BRISEYDA OROZCO NP May 19, 2024 13:33
--- NOTE | 2024-05-19 21:47 | DVHPN2 ---
Progress Note - Dictate Date Seen: May 19, 2024 Medical Necessity Reason Pt with a Central, PICC or Fol: Yes The following are medically ne: Butler Catheter Reason for butler catheter: Strict I&O Subjective Patient seen and examined at bedside. Currently on room air. Overnight events reviewed. vital signs Vital Sign Date Time Temp Pulse Resp B/P (MAP) Pulse Ox O2 Delivery O2 Flow Rate FiO2 05/19/24 20:00 101 05/19/24 19:16 91 Room Air* 0 21 05/19/24 19:16 18 05/19/24 17:17 98.5 96/62 (73) 98.5 Total Intake and Output 05/18/24 05/18/24 05/19/24 15:00 23:00 07:00 Intake Total 800 ml 700 ml Output Total 2500 ml 1200 ml Balance -1700 ml -500 ml medications Current Medications Medications Dose Ordered Sig/Joann Route Start Time Stop Time Status Last Admin Dose Admin Ondansetron HCl 4 mg Q4HP PRN IV 05/01/24 14:45 Pantoprazole Sodium 40 mg DAILY IV 05/02/24 10:00 05/19/24 10:05 40 MG Atorvastatin Calcium 40 mg HS PO 05/02/24 22:00 05/19/24 21:24 40 MG Gemfibrozil 600 mg Q12HR PO 05/02/24 22:00 05/19/24 21:24 600 MG Quetiapine Fumarate 50 mg BID PO 05/04/24 22:00 05/19/24 21:24 50 MG Levalbuterol HCl 0.625 mg Q6HR NEB 05/04/24 18:00 05/19/24 19:16 0.625 MG Ipratropium [place] 0.5 mg Q6HR NEB 05/04/24 18:00 05/19/24 19:16 0.5 MG Amiodarone HCl 400 mg DAILY PO 05/06/24 10:00 05/19/24 10:05 400 MG Saccharomyces Boulardii 250 mg DAILY PO 05/06/24 10:00 05/19/24 10:05 250 MG Labetalol HCl 10 mg Q2HPRN PRN IV 05/07/24 08:45 05/10/24 05:03 10 MG Furosemide 20 mg DAILY IV 05/09/24 10:00 05/19/24 10:04 20 MG Levofloxacin 500 mg DAILY PO 05/11/24 12:18 05/19/24 10:05 500 MG Enoxaparin Sodium 40 mg DAILY SC 05/12/24 10:00 05/18/24 10:38 40 MG Enteral Nutritional Formula 240 ml TIDWM PO 05/12/24 18:00 05/19/24 10:04 240 ML Magnesium Oxide 400 mg DAILY PO 05/17/24 10:00 05/19/24 10:06 400 MG Metoprolol Succinate 25 mg DAILY PO 05/16/24 14:45 05/19/24 10:06 25 MG Acetaminophen/ Hydrocodone Bitart 1 tab Q6HPRN PRN PO 05/18/24 19:30 05/19/24 21:25 1 TAB objective Gen.: Patient lying in bed in no apparent distress. On room air Head: Normocephalic, atraumatic. Eyes: EOMI/PERRLA. Ears: Normal hearing. Normal anatomy. Neck/trachea: Trachea midline, supple. Nose: Normal external anatomy. Mouth: Moist mucous membranes. Chest: Decreased air entry bilaterally. No wheezing or rhonchi. Cardiovascular: Positive S1, positive S2. Regular rate and rhythm. Abdomen: Positive bowel sounds in all 4 quadrants. Soft, non-tender, non- distended. : Deferred. Rectal: Deferred. Skin: Warm, dry. Intact. Extremities: 2+ radial pulses bilaterally. No lower extremity edema. Neuro: Awake, alert, oriented x3. No gross motor or sensory deficits. Cranial nerves II through XII intact. Gait not assessed. laboratory and microbiology Laboratory Tests 05/19/24 06:42 Test 05/19/24 06:42 Range/Units Serum Glucose 125 H 74-106 mg/dL Assessment/Plan Impression: Acute hypoxic respiratory failure Atrial fibrillation w/ RVR Septic shock Hypokalemia Influenza B Nicotine dependence Marijuana use Obesity BMI 32.9 Events: Remains on room air Supplemental oxygen PRN. HOB elevation Aspiration precautions Pain control Avoid oversedation Continue metoprolol (tachycardia) On amiodarone PO Continue PO antibiotics Continue bronchodilators q.6 hours Seroquel BID. Incentive spirometry Improved PO nutrition Protonix for GI prophylaxis Therapeutic Lovenox Monitor hemoglobin Continue physical therapy Diurese w/ Lasix as tolerated Monitor renal function Monitor ins and outs Improving mentation Hospice eval. Disposition per hospitalist. Patient is s/p cardioversion for AFib. Labs and imaging reviewed. Rest of plan as noted below. Plan: s/p extubation on 05/07/24 Supplemental oxygen PRN Titrate to keep sats above 92% Cardiology recs appreciated. Continue bronchodilators Continue antibiotics. F/u cultures. Completed Tamiflu course - influenza A and B returned negative Pressors if necessary for hemodynamic support Titrate to keep mean arterial pressure greater than 65 mmHg. Monitor renal function Monitor electrolytes. Supplement as necessary. Monitor ins and outs. GI prophylaxis - Protonix DVT prophylaxis. Prognosis: Guarded given patient's multiple co-morbidities. Rest of plan per hospitalist and other consultants. Thank you, Dr. Coelman, for allowing me to participate in this patient's care. Further recommendations will depend on the patient's clinical course. Please do not hesitate to contact me if you have any questions or concerns. This medical document was created using an electronic medical record system with [employer] dictation system. Although these documentations are being carefully reviewed, there may still be some phonetic and typographical changes. The errors are purely typographical, due to imperfection on the software program, and do not reflect any compromise in the patient's medical care. Dietary Evaluation Review Comments: 1. TF Jevity 40 ml/hr (53 g, 1152 kcal), CONSIDER CLINIMIX (42.5 G PRO, 510 KCAL PLUS JEVITY 30ML/HR (40 G PRO, 864 KCAL if nephrotic symptoms WORSENS 2. TPN per pharmacy if NPO> 7 days 3. PO diet as tolerated with ensure high protein PO protein supplements after passing a Speech eval. Consider a 2 g Na CCHO-60 g Renal PO diet if pt's gluc ose is uncontrolled and kindeny function worsens. Expected Outcomes/Goals: gradually weight loss, improved skin tones, and nutrition related lab values. Plan discussed with: Patient, Other (SHE Rodriguez) YASSINE MAYO MD May 19, 2024 21:47
[2024-05-20] VITALS (14 sets, daily range): BP systolic 90–93; BP diastolic 53–61; PULSE 93–108; RESP 16–20; TEMP 97.9–98.4; O2SAT 91–100
[2024-05-20] MEDS: SODIUM CHLORIDE 0.9% 1,000 ML IV ONE (13:34)
--- NOTE | 2024-05-20 23:20 | DVHPN2 ---
Progress Note - Dictate Date Seen: May 20, 2024 Medical Necessity Reason Pt with a Central, PICC or Fol: Yes The following are medically ne: Butler Catheter Reason for butler catheter: Strict I&O Subjective Patient seen and examined at bedside. Currently on room air. Overnight events reviewed. vital signs Vital Sign Date Time Temp Pulse Resp B/P (MAP) Pulse Ox O2 Delivery O2 Flow Rate FiO2 05/20/24 21:12 98.2 96 18 91/57 (68) 93 98.2 05/20/24 19:27 Room Air 05/20/24 19:27 0 21 Total Intake and Output 05/19/24 05/19/24 05/20/24 15:00 23:00 07:00 Intake Total 2450 ml 400 ml Output Total 1750 ml 1500 ml Balance 700 ml -1100 ml medications Current Medications Medications Dose Ordered Sig/Joann Route Start Time Stop Time Status Last Admin Dose Admin Ondansetron HCl 4 mg Q4HP PRN IV 05/01/24 14:45 Pantoprazole Sodium 40 mg DAILY IV 05/02/24 10:00 05/20/24 10:05 40 MG Atorvastatin Calcium 40 mg HS PO 05/02/24 22:00 05/20/24 21:09 40 MG Gemfibrozil 600 mg Q12HR PO 05/02/24 22:00 05/20/24 21:09 600 MG Quetiapine Fumarate 50 mg BID PO 05/04/24 22:00 05/20/24 21:09 50 MG Levalbuterol HCl 0.625 mg Q6HR NEB 05/04/24 18:00 05/20/24 19:27 0.625 MG Ipratropium [place] 0.5 mg Q6HR NEB 05/04/24 18:00 05/20/24 19:27 0.5 MG Amiodarone HCl 400 mg DAILY PO 05/06/24 10:00 05/19/24 10:05 400 MG Saccharomyces Boulardii 250 mg DAILY PO 05/06/24 10:00 05/20/24 10:04 250 MG Labetalol HCl 10 mg Q2HPRN PRN IV 05/07/24 08:45 05/10/24 05:03 10 MG Furosemide 20 mg DAILY IV 05/09/24 10:00 05/19/24 10:04 20 MG Levofloxacin 500 mg DAILY PO 05/11/24 12:18 05/20/24 10:04 500 MG Enoxaparin Sodium 40 mg DAILY SC 05/12/24 10:00 05/20/24 10:05 40 MG Enteral Nutritional Formula 240 ml TIDWM PO 05/12/24 18:00 05/20/24 18:05 240 ML Magnesium Oxide 400 mg DAILY PO 05/17/24 10:00 05/20/24 10:04 400 MG Metoprolol Succinate 25 mg DAILY PO 05/16/24 14:45 05/19/24 10:06 25 MG Acetaminophen/ Hydrocodone Bitart 1 tab Q6HPRN PRN PO 05/18/24 19:30 05/20/24 20:19 1 TAB objective Gen.: Patient lying in bed in no apparent distress. On room air Head: Normocephalic, atraumatic. Eyes: EOMI/PERRLA. Ears: Normal hearing. Normal anatomy. Neck/trachea: Trachea midline, supple. Nose: Normal external anatomy. Mouth: Moist mucous membranes. Chest: Decreased air entry bilaterally. No wheezing or rhonchi. Cardiovascular: Positive S1, positive S2. Regular rate and rhythm. Abdomen: Positive bowel sounds in all 4 quadrants. Soft, non-tender, non- distended. : Deferred. Rectal: Deferred. Skin: Warm, dry. Intact. Extremities: 2+ radial pulses bilaterally. No lower extremity edema. Neuro: Awake, alert, oriented x3. No gross motor or sensory deficits. Cranial nerves II through XII intact. Gait not assessed. laboratory and microbiology Laboratory Tests 05/19/24 06:42 Test 05/19/24 06:42 Range/Units Serum Glucose 125 H 74-106 mg/dL Assessment/Plan Impression: Acute hypoxic respiratory failure Atrial fibrillation w/ RVR Septic shock Hypokalemia Influenza B Nicotine dependence Marijuana use Obesity BMI 32.9 Events: Remains on room air Supplemental oxygen PRN. Low blood pressure Monitor closely Held diuretic and BP medications HOB elevation Aspiration precautions Pain control Avoid oversedation Continue PO antibiotics Continue bronchodilators q.6 hours Seroquel BID. Incentive spirometry Protonix for GI prophylaxis Therapeutic Lovenox Monitor hemoglobin Continue physical therapy Improving mentation Awaiting SNF vs. hospice Disposition per hospitalist. Patient is s/p cardioversion for AFib. Labs and imaging reviewed. Rest of plan as noted below. Plan: s/p extubation on 05/07/24 Supplemental oxygen PRN Titrate to keep sats above 92% Cardiology recs appreciated. Continue bronchodilators Continue antibiotics. F/u cultures. Completed Tamiflu course - influenza A and B returned negative Pressors if necessary for hemodynamic support Titrate to keep mean arterial pressure greater than 65 mmHg. Monitor renal function Monitor electrolytes. Supplement as necessary. Monitor ins and outs. GI prophylaxis - Protonix DVT prophylaxis. Prognosis: Guarded given patient's multiple co-morbidities. Rest of plan per hospitalist and other consultants. Thank you, Dr. Coleman, for allowing me to participate in this patient's care. Further recommendations will depend on the patient's clinical course. Please do not hesitate to contact me if you have any questions or concerns. This medical document was created using an electronic medical record system with [employer] dictation system. Although these documentations are being carefully reviewed, there may still be some phonetic and typographical changes. The errors are purely typographical, due to imperfection on the software program, and do not reflect any compromise in the patient's medical care. Dietary Evaluation Review Comments: 1. TF Jevity 40 ml/hr (53 g, 1152 kcal), CONSIDER CLINIMIX (42.5 G PRO, 510 KCAL PLUS JEVITY 30ML/HR (40 G PRO, 864 KCAL if nephrotic symptoms WORSENS 2. TPN per pharmacy if NPO> 7 days 3. PO diet as tolerated with ensure high protein PO protein supplements after passing a Speech eval. Consider a 2 g Na CCHO-60 g Renal PO diet if pt's gluc ose is uncontrolled and kindeny function worsens. Expected Outcomes/Goals: gradually weight loss, improved skin tones, and nutrition related lab values. Plan discussed with: Patient, Other (SHE Molina) YASSINE MAYO MD May 20, 2024 23:20
[2024-05-21] VITALS (17 sets, daily range): BP systolic 86–102; BP diastolic 56–70; PULSE 90–108; RESP 17–20; TEMP 97.9–98.3; O2SAT 90–100
--- NOTE | 2024-05-21 12:42 | DVHDS2 ---
Discharge Summary Date of Admission May 01, 2024 at 14:34 Date of Discharge: May 21, 2024 Admitting Diagnosis Acute hypoxic respiratory failure Labs/Diagnostic Data: Laboratory Results Test 05/19/24 06:42 05/13/24 11:49 05/11/24 17:45 05/11/24 05:37 White Blood Count 4.3 10^3/uL (4.4-10.8) Red Blood Count 2.49 10^6/uL (4.0-5.20) Hemoglobin 7.8 g/dL (12.2-16.2) Hematocrit 23.1 % (36.0-46.0) Mean Corpuscular Volume 92.8 fL (80.0-100.0) Mean Corpuscular Hemoglobin 31.5 pg (28.0-32.0) Mean Corpuscular Hemoglobin Concent 34.0 g/dL (32.0-36.0) Red Cell Distribution Width 14.9 % (11.8-14.3) Platelet Count 302 10^3/uL (140-450) Mean Platelet Volume 8.1 fL (6.9-10.8) Neutrophils (%) (Auto) 52.0 % (37.0-80.0) Lymphocytes (%) (Auto) 22.0 % (10.0-50.0) Monocytes (%) (Auto) 16.3 % (0.0-12.0) Eosinophils (%) (Auto) 8.7 % (0.0-7.0) Basophils (%) (Auto) 1.0 % (0.0-2.0) Neutrophils # (Auto) 2.2 10 ^3/uL (1.6-8.6) Lymphocytes # (Auto) 0.9 10 ^3/uL (0.4-5.4) Monocytes # (Auto) 0.7 10 ^3/uL (0-1.3) Eosinophils # (Auto) 0.4 10 ^3/uL (0-0.8) Basophils # (Auto) 0 10 ^3/uL (0-0.2) Nucleated Red Blood Cells 0.1 % Sodium Level 135 mmol/L (136-145) Potassium Level 3.8 mmol/L (3.5-5.1) Chloride Level 101 mmol/L (98-107) Carbon Dioxide Level 23 mmol/L (20-31) Anion Gap 11 (5-15) Blood Urea Nitrogen 24 mg/dL (9-23) Creatinine 1.25 mg/dL (0.550-1.02) Glomerular Filtration Rate Calc 48 mL/min (>90) BUN/Creatinine Ratio 19.2 (10.0-20.0) Serum Glucose 125 mg/dL (74-106) Calcium Level 10.1 mg/dL (8.7-10.4) Magnesium Level 1.6 mg/dL (1.6-2.6) Stool Occult Blood Negative (Negative) Stool Occult Blood Sample #3 (Negative) Total Bilirubin 0.4 mg/dL (0.2-1.0) Aspartate Amino Transferase (AST) 12 U/L (13-40) Alanine Aminotransferase (ALT) < 9 U/L (7-40) Alkaline Phosphatase 47 U/L (46-116) Total Protein 5.6 g/dL (5.7-8.2) Albumin 3.0 g/dL (3.2-4.8) Test 05/10/24 09:50 05/09/24 00:00 05/08/24 03:11 05/07/24 12:27 Vancomycin Level Trough 6.0 ug/mL (5-10) Influenza Type A Antigen Negative (Negative) Influenza Type B Antigen Negative (Negative) Differential Total Cells Counted 100.0 (100) Neutrophils % (Manual) 84 (37.0-80.0) Band Neutrophils % (Manual) 0 Lymphocytes % (Manual) 6 (10.0-50.0) Monocytes % (Manual) 4 (0-12) Eosinophils % (Manual) 5 (0-7) Basophils % (Manual) 0 (0.0-2.0) Metamyelocytes % (manual) 1 Myelocytes % (Manual) 0 Promyelocytes % (Manual) 0 Blast Cells % (Manual) 0 Reactive Lymphocytes 0 Platelet Estimate Adequate Blood Gas Specimen Type Arterial Blood Gas Sample Site Right radial Blood Gas Patient Temperature 37.0 Arterial Blood Date Drawn [id number] Arterial Blood pH 7.443 (7.350-7.450) Arterial Blood Partial Pressure CO2 35.2 mmHg (32.0-45.0) Arterial Blood Partial Pressure O2 83.0 mmHg (83.0-108.0) Arterial Blood HCO3 23.5 mmol/L (21.0-28.0) Arterial Blood Oxygen Saturation 94.9 % (94.0-98.0) Arterial Blood Base Excess -0.2 mmol/L (-2.0-3.0) Arterial Blood Oxyhemoglobin 94.5 % (94.0-98.0) Arterial Blood Carboxyhemoglobin 0.3 % (0.5-1.5) Arterial Blood Methemoglobin 0.1 % (0.0-1.5) José Manuel Test Modified Blood Gas Total Hemoglobin 10.60 g/dL (12.0-16.0) Blood Gas Modality Vent - cpap Blood Gas Spontaneous Rate 25 FiO2 % 30.0 Blood Gas Spontaneous Tidal Volume 650 Blood Gas Pressure Support 8 Blood Gas PEEP or CPAP 5.0 Test 05/07/24 08:14 05/07/24 03:05 05/06/24 03:27 05/05/24 12:35 Blood Gas Set Respiration Rate 20.0 Blood Gas Tidal Volume 450.0 Anisocytosis (manual) Slight Target Cells Few Stomatocytes Few Random Vancomycin Level 14.8 ug/mL (5-10) Poikilocytosis (manual) Slight Tear Drop Cells Moderate SARS-CoV-2 Antigen (Rapid) Negative (NEGATIVE) Test 05/05/24 03:10 05/04/24 12:20 05/04/24 11:36 05/04/24 03:13 Clumped Platelets Few Schistocytes Few Troponin I High Sensitivity 7 ng/L (</=34) Urine Opiates Screen Neg (NEGATIVE) Urine Fentanyl Screen Pos (NEGATIVE) Urine Barbiturates Screen Neg (NEGATIVE) Urine Phencyclidine Screen Neg (NEGATIVE) Urine Amphetamines Screen Neg (NEGATIVE) Urine Benzodiazepines Screen Pos (NEGATIVE) Urine Cocaine Screen Neg (NEGATIVE) Urine Cannabinoids Screen Neg (NEGATIVE) D-Dimer, Quantitative 12.48 mg/L FEU (0.0-0.49) Erythrocyte Sedimentation Rate 106 mm/hr (0-20) Test 05/02/24 14:47 05/02/24 13:22 05/02/24 06:29 05/01/24 21:11 Hemoglobin A1c 5.4 % A1C (<5.7) C-Reactive Protein High Sensitivity > 20.00 mg/dL (<1.0) Free Thyroxine (T4) Calculated 0.58 ng/dL (0.89-1.76) Total Triiodothyronine (TT3) < 0.10 ng/mL (0.60-1.81) Triglycerides Level 1210 mg/dL (< 150) Cholesterol Level 134 mg/dL (< 200) LDL Cholesterol mg/dL (< 100) HDL Cholesterol < 5 mg/dL (40-59) Thyroid Stimulating Hormone (TSH) 0.18 uIU/mL (0.55-4.78) Blood Gas Critical Value Read Back Yes Lactic Acid Level 2.9 mmol/L (0.4-2.0) Test 05/01/24 15:43 05/01/24 11:52 05/01/24 11:04 Blood Gas Notified Whom Blood Gas Notified Time [id number] Blood Gas Notified By Leather Fitter manjinder Direct Bilirubin 0.6 mg/dL (<0.3) B-Type Natriuretic Peptide 175.05 pg/mL (0-100) Lipase 21 U/L (12-53) Urine Color Yellow (Yellow) Urine Clarity Turbid (Clear) Urine pH 5.5 (5.0-9.0) Urine Specific [place] 1.016 (1.001-1.035) Urine Protein 1+ (Negative) Urine Ketones 1+ (Negative) Urine Blood 1+ /uL (Negative) Urine Nitrite 2+ (Negative) Urine Bilirubin Negative (Negative) Urine Urobilinogen Normal mg/dL (Negative) Urine Leukocyte Esterase Negative /uL (Negative) Urine RBC <1 /hpf (0 - 4) Urine WBC 3 /hpf (0 - 5) Urine Squamous Epithelial Cells Few /hpf (<5) Urine Bacteria Many /hpf (None Seen) Urine Hyaline Casts Few /lpf (0 - 2) Urine Yeast (Budding) Occasional /hpf (None Urine Glucose Normal mg/dL (Normal) Other Laboratory Tests 05/19/24 06:42 Brief Hx & Hospital Course: History of Present Illness Hilda Martinez 63-year-old female with past medical history of hypertension, COPD, breast cancer, left hip fracture, hysterectomy, and appendectomy who presents with shortness of breath, left lower extremity pain, altered level of consciousness, and hallucinations x3 days. Patient had knee surgery 10 months ago and has been bedridden since that. Patient intubated in ED unable to obtain history. Course of hospitalization: Patient was subsequently intubated, placed on vasopressor therapy, as well as empiric antibiotic therapy. Patient was found to be positive for influenza, as well as Streptococcus pneumoniae in the sputum. Patient was subsequently weaned off mechanical ventilation. Prior to be in extubated, patient continued to be in in the a flutter 1:1, with rapid ventricular rate that was refractory to antiarrhythmics including calcium channel blockers as well as amiodarone drip. Patient was cardioverted x1. Prior to cardioversion the patient was adequately anticoagulated, as well as having echocardiogram performed. Physical therapy was initiated with the patient. Patient is now alert and oriented x4, and close to baseline status per the patient. Long discussion was made with the patient's regarding receiving services at home. Given their location [place], as well as the patient not having insurance at time of discussion, plans were made for discharged home with hospice services. Patient was agreeable with discharge plan. All questions answered. Physical examination General: Alert and Oriented x3. No acute distress. Well-nourished. Eyes: EOMI. Anicteric. HENT: Moist mucous membranes. Lungs: Clear to auscultation bilaterally. No accessory muscle use. Cardiovascular: Regular rate and rhythm. No murmur. No JVD. Abdomen: Soft, non-tender and non-distended. No palpable masses. Extremities: No edema. Non-tender. Skin: No rashes or lesions. Warm. Neurologic: No focal neurological deficits. CN II-XII grossly intact, but not individually tested. Psychiatric: Cooperative. Appropriate mood and affect. Total time spent with patient discussing and formulating plan of care: 35 minutes. This medical document was created using an electronic medical record system with [employer] dictation system. Although this document has been carefully reviewed, there may still be some phonetic and typographical errors. These areas are purely typographical due to imperfections of the software programs, and do not reflect any compromise in the patient's medical care. Condition at Discharge: Poor Final Diagnosis/Problems List sepsis with shock secondary to bilateral community-acquired pneumonia. -acute hypoxic respiratory failure -metabolic encephalopathy -sepsis with shock secondary to UTI and viral pneumonia -influenza B -history of right hip fracture -obesity -deconditioning with bed-bound status -depression -primary hypertension -atrial flutter with rapid ventricular rate, 2-1 conduction -Breast cancer, Left Discharge Disposition: Hospice - Home Discharge Instruct/Medications Diet: Regular Activity: No Restrictions, As Tolerated Follow Up/Referral: Per hospice provider Medications: Amiodarone 400 mg p.o. daily Continue home medications and medications per hospice provider 36 Discharge Statement: "Patient was advised to return to the ER or call 911 if any headaches, dizziness, shortness of breath, chest pain, abdominal pain, bleeding, fevers, or worsening of medical condition. Patient was counseled about treatment plan, medications, possible side effects, patientverbalized understanding. All questions were answered to the best of my ability. This discharge took greater then 30 minutes in planning, reviewing documentation, counseling the patient, and discussing with other team members." ASSESSMENT ASSESSMENT Assessment sepsis with shock secondary to bilateral community-acquired pneumonia. Date of Service: May 21, 2024 Billing Provider: BRISEYDA OROZCO NP Common Visit Codes: 24450-WWZ/OBS DISCH DAY >30min BRISEYDA OROZCO NP May 21, 2024 12:42
[2024-05-22] VITALS (16 sets, daily range): BP systolic 91–116; BP diastolic 57–68; PULSE 54–108; RESP 16–20; TEMP 97.6–98.6; O2SAT 90–100
--- NOTE | 2024-05-22 16:06 | DVHPN2 ---
Subjective Patient reports having generalized weakness. Reviewed: Care Plan, H&P, Labs, Medications, Previous Orders, Radiology, Other (Consultations) Changes from previous H/P or p: No Changes General: Per HPI Objective Vitals Vital Signs Date Time Temp Pulse Resp B/P (MAP) Pulse Ox O2 Delivery O2 Flow Rate FiO2 05/22/24 13:00 98.5 104 18 102/66 (78) 94 98.5 05/22/24 12:08 Room Air* 0 21 Intake/Output Intake and Output 05/22/24 07:00 Intake Total 1900 ml Output Total 2950 ml Balance -1050 ml Intake Oral 1900 ml Output Urine Total 2950 ml General Appearance: Alert, Oriented X3, Cooperative, mild distress HEENT: Atraumatic, PERRLA Lungs: Other (NC at 2lpm. Basilar Rhonchi) Cardiovascular: Regular rate, Normal S1, Normal S2, Other (Sinus rhythm) Abdomen: Normal bowel sounds, Soft, No tenderness Genitourinary: Other (Nobles's) Neuro: Normal speech, Cranial nerves 3-12 NL Skin: Dry, Intact Psych/Mental Status: Mental status NL, Mood NL, Other (Unable to assess) Medications Current Medications Medications Dose Ordered Sig/Joann Route Start Time Stop Time Status Last Admin Dose Admin Ondansetron HCl 4 mg Q4HP PRN IV 05/01/24 14:45 Pantoprazole Sodium 40 mg DAILY IV 05/02/24 10:00 05/22/24 09:40 40 MG Atorvastatin Calcium 40 mg HS PO 05/02/24 22:00 05/21/24 21:00 40 MG Gemfibrozil 600 mg Q12HR PO 05/02/24 22:00 05/22/24 09:41 600 MG Quetiapine Fumarate 50 mg BID PO 05/04/24 22:00 05/22/24 09:43 50 MG Levalbuterol HCl 0.625 mg Q6HR NEB 05/04/24 18:00 05/22/24 12:08 0.625 MG Ipratropium [place] 0.5 mg Q6HR NEB 05/04/24 18:00 05/22/24 12:08 0.5 MG Amiodarone HCl 400 mg DAILY PO 05/06/24 10:00 05/22/24 09:42 400 MG Saccharomyces Boulardii 250 mg DAILY PO 05/06/24 10:00 05/22/24 09:43 250 MG Labetalol HCl 10 mg Q2HPRN PRN IV 05/07/24 08:45 05/10/24 05:03 10 MG Furosemide 20 mg DAILY IV 05/09/24 10:00 05/22/24 09:40 20 MG Levofloxacin 500 mg DAILY PO 05/11/24 12:18 05/22/24 09:40 500 MG Enoxaparin Sodium 40 mg DAILY SC 05/12/24 10:00 05/22/24 09:40 40 MG Enteral Nutritional Formula 240 ml TIDWM PO 05/12/24 18:00 05/22/24 09:40 240 ML Magnesium Oxide 400 mg DAILY PO 05/17/24 10:00 05/22/24 09:42 400 MG Acetaminophen/ Hydrocodone Bitart 1 tab Q6HPRN PRN PO 05/18/24 19:30 05/22/24 09:41 1 TAB Laboratory Results Laboratory Tests 05/19/24 06:42 Urinalysis Test 05/01/24 11:04 Urine Color Yellow (Yellow) Urine Clarity Turbid (Clear) H Urine pH 5.5 (5.0-9.0) Urine Specific [place] 1.016 (1.001-1.035) Urine Protein 1+ (Negative) H Urine Ketones 1+ (Negative) H Urine Blood 1+ /uL (Negative) H Urine Nitrite 2+ (Negative) H Urine Bilirubin Negative (Negative) Urine Urobilinogen Normal mg/dL (Negative) Urine Leukocyte Esterase Negative /uL (Negative) Urine RBC <1 /hpf (0 - 4) Urine WBC 3 /hpf (0 - 5) Urine Squamous Epithelial Cells Few /hpf (<5) Urine Bacteria Many /hpf (None Seen) H Urine Hyaline Casts Few /lpf (0 - 2) Urine Yeast (Budding) Occasional /hpf (None Urine Glucose Normal mg/dL (Normal) Microbiology Microbiology Date/Time Source Procedure Growth Status 05/04/24 12:20 Urine - Catheterized Urine Culture - Final Complete 05/01/24 18:40 Nose MRSA Screen - Final Complete 05/01/24 15:40 Blood Blood Culture - Final NO GROWTH AFTER 5 DAYS OF INCUBATION. Complete 05/01/24 00:00 Sputum Gram Stain - Final Complete 05/01/24 00:00 Respiratory Culture - Final Providencia staurtii Streptococcus pneumoniae Complete Labs and/or images reviewed: Labs reviewed by me, Image(s) reviewed by me Assessment/Plan Assessment/Plan Impression: -acute hypoxic respiratory failure -metabolic encephalopathy -sepsis with shock secondary to UTI and viral pneumonia -influenza B -history of right hip fracture -obesity -deconditioning with bed-bound status -depression -primary hypertension -atrial flutter with rapid ventricular rate, 2-1 conduction -Breast cancer, Left Plan: Events: No Events overnight. Patient was states that she was able to stand with physical therapy today. No new symptoms. -stop beta-felisha, continue amiodarone and Mag oxide -PT consultation -stop antibiotic therapy -Seroquel 50 mg p.o. b.i.d. -bronchodilators, Pulmicort -discharge has been placed for hospice. Awaiting for patient to be discharged home per dialysis social worker, patient was has been, and hospice company. Total time spent with patient discussing and formulating plan of care: 35 minutes. This medical document was created using an electronic medical record system with [employer] dictation system. Although this document has been carefully reviewed, there may still be some phonetic and typographical errors. These areas are purely typographical due to imperfections of the software programs, and do not reflect any compromise in the patient's medical care. Plan discussed with: Patient, Other (RN) Date of Service: May 22, 2024 Billing Provider: BRISEYDA OROZCO NP Common Visit Codes: [id number] INP/OBS CARE(MOD) BRISEYDA OROZCO NP May 22, 2024 16:06
[2024-05-23] VITALS (15 sets, daily range): BP systolic 90–108; BP diastolic 55–70; PULSE 88–103; RESP 16–20; TEMP 98.1–98.6; O2SAT 89–100
--- NOTE | 2024-05-23 15:00 | DVHPN2 ---
Subjective The patient seems him at bedside. Remained weak however no complaint today Reviewed: Care Plan, H&P, Labs, Medications, Previous Orders, Radiology, Other (Consultations) Changes from previous H/P or p: No Changes General: Per HPI Objective Vitals Vital Signs Date Time Temp Pulse Resp B/P (MAP) Pulse Ox O2 Delivery O2 Flow Rate FiO2 05/23/24 13:00 98.5 93 18 105/67 (80) 94 98.5 05/23/24 11:52 Room Air* 0 21 Intake/Output Intake and Output 05/23/24 07:00 Intake Total 850 ml Output Total 4500 ml Balance -3650 ml Intake Oral 850 ml Output Urine Total 4500 ml # Bowel Movements 3 General Appearance: Alert, Oriented X3, Cooperative, mild distress HEENT: Atraumatic, PERRLA Lungs: Other (NC at 2lpm. Basilar Rhonchi) Cardiovascular: Regular rate, Normal S1, Normal S2, Other (Sinus rhythm) Abdomen: Normal bowel sounds, Soft, No tenderness Genitourinary: Other (Nobles's) Neuro: Normal speech, Cranial nerves 3-12 NL Skin: Dry, Intact Psych/Mental Status: Mental status NL, Mood NL, Other (Unable to assess) Medications Current Medications Medications Dose Ordered Sig/Joann Route Start Time Stop Time Status Last Admin Dose Admin Ondansetron HCl 4 mg Q4HP PRN IV 05/01/24 14:45 Pantoprazole Sodium 40 mg DAILY IV 05/02/24 10:00 05/23/24 08:20 40 MG Atorvastatin Calcium 40 mg HS PO 05/02/24 22:00 05/22/24 21:39 40 MG Gemfibrozil 600 mg Q12HR PO 05/02/24 22:00 05/23/24 08:21 600 MG Quetiapine Fumarate 50 mg BID PO 05/04/24 22:00 05/23/24 08:21 50 MG Levalbuterol HCl 0.625 mg Q6HR NEB 05/04/24 18:00 05/23/24 11:52 0.625 MG Ipratropium [place] 0.5 mg Q6HR NEB 05/04/24 18:00 05/23/24 11:52 0.5 MG Amiodarone HCl 400 mg DAILY PO 05/06/24 10:00 05/23/24 08:22 400 MG Saccharomyces Boulardii 250 mg DAILY PO 05/06/24 10:00 05/23/24 08:23 250 MG Labetalol HCl 10 mg Q2HPRN PRN IV 05/07/24 08:45 05/10/24 05:03 10 MG Enoxaparin Sodium 40 mg DAILY SC 05/12/24 10:00 05/23/24 08:20 40 MG Enteral Nutritional Formula 240 ml TIDWM PO 05/12/24 18:00 05/23/24 11:54 240 ML Magnesium Oxide 400 mg DAILY PO 05/17/24 10:00 05/23/24 08:21 400 MG Acetaminophen/ Hydrocodone Bitart 1 tab Q6HPRN PRN PO 05/18/24 19:30 05/23/24 08:31 1 TAB Laboratory Results Laboratory Tests 05/19/24 06:42 Urinalysis Test 05/01/24 11:04 Urine Color Yellow (Yellow) Urine Clarity Turbid (Clear) H Urine pH 5.5 (5.0-9.0) Urine Specific [place] 1.016 (1.001-1.035) Urine Protein 1+ (Negative) H Urine Ketones 1+ (Negative) H Urine Blood 1+ /uL (Negative) H Urine Nitrite 2+ (Negative) H Urine Bilirubin Negative (Negative) Urine Urobilinogen Normal mg/dL (Negative) Urine Leukocyte Esterase Negative /uL (Negative) Urine RBC <1 /hpf (0 - 4) Urine WBC 3 /hpf (0 - 5) Urine Squamous Epithelial Cells Few /hpf (<5) Urine Bacteria Many /hpf (None Seen) H Urine Hyaline Casts Few /lpf (0 - 2) Urine Yeast (Budding) Occasional /hpf (None Urine Glucose Normal mg/dL (Normal) Microbiology Microbiology Date/Time Source Procedure Growth Status 05/04/24 12:20 Urine - Catheterized Urine Culture - Final Complete 05/01/24 18:40 Nose MRSA Screen - Final Complete 05/01/24 15:40 Blood Blood Culture - Final NO GROWTH AFTER 5 DAYS OF INCUBATION. Complete 05/01/24 00:00 Sputum Gram Stain - Final Complete 05/01/24 00:00 Respiratory Culture - Final Providencia staurtii Streptococcus pneumoniae Complete Labs and/or images reviewed: Labs reviewed by me Assessment/Plan Assessment/Plan -acute hypoxic respiratory failure -metabolic encephalopathy -sepsis with shock secondary to UTI and viral pneumonia -influenza B -history of right hip fracture -obesity -deconditioning with bed-bound status -depression -primary hypertension -atrial flutter with rapid ventricular rate, 2-1 conduction -Breast cancer, Left Plan: Continuing current management with PT. Continuing Seroquel twice per day. Continuing with Pulmicort. Still waiting for hospice arrangement. Discharge planning when hospice arrangement done This medical document was created using an electronic medical record system with [employer] [facility] computerized dictation system. Although this document has been carefully reviewed, there may still be some phonetic and typographical errors. These areas are purely typographical due to imperfections of the software programs, and do not reflect any compromise in the patient's medical care. Plan discussed with: Patient Date of Service: May 24, 2024 Billing Provider: ARTEM BULLOCK MD Common Visit Codes: [id number] INP/OBS CARE(HIGH) ARTEM BULLOCK MD May 23, 2024 15:00
--- NOTE | 2024-05-23 22:00 | DVHPN2 ---
Progress Note - Dictate Date Seen: May 23, 2024 Medical Necessity Reason Pt with a Central, PICC or Fol: Yes The following are medically ne: Butler Catheter Reason for butler catheter: Strict I&O Subjective Patient seen and examined at bedside. Currently on room air. Overnight events reviewed. vital signs Vital Sign Date Time Temp Pulse Resp B/P (MAP) Pulse Ox O2 Delivery O2 Flow Rate FiO2 05/23/24 21:00 98.1 97 18 100/65 (77) 91 98.1 05/23/24 20:00 Room Air* 0 21 Total Intake and Output 05/22/24 05/22/24 05/23/24 15:00 23:00 07:00 Intake Total 850 ml 0 ml Output Total 2500 ml 2000 ml Balance -1650 ml -2000 ml medications Current Medications Medications Dose Ordered Sig/Joann Route Start Time Stop Time Status Last Admin Dose Admin Ondansetron HCl 4 mg Q4HP PRN IV 05/01/24 14:45 Pantoprazole Sodium 40 mg DAILY IV 05/02/24 10:00 05/23/24 08:20 40 MG Atorvastatin Calcium 40 mg HS PO 05/02/24 22:00 05/23/24 21:17 40 MG Gemfibrozil 600 mg Q12HR PO 05/02/24 22:00 05/23/24 21:16 600 MG Quetiapine Fumarate 50 mg BID PO 05/04/24 22:00 05/23/24 21:17 50 MG Levalbuterol HCl 0.625 mg Q6HR NEB 05/04/24 18:00 05/23/24 19:57 0.625 MG Ipratropium [place] 0.5 mg Q6HR NEB 05/04/24 18:00 05/23/24 19:55 0.5 MG Amiodarone HCl 400 mg DAILY PO 05/06/24 10:00 05/23/24 08:22 400 MG Saccharomyces Boulardii 250 mg DAILY PO 05/06/24 10:00 05/23/24 08:23 250 MG Labetalol HCl 10 mg Q2HPRN PRN IV 05/07/24 08:45 05/10/24 05:03 10 MG Enoxaparin Sodium 40 mg DAILY SC 05/12/24 10:00 05/23/24 08:20 40 MG Enteral Nutritional Formula 240 ml TIDWM PO 05/12/24 18:00 05/23/24 18:13 240 ML Magnesium Oxide 400 mg DAILY PO 05/17/24 10:00 05/23/24 08:21 400 MG Acetaminophen/ Hydrocodone Bitart 1 tab Q6HPRN PRN PO 05/18/24 19:30 05/23/24 21:16 1 TAB objective Gen.: Patient lying in bed in no apparent distress. On room air Head: Normocephalic, atraumatic. Eyes: EOMI/PERRLA. Ears: Normal hearing. Normal anatomy. Neck/trachea: Trachea midline, supple. Nose: Normal external anatomy. Mouth: Moist mucous membranes. Chest: Decreased air entry bilaterally. No wheezing or rhonchi. Cardiovascular: Positive S1, positive S2. Regular rate and rhythm. Abdomen: Positive bowel sounds in all 4 quadrants. Soft, non-tender, non- distended. : Deferred. Rectal: Deferred. Skin: Warm, dry. Intact. Extremities: 2+ radial pulses bilaterally. No lower extremity edema. Neuro: Awake, alert, oriented x3. No gross motor or sensory deficits. Cranial nerves II through XII intact. Gait not assessed. laboratory and microbiology Laboratory Tests 05/19/24 06:42 Test 05/19/24 06:42 Range/Units Serum Glucose 125 H 74-106 mg/dL Assessment/Plan Impression: Acute hypoxic respiratory failure Atrial fibrillation w/ RVR Septic shock Hypokalemia Influenza B Nicotine dependence Marijuana use Obesity BMI 32.9 Events: Remains on room air Supplemental oxygen PRN. Low blood pressure Monitor closely Held diuretic and BP medications HOB elevation Aspiration precautions Pain control Avoid oversedation Continue bronchodilators q.6 hours Seroquel BID. Amiodarone PO Incentive spirometry Protonix for GI prophylaxis Therapeutic Lovenox for DVT prophylaxis Monitor hemoglobin Continue physical therapy [place] prognosis Awaiting 's decision on placement. Awaiting SNF vs. hospice Disposition per hospitalist. Patient is s/p cardioversion for AFib. Labs and imaging reviewed. Rest of plan as noted below. Plan: s/p extubation on 05/07/24 Supplemental oxygen PRN Titrate to keep sats above 92% Cardiology recs appreciated. Continue bronchodilators F/u cultures. Completed Tamiflu course - influenza A and B returned negative Pressors if necessary for hemodynamic support Titrate to keep mean arterial pressure greater than 65 mmHg. Monitor renal function Monitor electrolytes. Supplement as necessary. Monitor ins and outs. GI prophylaxis - Protonix DVT prophylaxis. Prognosis: Guarded given patient's multiple co-morbidities. Rest of plan per hospitalist and other consultants. Thank you, Dr. Coleman, for allowing me to participate in this patient's care. Further recommendations will depend on the patient's clinical course. Please do not hesitate to contact me if you have any questions or concerns. This medical document was created using an electronic medical record system with [employer] dictation system. Although these documentations are being carefully reviewed, there may still be some phonetic and typographical changes. The errors are purely typographical, due to imperfection on the software program, and do not reflect any compromise in the patient's medical care. Dietary Evaluation Review Comments: 1. TF Jevity 40 ml/hr (53 g, 1152 kcal), CONSIDER CLINIMIX (42.5 G PRO, 510 KCAL PLUS JEVITY 30ML/HR (40 G PRO, 864 KCAL if nephrotic symptoms WORSENS 2. TPN per pharmacy if NPO> 7 days 3. PO diet as tolerated with ensure high protein PO protein supplements after passing a Speech eval. Consider a 2 g Na CCHO-60 g Renal PO diet if pt's gluc ose is uncontrolled and kindeny function worsens. Expected Outcomes/Goals: gradually weight loss, improved skin tones, and nutrition related lab values. Plan discussed with: Patient, Other (RN Ty) YASSINE MAYO MD May 23, 2024 22:00
[2024-05-24] VITALS (13 sets, daily range): BP systolic 96–114; BP diastolic 59–76; PULSE 88–101; RESP 18–20; TEMP 97.9–98.8; O2SAT 86–100
--- NOTE | 2024-05-24 14:42 | DVHDS2 ---
Discharge Summary Date of Admission May 01, 2024 at 14:34 Date of Discharge: May 21, 2024 Labs/Diagnostic Data: Laboratory Results Test 05/19/24 06:42 05/13/24 11:49 05/11/24 17:45 05/11/24 05:37 White Blood Count 4.3 10^3/uL (4.4-10.8) Red Blood Count 2.49 10^6/uL (4.0-5.20) Hemoglobin 7.8 g/dL (12.2-16.2) Hematocrit 23.1 % (36.0-46.0) Mean Corpuscular Volume 92.8 fL (80.0-100.0) Mean Corpuscular Hemoglobin 31.5 pg (28.0-32.0) Mean Corpuscular Hemoglobin Concent 34.0 g/dL (32.0-36.0) Red Cell Distribution Width 14.9 % (11.8-14.3) Platelet Count 302 10^3/uL (140-450) Mean Platelet Volume 8.1 fL (6.9-10.8) Neutrophils (%) (Auto) 52.0 % (37.0-80.0) Lymphocytes (%) (Auto) 22.0 % (10.0-50.0) Monocytes (%) (Auto) 16.3 % (0.0-12.0) Eosinophils (%) (Auto) 8.7 % (0.0-7.0) Basophils (%) (Auto) 1.0 % (0.0-2.0) Neutrophils # (Auto) 2.2 10 ^3/uL (1.6-8.6) Lymphocytes # (Auto) 0.9 10 ^3/uL (0.4-5.4) Monocytes # (Auto) 0.7 10 ^3/uL (0-1.3) Eosinophils # (Auto) 0.4 10 ^3/uL (0-0.8) Basophils # (Auto) 0 10 ^3/uL (0-0.2) Nucleated Red Blood Cells 0.1 % Sodium Level 135 mmol/L (136-145) Potassium Level 3.8 mmol/L (3.5-5.1) Chloride Level 101 mmol/L (98-107) Carbon Dioxide Level 23 mmol/L (20-31) Anion Gap 11 (5-15) Blood Urea Nitrogen 24 mg/dL (9-23) Creatinine 1.25 mg/dL (0.550-1.02) Glomerular Filtration Rate Calc 48 mL/min (>90) BUN/Creatinine Ratio 19.2 (10.0-20.0) Serum Glucose 125 mg/dL (74-106) Calcium Level 10.1 mg/dL (8.7-10.4) Magnesium Level 1.6 mg/dL (1.6-2.6) Stool Occult Blood Negative (Negative) Stool Occult Blood Sample #3 (Negative) Total Bilirubin 0.4 mg/dL (0.2-1.0) Aspartate Amino Transferase (AST) 12 U/L (13-40) Alanine Aminotransferase (ALT) < 9 U/L (7-40) Alkaline Phosphatase 47 U/L (46-116) Total Protein 5.6 g/dL (5.7-8.2) Albumin 3.0 g/dL (3.2-4.8) Test 05/10/24 09:50 05/09/24 00:00 05/08/24 03:11 05/07/24 12:27 Vancomycin Level Trough 6.0 ug/mL (5-10) Influenza Type A Antigen Negative (Negative) Influenza Type B Antigen Negative (Negative) Differential Total Cells Counted 100.0 (100) Neutrophils % (Manual) 84 (37.0-80.0) Band Neutrophils % (Manual) 0 Lymphocytes % (Manual) 6 (10.0-50.0) Monocytes % (Manual) 4 (0-12) Eosinophils % (Manual) 5 (0-7) Basophils % (Manual) 0 (0.0-2.0) Metamyelocytes % (manual) 1 Myelocytes % (Manual) 0 Promyelocytes % (Manual) 0 Blast Cells % (Manual) 0 Reactive Lymphocytes 0 Platelet Estimate Adequate Blood Gas Specimen Type Arterial Blood Gas Sample Site Right radial Blood Gas Patient Temperature 37.0 Arterial Blood Date Drawn [id number] Arterial Blood pH 7.443 (7.350-7.450) Arterial Blood Partial Pressure CO2 35.2 mmHg (32.0-45.0) Arterial Blood Partial Pressure O2 83.0 mmHg (83.0-108.0) Arterial Blood HCO3 23.5 mmol/L (21.0-28.0) Arterial Blood Oxygen Saturation 94.9 % (94.0-98.0) Arterial Blood Base Excess -0.2 mmol/L (-2.0-3.0) Arterial Blood Oxyhemoglobin 94.5 % (94.0-98.0) Arterial Blood Carboxyhemoglobin 0.3 % (0.5-1.5) Arterial Blood Methemoglobin 0.1 % (0.0-1.5) José Manuel Test Modified Blood Gas Total Hemoglobin 10.60 g/dL (12.0-16.0) Blood Gas Modality Vent - cpap Blood Gas Spontaneous Rate 25 FiO2 % 30.0 Blood Gas Spontaneous Tidal Volume 650 Blood Gas Pressure Support 8 Blood Gas PEEP or CPAP 5.0 Test 05/07/24 08:14 05/07/24 03:05 05/06/24 03:27 05/05/24 12:35 Blood Gas Set Respiration Rate 20.0 Blood Gas Tidal Volume 450.0 Anisocytosis (manual) Slight Target Cells Few Stomatocytes Few Random Vancomycin Level 14.8 ug/mL (5-10) Poikilocytosis (manual) Slight Tear Drop Cells Moderate SARS-CoV-2 Antigen (Rapid) Negative (NEGATIVE) Test 05/05/24 03:10 05/04/24 12:20 05/04/24 11:36 05/04/24 03:13 Clumped Platelets Few Schistocytes Few Troponin I High Sensitivity 7 ng/L (</=34) Urine Opiates Screen Neg (NEGATIVE) Urine Fentanyl Screen Pos (NEGATIVE) Urine Barbiturates Screen Neg (NEGATIVE) Urine Phencyclidine Screen Neg (NEGATIVE) Urine Amphetamines Screen Neg (NEGATIVE) Urine Benzodiazepines Screen Pos (NEGATIVE) Urine Cocaine Screen Neg (NEGATIVE) Urine Cannabinoids Screen Neg (NEGATIVE) D-Dimer, Quantitative 12.48 mg/L FEU (0.0-0.49) Erythrocyte Sedimentation Rate 106 mm/hr (0-20) Test 05/02/24 14:47 05/02/24 13:22 05/02/24 06:29 05/01/24 21:11 Hemoglobin A1c 5.4 % A1C (<5.7) C-Reactive Protein High Sensitivity > 20.00 mg/dL (<1.0) Free Thyroxine (T4) Calculated 0.58 ng/dL (0.89-1.76) Total Triiodothyronine (TT3) < 0.10 ng/mL (0.60-1.81) Triglycerides Level 1210 mg/dL (< 150) Cholesterol Level 134 mg/dL (< 200) LDL Cholesterol mg/dL (< 100) HDL Cholesterol < 5 mg/dL (40-59) Thyroid Stimulating Hormone (TSH) 0.18 uIU/mL (0.55-4.78) Blood Gas Critical Value Read Back Yes Lactic Acid Level 2.9 mmol/L (0.4-2.0) Test 05/01/24 15:43 05/01/24 11:52 05/01/24 11:04 Blood Gas Notified Whom Blood Gas Notified Time [id number] Blood Gas Notified By Supervisor [employer] manjinder Direct Bilirubin 0.6 mg/dL (<0.3) B-Type Natriuretic Peptide 175.05 pg/mL (0-100) Lipase 21 U/L (12-53) Urine Color Yellow (Yellow) Urine Clarity Turbid (Clear) Urine pH 5.5 (5.0-9.0) Urine Specific [place] 1.016 (1.001-1.035) Urine Protein 1+ (Negative) Urine Ketones 1+ (Negative) Urine Blood 1+ /uL (Negative) Urine Nitrite 2+ (Negative) Urine Bilirubin Negative (Negative) Urine Urobilinogen Normal mg/dL (Negative) Urine Leukocyte Esterase Negative /uL (Negative) Urine RBC <1 /hpf (0 - 4) Urine WBC 3 /hpf (0 - 5) Urine Squamous Epithelial Cells Few /hpf (<5) Urine Bacteria Many /hpf (None Seen) Urine Hyaline Casts Few /lpf (0 - 2) Urine Yeast (Budding) Occasional /hpf (None Urine Glucose Normal mg/dL (Normal) Other Laboratory Tests 05/19/24 06:42 Condition at Discharge: Poor Final Diagnosis/Problems List sepsis with shock secondary to bilateral community-acquired pneumonia. Discharge Disposition: Hospice - Home Discharge Instruct/Medications Diet: Regular Activity: No Restrictions, As Tolerated Follow Up/Referral: Per hospice provider Medications: Amiodarone 400 mg p.o. daily Continue home medications and medications per hospice provider Discharge Statement: "Patient was advised to return to the ER or call 911 if any headaches, dizziness, shortness of breath, chest pain, abdominal pain, bleeding, fevers, or worsening of medical condition. Patient was counseled about treatment plan, medications, possible side effects, patientverbalized understanding. All questions were answered to the best of my ability. This discharge took greater then 30 minutes in planning, reviewing documentation, counseling the patient, and discussing with other team members." ASSESSMENT ASSESSMENT Assessment sepsis with shock secondary to bilateral community-acquired pneumonia. ARTEM BULLOCK MD May 24, 2024 14:42
--- NOTE | 2024-05-24 14:44 | DVHPN2 ---
Subjective Patient is seen and examined at bedside. No complaint today. The patient is excited to get home today Reviewed: Care Plan, H&P, Labs, Medications, Previous Orders, Radiology, Other (Consultations) Changes from previous H/P or p: No Changes General: Per HPI Objective Vitals Vital Signs Date Time Temp Pulse Resp B/P (MAP) Pulse Ox O2 Delivery O2 Flow Rate FiO2 05/24/24 13:32 97.9 99 19 102/59 (73) 98 97.9 05/24/24 08:00 Room Air* 0 21 Intake/Output Intake and Output 05/24/24 07:00 Intake Total 600 ml Output Total 1700 ml Balance -1100 ml Intake Oral 600 ml Output Urine Total 1700 ml General Appearance: Alert, Oriented X3, Cooperative, mild distress HEENT: Atraumatic, PERRLA Lungs: Other (NC at 2lpm. Basilar Rhonchi) Cardiovascular: Regular rate, Normal S1, Normal S2, Other (Sinus rhythm) Abdomen: Normal bowel sounds, Soft, No tenderness Genitourinary: Other (Nobles's) Neuro: Normal speech, Cranial nerves 3-12 NL Skin: Dry, Intact Psych/Mental Status: Mental status NL, Mood NL, Other (Unable to assess) Medications Current Medications Medications Dose Ordered Sig/Joann Route Start Time Stop Time Status Last Admin Dose Admin Ondansetron HCl 4 mg Q4HP PRN IV 05/01/24 14:45 Pantoprazole Sodium 40 mg DAILY IV 05/02/24 10:00 05/24/24 08:11 40 MG Atorvastatin Calcium 40 mg HS PO 05/02/24 22:00 05/23/24 21:17 40 MG Gemfibrozil 600 mg Q12HR PO 05/02/24 22:00 05/24/24 08:11 600 MG Quetiapine Fumarate 50 mg BID PO 05/04/24 22:00 05/24/24 08:11 50 MG Levalbuterol HCl 0.625 mg Q6HR NEB 05/04/24 18:00 05/24/24 11:34 0.625 MG Ipratropium [place] 0.5 mg Q6HR NEB 05/04/24 18:00 05/24/24 11:34 0.5 MG Amiodarone HCl 400 mg DAILY PO 05/06/24 10:00 05/24/24 08:12 400 MG Saccharomyces Boulardii 250 mg DAILY PO 05/06/24 10:00 05/24/24 08:11 250 MG Labetalol HCl 10 mg Q2HPRN PRN IV 05/07/24 08:45 05/10/24 05:03 10 MG Enoxaparin Sodium 40 mg DAILY SC 05/12/24 10:00 05/24/24 08:11 40 MG Enteral Nutritional Formula 240 ml TIDWM PO 05/12/24 18:00 05/24/24 11:27 240 ML Magnesium Oxide 400 mg DAILY PO 05/17/24 10:00 05/24/24 08:12 400 MG Acetaminophen/ Hydrocodone Bitart 1 tab Q6HPRN PRN PO 05/18/24 19:30 05/24/24 08:27 1 TAB Laboratory Results Laboratory Tests 05/19/24 06:42 Urinalysis Test 05/01/24 11:04 Urine Color Yellow (Yellow) Urine Clarity Turbid (Clear) H Urine pH 5.5 (5.0-9.0) Urine Specific [place] 1.016 (1.001-1.035) Urine Protein 1+ (Negative) H Urine Ketones 1+ (Negative) H Urine Blood 1+ /uL (Negative) H Urine Nitrite 2+ (Negative) H Urine Bilirubin Negative (Negative) Urine Urobilinogen Normal mg/dL (Negative) Urine Leukocyte Esterase Negative /uL (Negative) Urine RBC <1 /hpf (0 - 4) Urine WBC 3 /hpf (0 - 5) Urine Squamous Epithelial Cells Few /hpf (<5) Urine Bacteria Many /hpf (None Seen) H Urine Hyaline Casts Few /lpf (0 - 2) Urine Yeast (Budding) Occasional /hpf (None Urine Glucose Normal mg/dL (Normal) Microbiology Microbiology Date/Time Source Procedure Growth Status 05/04/24 12:20 Urine - Catheterized Urine Culture - Final Complete 05/01/24 18:40 Nose MRSA Screen - Final Complete 05/01/24 15:40 Blood Blood Culture - Final NO GROWTH AFTER 5 DAYS OF INCUBATION. Complete 05/01/24 00:00 Sputum Gram Stain - Final Complete 05/01/24 00:00 Respiratory Culture - Final Providencia staurtii Streptococcus pneumoniae Complete Labs and/or images reviewed: Labs reviewed by me Assessment/Plan Assessment/Plan -acute hypoxic respiratory failure -metabolic encephalopathy -sepsis with shock secondary to UTI and viral pneumonia -influenza B -history of right hip fracture -obesity -deconditioning with bed-bound status -depression -primary hypertension -atrial flutter with rapid ventricular rate, 2-1 conduction -Breast cancer, Left Plan: Events: No Events overnight. Patient was states that she was able to stand with physical therapy today. No new symptoms. -stop beta-felisha, continue amiodarone and Mag oxide -PT consultation -stop antibiotic therapy -Seroquel 50 mg p.o. b.i.d. -bronchodilators, Pulmicort -the patient hospice arrangement is done. All the equipment is delivery to her house. Discharge today to home with hospice protocol Plan discussed with: Patient My Orders Orders - ARTEM BULLOCK MD Procedure Category Date Status Time Discharge DISCHARGE 05/24/24 Transmitted 14:42 Date of Service: May 24, 2024 Billing Provider: ARTEM BULLOCK MD Common Visit Codes: [id number] INP/OBS CARE(HIGH) ARTEM BULLOCK MD May 24, 2024 14:44
--- NOTE | 2024-05-24 23:10 | DVHPN2 ---
Progress Note - Dictate Date Seen: May 24, 2024 Medical Necessity Reason Pt with a Central, PICC or Fol: Yes The following are medically ne: Butler Catheter Reason for butler catheter: Strict I&O Subjective Patient seen and examined at bedside. Remains on room air. Overnight events reviewed. vital signs Vital Sign Date Time Temp Pulse Resp B/P (MAP) Pulse Ox O2 Delivery O2 Flow Rate FiO2 05/24/24 17:07 98.8 96 19 112/76 (88) 95 98.8 05/24/24 08:00 Room Air* 0 21 Total Intake and Output 05/23/24 05/23/24 05/24/24 15:00 23:00 07:00 Intake Total 400 ml 200 ml Output Total 1700 ml Balance 400 ml -1500 ml objective Gen.: Patient lying in bed in no apparent distress. On room air Head: Normocephalic, atraumatic. Eyes: EOMI/PERRLA. Ears: Normal hearing. Normal anatomy. Neck/trachea: Trachea midline, supple. Nose: Normal external anatomy. Mouth: Moist mucous membranes. Chest: Decreased air entry bilaterally. No wheezing or rhonchi. Cardiovascular: Positive S1, positive S2. Regular rate and rhythm. Abdomen: Positive bowel sounds in all 4 quadrants. Soft, non-tender, non- distended. : Deferred. Rectal: Deferred. Skin: Warm, dry. Intact. Extremities: 2+ radial pulses bilaterally. No lower extremity edema. Neuro: Awake, alert, oriented x3. No gross motor or sensory deficits. Cranial nerves II through XII intact. Gait not assessed. laboratory and microbiology Laboratory Tests 05/19/24 06:42 Test 05/19/24 06:42 Range/Units Serum Glucose 125 H 74-106 mg/dL Assessment/Plan Impression: Acute hypoxic respiratory failure Atrial fibrillation w/ RVR Septic shock Hypokalemia Influenza B Nicotine dependence Marijuana use Obesity BMI 32.9 Events: Remains on room air Supplemental oxygen PRN. Hypotension resolved. Continue Amiodarone PO Continue bronchodilators q.6 hours Seroquel BID. Incentive spirometry HOB elevation Aspiration precautions Pain control Avoid oversedation Protonix for GI prophylaxis Therapeutic Lovenox for DVT prophylaxis Monitor hemoglobin Continue physical therapy Patient is stable for discharge from the pulmonary standpoint. Disposition per hospitalist. Poor prognosis Awaiting SNF vs. hospice Patient is s/p cardioversion for AFib. Labs and imaging reviewed. Rest of plan as noted below. Plan: s/p extubation on 05/07/24 Supplemental oxygen PRN Titrate to keep sats above 92% Cardiology recs appreciated. Continue bronchodilators F/u cultures. Completed Tamiflu course - influenza A and B returned negative Pressors if necessary for hemodynamic support Titrate to keep mean arterial pressure greater than 65 mmHg. Monitor renal function Monitor electrolytes. Supplement as necessary. Monitor ins and outs. GI prophylaxis - Protonix DVT prophylaxis. Prognosis: Guarded given patient's multiple co-morbidities. Rest of plan per hospitalist and other consultants. Thank you, Dr. Coleman, for allowing me to participate in this patient's care. Further recommendations will depend on the patient's clinical course. Please do not hesitate to contact me if you have any questions or concerns. This medical document was created using an electronic medical record system with [employer] dictation system. Although these documentations are being carefully reviewed, there may still be some phonetic and typographical changes. The errors are purely typographical, due to imperfection on the software program, and do not reflect any compromise in the patient's medical care. Dietary Evaluation Review Comments: 1. TF Jevity 40 ml/hr (53 g, 1152 kcal), CONSIDER CLINIMIX (42.5 G PRO, 510 KCAL PLUS JEVITY 30ML/HR (40 G PRO, 864 KCAL if nephrotic symptoms WORSENS 2. TPN per pharmacy if NPO> 7 days 3. PO diet as tolerated with ensure high protein PO protein supplements after passing a Speech eval. Consider a 2 g Na CCHO-60 g Renal PO diet if pt's gluc ose is uncontrolled and kindeny function worsens. Expected Outcomes/Goals: gradually weight loss, improved skin tones, and nutrition related lab values. Plan discussed with: Patient, Other (RN Ty) YASSINE MAYO MD May 24, 2024 23:10
== END 2024-05-24 19:20 | disposition hospice, home (50) | DRG 870 ==
LOC: ER 10:07 → EDBD 10:07 → EDUNIT# 10:07 → OVERFLOW 14:34 → ICU WEST 18:09 → TELE-EAST 05-10 16:04
PROVIDERS: ADMIT Internal Medicine; ATTEND Nurse Practitioner Acute Care
PROC: 5A1955Z Respiratory Ventilation, Greater than 96 Consecutive Hours (ICD-10-PCS; principal; 2024-05-01)
PROC: 0BH17EZ Insertion of Endotracheal Airway into Trachea, Via Natural or Artificial Opening (ICD-10-PCS; 2024-05-01)
PROC: 5A09357 Assistance with Respiratory Ventilation, Less than 24 Consecutive Hours, Continuous Positive Airway Pressure (ICD-10-PCS; 2024-05-01)
PROC: 02H633Z Insertion of Infusion Device into Right Atrium, Percutaneous Approach (ICD-10-PCS; 2024-05-01)
PROC: 5A2204Z Restoration of Cardiac Rhythm, Single (ICD-10-PCS; 2024-05-05)
DX: A41.89 Other specified sepsis (principal); J96.01 Acute respiratory failure with hypoxia; R65.21 Severe sepsis with septic shock; J12.9 Viral pneumonia, unspecified; J10.08 Influenza due to other identified influenza virus with other specified pneumonia; I50.31 Acute diastolic (congestive) heart failure; G92.8 Other toxic encephalopathy; E87.20 Acidosis, unspecified; J44.0 Chronic obstructive pulmonary disease with (acute) lower respiratory infection; J81.1 Chronic pulmonary edema; I48.92 Unspecified atrial flutter; J44.1 Chronic obstructive pulmonary disease with (acute) exacerbation; N39.0 Urinary tract infection, site not specified; N17.9 Acute kidney failure, unspecified; D69.6 Thrombocytopenia, unspecified; Z51.5 Encounter for palliative care; Z20.822 Contact with and (suspected) exposure to COVID-19; I48.91 Unspecified atrial fibrillation; I11.0 Hypertensive heart disease with heart failure; E78.1 Pure hyperglyceridemia; E87.6 Hypokalemia; F17.210 Nicotine dependence, cigarettes, uncomplicated; F12.90 Cannabis use, unspecified, uncomplicated; F32.A Depression, unspecified; E66.01 Morbid (severe) obesity due to excess calories; E88.810 Metabolic syndrome; Z68.32 Body mass index [BMI] 32.0-32.9, adult; Z74.01 Bed confinement status; Z88.6 Allergy status to analgesic agent; Z90.710 Acquired absence of both cervix and uterus; Z83.3 Family history of diabetes mellitus; Z82.49 Family history of ischemic heart disease and other diseases of the circulatory system; Z85.3 Personal history of malignant neoplasm of breast; Z87.81 Personal history of (healed) traumatic fracture; Z80.1 Family history of malignant neoplasm of trachea, bronchus and lung
CPT/HCPCS: 31500; 36415; 36556; 36600; 71045; 71275; 73700; 80048; 80053; 80061; 80076; 80202; 80307; 81001; 82270; 82565; 82805; 83036; 83605; 83690; 83735; 83880; 84132; 84439; 84443; 84480; 84484; 85007; 85025; 85027; 85379; 85652; 86141; 87040; 87070; 87077; 87081; 87086; 87186; 87205; 87426; 87804; 92610; 93005; 93306; 93970; 94002; 94003; 94640; 97110; 97116; 97163; 97530; 99291; G0378; J0153; J0330; J2185; J2470; J2543; J2704; J3480

== ENCOUNTER 2024-09-28 15:18 | Inpatient (IN) | payer MEDICAID ==
[~2024-09-28] VITALS: Ht 170.2 cm; Wt 95.6 kg
[~2024-09-28 15:18] MED LIST changes: +AMIO200T13 PO; -ATEN25TA PO; -LOSA-533 PO; -LOSA-534 PO; +METO25TA36 PO
--- NOTE | 2024-09-28 15:23 | ED.PDOC ---
HPI Comments HPI: 64y F who presents to the ED via EMS transferred from [facility] for cardiology consult for symptomatic bradycardia. - per EMS, pt is being transferred to for symptomatic bradycardia and cardiology consult for possible pacemaker placement - pt states she went to [facility] 2 days ago after having generalized weakness, dizziness and chest pain for the last two weeks. - EMS brought pt to the ED stabilized and the following vitals: BP, 119/75, 98% 02 sat, and heart rate 76 - pt also states she had L hip surgery for fracture and has not been able to ambulate for the past 16 months and has been bedridden - pt now in the ED, otherwise denies any other symptoms I spoke with the cardiology PA Chasity Larios. She evaluated the patient. Past Medical history: HTN, AFIB on amiodarone, breast cancer, L hip fracture, COPD, pulmonary embolism on anticoagulation, heart failure on amiodarone, Past Surgical history: Appendectomy, Hysterectomy Medications: amiodarone Allergies: nkda Social History: endorses ETOH, endorses tobacco use, endorses drug use(marijuana) HPI: Poor Historian. Patient apparently has been having the symptomatic bradycardia for some time. She was evaluated at an outside facility and heart rate was in the 30s and 40s with stable blood pressure according to the documents accompanying the patient records. Cardiology was consulted at the facility and patient was supposed to be discharged home with a reduced amiodarone dose. Patient was complaining of chest tightness. Chest pain workup was done at the facility. REVIEW OF SYSTEMS: CONSTITUTIONAL: Denies acute: fever, diaphoresis, chills, generalized weakness. HEAD: Denies acute: headache, photophobia Eyes: Denies acute: Double vision, vision loss, eye pain, eye discharge. EARS: Denies acute: tinnitus, hearing loss, ear discharge, ear pain, THROAT: Denies acute: sore throat, swelling, difficulty swallowing , pain with swallowing, change in voice. NECK: Denies acute: neck pain, neck swelling, stiff neck. HEART: Denies acute : palpitations, LUNGS: Denies acute: SOB, wheezing, cough, hemoptysis ABDOMEN: Denies acute: abdominal pain, Nausea, Vomiting, diarrhea, melena , hematemesis, hematochezia SKIN: Denies acute: rash, redness, lesions, itchiness. EXTREMITIES: Denies acute: calf pain, numbness, tingling, weakness, denies pain in extremity. Denies acute: Low back pain. Neuro: Denies acute: focal neurological deficit, motor or sensory focal neurological deficit, tremors, seizure like activity, confusion, change in mental status, loss of bowel or bladder function, cauda equina like symptoms. : Denies acute: dysuria, hematuria, flank pain, increase in urinary frequency. PSYCH: Denies acute: hallucination, suicidal ideation, homicidal ideation. FEMALE: Denies acute: abnormal vaginal bleeding, foul odor, unusual discharge. PHYSICAL EXAM: General: ---mild-----acute distress, awake and alert. Head: normocephalic, atraumatic. Neck: supple, trachea is midline, no swelling. Throat: Normal phonation. Eyes:, no erythema, no purulent discharge, no proptosis, no icterus. Heart: regular rate, regular rhythm, no significant murmur appreciated. Lungs: no apparent respiratory distress, Able to speak in full sentences. No wheezing, no rhonchi, no crackles. No stridors Clear to auscultation bilaterally. Abdomen: non tender to palpation, non distended, soft, no guarding, no rebound, + bowel sounds. Indwelling Nobles catheter in place Neuro: Awake, Alert, oriented to name, self, situation, follows commands GCS=15. Speech is normal. Skin: no petechia, no purpura, no cyanosis, non-pale, not jaundice. Lower extremities: --trace bilateral - Pitting edema no deformity, no focal swelling, no calf TTP. Makes eye contact. moves all four extremities. Face: no apparent facial droop. ED COURSE: DISCLAIMER: This medical document was created using an electronic medical record system with voice recognition software and computerized dictation system. Although this document has been carefully reviewed, there might still be some phonetic and typographical errors. Occasional wrong-word or "sound-alike" substitutions may have occurred due to the inherent limitations of voice recognition software. These areas are purely typographical due to imperfections of the software programs and do not reflect any compromise in the patient's medical care. Please read the chart carefully and recognize, using context, where these substitutions have occurred. Time Seen by MD: 15:51 Reviewed Notes: Take Up Operator Notes, Medications, Allergies Allergies: Coded Allergies: Ibuprofen (Verified Allergy, Unknown, 08/08/23) Naproxen (Verified Allergy, Unknown, 08/08/23) Tramadol (Verified Allergy, Unknown, 05/20/24) Home Meds Active Scripts Metoprolol Succinate (Toprol Xl) 25 Mg Tab, 1 TAB PO DAILY, #30 TAB 5 Refills Prov:BRISEYDA OROZCO SALES NEGOTIATOR 05/19/24 Amiodarone HCl (Amiodarone HCl) 200 Mg Tab, 400 MG PO DAILY for 30 Days, #60 TAB 2 Refills Prov:BRISEYDA OROZCO SALES NEGOTIATOR 05/19/24 Cyclobenzaprine Hcl (Cyclobenzaprine Hcl) 5 Mg Tab, 1 TAB PO BID for 10 Days, #20 TAB Prov:BRISEYDA OROZCO SALES NEGOTIATOR 08/12/23 Reported Medications Cyclobenzaprine HCl (Cyclobenzaprine Hydrochlo) 10 Mg Tab, 1 TAB PO BIDPRN PRN 08/09/23 Montelukast Sodium (MONTELUKAST SODIUM) 10 Mg Tab, 1 TAB PO DAILY 08/09/23 Duloxetine HCl (Duloxetine HCl) 20 Mg Cap, 1 CAP PO BID 08/09/23 Melatonin (KP MELATONIN) 3 Mg Tab, 10 MG PO for sleep, TAB 08/09/23 Trazodone Hcl (Trazodone Hcl) 50 Mg Tab, 50 MG PO for sleep, TAB 08/09/23 Cyclobenzaprine Hcl (Cyclobenzaprine Hcl) 10 Mg Tab, 10 MG PO Q8HP PRN for htn for 30 Days, MG 08/09/23 Duloxetine Hcl (Cymbalta) 20 Mg Cap, 20 MG PO BID, CAP 08/09/23 Information Source: Patient, Emergency Med Personnel Mode of Arrival: EMS Past Medical History PAST MEDICAL HISTORY: Cancer, COPD, HTN Surgical History: Appendectomy, Hysterectomy DEVELOPMENT MECHANIC History: No Pertinent DEVELOPMENT MECHANIC History Family History Family History: Family hx of DM, Family hx of Cancer, Family hx of heart chichi Social History Smoker: Cigarettes Alcohol: Occasionally Drugs: Marijuana Lives In: Unobtainable Was a procedure done? Was a procedure done?: No CP Differential Dx Differential Diagnosis: Angina, AV Block 1st Degree, AV Block 2nd Degree, AV Block 3rd Degree, Digoxin Toxicity, Electrolyte Disorder, Heart Failure, Hyperthyroidism, Hyperventilation, Hypoxia, MAT, PAC's, Pulmonary Embolus, PVC's, Renal Failure Differential Diagnosis: Other (Ddx include but not limitied to gastritis, musculoskeletal pain, radiculopathy, atypical chest pain, dissection, aneurysm, ACS, unstable angina, hiatal hernia, GERD, anxiety, costochondritis, PE, pneumothroax, neoplasm, cardiac ischemia, drug abuse, anemia.) X-Ray, Labs, Meds, VS Vital Signs Date Time Temp Pulse Resp B/P (MAP) Pulse Ox O2 Delivery O2 Flow Rate FiO2 09/28/24 20:50 98.9 74 20 154/73 (100) 96 98.9 09/28/24 17:43 76 09/28/24 15:34 99.1 76 13 119/75 (90) 96 99.1 Lab Test 09/28/24 16:57 09/28/24 15:33 Range/Units Troponin I High Sensitivity 3 L 3 L </=34 ng/L White Blood Count 4.5 4.4-10.8 10^3/uL Red Blood Count 4.11 4.0-5.20 10^6/uL Hemoglobin 11.3 L 12.2-16.2 g/dL Hematocrit 33.8 L 36.0-46.0 % Mean Corpuscular Volume 82.3 80.0-100.0 fL Mean Corpuscular Hemoglobin 27.5 L 28.0-32.0 pg Mean Corpuscular Hemoglobin Concent 33.5 32.0-36.0 g/dL Red Cell Distribution Width 15.6 H 11.8-14.3 % Platelet Count 321 140-450 10^3/uL Mean Platelet Volume 6.5 L 6.9-10.8 fL Neutrophils (%) (Auto) 68.6 37.0-80.0 % Lymphocytes (%) (Auto) 18.7 10.0-50.0 % Monocytes (%) (Auto) 9.7 0.0-12.0 % Eosinophils (%) (Auto) 2.4 0.0-7.0 % Basophils (%) (Auto) 0.6 0.0-2.0 % Neutrophils # (Auto) 3.1 1.6-8.6 10 ^3/uL Lymphocytes # (Auto) 0.8 0.4-5.4 10 ^3/uL Monocytes # (Auto) 0.4 0-1.3 10 ^3/uL Eosinophils # (Auto) 0.1 0-0.8 10 ^3/uL Basophils # (Auto) 0 0-0.2 10 ^3/uL Nucleated Red Blood Cells 0.1 % Sodium Level 137 136-145 mmol/L Potassium Level 4.3 3.5-5.1 mmol/L Chloride Level 102 98-107 mmol/L Carbon Dioxide Level 25 20-31 mmol/L Anion Gap 10 5-15 Blood Urea Nitrogen 29 H 9-23 mg/dL Creatinine 0.90 0.550-1.02 mg/dL Glomerular Filtration Rate Calc 71 >90 mL/min BUN/Creatinine Ratio 32.2 H 10.0-20.0 Serum Glucose 111 H 74-106 mg/dL Calcium Level 9.5 8.7-10.4 mg/dL Magnesium Level 1.9 1.6-2.6 mg/dL Total Bilirubin 0.2 0.2-1.0 mg/dL Aspartate Amino Transferase (AST) 11 <34 U/L Alanine Aminotransferase (ALT) < 9 7-40 U/L Alkaline Phosphatase 94 46-116 U/L B-Type Natriuretic Peptide 613.41 0-100 pg/mL Total Protein 7.0 5.7-8.2 g/dL Albumin 4.3 3.2-4.8 g/dL Thyroid Stimulating Hormone (TSH) 5.00 H 0.55-4.78 uIU/mL Current Medications Medications (Trade) Dose Ordered Sig/Joann Route Start Time Stop Time Status Last Admin Enoxaparin Sodium (Lovenox) 40 mg ONCE ONCE SC 09/28/24 18:45 09/28/24 18:46 DC 09/28/24 20:04 Acetaminophen/ Hydrocodone Bitart ([place] 5/325MG Tab) 1 tab ONCE ONCE PO 09/28/24 18:45 09/28/24 18:47 DC 09/28/24 18:45 [facility] [id number] [place] [id number] Ph: [phone] DIAGNOSTIC IMAGING Diagnostic Imaging Report : [id number] Signed PATIENT: TSERING CHO ACCT: [id number] UNIT: [id number] : 1960 LOC: ER ROOM / BED: / AGE / SEX: 64 / F ADM STATUS: REG ER SERVICE 1524 ORDERING PHYSICIAN: CJ BROWNE DO PROCEDURE(s): CXRP - CHEST PORTABLE REASON: bradycardia ORDER NUMBER(s): [id number], ACCESSION NUMBER(s): [id number] CHEST RADIOGRAPH Indication: bradycardia Technique: Single frontal view of the chest was obtained COMPARISON: XY CHEST PORTABLE on DOS: 05/15/24, XY CHEST XRAY 1 VIEW on DOS: 05/13/24, XY CHEST XRAY 1 VIEW on DOS: 05/11/24, XY CHEST PORTABLE on DOS: 05/07/24, XY CHEST PORTABLE on DOS: 05/06/24 FINDINGS: Lines and Tubes: None Lungs: Clear Pleura: No effusion. No pneumothorax. Cardiomediastinal contours: Unremarkable Bones: Unremarkable IMPRESSION: 1. No acute disease. ATED BY: GARRETT RIVAS MD DICTATED DATE/TIME: 09/28/24 1603 SIGNED BY: GARRETT RIVAS MD SIGNED DATE/TIME: 09/28/24 1603 CC: Time of 1ST Reevaluation: 00:00 Reevaluation 1ST: Improved Patient Education/Counseling: Diagnosis, Treatment Family Education/Counseling: No Family Present Departure 1 Departure Time of Disposition: 18:00 Impression: Primary Impression: Symptomatic bradycardia Disposition: ADMITTED INPATIENT Admit to: [facility] Condition: Guarded Discharged With: Self Critical Care Note Critical Care Time?: No Heart Score Heart Score: Heart Score Response (Comments) Value History Slightly Suspicious 0 EKG Normal 0 Age 45-64 1 Risk Factors 1 or 2 risk factors 1 Troponin Normal limit 0 Total 2 I personally scribed for CJ BROWNE DO ([email or web address]) on 09/28/24 at 15:23. Electronically submitted by Lorraine Fox ([email or web address]). I personally scribed for CJ BROWNE DO ([email or web address]) on 09/28/24 at 15:52. Electronically submitted by Lorraine Fox ([email or web address]). I personally scribed for CJ BROWNE DO ([email or web address]) on 09/28/24 at 19:11. Electronically submitted by Lorraine Fox ([facility]). CJ BROWNE DO Sep 28, 2024 15:23
[2024-09-28 15:44] LABS: Basophils # (auto) 0 10 ^3/uL (0-0.2); Basophils % (auto) 0.6 % (0.0-2.0); Eosinophils # (auto) 0.1 10 ^3/uL (0-0.8); Eosinophils % (auto) 2.4 % (0.0-7.0); Hematocrit 33.8 % (36.0-46.0); Hemoglobin 11.3 g/dL (12.2-16.2); Lymphocytes # (auto) 0.8 10 ^3/uL (0.4-5.4); Lymphocytes % (auto) 18.7 % (10.0-50.0); Mean Corpuscular Hemoglobin 27.5 pg (28.0-32.0); Mean Corpuscular Hgb Conc. 33.5 g/dL (32.0-36.0); Mean Corpuscular Volume 82.3 fL (80.0-100.0); Monocytes # (auto) 0.4 10 ^3/uL (0-1.3); Monocytes % (auto) 9.7 % (0.0-12.0); Neutrophils # (auto) 3.1 10 ^3/uL (1.6-8.6); Neutrophils % (auto) 68.6 % (37.0-80.0); Nucleated Red Blood Cells % 0.1 %; Platelet Count (auto) 321 10^3/uL (140-450); Red Blood Cells 4.11 10^6/uL (4.0-5.20); Red Cell Distribution Width 15.6 % (11.8-14.3); White Blood Cell 4.5 10^3/uL (4.4-10.8)
[2024-09-28 15:59] LABS: Albumin 4.3 g/dL (3.2-4.8); Alkaline Phosphatase 94 U/L (46-116); Anion Gap 10 (5-15); Aspartate Aminotransferase 11 U/L (<34); BUN/Creatinine Ratio 32.2 (10.0-20.0); Calcium 9.5 mg/dL (8.7-10.4); Carbon Dioxide 25 mmol/L (20-31); Chloride 102 mmol/L (98-107); Potassium 4.3 mmol/L (3.5-5.1); Sodium 137 mmol/L (136-145)
[2024-09-28 16:01] LABS: Alanine Aminotransferase < 9 U/L (7-40); Bilirubin, Total 0.2 mg/dL (0.2-1.0); Blood Urea Nitrogen 29 mg/dL (9-23); Glucose 111 mg/dL (74-106)
--- NOTE | 2024-09-28 16:06 | DVH ---
CHEST RADIOGRAPH Indication: bradycardia Technique: Single frontal view of the chest was obtained COMPARISON: XY CHEST PORTABLE on DOS: 05/15/24, XY CHEST XRAY 1 VIEW on DOS: 05/13/24, XY CHEST XRAY 1 VIEW on DOS: 05/11/24, XY CHEST PORTABLE on DOS: 05/07/24, XY CHEST PORTABLE on DOS: 05/06/24 FINDINGS: Lines and Tubes: None Lungs: Clear Pleura: No effusion. No pneumothorax. Cardiomediastinal contours: Unremarkable Bones: Unremarkable IMPRESSION: 1. No acute disease.
[2024-09-28] MEDS: HYDROcodone-ACET 5/325MG TAB PO ONE ×2 (17:15→18:45)
[2024-09-28] MEDS ORDERED: NITROGLYCERIN 0.4 MG SL TAB SL PRN (17:30)
[2024-09-28] MEDS ORDERED: MORPHINE SULFATE INJ 2 MG/ml SYRG IV PRN (17:30)
--- NOTE | 2024-09-28 17:45 | ECG ---
[facility] Test Date: 2024-09-28 Test Time: 17:43:43 Pat Name: TSERING CHO Department: ED Room: 0249T Gender: F Staff Pharmacist: BRODERICK : 1960 Requested By: CJ BROWNE Order Number: [id number] Reading MD: Russell Sanabria Measurements Intervals [place] Rate: 76 P: 49 NV: 213 QRS: -21 QRSD: 107 T: 47 QT: 449 QTc: 505 Interpretive Statements Sinus rhythm Borderline prolonged NV interval Borderline left axis deviation Prolonged QT interval Electronically Signed On 09-29-2024 17:42:03 PDT by Russell Sanabria Please click the below link to view image of tracing.
--- NOTE | 2024-09-28 18:09 | DVHHPRES ---
History of Present Illness Resident Creating Document: CHAZ GOYAL Reason for Visit: Bradycardia History of Present Illness Patient is a 64 year old female with medical history of left breast cancer diagnosed in 2019 and not on treatment, Afib, hypothyroid and chronic back pain, presented to the ED as a transfer from [facility] for bradycardia with heart rate in the 30s-40s. According to the patient, she has been having dizziness and headaches at rest. Sometimes she feels chest tightness and pressure. Last night ( 09/27/2024) she reported to the [facility] with same complaints. She was found to have heart rate in the 40s. Patient was refereed to [facility] for management. At my time of my assess, she denied chest pain, palpitation, cough, fever, nausea, vomiting, diarrhea. Patient seen seen here in 04/2024. Echo done at that time reveal EF of 60%. Chest x-ray is unremarkable and 12 lead EKG shows sinus rhythm with HR of 76, mildly prolong NM interval. Medical history; Breast Cancer ( 2019), low thyroid, AFIB, Chronic pain Past surgical history: Right hip replacement, left femoral repair, Hysterectomy family history: Noncontributory Social history: Smokin pack years, alcohol 19 year, Allergies: tramadol, naproxen, Ibuprofen; No morphine Past Medical History See HPI Past Surgical History: Hysterectomy Past Surgical History See hpi Smoke: 1 pack per day ALCOHOL: heavy Past Social History See HPI Review of Systems Constitutional: No: Fever, Chills, Sweats, Weakness, Malaise, Other Eyes: No: Pain, Vision change, Conjunctivae inflammation, Eyelid inflammation, Other, Redness ENT: No: Ear pain, Ear discharge, Nose pain, Nose discharge, Nose congestion, Mouth pain, Mouth swelling, Throat pain, Throat swelling, Other Cardiovascular: Palpitations, Other (bradycardia); No: Chest Pain, Orthopnea, Paroxysmal Noc. Dyspnea, Edema, Lt Headedness Gastrointestinal: Constipation; No: Nausea, Vomiting, Abdominal Pain, Diarrhea, Melena, Hematochezia, Other Musculoskeletal: back pain, leg pain, foot pain; No: other, neck pain, shoulder pain, arm pain, hand pain Skin: No: Rash, Lesions, Jaundice, Bruising, Other Neurological: Weakness Allergies: Coded Allergies: Ibuprofen (Verified Allergy, Unknown, 08/08/23) Naproxen (Verified Allergy, Unknown, 08/08/23) Tramadol (Verified Allergy, Unknown, 05/20/24) Medications Current Medications Medications Dose Ordered Sig/Joann Route Start Time Stop Time Status Last Admin Dose Admin Nitroglycerin 0.4 mg Q5MINP PRN SL 09/28/24 17:30 UNV Morphine Sulfate 2 mg Q30M PRN IV 09/28/24 17:30 UNV Exam Vital Signs Vital Signs Date Time Temp Pulse Resp B/P (MAP) Pulse Ox O2 Delivery O2 Flow Rate FiO2 09/28/24 15:34 99.1 76 13 119/75 (90) 96 99.1 General Appearance: Alert, Oriented X3, Cooperative HEENT: Atraumatic, PERRLA, EOMI, Mucous membr. moist/pink Respiratory: Clear to auscultation, Normal air movement Abdominal: Normal bowel sounds, Soft Extremities: No clubbing, No cyanosis, Other (Surgical scar on left leg from below to above the knee) Neuro: Other (difficulty walking) Psych/Mental Status: Mental status NL, Mood NL, Other Labs/Xrays Labs Test 09/28/24 16:57 09/28/24 15:33 Range/Units White Blood Count 4.5 4.4-10.8 10^3/uL Red Blood Count 4.11 4.0-5.20 10^6/uL Hemoglobin 11.3 L 12.2-16.2 g/dL Hematocrit 33.8 L 36.0-46.0 % Mean Corpuscular Volume 82.3 80.0-100.0 fL Mean Corpuscular Hemoglobin 27.5 L 28.0-32.0 pg Mean Corpuscular Hemoglobin Concent 33.5 32.0-36.0 g/dL Red Cell Distribution Width 15.6 H 11.8-14.3 % Platelet Count 321 140-450 10^3/uL Mean Platelet Volume 6.5 L 6.9-10.8 fL Neutrophils (%) (Auto) 68.6 37.0-80.0 % Lymphocytes (%) (Auto) 18.7 10.0-50.0 % Monocytes (%) (Auto) 9.7 0.0-12.0 % Eosinophils (%) (Auto) 2.4 0.0-7.0 % Basophils (%) (Auto) 0.6 0.0-2.0 % Neutrophils # (Auto) 3.1 1.6-8.6 10 ^3/uL Lymphocytes # (Auto) 0.8 0.4-5.4 10 ^3/uL Monocytes # (Auto) 0.4 0-1.3 10 ^3/uL Eosinophils # (Auto) 0.1 0-0.8 10 ^3/uL Basophils # (Auto) 0 0-0.2 10 ^3/uL Nucleated Red Blood Cells 0.1 % Sodium Level 137 136-145 mmol/L Potassium Level 4.3 3.5-5.1 mmol/L Chloride Level 102 98-107 mmol/L Carbon Dioxide Level 25 20-31 mmol/L Anion Gap 10 5-15 Blood Urea Nitrogen 29 H 9-23 mg/dL Creatinine 0.90 0.550-1.02 mg/dL Glomerular Filtration Rate Calc 71 >90 mL/min BUN/Creatinine Ratio 32.2 H 10.0-20.0 Serum Glucose 111 H 74-106 mg/dL Calcium Level 9.5 8.7-10.4 mg/dL Total Bilirubin 0.2 0.2-1.0 mg/dL Aspartate Amino Transferase (AST) 11 <34 U/L Alanine Aminotransferase (ALT) < 9 7-40 U/L Alkaline Phosphatase 94 46-116 U/L B-Type Natriuretic Peptide 613.41 0-100 pg/mL Total Protein 7.0 5.7-8.2 g/dL Albumin 4.3 3.2-4.8 g/dL Assessment/Plan Assessment/Plan Assessment Cardiovascular Bradycardia, stable now HR in the 30s at an outside facility EKG: Sinus rhythm with HR 76s with mildly prolong NM interval. Plan: Stop all beta blockers Cardiology consult Afib on Amiodarone, not had it in 3 days Acute on chronic HFpEF BNP: 613 furosemide 20mg bid Strict I&O Daily weight echo: 60% ( 04/2024) Endocrine Hypothyroid: Check TSH Synthroid obesity grade 1, BMI 30.6 Breast cancer diagnosed 2018 Never received treatment Outpatient oncology follow up Chronic back pain [place] 5/325 q6hr moderate pain tylenol for mild pian Anemia - hgb: 11.3 Other chronic condition - Smokin pack years - Alcohol: 19 years Surgical history - right hip repair - left femoral fracture repair Goal of care discussed for more than 25 minutes Case and plan discussed with Dr. Plan discussed with: Patient My Orders Orders - CHAZ GOYAL RESIDENT Procedure Category Date Status Time Admit ADMIT 09/28/24 Transmitted 17:23 Nitroglycerin PHA 09/28/24 Logged Sublingual (Ntrostat 17:30 Morphine Sulfate PHA 09/28/24 Logged Injection 17:30 Stat Ekg For Chest SRIRAM 09/28/24 In Process Pain 17:23 Notify Of Changes [facility] 09/28/24 In Process From Base 17:23 Refining Machine Operator For [facility] 09/28/24 In Process 24 Hours 17:23 Emergency Dysrhythmia [facility] 09/28/24 In Process Protocol 17:23 Rhythm Strips Once [facility] 09/28/24 In Process Every Shift 17:23 Thyroid Stimulating LAB 09/28/24 Transmitted Hormone 17:27 Magnesium LAB 09/28/24 Transmitted 17:27 * Cardiology Consult CONS 09/28/24 Transmitted 17:27 Urinalysis LAB 09/28/24 Transmitted 17:27 CHAZ GOYAL RESIDENT Sep 28, 2024 18:09
[2024-09-28] MEDS ORDERED: ACETAMINOPHEN 325 MG TAB PO PRN (18:45)
[2024-09-28] MEDS: ENOXAPARIN SOD 40 MG/0.4 ML SYRINGE SC ONE (20:04)
[2024-09-28] MEDS: APIXABAN 5 MG TAB PO SCH (22:49)
[2024-09-28] MEDS: HYDROcodone-ACET 5/325MG TAB PO PRN (22:52)
[2024-09-29] VITALS (8 sets, daily range): BP systolic 128–149; BP diastolic 67–87; PULSE 69–82; RESP 16–18; TEMP 97.4–98.5; O2SAT 95–97
[2024-09-29 03:02] LABS: Urine Bacteria FEW /hpf (None Seen); Urine Blood Negative /uL (Negative); Urine Clarity Clear (Clear); Urine Color Light-Yellow (Yellow); Urine Protein, UAD Negative (Negative); Urine Specific Gravity 1.008 (1.001-1.035); Urine Squamous Epithelial Cell None Seen /hpf (<5); Urine Urobilinogen Normal (Negative); Urine WBC 5 /HPF (0-5)
[2024-09-29 03:14] LABS: Opiate Scree,Urine Neg (NEGATIVE)
[2024-09-29 03:16] LABS: Amphetamine Screen, Urine Neg (NEGATIVE); Barbiturate Scree,Urine Neg (NEGATIVE); Benzodiazephine Screen, Urine Neg (NEGATIVE); Cannabinoid Screen, Urine Neg (NEGATIVE); Cocaine Screen, Urine Neg (NEGATIVE); Phencyclidine Screen, Urine Neg (NEGATIVE)
[2024-09-29] MEDS ORDERED: DULO60CA41 PO (04:50)
[2024-09-29] MEDS ORDERED: CYCL-837 PO (04:50)
--- NOTE | 2024-09-29 10:55 | DVHINCON2 ---
Date Seen: Sep 29, 2024 Referring Physician MD Demetrius Reason for Consultation Bradycardia History of Present Illness This is a 64-year-old female transferred via EMS from [facility] to our emergency room for a chief complaint of bradycardia. The patient who resides on a post-acute facility was found with a HR in the 30s-40s bpm at night prompting staff to refer her to the nearest Emergency Room. At that time she underwent a 12 lead electrocardiogram revealing a junctional bradycardia rhythm at 42 bpm. She is currently on amiodarone 200mg BID and Eliquis therapy given history of atrial fibrillation undergoing a successful DCCV at 150J on 05/05/2024. At time of assessment, the patient was found in a normal sinus rhythm. ekg monitor tech reviewed with no bradycardic events noted. Denies any cardiac symptoms including dizziness, visual disturbance, HWANG, or syncope. Other significant medical history includes hypertension, COPD, history of breast cancer, and bedbound status x 16 months after left femur repair. Of note, the patient reports a history of PE diagnosed at this facility on her latest admission. Records reviewed with no evidence of PE or DVT. Past Medical History Past medical history reviewed. No other significant than mentioned above. Past Surgical History DCCV at 150J, 04/2024 Appendectomy Hysterectomy Knee surgery Family History: Alcoholism G8 FATHER, Diabetes mellitus G8 MOTHER, FH: congestive heart failure G8 MOTHER, G8 FATHER, FH: lung cancer G8 MOTHER, G8 FATHER, Hypertension G8 MOTHER, G8 FATHER, Smoking G8 MOTHER, G8 FATHER, Smoking G8 MOTHER, G8 FATHER, Family History Family history reviewed. Social History Denies the use of illicit drugs, alcohol, or tobacco use. Allergies: Coded Allergies: Ibuprofen (Verified Allergy, Unknown, 08/08/23) Naproxen (Verified Allergy, Unknown, 08/08/23) Tramadol (Verified Allergy, Unknown, 05/20/24) Home Meds Active Scripts Metoprolol Succinate (Toprol Xl) 25 Mg Tab, 1 TAB PO DAILY, #30 TAB 5 Refills Prov:SALDAVIDO,RAIN RN ENDOCRINOLOGY 05/19/24 Amiodarone HCl (Amiodarone HCl) 200 Mg Tab, 400 MG PO DAILY for 30 Days, #60 TAB 2 Refills Prov:SALBINO,RAIN RN ENDOCRINOLOGY 05/19/24 Cyclobenzaprine Hcl (Cyclobenzaprine Hcl) 5 Mg Tab, 1 TAB PO BID for 10 Days, #20 TAB Prov:MARISELA OROZCOOLPH RN ENDOCRINOLOGY 08/12/23 Reported Medications Cyclobenzaprine Hcl (Cyclobenzaprine Hcl) 5 Mg Tab, 2 TAB PO BID, #30 TAB 09/29/24 Duloxetine Hcl (Cymbalta) 60 Mg Cap, 0.5 CAP PO BID, #90 CAP 3 Refills 09/29/24 Melatonin (KP MELATONIN) 3 Mg Tab, 10 MG PO for sleep, TAB 08/09/23 Trazodone Hcl (Trazodone Hcl) 50 Mg Tab, 50 MG PO for sleep, TAB 08/09/23 Discontinued Reported Medications Cyclobenzaprine HCl (Cyclobenzaprine Hydrochlo) 10 Mg Tab, 1 TAB PO BIDPRN PRN 08/09/23 Montelukast Sodium (MONTELUKAST SODIUM) 10 Mg Tab, 1 TAB PO DAILY 08/09/23 Duloxetine HCl (Duloxetine HCl) 20 Mg Cap, 1 CAP PO BID 08/09/23 Cyclobenzaprine Hcl (Cyclobenzaprine Hcl) 10 Mg Tab, 10 MG PO Q8HP PRN for htn for 30 Days, MG 08/09/23 Duloxetine Hcl (Cymbalta) 20 Mg Cap, 20 MG PO BID, CAP 08/09/23 Home Meds Home medications reviewed. Current Medications Current Medications Medications (Trade) Dose Ordered Sig/Joann Route PRN Reason Start Time Stop Time Status Last Admin Nitroglycerin (Ntrostat Sublingual) 0.4 mg Q5MINP PRN SL FOR CHEST PAIN 09/28/24 17:30 Morphine Sulfate 2 mg Q30M PRN IV FOR CHEST PAIN 09/28/24 17:30 Acetaminophen/ Hydrocodone Bitart ([place] 5/325MG Tab) 1 tab Q4HPRN PRN PO MODERATE PAIN (4-6 PAIN SCALE) 09/28/24 18:45 09/29/24 06:15 Acetaminophen (Tylenol Tablet) 650 mg Q6HP PRN PO MILD PAIN (1-3 PAIN SCALE) 09/28/24 18:45 Apixaban (Eliquis) 5 mg BID PO 09/28/24 22:00 09/29/24 10:12 Review of Systems Constitutional: No symptom reported Ears, Nose, & Throat: No symptom reported Eyes: No symptom reported Neurological: No symptoms reported Pulmonary/Respiratory: No symptom reported Cardiovascular: No symptom reported Gastrointestinal: No symptom reported Genitourinary: No symptom reported Musculoskeletal: No symptom reported Skin: No symptom reported Psychiatric: No symptom reported Endocrine: No symptom reported Hemotologic/Lymphatic: No symptom reported Vital Signs Vital Signs Date Time Temp Pulse Resp B/P (MAP) Pulse Ox O2 Delivery O2 Flow Rate FiO2 09/29/24 09:00 98.0 74 16 132/77 (95) 95 98.0 09/29/24 04:39 Room Air* 0 21 Physical Exam General Appearance: Cooperative. Well developed. Well nourished. In no acute distress Head Exam: Normal inspection Neck Exam: Normal inspection. Non-tender. Normal alignment Pulmonary/Respiratory: Chest non-tender. Clear bilateral breath sounds Cardiovascular/Chest: Regular rate and rhythm. S1, S2. NSR. No murmurs. No JVD. Peripheral Pulses: 2+ Radial (R). 2+ Radial (L). 2+ Pedal (R). 2+ Pedal (L) Abdominal Exam: Normal bowel sounds. Soft. Nontender. No hepatospenomegaly. No masses Ankle Exam: Negative ankle edema Lower extremities: Negative lower extremity edema Neuro/Mental Status: A&O x4. Coherent Thoughts/Psych: Normal thought pattern. Appropriate mood and affect. Good judgement and insight Appearance: In no acute distress Skin Exam: Normal inspection. Normal color. Warm. Dry Labs/Diagnostic Data Labs Test 09/29/24 02:21 09/28/24 16:57 09/28/24 15:33 Range/Units Urine Color Light-yellow Yellow Urine Clarity Clear Clear Urine pH 6.0 5.0-9.0 Urine Specific [place] 1.008 1.001-1.035 Urine Protein Negative Negative Urine Ketones Negative Negative Urine Blood Negative Negative /uL Urine Nitrite Negative Negative Urine Bilirubin Negative Negative Urine Urobilinogen Normal Negative mg/dL Urine Leukocyte Esterase 1+ Negative /uL Urine RBC 1 0 - 4 /hpf Urine Microscopic WBC 5 0-5 /HPF Urine Squamous Epithelial Cells None seen <5 /hpf Urine Bacteria Few H None Seen /hpf Urine Glucose Normal Normal mg/dL Urine Opiates Screen Neg NEGATIVE Urine Fentanyl Screen Neg NEGATIVE Urine Barbiturates Screen Neg NEGATIVE Urine Phencyclidine Screen Neg NEGATIVE Urine Amphetamines Screen Neg NEGATIVE Urine Benzodiazepines Screen Neg NEGATIVE Urine Cocaine Screen Neg NEGATIVE Urine Cannabinoids Screen Neg NEGATIVE Troponin I High Sensitivity 3 L </=34 ng/L White Blood Count 4.5 4.4-10.8 10^3/uL Red Blood Count 4.11 4.0-5.20 10^6/uL Hemoglobin 11.3 L 12.2-16.2 g/dL Hematocrit 33.8 L 36.0-46.0 % Mean Corpuscular Volume 82.3 80.0-100.0 fL Mean Corpuscular Hemoglobin 27.5 L 28.0-32.0 pg Mean Corpuscular Hemoglobin Concent 33.5 32.0-36.0 g/dL Red Cell Distribution Width 15.6 H 11.8-14.3 % Platelet Count 321 140-450 10^3/uL Mean Platelet Volume 6.5 L 6.9-10.8 fL Neutrophils (%) (Auto) 68.6 37.0-80.0 % Lymphocytes (%) (Auto) 18.7 10.0-50.0 % Monocytes (%) (Auto) 9.7 0.0-12.0 % Eosinophils (%) (Auto) 2.4 0.0-7.0 % Basophils (%) (Auto) 0.6 0.0-2.0 % Neutrophils # (Auto) 3.1 1.6-8.6 10 ^3/uL Lymphocytes # (Auto) 0.8 0.4-5.4 10 ^3/uL Monocytes # (Auto) 0.4 0-1.3 10 ^3/uL Eosinophils # (Auto) 0.1 0-0.8 10 ^3/uL Basophils # (Auto) 0 0-0.2 10 ^3/uL Nucleated Red Blood Cells 0.1 % Sodium Level 137 136-145 mmol/L Potassium Level 4.3 3.5-5.1 mmol/L Chloride Level 102 98-107 mmol/L Carbon Dioxide Level 25 20-31 mmol/L Anion Gap 10 5-15 Blood Urea Nitrogen 29 H 9-23 mg/dL Creatinine 0.90 0.550-1.02 mg/dL Glomerular Filtration Rate Calc 71 >90 mL/min BUN/Creatinine Ratio 32.2 H 10.0-20.0 Serum Glucose 111 H 74-106 mg/dL Calcium Level 9.5 8.7-10.4 mg/dL Magnesium Level 1.9 1.6-2.6 mg/dL Total Bilirubin 0.2 0.2-1.0 mg/dL Aspartate Amino Transferase (AST) 11 <34 U/L Alanine Aminotransferase (ALT) < 9 7-40 U/L Alkaline Phosphatase 94 46-116 U/L B-Type Natriuretic Peptide 613.41 0-100 pg/mL Total Protein 7.0 5.7-8.2 g/dL Albumin 4.3 3.2-4.8 g/dL Thyroid Stimulating Hormone (TSH) 5.00 H 0.55-4.78 uIU/mL Assessment AV sergey blocking agent induced bradycardia Atrial fibrillation status post successful DCCV on 04/2024, now NSR (currently on amiodarone/Eliquis) Chronic COPD exacerbation Severe hypertriglyceridemia Bedbound status Obesity Plan/Recommendation (Dr. Trotter) Highly suspected for AV sergey blocking agent induced bradycardia. The patient underwent a successful DCCV on her latest admission on 04/2024. Recommendations are for discontinuation of amiodarone therapy given history of successful DCCV and current NSR. She can benefit from an outpatient event monitor to further delineate bradyarrhythmias when off AV sergey blocking agents and need of permanent pacemaker. Recent transthoracic echocardiogram from 05/02/2024 revealed a LVEF of 60% with normal RV function, LAE, and no severe valve abnormalities. There is no further cardiac work-up indicated at this time. Kindly call if in need to re-consult. Thank you for allowing us to participate in this patient's care. This medical document was created using an electronic medical record system with voice recognition software and computerized dictation system. Although this document has been carefully reviewed, there might still be some phonetic and typographical errors. Occasional wrong-word or ``sound-alike substitutions may have occurred due to the inherent limitations of voice recognition software. These areas are purely typographical due to imperfections of the software programs and do not reflect any compromise in the patient's medical care. Please read the chart carefully and recognize, using context, where these substitutions have occurred. Plan discussed with: Patient, Other NYHA Physical activity limitations: NA Date of Service: Sep 29, 2024 Billing Provider: PAYAL MCCALL Cardiology Common Codes: [id number] INP/OBS CARE (High) PAYAL MCCALL Sep 29, 2024 10:55
--- NOTE | 2024-09-29 11:48 | DVHPN2 ---
Subjective 64 year old female came with bradycardia She went to [facility], HR was 30-40 Here HR: 70s now after holding amiodarone Changes from previous H/P or p: Changes Eyes: No Pain, No Vision change, No Conjunctivae inflammation, No Eyelid inflammation, No Other, No Redness ENT: No Ear pain, No Ear discharge, No Nose pain, No Nose discharge, No Nose congestion, No Mouth pain, No Mouth swelling, No Throat pain, No Throat swelling, No Other Cardiovascular: No Chest Pain; Palpitations; No Orthopnea, No Paroxysmal Noc. Dyspnea, No Edema, No Lt Headedness; Other (bradycardia) Gastrointestinal: No Nausea, No Vomiting, No Abdominal Pain, No Diarrhea; C onstipation; No Melena, No Hematochezia, No Other Musculoskeletal: No other, No neck pain, No shoulder pain, No arm pain; back pain; No hand pain; leg pain, foot pain Skin: No Rash, No Lesions, No Jaundice, No Bruising, No Other Objective Vitals Vital Signs Date Time Temp Pulse Resp B/P (MAP) Pulse Ox O2 Delivery O2 Flow Rate FiO2 09/29/24 09:00 98.0 74 16 132/77 (95) 95 98.0 09/29/24 08:00 Room Air* 0 21 Intake/Output Intake and Output 09/29/24 07:00 Intake Total 0 ml Output Total 250 ml Balance -250 ml Intake Oral 0 ml Output Urine Total 250 ml General Appearance: Alert, Oriented X3, Cooperative Lungs: Clear to auscultation, Normal air movement Cardiovascular: Regular rate, Normal S1, Normal S2 Abdomen: Normal bowel sounds, Soft, No tenderness Extremities: No edema 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) Medications Current Medications Medications Dose Ordered Sig/Joann Route Start Time Stop Time Status Last Admin Dose Admin Nitroglycerin 0.4 mg Q5MINP PRN SL 09/28/24 17:30 Morphine Sulfate 2 mg Q30M PRN IV 09/28/24 17:30 Acetaminophen/ Hydrocodone Bitart 1 tab Q4HPRN PRN PO 09/28/24 18:45 09/29/24 06:15 1 TAB Acetaminophen 650 mg Q6HP PRN PO 09/28/24 18:45 Apixaban 5 mg BID PO 09/28/24 22:00 09/29/24 10:12 5 MG Laboratory Results Laboratory Tests 09/28/24 15:33 Chemistry Test 09/28/24 15:33 Albumin 4.3 g/dL (3.2-4.8) Calcium Level 9.5 mg/dL (8.7-10.4) Magnesium Level 1.9 mg/dL (1.6-2.6) Total Protein 7.0 g/dL (5.7-8.2) Cardiac Markers Test 09/28/24 15:33 B-Type Natriuretic Peptide 613.41 pg/mL (0-100) LFT Test 09/28/24 15:33 Alanine Aminotransferase (ALT) < 9 U/L (7-40) Alkaline Phosphatase 94 U/L (46-116) Aspartate Amino Transferase (AST) 11 U/L (<34) Total Bilirubin 0.2 mg/dL (0.2-1.0) HgA1c, TSH Test 09/28/24 15:33 Thyroid Stimulating Hormone (TSH) 5.00 uIU/mL (0.55-4.78) H Urinalysis Test 09/29/24 02:21 Urine Color Light-yellow (Yellow) Urine Clarity Clear (Clear) Urine pH 6.0 (5.0-9.0) Urine Specific [place] 1.008 (1.001-1.035) Urine Protein Negative (Negative) Urine Ketones Negative (Negative) Urine Blood Negative /uL (Negative) Urine Nitrite Negative (Negative) Urine Bilirubin Negative (Negative) Urine Urobilinogen Normal mg/dL (Negative) Urine Leukocyte Esterase 1+ /uL (Negative) Urine RBC 1 /hpf (0 - 4) Urine Microscopic WBC 5 /HPF (0-5) Urine Squamous Epithelial Cells None seen /hpf (<5) Urine Bacteria Few /hpf (None Seen) H Urine Glucose Normal mg/dL (Normal) Assessment/Plan Assessment/Plan Bradycardia most likely due to Amiodarone Right hand weakness Afib h/o breast CA, received no treatment, she said she could not get it because she did not have transportation to go have radiation Tx s/p Right hip replacement, left femoral repair, Bed bound Hysterectomy PLAN: DC amiodarone Cardiology consult Monitor on Tele R hand weakness: Get CT head Full code Advanced directives discussed for 19 minutes Plan discussed with: Patient My Orders Orders - ZULY DILLARD MD Procedure Category Date Status Time Head Without Contrast CT 09/29/24 Transmitted 11:41 Date of Service: Sep 29, 2024 Billing Provider: ZULY DILLARD MD Common Visit Codes: [id number] INP/OBS CARE(HIGH) Secondary Visit Codes: [id number] CARE PLAN 30 MINUTES ZULY DILLARD MD Sep 29, 2024 11:48
--- NOTE | 2024-09-29 13:33 | DVH ---
EXAM: CT HEAD WITHOUT CONTRAST HISTORY: weakness COMPARISON: None TECHNIQUE: Axial images of the head were obtained and reformatted in coronal and sagittal planes. All CT scans at this medical facility are performed using dose modulation techniques as appropriate t o a performed exam including the following: Automated exposure control was utilized; adjustment of th e MA and/or KV according to patient size; and use of iterative reconstruction technique. CT Dose: CTDI volume is 49.25 mGy. Dose-length product is 888.28 mGy*cm FINDINGS: There is no evidence of acute intracranial hemorrhage, mass, mass effect midline shift. There is no h ydrocephalus or extra-axial fluid collection. Kumar-white matter differentiation is maintained. The visualized paranasal sinuses and mastoid air cells are clear. The calvarium is intact. IMPRESSION: 1. No acute intracranial process. HS:Y
[2024-09-30] VITALS (7 sets, daily range): BP systolic 114–141; BP diastolic 62–73; PULSE 66–76; RESP 16–18; TEMP 97.3–99.6; O2SAT 94–100
--- NOTE | 2024-09-30 00:14 | DVHINCON2 ---
Date Seen: Sep 29, 2024 Referring Physician MD Demetrius Reason for Consultation Bradycardia History of Present Illness This is a 64-year-old female with a PMH of hypertension, COPD, history of breast cancer, and bedbound status x 16 months [facility] a complaint of bradycardia. The patient who resides on a post-acute facility was found with a HR in the 30s- 40s bpm at night prompting staff to refer her to the nearest ED. At that time she underwent a 12 lead electrocardiogram revealing a junctional bradycardia rhythm at 42 bpm. She is currently on amiodarone 200mg BID and Eliquis therapy given history of atrial fibrillation undergoing a successful DCCV at 150J on 05/05/2024. At time of assessment, the patient was found in a normal sinus rhythm. phototypesetting equipment monitor reviewed with no bradycardic events noted. Denies any cardiac symptoms including dizziness, visual disturbance, HWANG, or syncope. UDS is negative. UA is negative for infection. BNP 613.41. Troponin is negative x3. Patient was admitted to the hospital. I am asked to consult on this patient. Of note, the patient reports a history of PE diagnosed at this facility on her latest admission. Records reviewed with no evidence of PE or DVT. Past Medical History Past medical history reviewed. No other significant than mentioned above. Past Surgical History DCCV at 150J, 04/2024 Appendectomy Hysterectomy Knee surgery Family History: Alcoholism G8 FATHER, Diabetes mellitus G8 MOTHER, FH: congestive heart failure G8 MOTHER, G8 FATHER, FH: lung cancer G8 MOTHER, G8 FATHER, Hypertension G8 MOTHER, G8 FATHER, Smoking G8 MOTHER, G8 FATHER, Smoking G8 MOTHER, G8 FATHER, Allergies: Coded Allergies: Ibuprofen (Verified Allergy, Unknown, 08/08/23) Naproxen (Verified Allergy, Unknown, 08/08/23) Tramadol (Verified Allergy, Unknown, 05/20/24) Home Meds Active Scripts Metoprolol Succinate (Toprol Xl) 25 Mg Tab, 1 TAB PO DAILY, #30 TAB 5 Refills Prov:BRISEYDA OROZCO PERSONNEL ANALYST 05/19/24 Amiodarone HCl (Amiodarone HCl) 200 Mg Tab, 400 MG PO DAILY for 30 Days, #60 TAB 2 Refills Prov:SALBINO,RAIN PERSONNEL ANALYST 05/19/24 Cyclobenzaprine Hcl (Cyclobenzaprine Hcl) 5 Mg Tab, 1 TAB PO BID for 10 Days, #20 TAB Prov:RBISEYDA OROZCO PERSONNEL ANALYST 08/12/23 Reported Medications Cyclobenzaprine Hcl (Cyclobenzaprine Hcl) 5 Mg Tab, 2 TAB PO BID, #30 TAB 09/29/24 Duloxetine Hcl (Cymbalta) 60 Mg Cap, 0.5 CAP PO BID, #90 CAP 3 Refills 09/29/24 Melatonin (KP MELATONIN) 3 Mg Tab, 10 MG PO for sleep, TAB 08/09/23 Trazodone Hcl (Trazodone Hcl) 50 Mg Tab, 50 MG PO for sleep, TAB 08/09/23 Discontinued Reported Medications Cyclobenzaprine HCl (Cyclobenzaprine Hydrochlo) 10 Mg Tab, 1 TAB PO BIDPRN PRN 08/09/23 Montelukast Sodium (MONTELUKAST SODIUM) 10 Mg Tab, 1 TAB PO DAILY 08/09/23 Duloxetine HCl (Duloxetine HCl) 20 Mg Cap, 1 CAP PO BID 08/09/23 Cyclobenzaprine Hcl (Cyclobenzaprine Hcl) 10 Mg Tab, 10 MG PO Q8HP PRN for htn for 30 Days, MG 08/09/23 Duloxetine Hcl (Cymbalta) 20 Mg Cap, 20 MG PO BID, CAP 08/09/23 Review of Systems Constitutional: No symptom reported Ears, Nose, & Throat: No symptom reported Eyes: No symptom reported Neurological: No symptoms reported Pulmonary/Respiratory: No symptom reported Cardiovascular: No symptom reported Gastrointestinal: No symptom reported Genitourinary: No symptom reported Musculoskeletal: No symptom reported Skin: No symptom reported Psychiatric: No symptom reported Endocrine: No symptom reported Hemotologic/Lymphatic: No symptom reported Vital Signs Vital Signs Date Time Temp Pulse Resp B/P (MAP) Pulse Ox O2 Delivery O2 Flow Rate FiO2 09/29/24 21:00 97.4 78 16 128/67 (87) 95 97.4 09/29/24 08:00 Room Air* 0 21 Physical Exam GENERAL: Alert and oriented x 3. No acute distress. Obese. EYES: PERRL, EOMI. Anicteric. HENT: Moist mucous membranes. LUNGS: Clear to auscultation bilaterally. CARDIOVASCULAR: Regular rate and rhythm. ABDOMEN: Soft, non-tender and non-distended. EXTREMITIES: No edema. NEUROLOGIC: No focal neurological deficits. SKIN: Warm, dry. Labs/Diagnostic Data Labs Test 09/29/24 02:21 09/28/24 16:57 09/28/24 15:33 Range/Units Urine Color Light-yellow Yellow Urine Clarity Clear Clear Urine pH 6.0 5.0-9.0 Urine Specific [place] 1.008 1.001-1.035 Urine Protein Negative Negative Urine Ketones Negative Negative Urine Blood Negative Negative /uL Urine Nitrite Negative Negative Urine Bilirubin Negative Negative Urine Urobilinogen Normal Negative mg/dL Urine Leukocyte Esterase 1+ Negative /uL Urine RBC 1 0 - 4 /hpf Urine Microscopic WBC 5 0-5 /HPF Urine Squamous Epithelial Cells None seen <5 /hpf Urine Bacteria Few H None Seen /hpf Urine Glucose Normal Normal mg/dL Urine Opiates Screen Neg NEGATIVE Urine Fentanyl Screen Neg NEGATIVE Urine Barbiturates Screen Neg NEGATIVE Urine Phencyclidine Screen Neg NEGATIVE Urine Amphetamines Screen Neg NEGATIVE Urine Benzodiazepines Screen Neg NEGATIVE Urine Cocaine Screen Neg NEGATIVE Urine Cannabinoids Screen Neg NEGATIVE Troponin I High Sensitivity 3 L </=34 ng/L White Blood Count 4.5 4.4-10.8 10^3/uL Red Blood Count 4.11 4.0-5.20 10^6/uL Hemoglobin 11.3 L 12.2-16.2 g/dL Hematocrit 33.8 L 36.0-46.0 % Mean Corpuscular Volume 82.3 80.0-100.0 fL Mean Corpuscular Hemoglobin 27.5 L 28.0-32.0 pg Mean Corpuscular Hemoglobin Concent 33.5 32.0-36.0 g/dL Red Cell Distribution Width 15.6 H 11.8-14.3 % Platelet Count 321 140-450 10^3/uL Mean Platelet Volume 6.5 L 6.9-10.8 fL Neutrophils (%) (Auto) 68.6 37.0-80.0 % Lymphocytes (%) (Auto) 18.7 10.0-50.0 % Monocytes (%) (Auto) 9.7 0.0-12.0 % Eosinophils (%) (Auto) 2.4 0.0-7.0 % Basophils (%) (Auto) 0.6 0.0-2.0 % Neutrophils # (Auto) 3.1 1.6-8.6 10 ^3/uL Lymphocytes # (Auto) 0.8 0.4-5.4 10 ^3/uL Monocytes # (Auto) 0.4 0-1.3 10 ^3/uL Eosinophils # (Auto) 0.1 0-0.8 10 ^3/uL Basophils # (Auto) 0 0-0.2 10 ^3/uL Nucleated Red Blood Cells 0.1 % Sodium Level 137 136-145 mmol/L Potassium Level 4.3 3.5-5.1 mmol/L Chloride Level 102 98-107 mmol/L Carbon Dioxide Level 25 20-31 mmol/L Anion Gap 10 5-15 Blood Urea Nitrogen 29 H 9-23 mg/dL Creatinine 0.90 0.550-1.02 mg/dL Glomerular Filtration Rate Calc 71 >90 mL/min BUN/Creatinine Ratio 32.2 H 10.0-20.0 Serum Glucose 111 H 74-106 mg/dL Calcium Level 9.5 8.7-10.4 mg/dL Magnesium Level 1.9 1.6-2.6 mg/dL Total Bilirubin 0.2 0.2-1.0 mg/dL Aspartate Amino Transferase (AST) 11 <34 U/L Alanine Aminotransferase (ALT) < 9 7-40 U/L Alkaline Phosphatase 94 46-116 U/L B-Type Natriuretic Peptide 613.41 0-100 pg/mL Total Protein 7.0 5.7-8.2 g/dL Albumin 4.3 3.2-4.8 g/dL Thyroid Stimulating Hormone (TSH) 5.00 H 0.55-4.78 uIU/mL Microbiology Date/Time Source Procedure Growth Status 09/29/24 06:08 Nose MRSA Screen - Final Methicillin Resistant S.aureus Complete Assessment AV sergey blocking agent induced bradycardia. Atrial fibrillation status post successful DCCV on 04/2024, now NSR (currently on amiodarone/Eliquis). Chronic COPD exacerbation. Severe hypertriglyceridemia. Bedbound status. Obesity. Plan/Recommendation I agree with your ongoing assessment and care of plan. Patient has been seen by Jaida Larios NP on my behalf. We have discussed the plan with the patient. Highly suspected for AV sergey blocking agent induced bradycardia. The patient underwent a successful DCCV on her latest admission on 04/2024. Recommendations are for discontinuation of amiodarone therapy given history of successful DCCV and current NSR. She can benefit from an outpatient event monitor to further delineate bradyarrhythmias when off AV sergey blocking agents and need of permanent pacemaker. Recent transthoracic echocardiogram from 05/02/2024 revealed a LVEF of 60% with normal RV function, LAE, and no severe valve abnormalities. IV antibiotics as ordered. Additional plan as per the hospital course. Plan discussed with: Patient NYHA Physical activity limitations: NA Date of Service: Sep 29, 2024 Billing Provider: DELORIS HENNESSY MD Cardiology Common Codes: 29634-[id number] INP/OBS CARE (High) DELORIS HENNESSY MD Sep 30, 2024 00:14
[2024-09-30 05:30] LABS: Triglycerides 127 mg/dL (< 150)
[2024-09-30 05:32] LABS: Cholesterol 182 mg/dL (< 200)
[2024-09-30 05:35] LABS: HDL Cholesterol 32 mg/dL (40-59); LDL Cholesterol 141 mg/dL (< 100)
--- NOTE | 2024-09-30 10:08 | DVHDS2 ---
Discharge Summary Date of Admission Sep 28, 2024 at 17:23 Date of Discharge: Sep 30, 2024 Labs/Diagnostic Data: Laboratory Results Test 09/30/24 04:46 09/29/24 02:21 09/28/24 16:57 09/28/24 15:33 Triglycerides Level 127 mg/dL (< 150) Cholesterol Level 182 mg/dL (< 200) LDL Cholesterol 141 mg/dL (< 100) HDL Cholesterol 32 mg/dL (40-59) Urine Color Light-yellow (Yellow) Urine Clarity Clear (Clear) Urine pH 6.0 (5.0-9.0) Urine Specific [place] 1.008 (1.001-1.035) Urine Protein Negative (Negative) Urine Ketones Negative (Negative) Urine Blood Negative /uL (Negative) Urine Nitrite Negative (Negative) Urine Bilirubin Negative (Negative) Urine Urobilinogen Normal mg/dL (Negative) Urine Leukocyte Esterase 1+ /uL (Negative) Urine RBC 1 /hpf (0 - 4) Urine Microscopic WBC 5 /HPF (0-5) Urine Squamous Epithelial Cells None seen /hpf (<5) Urine Bacteria Few /hpf (None Seen) Urine Glucose Normal mg/dL (Normal) Urine Opiates Screen Neg (NEGATIVE) Urine Fentanyl Screen Neg (NEGATIVE) Urine Barbiturates Screen Neg (NEGATIVE) Urine Phencyclidine Screen Neg (NEGATIVE) Urine Amphetamines Screen Neg (NEGATIVE) Urine Benzodiazepines Screen Neg (NEGATIVE) Urine Cocaine Screen Neg (NEGATIVE) Urine Cannabinoids Screen Neg (NEGATIVE) Troponin I High Sensitivity 3 ng/L (</=34) White Blood Count 4.5 10^3/uL (4.4-10.8) Red Blood Count 4.11 10^6/uL (4.0-5.20) Hemoglobin 11.3 g/dL (12.2-16.2) Hematocrit 33.8 % (36.0-46.0) Mean Corpuscular Volume 82.3 fL (80.0-100.0) Mean Corpuscular Hemoglobin 27.5 pg (28.0-32.0) Mean Corpuscular Hemoglobin Concent 33.5 g/dL (32.0-36.0) Red Cell Distribution Width 15.6 % (11.8-14.3) Platelet Count 321 10^3/uL (140-450) Mean Platelet Volume 6.5 fL (6.9-10.8) Neutrophils (%) (Auto) 68.6 % (37.0-80.0) Lymphocytes (%) (Auto) 18.7 % (10.0-50.0) Monocytes (%) (Auto) 9.7 % (0.0-12.0) Eosinophils (%) (Auto) 2.4 % (0.0-7.0) Basophils (%) (Auto) 0.6 % (0.0-2.0) Neutrophils # (Auto) 3.1 10 ^3/uL (1.6-8.6) Lymphocytes # (Auto) 0.8 10 ^3/uL (0.4-5.4) Monocytes # (Auto) 0.4 10 ^3/uL (0-1.3) Eosinophils # (Auto) 0.1 10 ^3/uL (0-0.8) Basophils # (Auto) 0 10 ^3/uL (0-0.2) Nucleated Red Blood Cells 0.1 % Sodium Level 137 mmol/L (136-145) Potassium Level 4.3 mmol/L (3.5-5.1) Chloride Level 102 mmol/L (98-107) Carbon Dioxide Level 25 mmol/L (20-31) Anion Gap 10 (5-15) Blood Urea Nitrogen 29 mg/dL (9-23) Creatinine 0.90 mg/dL (0.550-1.02) Glomerular Filtration Rate Calc 71 mL/min (>90) BUN/Creatinine Ratio 32.2 (10.0-20.0) Serum Glucose 111 mg/dL (74-106) Calcium Level 9.5 mg/dL (8.7-10.4) Magnesium Level 1.9 mg/dL (1.6-2.6) Total Bilirubin 0.2 mg/dL (0.2-1.0) Aspartate Amino Transferase (AST) 11 U/L (<34) Alanine Aminotransferase (ALT) < 9 U/L (7-40) Alkaline Phosphatase 94 U/L (46-116) B-Type Natriuretic Peptide 613.41 pg/mL (0-100) Total Protein 7.0 g/dL (5.7-8.2) Albumin 4.3 g/dL (3.2-4.8) Thyroid Stimulating Hormone (TSH) 5.00 uIU/mL (0.55-4.78) Other Laboratory Tests 09/28/24 15:33 Brief Hx & Hospital Course: Final diagnoses: Bradycardia most likely due to Amiodarone Right hand weakness, no CVA Afib h/o breast CA, received no treatment, she said she could not get it because she did not have transportation to go have radiation Tx s/p Right hip replacement, left femoral repair, Bed bound Hysterectomy 64-year-old female who was admitted for bradycardia She was taking amiodarone at home She had AFib previously and was started on amiodarone and Eliquis and therefore she developed symptomatic bradycardia She was admitted here after the amiodarone was discontinued and her heart rate remained stable since then She was seen by Cardiology here The recommendation was to discontinue amiodarone and metoprolol She has stayed in sinus rhythm now She is asymptomatic The patient is bed-bound from her previous hip surgery, she is at SNF in [place] The patient is stable for discharge Discontinue amiodarone No beta blockers Continue Eliquis for now Continue the other home medications Condition at Discharge: Stable Final Diagnosis/Problems List Bradycardia most likely due to Amiodarone Right hand weakness Afib h/o breast CA, received no treatment, she said she could not get it because she did not have transportation to go have radiation Tx s/p Right hip replacement, left femoral repair, Bed bound Hysterectomy Discharge Disposition: Detention Facility SNF Discharge Will this Physician continue t: No Discharge Instruct/Medications Diet: Cardiac 2g Na,low cholest Activity: No Restrictions, As Tolerated Follow Up/Referral: SNF MD Medications: Discontinue amiodarone Discontinue metoprolol Resume other home medications Discharge Statement: "Patient was advised to return to the ER or call 911 if any headaches, dizziness, shortness of breath, chest pain, abdominal pain, bleeding, fevers, or worsening of medical condition. Patient was counseled about treatment plan, medications, possible side effects, patientverbalized understanding. All questions were answered to the best of my ability. This discharge took greater then 30 minutes in planning, reviewing documentation, counseling the patient, and discussing with other team members." ASSESSMENT ASSESSMENT Assessment Bradycardia most likely due to Amiodarone Right hand weakness Afib h/o breast CA, received no treatment, she said she could not get it because she did not have transportation to go have radiation Tx s/p Right hip replacement, left femoral repair, Bed bound Hysterectomy Date of Service: Sep 30, 2024 Billing Provider: ZULY DILLARD MD Common Visit Codes: 80519-[id number] DISCH DAY >30min ZULY DILLARD MD Sep 30, 2024 10:08
--- NOTE | 2024-09-30 18:01 | DVHPN2 ---
Progress Note - Dictate Date Seen: Sep 30, 2024 Medical Necessity Reason Pt with a Central, PICC or Fol: No Subjective Patient was seen and evaluated in follow up. Patient is complaining of generalized pain. Patient had a pause on ekg monitor. LDL 141, HDL 32. MRSA swab is positive. Telemetry reviewed. vital signs Vital Sign Date Time Temp Pulse Resp B/P (MAP) Pulse Ox O2 Delivery O2 Flow Rate FiO2 09/30/24 17:00 98.5 76 16 114/62 (79) 97 98.5 09/30/24 08:00 Room Air* 0 21 Total Intake and Output 09/29/24 09/29/24 09/30/24 15:00 23:00 07:00 Intake Total 688 ml 1000 ml Output Total 2100 ml 2500 ml Balance -1412 ml -1500 ml medications Current Medications Medications Dose Ordered Sig/Joann Route Start Time Stop Time Status Last Admin Dose Admin Nitroglycerin 0.4 mg Q5MINP PRN SL 09/28/24 17:30 Morphine Sulfate 2 mg Q30M PRN IV 09/28/24 17:30 Acetaminophen/ Hydrocodone Bitart 1 tab Q4HPRN PRN PO 09/28/24 18:45 09/30/24 17:12 1 TAB Acetaminophen 650 mg Q6HP PRN PO 09/28/24 18:45 Apixaban 5 mg BID PO 09/28/24 22:00 09/30/24 10:21 5 MG objective GENERAL: Alert and oriented x 3. No acute distress. Obese. EYES: PERRL, EOMI. Anicteric. HENT: Moist mucous membranes. LUNGS: Clear to auscultation bilaterally. CARDIOVASCULAR: Regular rate and rhythm. ABDOMEN: Soft, non-tender and non-distended. EXTREMITIES: No edema. NEUROLOGIC: No focal neurological deficits. SKIN: Warm, dry. laboratory and microbiology Laboratory Tests 09/28/24 15:33 Test 09/28/24 15:33 Range/Units Serum Glucose 111 H 74-106 mg/dL Problem List AV sergey blocking agent induced bradycardia. Atrial fibrillation status post successful DCCV on 04/2024, now NSR (currently on amiodarone/Eliquis). Chronic COPD exacerbation. Severe hypertriglyceridemia. Bedbound status. Obesity. Assessment/Plan Continued all current supportive medical care. Eliquis. Morphine and [place] for pain management. Nitro SL. Additional plan as per the hospital course. Dietary Evaluation Review Comments: 1. follow a cardiac diet with vitamine D, Zn and Mg supplements for promoting wound healing, encourge physical activities and wt management. 2. Moniitor PO intake and lab values Expected Outcomes/Goals: gradual wt loss Plan discussed with: Patient DELORIS HENNESSY MD Sep 30, 2024 17:41
[2024-09-30] MEDS: traZODone HCL 50 MG TAB PO ONE (22:49)
[2024-10-01] VITALS (7 sets, daily range): BP systolic 113–144; BP diastolic 63–85; PULSE 63–74; RESP 17–18; TEMP 36.7; O2SAT 94–97
--- NOTE | 2024-10-01 11:40 | DVHPN2 ---
Eyes: No Pain, No Vision change, No Conjunctivae inflammation, No Eyelid inflammation, No Other, No Redness ENT: No Ear pain, No Ear discharge, No Nose pain, No Nose discharge, No Nose congestion, No Mouth pain, No Mouth swelling, No Throat pain, No Throat swelling, No Other Cardiovascular: No Chest Pain; Palpitations; No Orthopnea, No Paroxysmal Noc. Dyspnea, No Edema, No Lt Headedness; Other (bradycardia) Gastrointestinal: No Nausea, No Vomiting, No Abdominal Pain, No Diarrhea; C onstipation; No Melena, No Hematochezia, No Other Musculoskeletal: No other, No neck pain, No shoulder pain, No arm pain; back pain; No hand pain; leg pain, foot pain Skin: No Rash, No Lesions, No Jaundice, No Bruising, No Other Objective Vitals Vital Signs Date Time Temp Pulse Resp B/P (MAP) Pulse Ox O2 Delivery O2 Flow Rate FiO2 10/01/24 09:00 97.7 63 17 144/85 (104) 97 97.7 10/01/24 07:52 Room Air* 0 21 Intake/Output Intake and Output 10/01/24 07:00 Intake Total 2250 ml Output Total 5400 ml Balance -3150 ml Intake Oral 2250 ml Output Urine Total 5400 ml General Appearance: Alert, Oriented X3, Cooperative Lungs: Clear to auscultation, Normal air movement Cardiovascular: Regular rate, Normal S1, Normal S2 Abdomen: Normal bowel sounds, Soft, No tenderness Extremities: No edema Neuro: Other (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) Medications Current Medications Medications Dose Ordered Sig/Joann Route Start Time Stop Time Status Last Admin Dose Admin Nitroglycerin 0.4 mg Q5MINP PRN SL 09/28/24 17:30 Morphine Sulfate 2 mg Q30M PRN IV 09/28/24 17:30 Acetaminophen/ Hydrocodone Bitart 1 tab Q4HPRN PRN PO 09/28/24 18:45 10/01/24 09:29 1 TAB Acetaminophen 650 mg Q6HP PRN PO 09/28/24 18:45 Apixaban 5 mg BID PO 09/28/24 22:00 10/01/24 09:19 5 MG Laboratory Results Laboratory Tests 09/28/24 15:33 Urinalysis Test 09/29/24 02:21 Urine Color Light-yellow (Yellow) Urine Clarity Clear (Clear) Urine pH 6.0 (5.0-9.0) Urine Specific [place] 1.008 (1.001-1.035) Urine Protein Negative (Negative) Urine Ketones Negative (Negative) Urine Blood Negative /uL (Negative) Urine Nitrite Negative (Negative) Urine Bilirubin Negative (Negative) Urine Urobilinogen Normal mg/dL (Negative) Urine Leukocyte Esterase 1+ /uL (Negative) Urine RBC 1 /hpf (0 - 4) Urine Microscopic WBC 5 /HPF (0-5) Urine Squamous Epithelial Cells None seen /hpf (<5) Urine Bacteria Few /hpf (None Seen) H Urine Glucose Normal mg/dL (Normal) Microbiology Microbiology Date/Time Source Procedure Growth Status 09/29/24 06:08 Nose MRSA Screen - Final Methicillin Resistant S.aureus Complete 09/29/24 02:21 Voided Urine Urine Culture - Final Complete ARTEM BULLOCK MD Oct 01, 2024 11:40
--- NOTE | 2024-10-01 22:48 | DVHPN2 ---
Progress Note - Dictate Date Seen: Oct 01, 2024 Medical Necessity Reason Pt with a Central, PICC or Fol: No Subjective Patient was seen and evaluated in follow up. No overnight events. Urine culture grew >100,000 CFU/mL Mixed Anjelica. Patient is cardiac stable for discharge. Telemetry reviewed. vital signs Vital Sign Date Time Temp Pulse Resp B/P (MAP) Pulse Ox O2 Delivery O2 Flow Rate FiO2 10/01/24 09:00 97.7 63 17 144/85 (104) 97 97.7 10/01/24 07:52 Room Air* 0 21 Total Intake and Output 09/30/24 09/30/24 10/01/24 15:00 23:00 07:00 Intake Total 1450 ml 800 ml Output Total 2100 ml 3300 ml Balance -650 ml -2500 ml medications Current Medications Medications Dose Ordered Sig/Joann Route Start Time Stop Time Status Last Admin Dose Admin Nitroglycerin 0.4 mg Q5MINP PRN SL 09/28/24 17:30 Morphine Sulfate 2 mg Q30M PRN IV 09/28/24 17:30 Acetaminophen/ Hydrocodone Bitart 1 tab Q4HPRN PRN PO 09/28/24 18:45 10/01/24 09:29 1 TAB Acetaminophen 650 mg Q6HP PRN PO 09/28/24 18:45 Apixaban 5 mg BID PO 09/28/24 22:00 10/01/24 09:19 5 MG objective GENERAL: Alert and oriented x 3. No acute distress. Obese. EYES: PERRL, EOMI. Anicteric. HENT: Moist mucous membranes. LUNGS: Clear to auscultation bilaterally. CARDIOVASCULAR: Regular rate and rhythm. ABDOMEN: Soft, non-tender and non-distended. EXTREMITIES: No edema. NEUROLOGIC: No focal neurological deficits. SKIN: Warm, dry. laboratory and microbiology Laboratory Tests 09/28/24 15:33 Test 09/28/24 15:33 Range/Units Serum Glucose 111 H 74-106 mg/dL Problem List AV sergey blocking agent induced bradycardia. Atrial fibrillation status post successful DCCV on 04/2024, now NSR (currently on amiodarone/Eliquis). Chronic COPD exacerbation. Severe hypertriglyceridemia. Bedbound status. Obesity. Assessment/Plan Continued all current supportive medical care. Eliquis. Morphine and [place] for pain management. Nitro SL. Additional plan as per the hospital course. Dietary Evaluation Review Comments: 1. follow a cardiac diet with vitamine D, Zn and Mg supplements for promoting wound healing, encourge physical activities and wt management. 2. Moniitor PO intake and lab values Expected Outcomes/Goals: gradual wt loss Plan discussed with: Patient DELORIS HENNESSY MD Oct 01, 2024 14:23
== END 2024-10-01 18:00 | DRG 201 ==
LOC: ER 15:18 → EDBD 15:18 → OVERFLOW 17:23 → TELE-EAST 09-29 03:33
PROVIDERS: ADMIT Internal Medicine; ATTEND Internal Medicine
DX: R00.1 Bradycardia, unspecified (principal); I50.23 Acute on chronic systolic (congestive) heart failure; J44.1 Chronic obstructive pulmonary disease with (acute) exacerbation; I11.0 Hypertensive heart disease with heart failure; E66.9 Obesity, unspecified; D64.9 Anemia, unspecified; E03.9 Hypothyroidism, unspecified; Z68.31 Body mass index [BMI] 31.0-31.9, adult; T46.2X5A Adverse effect of other antidysrhythmic drugs, initial encounter; I48.91 Unspecified atrial fibrillation; E78.1 Pure hyperglyceridemia; F17.210 Nicotine dependence, cigarettes, uncomplicated; G89.29 Other chronic pain; M54.9 Dorsalgia, unspecified; Z74.01 Bed confinement status; Z90.710 Acquired absence of both cervix and uterus; Z90.49 Acquired absence of other specified parts of digestive tract; Z96.641 Presence of right artificial hip joint; Z86.711 Personal history of pulmonary embolism; Z85.9 Personal history of malignant neoplasm, unspecified; Z85.3 Personal history of malignant neoplasm of breast; Z83.3 Family history of diabetes mellitus; Z82.49 Family history of ischemic heart disease and other diseases of the circulatory system; Z80.1 Family history of malignant neoplasm of trachea, bronchus and lung; Z79.01 Long term (current) use of anticoagulants; Z88.5 Allergy status to narcotic agent; Z88.0 Allergy status to penicillin
CPT/HCPCS: 36415; 70450; 71045; 80053; 80061; 80307; 81001; 83735; 83880; 84443; 84484; 85025; 87081; 87086; 93005; 96372; G0378